=== PATIENT | female | born 1940 | race Caucasian/White ===

== ENCOUNTER 2017-03-11 08:48 | Observation (INO) | payer OTHER, MEDICARE ==
[2017-03-11 08:50] VITALS: BMI 25.6
[2017-03-11] MEDS ORDERED: ASPIRIN 325 MG TABLET PO ONE (09:46)
[2017-03-11] MEDS ORDERED: ASPIRIN 325 MG TABLET ONE (09:49)
--- NOTE | 2017-03-11 09:55 | PDOC ---
History of Present Illness <Nathalia Angulo - Last Filed: 03/11/17 12:39> <Theodore Pemberton - Last Filed: 03/11/17 12:48> - General Chief Complaint: Chest Pain Stated Complaint: CHEST PAIN Time Seen by Provider: 03/11/17 09:33 - History of Present Illness Initial Comments: 03/11/17 10:10 "76 year old female, with significant past medical history of renal cancer (s/p cystectomy with urostomy bag) and HTN, who presents to the emergency room complaining of 4 days of intermittent midsternal chest pain. The patient explains that over the past 4 days, she cannot walk as far and fast as she normally can due to CHAPPELL. She explains that she walks her dogs everyday and had to shorten the walk by half due to weakness and increased shortness of breath. Pt states that the pressure in her chest is also worsened with exertion. Pt also endorses orthopnea but denies any leg swelling. She has chronic RLE swelling that she states is unchanged. Pt denies any recent travel/ immobilization. Has had US in the past that was negative for DVT. Pt states that she feels minimal chest discomfort while at rest. Pt states that she has never had a stress test. Family history notable for grandmother who of heart failure. Denies leg swelling. Denies fever, chills, nausea, vomiting, abdominal pain. Denies heavy lifting. Allergies: NKDA Social Hx: Former tobacco use. No alcohol use. No drug use PCP: Dr. Pearson Urologist: Dr. Diez Manager Advertising: Dr. Samano [located in ] "\\ 03/11/17 11:18 (Theodore Pemberton) Past History <Nathalia Angulo - Last Filed: 03/11/17 12:39> - Past Medical History Anemia: No Asthma: No Cancer: Yes (BLADDER, KIDNEY) Cardiac Disorders: No CVA: No COPD: No CHF: No Dementia: No Diabetes: No GI Disorders: No Disorders: No HTN: No Hypercholesterolemia: No Liver Disease: No Seizures: No Thyroid Disease: No Other medical history: UROSTOMY TUBE - Surgical History Abdominal Surgery: No Cardiac Surgery: No Lung Surgery: No Neurologic Surgery: No - Suicide/Smoking/Psychosocial Hx Smoking History: Never smoked Have you smoked in the past 12 months: No If you are a former smoker, when did you quit?: 40 YRS AGO Hx Alcohol Use: No Drug/Substance Use Hx: No Substance Use Type: None Hx Substance Use Treatment: No <Theodore Pemberton - Last Filed: 03/11/17 12:48> - Past Medical History Allergies/Adverse Reactions: Allergies Allergy/AdvReac Type Severity Reaction Status Date / Time No Known Drug Allergies Allergy Verified 03/11/17 08:50 Home Medications: Ambulatory Orders Atenolol [Tenormin -] 25 mg PO DAILY 03/11/17 Diclofenac Sodium [Diclofenac Sodium ER] 100 mg PO DAILY 03/11/17 Cardiac Specific PMH - Complaint Specific PMHX Pacemaker: No <Theodore Pemberton - Last Filed: 03/11/17 12:48> Review of Systems <Nathalia Angulo - Last Filed: 03/11/17 12:39> <Theodore Pemberton - Last Filed: 03/11/17 12:48> - Review of Systems Comments:: 03/11/17 10:11 "GENERAL/CONSTITUTIONAL: No fever or chills. No weakness. HEAD, EYES, EARS, NOSE AND THROAT: No change in vision. No ear pain or discharge. No sore throat. CARDIOVASCULAR: +chest pain, SOB RESPIRATORY: No cough, wheezing, or hemoptysis. GASTROINTESTINAL: No nausea, vomiting, diarrhea or constipation. GENITOURINARY: No dysuria, frequency, or change in urination. MUSCULOSKELETAL: No joint or muscle swelling or pain. No neck or back pain. SKIN: No rash NEUROLOGIC: No headache, vertigo, loss of consciousness, or change in strength/ sensation. ENDOCRINE: No increased thirst. No abnormal weight change. HEMATOLOGIC/LYMPHATIC: No anemia, easy bleeding, or history of blood clots. ALLERGIC/IMMUNOLOGIC: No hives or skin allergy. " (Theodore Pemberton) *Physical Exam <Nathalia Angulo - Last Filed: 03/11/17 12:39> <Theodore Pemberton - Last Filed: 03/11/17 12:48> - Vital Signs Last Vital Signs Temp Pulse Resp BP Pulse Ox 63 20 152/97 99 03/11/17 08:48 03/11/17 08:48 03/11/17 08:48 03/11/17 08:48 - Physical Exam Comments: 03/11/17 10:12 "GENERAL: Awake, alert, and fully oriented, in no acute distress HEAD: No signs of trauma EYES: PERRLA, EOMI, sclera anicteric, conjunctiva clear ENT: Auricles normal inspection, hearing grossly normal, nares patent, oropharynx clear without exudates. Moist mucosa NECK: Nontender, no stepoffs, Normal ROM, supple, no lymphadenopathy, JVD, or masses LUNGS: Breath sounds equal, clear to auscultation bilaterally. No wheezes, and no crackles HEART: Regular rate and rhythm, normal S1 and S2, no murmurs, rubs or gallops ABDOMEN: Soft, nontender, normoactive bowel sounds. No guarding, no rebound. No masses EXTREMITIES: +1 RLE PE, Normal range of motion, no edema. No clubbing or cyanosis. No cords, erythema, or tenderness NEUROLOGICAL: Cranial nerves II through XII intact. 5/5 strength and sensation in all extremities, Normal speech, normal gait SKIN: Warm, Dry, normal turgor, no rashes or lesions noted. " (Theodore Pemberton) Heart Score/ECG Review <Nathalia Angulo - Last Filed: 03/11/17 12:39> - History History: Moderately suspicious - Electrocardiogram EKG: Normal - Age Age: >/= 65 - Risk Factors Risk Factors Heart Score: Yes Hx Hypertension, Yes Positive family hx of cardiac disease Based on the list above the patient has:: 1-2 risk factors - Troponin Troponin: </= normal limit - Score Heart Score - Total: 4 <Theodore Pemberton - Last Filed: 03/11/17 12:48> - ECG Impressions Comment:: 03/11/17 09:51 NSR, no MARLON/STDs, TWI in III, DE prolonged 244, QTc 420, left axis deviation (Theodore Pemberton) ED Treatment Course - LABORATORY CBC & Chemistry Diagram: 03/11/17 09:30 03/11/17 09:35 <Nathalia Angulo - Last Filed: 03/11/17 12:39> - LABORATORY CBC & Chemistry Diagram: 03/11/17 09:30 03/11/17 09:35 <Theodore Pemberton - Last Filed: 03/11/17 12:48> - ADDITIONAL ORDERS Additional order review: Laboratory Results 03/11/17 03/11/17 09:40 09:35 Sodium 137 Potassium 5.2 H Chloride 106 Carbon Dioxide 22 Anion Gap 9 BUN 47 H D Creatinine 2.7 H D Creat Clearance w eGFR 17.23 Random Glucose 98 Calcium 8.5 Total Bilirubin 0.3 D AST 5 L D ALT 11 L D Alkaline Phosphatase 85 D Troponin I < 0.02 B-Natriuretic Peptide Cancelled 1385.22 H Total Protein 6.7 Albumin 3.1 L Lipase 108 03/11/17 09:30 RBC 4.31 MCV 80.2 MCHC 31.4 L RDW 13.1 MPV 8.9 Neutrophils % 71.9 D Lymphocytes % 16.9 D Monocytes % 9.4 Eosinophils % 1.1 Basophils % 0.7 - RADIOLOGY Radiology Studies Ordered: Category Date Time Status DUPLEX VASCUL US-1 LEG [US] Stat Ultrasound 03/11/17 09:55 Completed Radiograph Interpretation: 03/11/17 10:43 EXAM#: TYPE/EXAM: RESULT: [id number] RAD/CHEST PA LAT Chest pain. 2 views of the chest compared with March 17, 2016. Midline trachea. No evidence of widening of the superior mediastinum. Uncoiled thoracic aorta. No evidence of cardiomegaly. Lungs are well aerated. No evidence of pneumonia, CHF, pleural effusion or pneumothorax. Impression No evidence of active pulmonary disease. Reported By: Ezequiel Nava MD 03/11/17 1030 03/11/17 12:39 EXAM#: TYPE/EXAM: RESULT: [id number] US/DUPLEX VASCUL US-1 LEG Right lower extremity swelling. Rule out DVT Right lower extremity Doppler venous ultrasound. Grayscale, pulsed Doppler and color Doppler interrogation of the right lower extremity deep venous system was performed. The right common femoral vein, superficial femoral vein, popliteal and posterior tibial vein were identified with a normal phasic waveform, adequate compressibility and adequate response to augmentation. Visualized portion of the greater saphenous and deep femoral vein are patent No Fontanez's cyst is identified in the popliteal fossa. Impression: There is no evidence of deep venous thromboses in the right lower extremity. Reported By: Haydee Elliott MD 03/11/17 1130 (Nathalia Angulo) - Medications Given in the ED: ED Medications Discontinued Medications Generic Name Dose Route Start Last Admin Trade Name Jas PRN Reason Stop Dose Admin Aspirin 325 mg 03/11/17 09:46 03/11/17 09:51 Asa - PO 03/11/17 09:47 325 mg ONCE ONE Administration Sodium Chloride 500 mls @ 1,000 mls/hr 03/11/17 11:18 03/11/17 11:55 Normal Saline - IV 03/11/17 11:47 1,000 mls/hr ASDIR STA Administration Medical Decision Making <aNthalia Angulo - Last Filed: 03/11/17 12:39> <Theodore Pemberton - Last Filed: 03/11/17 12:48> - Medical Decision Making 03/11/17 09:52 76 F with exertional chest pressure and CHAPPELL. EKG nonischemic, but presentation concerning for ACS. Pt with no pleuritic chest pain, no hypoxia or tachycardia to suggest PE. Has chronic RLE swelling that is reportedly unchanged but will obtain US to r/o DVT. If positive, will consider CTA to r/o PE. - Labs, trop - CXR - US RLE - Admit tele 03/11/17 12:47 CBC,CMP WBC 14.2 K/mm3 (4.0-10.0) H D 03/11/17 09:30 RBC 4.31 M/mm3 (3.60-5.2) 03/11/17 09:30 Hgb 10.9 GM/dL (10.7-15.3) 03/11/17 09:30 Hct 34.6 % (32.4-45.2) 03/11/17 09:30 MCV 80.2 fl (80-96) 03/11/17 09:30 MCH 25.2 pg (25.7-33.7) L 03/11/17 09:30 MCHC 31.4 g/dl (32.0-36.0) L 03/11/17 09:30 RDW 13.1 % (11.6-15.6) 03/11/17 09:30 Plt Count 346 K/MM3 (134-434) D 03/11/17 09:30 MPV 8.9 fl (7.5-11.1) 03/11/17 09:30 Neutrophils % 71.9 % (42.8-82.8) D 03/11/17 09:30 Lymphocytes % 16.9 % (8-40) D 03/11/17 09:30 Monocytes % 9.4 % (3.8-10.2) 03/11/17 09:30 Eosinophils % 1.1 % (0-4.5) 03/11/17 09:30 Basophils % 0.7 % (0-2.0) 03/11/17 09:30 Sodium 137 mmol/L (136-145) 03/11/17 09:35 Potassium 5.2 mmol/L (3.5-5.1) H 03/11/17 09:35 Chloride 106 mmol/L (98-107) 03/11/17 09:35 Carbon Dioxide 22 mmol/L (21-32) 03/11/17 09:35 Anion Gap 9 (8-16) 03/11/17 09:35 BUN 47 mg/dL (7-18) H D 03/11/17 09:35 Creatinine 2.7 mg/dL (0.55-1.02) H D 03/11/17 09:35 Creat Clearance w eGFR 17.23 (>60) 03/11/17 09:35 Random Glucose 98 mg/dL (74-106) 03/11/17 09:35 Calcium 8.5 mg/dL (8.5-10.1) 03/11/17 09:35 Total Bilirubin 0.3 mg/dL (0.2-1.0) D 03/11/17 09:35 AST 5 U/L (15-37) L D 03/11/17 09:35 ALT 11 U/L (12-78) L D 03/11/17 09:35 Alkaline Phosphatase 85 U/L (45-117) D 03/11/17 09:35 Troponin I < 0.02 ng/ml (0.00-0.05) 03/11/17 09:35 B-Natriuretic Peptide Cancelled 03/11/17 09:40 Total Protein 6.7 g/dl (6.4-8.2) 03/11/17 09:35 Albumin 3.1 g/dl (3.4-5.0) L 03/11/17 09:35 Lipase 108 U/L (73-393) 03/11/17 09:35 Labs notable for MANDY with Cr up to 2.7, previously <2. IVF ordered. Pt with negative troponin. Pt admitted to Dr. Pearson for further evaluation of chest pain and MANDY. Case discussed in detail with admitting physician including history, physical exam and ancillary studies. Admitting physician has assumed care for the patient and will follow all pending diagnostics and complete the evaluation and treatment. (Theodore Pemberton) *DC/Admit/Observation/Transfer <Nathalia Angulo - Last Filed: 03/11/17 12:39> - Discharge Dispostion Admit: Yes <Theodore Pemberton - Last Filed: 03/11/17 12:48> Diagnosis at time of Disposition: Chest pain, MANDY (acute kidney injury) - Attestations Physician Attestion: 03/11/17 12:48 I, Dr. Theodore Pemberton MD, attest that this document has been prepared under my direction and personally reviewed by me in its entirety. I further attest, that it accurately reflects all work, treatment, procedures and medical decision -making performed by me. (Theodore Pemberton)
[2017-03-11 10:29] LABS: BASOPHIL 0.7 % (0-2.0); EOSINOPHIL 1.1 % (0-4.5); MCH 25.2 pg (25.7-33.7); MCHC 31.4 g/dl (32.0-36.0); MEAN CELL VOLUME 80.2 fl (80-96); MEAN PLT VOLUME 8.9 fl (7.5-11.1); NEUTROPHILS 71.9 % (42.8-82.8); PLATELET COUNT 346 K/MM3 (134-434); RDW 13.1 % (11.6-15.6); WHITE BLOOD COUNT 14.2 K/mm3 (4.0-10.0)
[2017-03-11 10:57] LABS: ALBUMIN 3.1 g/dl (3.4-5.0); ANION GAP 9 (8-16); CALCIUM 8.5 mg/dL (8.5-10.1); CO2 22 mmol/L (21-32); GLUCOSE,RANDOM 98 mg/dL (74-106)
[2017-03-11 11:03] LABS: ALK PHOS 85 U/L (45-117); BILIRUBIN,TOTAL 0.3 mg/dL (0.2-1.0); CREATININE 2.7 mg/dL (0.55-1.02); SGOT/AST 5 U/L (15-37); SGPT/ALT 11 U/L (12-78); TOT PROT 6.7 g/dl (6.4-8.2); TROPONIN I < 0.02 ng/ml (0.00-0.05)
[2017-03-11] MEDS ORDERED: SODIUM CHLORIDE 500 ML IV STA (11:18)
--- NOTE | 2017-03-11 12:55 | EKG ---
Test Reason : Blood Pressure : / mmHG Vent. Rate : 057 BPM Atrial Rate : 057 BPM P-R Int : 244 ms QRS Dur : 096 ms QT Int : 432 ms P-R-T Axes : 054 -46 016 degrees QTc Int : 420 ms SINUS BRADYCARDIA WITH 1ST DEGREE A-V BLOCK LEFT ANTERIOR FASCICULAR BLOCK ABNORMAL ECG WHEN COMPARED WITH ECG OF 17-MAR-2016 12:01, PREMATURE SUPRAVENTRICULAR COMPLEXES ARE NO LONGER PRESENT Confirmed by ROBERT WEBBER MD ([id number]) on 03/11/2017 12:54:39 PM Referred By: Confirmed By:ROBERT WEBBER MD
[2017-03-11 16:27] LABS: URINE APPEARANCE TURBID; URINE BILIRUBIN NEGATIVE (NEGATIVE); URINE BLOOD 2+ (NEGATIVE); URINE COLOR YELLOW; URINE GLUCOSE (UA) NEGATIVE (NEGATIVE); URINE KETONE NEGATIVE (NEGATIVE); URINE NITRITE NEGATIVE (NEGATIVE); URINE UROBILINOGEN NEGATIVE mg/dL (0.2-1.0)
[2017-03-11 16:54] LABS: URINE PROTEIN 2+ (NEGATIVE)
[2017-03-11 17:01] LABS: URINE BACTERIA RARE /hpf (NONE SEEN); URINE MUCUS RARE; URINE RBC 52 /hpf (0-3); URINE WBC 1824 /hpf (3-5)
[2017-03-11 19:56] LABS: URINE LEUK ESTERASE 3+ (NEGATIVE)
--- NOTE | 2017-03-11 21:08 | HP ---
Admitting History and Physical - Admission Chief Complaint: chest pain for 4 days History of Present Illness: 76 year old female, with significant past medical history of bladder cancer (s/ p cystectomy with urostomy bag) and HTN, who presents to the emergency room complaining of 4 days of intermittent midsternal chest pain. The patient explains that over the past 4 days, she cannot walk as far and fast as she normally can due to CHAPPELL. She explains that she walks her dogs everyday and had to shorten the walk by half due to weakness and increased shortness of breath. Pt states that the pressure in her chest is also worsened with exertion. Pt also endorses orthopnea but denies any leg swelling. She has chronic RLE swelling that she states is unchanged. Pt denies any recent travel/ immobilization. Has had US in the past that was negative for DVT. Pt states that she feels minimal chest discomfort while at rest. History Source: Patient, Medical Record Limitations to Obtaining History: No Limitations - Past Medical History BOOTH USHER: No: Alzheimer's, CVA, Dementia, Migraine, Multiple Sclerosis, Peripheral Neuropathy, Parkinson's, Seizure, Syncope, TIA, Vertigo, Other Cardiovascular: Yes: HTN Pulmonary: No: Asthma, Bronchitis, Cancer, COPD, O2 Dependent, Pneumonia, Previously Intubated, Pulmonary Embolus, Pulmonary Fibrosis, Sleep Apnea, Other Gastrointestinal: No: Ascites, Cancer, Constipation, Crohn's Disease, Diverticulitis, Diverticulosis, Esophageal Varices, Gastritis, GERD, GI Bleed, Hemorrhoids, Hiatal Hernia, Inflamatory Bowel Disease, Irritable Bowel Disease, Pancreatitis, Peptic Ulcer Disease, Ulcerative Colitis, Other Hepatobiliary: No: Cirrhosis, Cholelithiasis, Cholecystitis, Choledocholithiasis , Hepatitis A, Hepatitis B, Hepatitis C, Other Renal/: Yes: Renal Inusuff, Cancer, Other (bladder ca s/p cystectomy) Heme/Onc: Yes: Anemia Infectious Disease: No: AIDS, C-Diff, Herpes Zoster, HIV, MRSA, STD's, Tuberculosis, VREF, Other Psych: No: Addictions, Anxiety, Bipolar, Depression, Panic, Psychosis, Schizophrenia, Other Musculoskeletal: No: Bursitis, Chronic low back pain, Hemiparesis, Hemiplegia, Osteoarthritis, Paraplegia, Other Rheumatology: No: Fibromyalgia, Gout, Lupus, Rheumatoid Arthritis, Sarcoidosis, Vasculitis, Other ENT: No: Allergic Rhinitis, Sinusitis, Other Endocrine: No: [place]'s Disease, Christine's Disease, Diabetes Insipidus, Diabetes Mellitus, Hyperparathyroidism, Hyperthyroidism, Hypothyroidism, Osteopenia, SIADH, Other - Past Surgical History Past Surgical History: Yes: Cystectomy - Smoking History Smoking history: Never smoked Have you smoked in the past 12 months: No If you are a former smoker, when did you quit?: 40 YRS AGO - Alcohol/Substance Use Hx Alcohol Use: No History of Substance Use: reports: None - Social History Usual Living Arrangement: Yes: Alone ADL: Independent History of Recent Travel: No Home Medications - Allergies Allergies/Adverse Reactions: Allergies Allergy/AdvReac Type Severity Reaction Status Date / Time No Known Drug Allergies Allergy Verified 03/11/17 08:50 - Home Medications Home Medications: Ambulatory Orders Ascorbate Calcium [Vitamin C] 500 mg PO DAILY 03/11/17 Atenolol [Tenormin -] 25 mg PO DAILY 03/11/17 Calcium Carbonate [Calcium] 1,000 mg PO DAILY 03/11/17 Diclofenac Sodium [Diclofenac Sodium ER] 100 mg PO HS 03/11/17 Glucosa López 2Kcl/Chondroitin López [Glucosamine & Chondroitin Cap] 1 each PO DAILY 03/11/17 Family Disease History - Family Disease History Family History: Unremarkable Review of Systems - Review of Systems Cardiovascular: reports: Chest Pain, Shortness of Breath Respiratory: reports: Exercise Intolerance, Orthopnea Gastrointestinal: reports: No Symptoms Genitourinary: reports: No Symptoms Breasts: reports: No Symptoms Reported Musculoskeletal: reports: No Symptoms Integumentary: reports: No Symptoms Neurological: reports: No Symptoms Physical Examination Vital Signs: Vital Signs Temperature 98.9 F 03/11/17 20:33 Pulse Rate 60 03/11/17 20:33 Respiratory Rate 18 03/11/17 20:33 Blood Pressure 133/66 03/11/17 20:33 O2 Sat by Pulse Oximetry (%) 98 03/11/17 14:50 Constitutional: Yes: Calm Eyes: Yes: EOM Intact HENT: Yes: Normocephalic Neck: Yes: Trachea Midline Cardiovascular: Yes: Regular Rate and Rhythm, S1, S2 Respiratory: Yes: Regular Gastrointestinal: Yes: Normal Bowel Sounds ...Rectal Exam: Yes: Deferred Musculoskeletal: Yes: WNL Extremities: Yes: WNL Edema: LLE: Trace, RLE: 1+ Integumentary: Yes: WNL Neurological: Yes: WNL ...Motor Strength: WNL Psychiatric: Yes: WNL Labs: CBC, BMP 03/11/17 09:30 03/11/17 09:35 Imaging - Results Chest X-ray: Report Reviewed, Image Reviewed EKG: Report Reviewed, Image Reviewed Problem List - Problems (1) MANDY (acute kidney injury) Code(s): N17.9 - ACUTE KIDNEY FAILURE, UNSPECIFIED (2) Chest pain Code(s): R07.9 - CHEST PAIN, UNSPECIFIED (3) Chest tightness Code(s): R07.89 - OTHER CHEST PAIN Assessment/Plan Well known by our service :4 days of midsternal chest tightness more with exertion and associated with worsening chappell. pt also states chest pain is worse when lying down and relieved somewhat by sitting upright ( orthopnea?) r/o unstable angina elevated bnp likely due to underlying worsening renal insufficiency h/o carcinoma s/p total cystectomy have ordered echo/ct chest/serial trops/ekg am/cardio eval/have begun toprol xl/ asa/o2/ renal eval/b/l renal ultrasound/IV fluid trial Dacia MEZA MD
[2017-03-11 23:00] LABS: CPK 26 IU/L (26-192); TROPONIN I < 0.02 ng/ml (0.00-0.05)
--- NOTE | 2017-03-12 08:51 | CON.CARD ---
Cardiology Consult (text) - Consultation Consultation Note: Cardiology Consult Dictated IMP: Atypical chest pain Chronic HTN H/o bladder CA s/p cystectomy REC: Her description of the pain is non-cardiac: positional and non-exertional and now completely resolved after a bowel movement yesterday. Doubt cardiac. Low clinical suspicion for PE. Recommend stress MIBI today for further CV risk stratification (HTN, post- menopausal, age >50, former smoker)
[2017-03-12] MEDS ORDERED: ASPIRIN COATED 81 MG TABLET.EC PO SCH (10:00)
--- NOTE | 2017-03-12 10:23 | CONS ---
DATE OF CONSULTATION: 03/12/2017 REQUESTING PHYSICIAN: Luis Antonio Pearson MD REASON FOR CONSULTATION: Chest pain. HISTORY OF PRESENT ILLNESS: This is a 76-year-old female with past medical history of hypertension and bladder cancer status post cystectomy and hysterectomy several years ago, who presented to the hospital with several days of central chest tightness, worse when lying down, alleviated when standing up. She noted several days of constipation prior to that. She denies exertional chest pain, shortness of breath, palpitations, PND, orthopnea. No recent prolongated travel. The discomfort was relieved completely yesterday after a large bowel movement. She walks her dog regularly about 3 times per day and denies cardiac symptoms. She has not had a stress test in the last 3-5 years, although she did see a industrial design intern at [facility] prior to her cystectomy. PAST MEDICAL HISTORY: Is as above. ALLERGIES: She has no known drug allergies. HOME MEDICATIONS: Include vitamin C, atenolol 25 mg daily. FAMILY HISTORY: Noncontributory. SOCIAL HISTORY: She smoked briefly between the ages of 22 and 27, quit at the age of 27. PHYSICAL EXAMINATION: General: She is in no distress. Vital signs: Temperature 98.1, blood pressure 121/64, oxygen saturation 98% on room air. Neck: No bruits. Heart: S1, S2 regular. Chest: Clear. Abdomen: Soft, nontender. Extremities: No edema. LABORATORIES: Were significant for a white count of 14,000, platelets 346, hematocrit was normal. Sodium 137, potassium 5.2, BUN and creatinine showed a prerenal pattern with a BUN of 47, creatinine of 2.7. CK and troponin were negative x2 sets. BNP was mildly elevated 1385. A chest CT without contrast was performed on admission and showed mildly dilated pulmonary artery 3.5 cm. Lower extremity duplex was performed and was negative for DVT. There was no evidence of pneumonia or pulmonary edema. There was a 2-mm non-calcified right upper lung nodule. There was also moderate right hydronephrosis with a distended renal pelvis and a dilated aortic arch of 3.5. Her EKG showed sinus bradycardia, 1st degree AV block with nonspecific ST changes. IMPRESSION: 1. Atypical chest pain. 2. Chronic hypertension. 3. History of bladder cancer status post cystectomy. Her cardiac symptoms appear to be non-cardiac, positional and non-exertional in nature, almost completely resolved after a bowel movement. RECOMMENDATIONS: 1. In light of her several risk factors (postmenopausal status, hypertension, and former smoker), stress test will be obtained today for further risk stratification and further recommendations regarding discharge after the stress test. 2. Further workup of renal insufficiency, which is likely prerenal, as per primary medical doctor. 3. Hydronephrosis noted on CT scan, may be chronic and a result of her previous surgery - That will be deferred to her primary physician. Thank you for the consultation. MIREILLE HANNON M.D. [id number]
--- NOTE | 2017-03-12 11:08 | CON.NEP ---
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 It is associated with SOB and weakness when walking. She states that the pain started 5 days ago, constant, diffuse, radiating to the back. She states that the pain improved with BM last night. The pt followed Dr. Longo-manager film for some time in the past. She denies abdominal pain, dizziness, lightheadedness. She denies change in colon of her urine in urostomy bag, fever, chills. - Past Medical History SOLUTION ANALYST: No: Alzheimer's, CVA, Dementia, Migraine, Multiple Sclerosis, Peripheral Neuropathy, Parkinson's, Seizure, Syncope, TIA, Vertigo, Other Cardio/Vascular: Yes: HTN Pulmonary: No: Asthma, Bronchitis, Cancer, COPD, O2 Dependent, Pneumonia, Previously Intubated, Pulmonary Embolus, Pulmonary Fibrosis, Sleep Apnea, Other Gastrointestinal: No: Ascites, Cancer, Constipation, Crohn's Disease, Diverticulitis, Diverticulosis, Esophageal Varices, Gastritis, GERD, GI Bleed, Hemorrhoids, Hiatal Hernia, Inflamatory Bowel Disease, Irritable Bowel Disease, Pancreatitis, Peptic Ulcer Disease, Ulcerative Colitis, Other Hepatobiliary: No: Cirrhosis, Cholelithiasis, Cholecystitis, Choledocholithiasis , Hepatitis A, Hepatitis B, Hepatitis C, Other Renal/: Yes: Renal Inusuff, Cancer, Other (bladder ca s/p cystectomy) Infectious Disease: No: AIDS, C-Diff, Herpes Zoster, HIV, MRSA, STD's, Tuberculosis, VREF, Other Psych: No: Addictions, Anxiety, Bipolar, Depression, Panic, Psychosis, Schizophrenia, Other Musculoskeletal: No: Bursitis, Chronic low back pain, Hemiparesis, Hemiplegia, Osteoarthritis, Paraplegia, Other Rheumatology: No: Fibromyalgia, Gout, Lupus, Rheumatoid Arthritis, Sarcoidosis, Vasculitis, Other ENT: No: Allergic Rhinitis, Sinusitis, Other Endocrine: No: Cholo's Disease, Linch's Disease, Diabetes Insipidus, Diabetes Mellitus, Hyperparathyroidism, Hyperthyroidism, Hypothyroidism, Osteopenia, SIADH, Other - Past Surgical History Past Surgical History: Yes: Cystectomy, Nephrectomy - Alcohol/Substance Use Hx Alcohol Use: No History of Substance Use: reports: None - Smoking History Smoking history: Never smoked Have you smoked in the past 12 months: No If you are a former smoker, when did you quit?: 40 YRS AGO - Social History ADL: Independent History of Recent Travel: No Home Medications - Allergies Allergies/Adverse Reactions: Allergies Allergy/AdvReac Type Severity Reaction Status Date / Time No Known Drug Allergies Allergy Verified 03/11/17 08:50 - Home Medications Home Medications: Ambulatory Orders Ascorbate Calcium [Vitamin C] 500 mg PO DAILY 03/11/17 Atenolol [Tenormin -] 25 mg PO DAILY 03/11/17 Calcium Carbonate [Calcium] 1,000 mg PO DAILY 03/11/17 Diclofenac Sodium [Diclofenac Sodium ER] 100 mg PO HS 03/11/17 Glucosa López 2Kcl/Chondroitin López [Glucosamine & Chondroitin Cap] 1 each PO DAILY 03/11/17 Family Disease History - Family Disease History Family Disease History: Other: Father (prostate Ca), Mother (CHF) Review of Systems - Review of Systems Constitutional: reports: No Symptoms Eyes: reports: No Symptoms HENT: reports: No Symptoms Neck: reports: No Symptoms Cardiovascular: reports: No Symptoms Respiratory: reports: No Symptoms Gastrointestinal: reports: No Symptoms Genitourinary: reports: No Symptoms Musculoskeletal: reports: No Symptoms Neurological: reports: No Symptoms Endocrine: reports: No Symptoms Psychiatric: reports: No Symptoms Nephrology Consult - Height Height: 5 ft 2 in - Weight Weight: 140 lb - BMI Body Mass Index (BMI): 25.6 - Lab Results CBC,BMP: CBC, BMP 03/11/17 09:30 03/11/17 09:35 Anion Gap: Anion Gap Anion Gap 9 (8-16) 03/11/17 09:35 - Physical Examination Vital Signs: Vital Signs Temperature 98.2 F 03/12/17 09:00 Pulse Rate 72 03/12/17 09:00 Respiratory Rate 14 03/12/17 09:00 Blood Pressure 140/70 03/12/17 09:00 O2 Sat by Pulse Oximetry (%) 98 03/12/17 09:00 Constitutional: Yes: Well Nourished, No Distress, Calm Eyes: Yes: WNL, Conjunctiva Clear, EOM Intact, PERRL HENT: Yes: WNL, Atraumatic, Normocephalic Neck: Yes: WNL, Supple, Trachea Midline Cardiovascular: Yes: WNL, Regular Rate and Rhythm, S1, S2. No: Murmur Respiratory: Yes: WNL, Regular, CTA Bilaterally Gastrointestinal: Yes: WNL, Normal Bowel Sounds, Soft, Other (urostomy in RLQ) Renal/: Yes: Other (urostomy). No: CVA Tenderness - Left, CVA Tenderness - Right Extremities: Yes: WNL Edema: Yes Edema: LLE: 1+, RLE: 1+ Neurological: Yes: WNL, Alert, Oriented Psychiatric: Yes: WNL, Alert, Oriented Problem List - Problems (1) Hypertension Code(s): I10 - ESSENTIAL (PRIMARY) HYPERTENSION (2) Cancer of genitourinary organ Code(s): PKC2436 - (3) MANDY (acute kidney injury) Code(s): N17.9 - ACUTE KIDNEY FAILURE, UNSPECIFIED (4) Chest pain Code(s): R07.9 - CHEST PAIN, UNSPECIFIED (5) Chest tightness Code(s): R07.89 - OTHER CHEST PAIN Assessment/Plan This is a pt with PMH of Ca, s/p resection, HTN who presented to the hospital complaining of chest tightness. She was found to have MANDY. 1AKI 2chest tightness 3HTN -Cr increased to 2.7 from 1.7 about month ago -will monitor Cr later today and f/u renal US -avoid NSAIDS and f/u as outpatient -cardiac stress test was negative, continue Atenolol Thank you for this consultative opportunity.
--- NOTE | 2017-03-12 12:54 | EKG ---
Test Reason : Blood Pressure : / mmHG Vent. Rate : 067 BPM Atrial Rate : 067 BPM P-R Int : 214 ms QRS Dur : 092 ms QT Int : 414 ms P-R-T Axes : 063 -42 -01 degrees QTc Int : 437 ms SINUS RHYTHM WITH 1ST DEGREE A-V BLOCK WITH PREMATURE ATRIAL COMPLEXES LEFT AXIS DEVIATION ABNORMAL ECG WHEN COMPARED WITH ECG OF 11-MAR-2017 08:52, PREMATURE ATRIAL COMPLEXES ARE NOW PRESENT Confirmed by ABEL FAITH, LUCAS ([id number]) on 03/12/2017 12:54:26 PM Referred By: Confirmed By:LUCAS ROMAN MD
[2017-03-12] MEDS: METOPROLOL SUCCINATE 25 MG TAB.SR.24H (FP) PO SCH ×2 (14:11→14:17)
--- NOTE | 2017-03-12 15:06 | DS ---
Physical Examination Vital Signs: Vital Signs Temperature 98.2 F 03/12/17 09:00 Pulse Rate 72 03/12/17 09:00 Respiratory Rate 14 03/12/17 09:00 Blood Pressure 140/70 03/12/17 09:00 O2 Sat by Pulse Oximetry (%) 98 03/12/17 09:00 Constitutional: Yes: Calm Eyes: Yes: Conjunctiva Clear, EOM Intact HENT: Yes: Atraumatic, Normocephalic Neck: Yes: Supple, Trachea Midline Cardiovascular: Yes: Regular Rate and Rhythm Respiratory: Yes: Regular, CTA Bilaterally Gastrointestinal: Yes: Normal Bowel Sounds, Soft. No: Tenderness Edema: No Neurological: Yes: Alert, Oriented Labs: CBC, BMP 03/11/17 09:30 03/11/17 09:35 Discharge Summary Reason For Visit: CHEST TIGHTNESS Current Active Problems MANDY (acute kidney injury) (Acute) Cancer of genitourinary organ (Acute) Chest pain (Acute) Hypertension (Acute) Procedures: Principal: stress test Other Procedures: IVF Hospital Course: 76yo female with h/o HTN, bladder ca s/p cystectomy who was admitted after complaining of chest pain. Found to have acute on chronic renal failure with hyperkalemia. Started on IVF, underwent an exercise stress test which was negative for ischemic finding. CT chest unremarkable aside from a 3.5cm AAA. Renal ultrasound pending. Symptoms have since resolved. Repeat labs pending. Condition: Improved - Instructions Referrals: Luis Antonio Pearson MD [Primary Care Provider] - Miguel Angel Peace MD [Staff Physician] - Disposition: HOME - Home Medications Comprehensive Discharge Medication List: Ambulatory Orders Ascorbate Calcium [Vitamin C] 500 mg PO DAILY 03/11/17 Atenolol [Tenormin -] 25 mg PO DAILY 03/11/17 Calcium Carbonate [Calcium] 1,000 mg PO DAILY 03/11/17 Diclofenac Sodium [Diclofenac Sodium ER] 100 mg PO HS 03/11/17 Glucosa López 2Kcl/Chondroitin López [Glucosamine & Chondroitin Cap] 1 each PO DAILY 03/11/17
[2017-03-12 15:27] VITALS: BP 119/69; PULSE 93; TEMP 98
--- NOTE | 2017-03-12 15:28 | PN ---
Teaching Attending Note Name of Resident: Ania Melgar (Nephrology) ATTENDING PHYSICIAN STATEMENT I saw and evaluated the patient. I reviewed the resident's note and discussed the case with the resident. I agree with the resident's findings and plan as documented. Nephrology Pt is a 76 year old female with pmhx of renal cancer s/p nephrectomy and cystectomy. She presented with chest pain and admitted for workup. She was found to have elevated creatinine and I was called to evaluate her. She takes nsaids daily. She has not followed with a bench lay out technician. She denies shortness of breath. She is requesting to go home. pmhx renal/bladder cancer, htn pshx nephrectomy, cystectomy nkda ros denies family hx non contrib Current Medications Generic Name Dose Route Start Last Admin Trade Name Freq PRN Reason Stop Dose Admin Aspirin 81 mg 03/12/17 10:00 03/12/17 14:12 Ecotrin - PO 81 mg DAILY RON Administration Metoprolol Succinate 12.5 mg 03/12/17 10:00 03/12/17 14:17 Toprol Xl - PO Not Given DAILY RON Laboratory Tests 03/11/17 03/11/17 03/11/17 09:30 09:35 15:59 WBC 14.2 H D Hgb 10.9 Sodium 137 Potassium 5.2 H BUN 47 H D Creatinine 2.7 H D Urine Protein 2+ H Urine Blood 2+ H Last Vital Signs Temp Pulse Resp BP Pulse Ox 98.2 F 72 14 140/70 98 03/12/17 09:00 03/12/17 09:00 03/12/17 09:00 03/12/17 09:00 03/12/17 09:00 cardio s1s2 reg pulm clear GI soft, conduit is clean ext trace edema neuro awake Impression 1. CKD 2. chest pain 3. hyperkalemia 4. htn 5. proteinuria 6. nsaid use Plan - repeat bmp - check renal ultrasound - pt refusing input workup and does not want to see anyone as outpt either - discussed NSAID use at length with pt, she takes them daily for joint pain - discussed with resident - discussed with medical team Dr Peace
[2017-03-12 16:56] LABS: ALBUMIN 3.2 g/dl (3.4-5.0); ALK PHOS 79 U/L (45-117); ANION GAP 9 (8-16); BILIRUBIN,TOTAL 0.2 mg/dL (0.2-1.0); CALCIUM 9.2 mg/dL (8.5-10.1); CO2 24 mmol/L (21-32); CREATININE 2.2 mg/dL (0.55-1.02); GLUCOSE,RANDOM 189 mg/dL (74-106); SGOT/AST 5 U/L (15-37); SGPT/ALT 10 U/L (12-78); TOT PROT 6.4 g/dl (6.4-8.2)
== END 2017-03-12 18:23 | disposition home or self-care (01) ==
LOC: JER 08:48 → JERBED 12:48 → J4W 16:18
PROVIDERS: ADMIT Specialist; ATTEND Specialist
PROC: 3E0337Z Introduction of Electrolytic and Water Balance Substance into Peripheral Vein, Percutaneous Approach (ICD-10-PCS; principal; 2017-03-11)
DX: R07.89 Other chest pain (principal); I12.9 Hypertensive chronic kidney disease with stage 1 through stage 4 chronic kidney disease, or unspecified chronic kidney disease; N18.9 Chronic kidney disease, unspecified; Z85.51 Personal history of malignant neoplasm of bladder; Z85.528 Personal history of other malignant neoplasm of kidney; Z82.49 Family history of ischemic heart disease and other diseases of the circulatory system; Z93.6 Other artificial openings of urinary tract status
CPT/HCPCS: 36415; 71020-TC; 71250-TC; 76775-TC; 78452-TC; 80048; 80053; 81003; 81015; 82550; 83690; 83880; 84484; 85025; 93005; 93010; 93017; 93306-TC; 93971-TC; 99285-25; A9502; G0378

== ENCOUNTER 2017-03-31 08:00 | Inpatient (IN) | payer OTHER, MEDICARE ==
--- NOTE | 2017-03-31 09:07 | PDOC ---
History of Present Illness - General History Source: Patient Exam Limitations: No Limitations - History of Present Illness Initial Comments: 03/31/17 10:00 The patient is a 76 year old female, with a significant past medical history of Bladder CA (s/p Cystectomy in 2016), Kidney CA (s/p L nephrectomy in 2014), HTN who presents to the emergency department with chest tightness and generalized weakness for the past 5 days. Patient was reports chest tightness upon exertion , 3/10 in severity with associated fatigue and generalized weakness. Patient was seen by Dr. Paris however was sent to the ED for further evaluation. Note, patient reports full cardiac workup 2-3 weeks ago including stress test and echocardiogram which was negative. Patient denies chest pain, headache or dizziness. Patient denies fever, chills, abdominal pain, nausea, vomit, diarrhea or constipation. Patient denies dysuria , frequency, urgency or hematuria. Patient denies sick contacts or recent travel. Allergies: NKA Past surgical history: Cystectomy in 2016, L nephrectomy in 2014) Social history: None PCP: Dr. Pearson Cardio: Raina Neph: Kobi <Nilsa Quinones - Last Filed: 03/31/17 10:21> <Clarice Kelley - Last Filed: 03/31/17 12:45> - General Chief Complaint: Chest Pain Stated Complaint: TIGHTNESS IN CHEST Time Seen by Provider: 03/31/17 08:32 Past History <Nilsa Quinones - Last Filed: 03/31/17 10:21> - Past Medical History Anemia: No Asthma: No Cancer: Yes (BLADDER, KIDNEY) Cardiac Disorders: No CVA: No COPD: No CHF: No Dementia: No Diabetes: No GI Disorders: No Disorders: No HTN: Yes Hypercholesterolemia: No Liver Disease: No Seizures: No Thyroid Disease: No - Surgical History Abdominal Surgery: No Cardiac Surgery: No Lung Surgery: No Neurologic Surgery: No - Suicide/Smoking/Psychosocial Hx Smoking History: Former smoker Have you smoked in the past 12 months: No If you are a former smoker, when did you quit?: 40 YRS AGO Information on smoking cessation initiated: No Hx Alcohol Use: No Drug/Substance Use Hx: No Substance Use Type: None Hx Substance Use Treatment: No <Clarice Kelley - Last Filed: 03/31/17 12:45> - Past Medical History Allergies/Adverse Reactions: Allergies Allergy/AdvReac Type Severity Reaction Status Date / Time No Known Drug Allergies Allergy Verified 03/31/17 08:01 Home Medications: Ambulatory Orders Ascorbate Calcium [Vitamin C] 500 mg PO DAILY 03/11/17 Atenolol [Tenormin -] 25 mg PO DAILY 03/11/17 Calcium Carbonate [Calcium] 1,000 mg PO DAILY 03/11/17 Diclofenac Sodium [Diclofenac Sodium ER] 100 mg PO HS 03/11/17 Glucosa López 2Kcl/Chondroitin López [Glucosamine & Chondroitin Cap] 1 each PO DAILY 03/11/17 Review of Systems - Review of Systems Able to Perform ROS?: Yes Comments:: 03/31/17 10:00 GENERAL/CONSTITUTIONAL: No fever or chills. +Generalized weakness. HEAD, EYES, EARS, NOSE AND THROAT: No change in vision. No ear pain or discharge. No sore throat. GASTROINTESTINAL: No nausea, vomiting, diarrhea or constipation. GENITOURINARY: No dysuria, frequency, or change in urination. CARDIOVASCULAR: +chest pain. No shortness of breath. RESPIRATORY: No cough, wheezing, or hemoptysis. MUSCULOSKELETAL: No joint or muscle swelling or pain. No neck or back pain. SKIN: No rash NEUROLOGIC: No headache, vertigo, loss of consciousness, or change in strength/ sensation. ENDOCRINE: No increased thirst. No abnormal weight change. HEMATOLOGIC/LYMPHATIC: No anemia, easy bleeding, or history of blood clots. ALLERGIC/IMMUNOLOGIC: No hives or skin allergy. <Nilsa Quinones - Last Filed: 03/31/17 10:21> *Physical Exam - Vital Signs Last Vital Signs Temp Pulse Resp BP Pulse Ox 98.1 F 69 19 111/62 99 03/31/17 08:02 03/31/17 08:02 03/31/17 08:02 03/31/17 08:02 03/31/17 08:31 - Physical Exam Comments: 03/31/17 10:00 GENERAL: Awake, alert, and fully oriented, in no acute distress HEAD: No signs of trauma EYES: PERRLA, EOMI, sclera anicteric, conjunctiva clear ENT: Auricles normal inspection, hearing grossly normal, nares patent, oropharynx clear without exudates. Moist mucosa NECK: Normal ROM, supple, no lymphadenopathy, JVD, or masses LUNGS: Breath sounds equal, clear to auscultation bilaterally. No wheezes, and no crackles HEART: Regular rate and rhythm, normal S1 and S2, no murmurs, rubs or gallops ABDOMEN: +Urostomy bag with cloudy urine output. Good urine output.Soft, nontender, normoactive bowel sounds. No guarding, no rebound. No masses EXTREMITIES: +Bilateral LE edema R greater than L. Normal range of motion. No clubbing or cyanosis. No cords, erythema, or tenderness NEUROLOGICAL: Cranial nerves II through XII grossly intact. Normal speech, normal gait SKIN: Warm, Dry, normal turgor, no rashes or lesions noted. <Nilsa Quinones - Last Filed: 03/31/17 10:21> - Vital Signs Last Vital Signs Temp Pulse Resp BP Pulse Ox 98.1 F 69 19 111/62 99 03/31/17 08:02 03/31/17 08:02 03/31/17 08:02 03/31/17 08:02 03/31/17 08:31 <Clarice Kelley - Last Filed: 03/31/17 12:45> ED Treatment Course - LABORATORY CBC & Chemistry Diagram: 03/31/17 08:50 03/31/17 09:09 - ADDITIONAL ORDERS Additional order review: Laboratory Results 03/31/17 09:09 Urine Color Doreen Urine Appearance Turbid Urine pH 6.0 Ur Specific [place] 1.012 Urine Protein 2+ H Urine Glucose (UA) Negative Urine Ketones Negative Urine Blood 2+ H Urine Nitrite Negative Urine Bilirubin Negative Urine Urobilinogen Negative Urine WBC (Auto) 2289 Urine RBC (Auto) 169 <Nilsa Quinones - Last Filed: 03/31/17 10:21> - LABORATORY CBC & Chemistry Diagram: 03/31/17 08:50 03/31/17 09:09 <Clarice Kelley - Last Filed: 03/31/17 12:45> Medical Decision Making - Medical Decision Making 03/31/17 10:21 Vandana-- paged via phone answering service. Awaiting call back. <Nilsa Quinones - Last Filed: 03/31/17 10:21> - Medical Decision Making 03/31/17 11:01 a/p: 76yo female sent in by Dr. Parsi for eval of chest pain -PMD is Dr. Pearson -hx of MANDY with worsening ckd as outpt -will repeat labs -hx of nephrectomy -will consult nephrology -will check UA/UCx -pt will need to be admitted 03/31/17 11:02 pt with WBC >2000 in UA hx of pseudomonas in past on cultures - will start abx -cloudy urine elevated WBC 03/31/17 11:02 elevated CR from last admission consults placed to DR. Paris, and Dr. Peace 03/31/17 12:43 case discussed with Shirley - accepts pt to service discussed case with Dr. Oneill who recommends consult to Dr. Pearson and admission to [facility] <Clarice Kelley - Last Filed: 03/31/17 12:45> *DC/Admit/Observation/Transfer - Attestations Scribe Attestion: 03/31/17 10:00 Documentation prepared by Nilsa Quinones, acting as medical equipment repairer for Clarice Kelley DO <Nilsa Quinones - Last Filed: 03/31/17 10:21> - Discharge Dispostion Admit: Yes - Attestations Physician Attestion: 03/31/17 12:44 I, Dr. Clarice Kelley DO, attest that this document has been prepared under my direction and personally reviewed by me in its entirety. I further attest, that it accurately reflects all work, treatment, procedures and medical decision -making performed by me. <Clarice Kelley - Last Filed: 03/31/17 12:45> Diagnosis at time of Disposition: Acute on chronic renal insufficiency, Chest pain - Discharge Dispostion Condition at time of disposition: Fair - Referrals Referrals: Luis Antonio Pearson MD [Primary Care Provider] - - Patient Instructions - Post Discharge Activity
[2017-03-31 09:29] LABS: URINE APPEARANCE TURBID; URINE BILIRUBIN NEGATIVE (NEGATIVE); URINE BLOOD 2+ (NEGATIVE); URINE COLOR AMBER; URINE GLUCOSE (UA) NEGATIVE (NEGATIVE); URINE KETONE NEGATIVE (NEGATIVE); URINE NITRITE NEGATIVE (NEGATIVE); URINE UROBILINOGEN NEGATIVE mg/dL (0.2-1.0)
[2017-03-31 09:34] LABS: URINE LEUK ESTERASE 3+ (NEGATIVE); URINE PROTEIN 2+ (NEGATIVE)
[2017-03-31 09:40] LABS: BASO % 0.7 % (0-2.0); EOS % 1.7 % (0-4.5); MCH 24.7 pg (25.7-33.7); MCHC 31.4 g/dl (32.0-36.0); MEAN CELL VOLUME 78.7 fl (80-96); MEAN PLT VOLUME 9.1 fl (7.5-11.1); NEUT % 74.7 % (42.8-82.8); PLATELET COUNT 356 K/MM3 (134-434); RDW 13.6 % (11.6-15.6); WHITE BLOOD COUNT 13.9 K/mm3 (4.0-10.0)
[2017-03-31 09:48] LABS: INR 1.15 (0.82-1.09)
[2017-03-31 09:51] LABS: ACTIVATED PTT 29.8 SECONDS (26.9-34.4)
[2017-03-31 09:57] LABS: URINE RBC 169 /hpf (0-3); URINE WBC 2289 /hpf (3-5)
[2017-03-31 10:03] LABS: ALBUMIN 3.2 g/dl (3.4-5.0); ANION GAP 9 (8-16); BILIRUBIN,TOTAL 0.4 mg/dL (0.2-1.0); CALCIUM 8.4 mg/dL (8.5-10.1); CO2 24 mmol/L (21-32); CREATININE 3.4 mg/dL (0.55-1.02); GLUCOSE,RANDOM 126 mg/dL (74-106); MAGNESIUM 2.5 mg/dL (1.8-2.4); SGPT/ALT 11 U/L (12-78); TOT PROT 6.6 g/dl (6.4-8.2)
[2017-03-31 10:06] LABS: ALK PHOS 90 U/L (45-117); CPK 31 IU/L (26-192); TROPONIN I < 0.02 ng/ml (0.00-0.05)
[2017-03-31 10:10] LABS: SGOT/AST 4 U/L (15-37)
[2017-03-31] MEDS ORDERED: SODIUM CHLORIDE 0.9% 1000 ML INFUS.BAG IV ONE (10:16)
--- NOTE | 2017-03-31 10:32 | PN ---
Progress Note, Physician Chief Complaint: Sent to ER for worsening exertional fatigue. History of Present Illness: 76 year female with a PMH of nephrostomy on left side due to Ca in 2014, cystectomy in 2015, s/p transurethral resection in November 2016, HTN. She was recently admitted with chest pain; ruled out for MT and underwent echo and nuclear stress test here which were normal except for mild PHTN. Chest CT was done without contrast that revealed a mildly dilated PA. Clinical suspicion for PE was low and thus a CTA was not performed- in addition, she has CKD and this was deemed not clinically necessary. She followed up in office soon after d/c and c/o continue exertional fatigue, CHAPPELL and occasional chest tightness. Due to her CKD, a conservative approach was followed and Ranexa was added to her Atenolol; it provided relief for several days, but she called yesterday stating that her symptoms had recurred with exertion. Seen in office, ECG unchanged. After discussion with PMD, Dr. Pearson, we decided she should be admitted for work of worsening CHAPPELL with a plan toward possible cardiac cath once creatinine could be optimized. However, labs now reveal creatinine has increased to above 3. Of note, she uses Diclofenac daily for arthritic pain. - Current Medication List Current Medications: Atenolol 25mg daily Ranexa 500mg BID Diclofenac - Objective Vital Signs: Vital Signs Temperature 98.1 F 03/31/17 08:02 Pulse Rate 69 03/31/17 08:02 Respiratory Rate 19 03/31/17 08:02 Blood Pressure 111/62 03/31/17 08:02 O2 Sat by Pulse Oximetry (%) 99 03/31/17 08:31 Constitutional: Yes: No Distress, Calm Eyes: Yes: Conjunctiva Clear, EOM Intact Cardiovascular: Yes: Regular Rate and Rhythm Respiratory: Yes: CTA Bilaterally Gastrointestinal: Yes: Soft Edema: No Neurological: Yes: Alert, Oriented Labs: CBC, BMP 03/31/17 08:50 03/31/17 09:09 INR, PTT INR 1.15 (0.82-1.09) H 03/31/17 09:09 - ....Imaging Chest X-ray: Report Reviewed, Image Reviewed EKG: Image Reviewed (NSR, 1st degree AV block, LAHB, Nonspecific T wave changes) Problem List - Problems (1) Dyspnea on exertion Assessment/Plan: - recent stress test WNL, but due to ongoing sx concern for possible 3VD which stress test may have missed. -Ultimately, would like to cath but not in setting of acute on chronic renal failure -Renal consulted. -Will repeat echo to assess PA pressure and c/w last admission -Will consider Imdur if BP allows, would like to avoid hypotensive episodes in setting of ARF Code(s): R06.09 - OTHER FORMS OF DYSPNEA (2) Abnormal ECG Assessment/Plan: -Nonspecific T wave changes -Cycle cardiac enzymes -ASA 81mg daily, stop Diclofenac Code(s): R94.31 - ABNORMAL ELECTROCARDIOGRAM [ECG] [EKG] (3) UTI (urinary tract infection) Assessment/Plan: -Work up as per PMD Code(s): N39.0 - URINARY TRACT INFECTION, SITE NOT SPECIFIED Qualifiers: Urinary tract infection type: acute cystitis (4) MANDY (acute kidney injury) Assessment/Plan: -Acute on chronic; renal consult pending. -Avoid NSAIDS; d/c Diclofenac -ASA 81mg daily for presumed CAD if no renal contraindications Code(s): N17.9 - ACUTE KIDNEY FAILURE, UNSPECIFIED (5) Cancer of genitourinary organ Assessment/Plan: - imaging as per Renal Code(s): QPF4703 - (6) Hypertension Assessment/Plan: -Continue Atenolol Code(s): I10 - ESSENTIAL (PRIMARY) HYPERTENSION
[2017-03-31] MEDS ORDERED: cefTAZidime PENTAHYDRATE 1 GM/50ML PRE-DOCKED (RESTRICTED TO ID) IVPB ONE (11:00)
--- NOTE | 2017-03-31 12:46 | HP ---
CHIEF COMPLAINT: Shortness of breath PCP: Dr. Pearson Door Framer: Dr. Paris Renal: Dr. Peace HISTORY OF PRESENT ILLNESS: 76 year-old female with a PMH significant for HTN, bladder cancer s/p cystectomy , renal cancer s/p left nephrectomy, and chronic kidney disease. Admitted at [facility] from 03/11-03/12/17 for chest pain workup, including echo and stress, stress was negative. Patient reports that her symptoms of shortness of breath, dyspnea on exertion, and decreased exercise tolerance have continued. Referred to ED by Dr. Paris. Patient admits to daily NSAID use. ER course was notable for: (1) BUN/Cr 48/3.4 (Cr 2.2 on 03/12/17) (2) UA 2289 WBCs (3) Troponin neg x 1 (4) Ceftazidime x 1 (5) NS 1L x 1 Recent Travel: No PAST MEDICAL HISTORY: Hypertension Bladder cancer Renal cancer Chronic kidney disease PAST SURGICAL HISTORY: Cystectomy (2015) Left nephrectomy (2014) Social History: Smoking: quit 50 years ago Alcohol: no Drugs: no Family History: Allergies No Known Drug Allergies Allergy (Verified 03/31/17 08:01) HOME MEDICATIONS: Home Medications Medication Instructions Recorded Ascorbate Calcium [Vitamin C] 500 mg PO DAILY 03/11/17 Atenolol [Tenormin -] 25 mg PO DAILY 03/11/17 Calcium Carbonate [Calcium] 1,000 mg PO DAILY 03/11/17 Diclofenac Sodium [Diclofenac 100 mg PO HS 03/11/17 Sodium ER] Glucosa López 2Kcl/Chondroitin López 1 each PO DAILY 03/11/17 [Glucosamine & Chondroitin Cap] REVIEW OF SYSTEMS CONSTITUTIONAL: Absent: fever, chills, diaphoresis, generalized weakness, malaise, loss of appetite, weight change HEENT: Absent: rhinorrhea, nasal congestion, throat pain, throat swelling, difficulty swallowing, mouth swelling, ear pain, eye pain, visual changes CARDIOVASCULAR: Present: SOB, CHAPPELL, decreased exercise tolerance Absent: chest pain, syncope, palpitations, irregular heart rate, lightheadedness , peripheral edema RESPIRATORY: Absent: cough, shortness of breath, dyspnea with exertion, orthopnea, wheezing, stridor, hemoptysis GASTROINTESTINAL: Absent: abdominal pain, abdominal distension, nausea, vomiting, diarrhea, constipation, melena, hematochezia GENITOURINARY: Absent: dysuria, frequency, urgency, hesitancy, hematuria, flank pain, genital pain MUSCULOSKELETAL: Absent: myalgia, arthralgia, joint swelling, back pain, neck pain SKIN: Absent: rash, itching, pallor HEMATOLOGIC/IMMUNOLOGIC: Absent: easy bleeding, easy bruising, lymphadenopathy, frequent infections ENDOCRINE: Absent: unexplained weight gain, unexplained weight loss, heat intolerance, cold intolerance NEUROLOGIC: Absent: headache, focal weakness or paresthesias, dizziness, unsteady gait, seizure, mental status changes, bladder or bowel incontinence PSYCHIATRIC: Absent: anxiety, depression, suicidal or homicidal ideation, hallucinations. PHYSICAL EXAMINATION Vital Signs - 24 hr 03/31/17 03/31/17 03/31/17 08:02 08:31 11:03 Temperature 98.1 F 98.9 F Pulse Rate 69 Pulse Rate [ 62 Apical] Respiratory 19 18 Rate Blood Pressure 111/62 Blood Pressure 129/59 [Right Arm] O2 Sat by Pulse 99 99 98 Oximetry (%) GENERAL: Awake, alert, and fully oriented, in no acute distress. HEAD: Normal with no signs of trauma. EYES: Pupils equal, round and reactive to light, extraocular movements intact, sclera anicteric, conjunctiva clear. No lid lag. EARS, NOSE, THROAT: Ears normal, nares patent, oropharynx clear without exudates. Moist mucous membranes. NECK: Normal range of motion, supple without lymphadenopathy, JVD, or masses. LUNGS: Breath sounds equal, clear to auscultation bilaterally. No wheezes, and no crackles. No accessory muscle use. HEART: Regular rate and rhythm, normal S1 and S2 without murmur, rub or gallop. ABDOMEN: Soft, nontender, not distended, normoactive bowel sounds, no guarding, no rebound; urostomy bag with yellow urine, surrounding skin intact MUSCULOSKELETAL: Normal range of motion at all joints. No bony deformities or tenderness. No CVA tenderness. UPPER EXTREMITIES: 2+ pulses, warm, well-perfused. No cyanosis. No clubbing. No peripheral edema. LOWER EXTREMITIES: 2+ pulses, warm, well-perfused. No calf tenderness. No peripheral edema. NEUROLOGICAL: Cranial nerves II-XII intact. Normal speech. Laboratory Results - last 24 hr 03/31/17 03/31/17 03/31/17 08:50 08:50 09:09 WBC 13.9 H RBC 4.18 Hgb 10.3 L Hct 32.9 MCV 78.7 L MCH 24.7 L MCHC 31.4 L RDW 13.6 Plt Count 356 MPV 9.1 Neutrophils % 74.7 Lymphocytes % 14.5 Monocytes % 8.4 Eosinophils % 1.7 Basophils % 0.7 PT with INR 13.00 H INR 1.15 H PTT (Actin FS) 29.8 Sodium Potassium Chloride Carbon Dioxide Anion Gap BUN Creatinine Creat Clearance w eGFR Random Glucose Calcium Magnesium Total Bilirubin AST ALT Alkaline Phosphatase Creatine Kinase Troponin I B-Natriuretic Peptide 866.61 H Total Protein Albumin Urine Color Urine Appearance Urine pH Ur Specific [place] Urine Protein Urine Glucose (UA) Urine Ketones Urine Blood Urine Nitrite Urine Bilirubin Urine Urobilinogen Urine WBC (Auto) Urine RBC (Auto) Blood Type Antibody Screen 03/31/17 03/31/17 03/31/17 09:09 09:09 09:10 WBC RBC Hgb Hct MCV MCH MCHC RDW Plt Count MPV Neutrophils % Lymphocytes % Monocytes % Eosinophils % Basophils % PT with INR INR PTT (Actin FS) Sodium 133 L Potassium 4.6 Chloride 100 Carbon Dioxide 24 Anion Gap 9 BUN 48 H D Creatinine 3.4 H D Creat Clearance w eGFR 13.20 Random Glucose 126 H D Calcium 8.4 L Magnesium 2.5 H Total Bilirubin 0.4 D AST 4 L ALT 11 L Alkaline Phosphatase 90 Creatine Kinase 31 Troponin I < 0.02 B-Natriuretic Peptide Total Protein 6.6 Albumin 3.2 L Urine Color D[place] Urine Appearance Turbid Urine pH 6.0 Ur Specific [place] 1.012 Urine Protein 2+ H Urine Glucose (UA) Negative Urine Ketones Negative Urine Blood 2+ H Urine Nitrite Negative Urine Bilirubin Negative Urine Urobilinogen Negative Urine WBC (Auto) 2289 Urine RBC (Auto) 169 Blood Type AB NEGATIVE Antibody Screen Negative ASSESSMENT/PLAN: 76 year-old female with a PMH significant for HTN, bladder cancer s/p cystectomy , renal cancer s/p left nephrectomy, and chronic kidney disease. Admitted at [facility] from 03/11-03/12/17 for chest pain workup, including echo and stress, stress was negative. Admitted for persistent symptoms of SOB, CHAPPELL, and decreased exercise tolerance. 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 Diez --UA on this admission shows 2289 WBCs; +leukocytosis --culture pending --start ceftriaxone Acute on chronic kidney injury --Cr 3.4 (was 2.2 on 03/12/17) --daily NSAID use x 15 years prescribed by her rn critical care; patient aware of risks --stop all NSAIDS, ACEI/ARB, nephrotoxic agents --gentle IV fluids Bladder cancer Renal cancer s/p left nephrectomy --no acute issues FEN Fluids: NS @ 83mL/hr Electrolytes: replete as indicated Nutrition: NPO for now DVT prophylaxis: subq heparin Dispo: continues to require inpatient care. Full code. Visit type - Emergency Visit Emergency Visit: Yes ED Registration Date: 03/31/17 Care time: The patient presented to the Emergency Department on the above date and was hospitalized for further evaluation of their emergent condition. - New Patient This patient is new to me today: Yes Date on this admission: 04/01/17 - Critical Care Critical Care patient: No
[2017-03-31 14:30] LABS: URINE LEUK ESTERASE 3+ (NEGATIVE)
--- NOTE | 2017-03-31 15:00 | CONSULT ---
Consult Consult Specialty:: Nephrology - History of Present Illness Chief Complaint: chest tightness and weakness History of Present Illness: Pt is a 76 year old female with pmhx of bladder cancer, renal cell cancer and HTN who presents to the ER with chest pain. She was found to be in acute renal failure and I was called to evaluate her. She last had a creatinine of about 1.8 as outpt. She also says that her urine is very dark and concentrated. She denies shortness of breath. She is being admitted for cardiac workup. She denies fevers or chills. - History Source History Provided By: Patient, Medical Record - Past Medical History Cardio/Vascular: Yes: HTN Renal/: Yes: Renal Inusuff, Cancer, Other (bladder ca s/p cystectomy) - Past Surgical History Past Surgical History: Yes: Cystectomy, Nephrectomy Additional Surgical History: ileal conduit - Alcohol/Substance Use Hx Alcohol Use: No History of Substance Use: reports: None - Smoking History Smoking history: Former smoker Have you smoked in the past 12 months: No If you are a former smoker, when did you quit?: 40 YRS AGO - Social History ADL: Independent History of Recent Travel: No Home Medications - Allergies Allergies/Adverse Reactions: Allergies Allergy/AdvReac Type Severity Reaction Status Date / Time No Known Drug Allergies Allergy Verified 03/31/17 08:01 - Home Medications Home Medications: Ambulatory Orders Ascorbate Calcium [Vitamin C] 500 mg PO DAILY 03/11/17 Atenolol [Tenormin -] 25 mg PO DAILY 03/11/17 Calcium Carbonate [Calcium] 1,000 mg PO DAILY 03/11/17 Diclofenac Sodium [Diclofenac Sodium ER] 100 mg PO HS 03/11/17 Glucosa López 2Kcl/Chondroitin López [Glucosamine & Chondroitin Cap] 1 each PO DAILY 03/11/17 Family Disease History - Family Disease History Family Disease History: Other: Father (prostate Ca), Mother (CHF) Review of Systems - Review of Systems Constitutional: reports: Malaise Eyes: reports: No Symptoms HENT: reports: No Symptoms Neck: reports: No Symptoms Cardiovascular: reports: Chest Pain Respiratory: denies: SOB Musculoskeletal: reports: No Symptoms Integumentary: reports: No Symptoms Neurological: reports: No Symptoms Endocrine: reports: No Symptoms Hematology/Lymphatic: reports: No Symptoms Psychiatric: reports: No Symptoms Physical Exam Vital Signs: Vital Signs Temperature 98.9 F 03/31/17 11:03 Pulse Rate 60 03/31/17 14:47 Respiratory Rate 18 03/31/17 14:47 Blood Pressure 103/63 03/31/17 14:47 O2 Sat by Pulse Oximetry (%) 98 03/31/17 14:47 Constitutional: Yes: Calm Eyes: Yes: Conjunctiva Clear HENT: Yes: Atraumatic Neck: Yes: Supple Cardiovascular: Yes: S1, S2 Respiratory: Yes: CTA Bilaterally Gastrointestinal: Yes: Soft Renal/: Yes: Other (ileal conduit) Musculoskeletal: Yes: WNL Edema: No Neurological: Yes: Oriented Psychiatric: Yes: Oriented Labs: CBC, BMP 03/31/17 08:50 03/31/17 09:09 Laboratory Tests 03/11/17 03/11/17 03/12/17 09:35 15:59 15:30 WBC Hgb Plt Count PT with INR INR Sodium Potassium Chloride Carbon Dioxide Anion Gap BUN Creatinine 2.7 H D 2.2 H B-Natriuretic Peptide Urine Protein Urine Blood Ur Leukocyte Esterase Urine WBC (Auto) 1824 03/31/17 03/31/17 03/31/17 08:50 08:50 09:09 WBC 13.9 H Hgb 10.3 L Plt Count 356 PT with INR 13.00 H INR 1.15 H Sodium Potassium Chloride Carbon Dioxide Anion Gap BUN Creatinine B-Natriuretic Peptide 866.61 H Urine Protein Urine Blood Ur Leukocyte Esterase Urine WBC (Auto) 03/31/17 03/31/17 09:09 09:09 WBC Hgb Plt Count PT with INR INR Sodium 133 L Potassium 4.6 Chloride 100 Carbon Dioxide 24 Anion Gap 9 BUN 48 H D Creatinine 3.4 H D B-Natriuretic Peptide Urine Protein 2+ H Urine Blood 2+ H Ur Leukocyte Esterase 3+ H Urine WBC (Auto) 2289 Imaging - Results Chest X-ray: Report Reviewed Problem List - Problems (1) Abnormal ECG Code(s): R94.31 - ABNORMAL ELECTROCARDIOGRAM [ECG] [EKG] (2) Acute on chronic renal insufficiency Code(s): N28.9 - DISORDER OF KIDNEY AND URETER, UNSPECIFIED; N18.9 - CHRONIC KIDNEY DISEASE, UNSPECIFIED (3) Chest pain Code(s): R07.9 - CHEST PAIN, UNSPECIFIED (4) UTI (urinary tract infection) Code(s): N39.0 - URINARY TRACT INFECTION, SITE NOT SPECIFIED Qualifiers: Urinary tract infection type: acute cystitis (5) MANDY (acute kidney injury) Code(s): N17.9 - ACUTE KIDNEY FAILURE, UNSPECIFIED Assessment/Plan Current Medications Generic Name Dose Route Start Last Admin Trade Name Freq PRN Reason Stop Dose Admin Aspirin 81 mg 04/01/17 10:00 Ecotrin - PO DAILY RON Atenolol 25 mg 04/01/17 10:00 Tenormin - PO DAILY RON Ceftriaxone Sodium 1 gm 04/01/17 10:00 Rocephin 1gm Ivpb (Pre-Docked) IVPB DAILY RON Protocol pmhx renal/bladder cancer, htn pshx nephrectomy, cystectomy nkda ros denies family hx non contrib Current Medications Generic Name Dose Route Start Last Admin Trade Name Freq PRN Reason Stop Dose Admin Aspirin 81 mg 03/12/17 10:00 03/12/17 14:12 Ecotrin - PO 81 mg DAILY RON Administration Metoprolol Succinate 12.5 mg 03/12/17 10:00 03/12/17 14:17 Toprol Xl - PO Not Given DAILY RON Impression 1. CKD 2. chest pain 3. UTI 4. htn 5. proteinuria 6. nsaid use 7. MANDY Plan - will start fluids - agree with abx - follow urine cultures - consider ID eval - discussed with ER team - spoke to urology and reviewed case with him - cardiology input appreciated - pt is at risk for RADHA, I discussed options with her - avoid nsaids - resume home meds - do not restart caro Peace
[2017-03-31] MEDS ORDERED: SODIUM CHLORIDE 1,000 ML IV SCH (15:15)
--- NOTE | 2017-03-31 15:16 | CON.PULM ---
Consult Consult Specialty:: PULMONARY Referred by:: ANAND Hoff Reason for Consultation:: chest pain - History of Present Illness Chief Complaint: chest pain History of Present Illness: 76yo female with h/o HTN, h/o left nephrectomy, cystectomy with ileal conduit, CKD who presents with chest tightness with exertion. Not associated with shortness of breath, nausea or diaphoresis but with lower extremity weakness. No fevers, chills or sweats. States that her urine output has increased in the last day, slightly more turbid but no change in the odor. Last admission, she was discharged with a creatinine of 2.2, down to 1.6 when checked as an outpt. - History Source History Provided By: Patient, Medical Record Limitations to Obtaining History: No Limitations - Past Medical History Cardio/Vascular: Yes: HTN Renal/: Yes: Renal Inusuff, Cancer, Other (bladder ca s/p cystectomy) - Past Surgical History Past Surgical History: Yes: Cystectomy, Nephrectomy Additional Surgical History: ileal conduit - Alcohol/Substance Use Hx Alcohol Use: No History of Substance Use: reports: None - Smoking History Smoking history: Former smoker Have you smoked in the past 12 months: No If you are a former smoker, when did you quit?: 40 YRS AGO - Social History ADL: Independent History of Recent Travel: No Home Medications - Allergies Allergies/Adverse Reactions: Allergies Allergy/AdvReac Type Severity Reaction Status Date / Time No Known Drug Allergies Allergy Verified 03/31/17 08:01 - Home Medications Home Medications: Ambulatory Orders Ascorbate Calcium [Vitamin C] 500 mg PO DAILY 03/11/17 Atenolol [Tenormin -] 25 mg PO DAILY 03/11/17 Calcium Carbonate [Calcium] 1,000 mg PO DAILY 03/11/17 Diclofenac Sodium [Diclofenac Sodium ER] 100 mg PO HS 03/11/17 Glucosa López 2Kcl/Chondroitin López [Glucosamine & Chondroitin Cap] 1 each PO DAILY 03/11/17 Family Disease History - Family Disease History Family Disease History: Other: Father (prostate Ca), Mother (CHF) Review of Systems - Review of Systems Constitutional: reports: Weakness. denies: Chills, Fever Eyes: denies: Recent Change in Vision HENT: denies: Nasal Congestion, Throat Pain Neck: denies: Stiffness, Tenderness Cardiovascular: reports: Chest Pain. denies: Edema, Palpitations, Shortness of Breath Respiratory: denies: Exercise Intolerance, Orthopnea, Wheezing Gastrointestinal: denies: Abdominal Pain, Nausea, Vomiting Genitourinary: denies: Dysuria, Hematuria Musculoskeletal: reports: Muscle Weakness Neurological: denies: Dizziness, Headache Physical Exam Vital Sings: Vital Signs Temperature 98.9 F 03/31/17 11:03 Pulse Rate 60 03/31/17 14:47 Respiratory Rate 18 03/31/17 14:47 Blood Pressure 103/63 03/31/17 14:47 O2 Sat by Pulse Oximetry (%) 98 03/31/17 14:47 Constitutional: Yes: Calm Eyes: Yes: Conjunctiva Clear, EOM Intact HENT: Yes: Atraumatic, Normocephalic Neck: Yes: Supple, Trachea Midline Cardiovascular: Yes: Regular Rate and Rhythm Respiratory: Yes: Regular, Diminished (decreased breath sounds at the bases) ...Clubbing: No Gastrointestinal: Yes: Normal Bowel Sounds, Soft. No: Tenderness Edema: No Neurological: Yes: Alert, Oriented Labs: CBC, BMP 03/31/17 08:50 03/31/17 09:09 Imaging - Results Chest X-ray: Report Reviewed, Image Reviewed (no infiltrates) Problem List - Problems (1) Chest pain Code(s): R07.9 - CHEST PAIN, UNSPECIFIED (2) UTI (urinary tract infection) Code(s): N39.0 - URINARY TRACT INFECTION, SITE NOT SPECIFIED Qualifiers: Urinary tract infection type: acute cystitis (3) MANDY (acute kidney injury) Code(s): N17.9 - ACUTE KIDNEY FAILURE, UNSPECIFIED (4) Hypertension Code(s): I10 - ESSENTIAL (PRIMARY) HYPERTENSION Assessment/Plan Chest Pain UTI Acute on Chronic Renal Failure Left Nephrectomy h/o Cystectomy s/p ileal conduit HTN - IV antibiotics - f/u cultures - IVF - monitor urine output, creatinine - urine lytes, creatinine - cardiology considering cardiac catheterization when renal function stabilizes - DVT prophylaxis Thank you for this consult Naldo Torres MD
[2017-03-31 16:52] LABS: CPK 27 IU/L (26-192); TROPONIN I < 0.02 ng/ml (0.00-0.05)
--- NOTE | 2017-03-31 21:15 | EKG ---
Test Reason : Blood Pressure : / mmHG Vent. Rate : 058 BPM Atrial Rate : 058 BPM P-R Int : 246 ms QRS Dur : 100 ms QT Int : 432 ms P-R-T Axes : 051 -46 005 degrees QTc Int : 424 ms SINUS BRADYCARDIA WITH 1ST DEGREE A-V BLOCK LEFT ANTERIOR FASCICULAR BLOCK ABNORMAL ECG WHEN COMPARED WITH ECG OF 12-MAR-2017 12:23, PREMATURE ATRIAL COMPLEXES ARE NO LONGER PRESENT Confirmed by MD CAMERON, ALISE ([id number]) on 03/31/2017 9:14:47 PM Referred By: Confirmed By:ALISE BARNES MD
[2017-03-31 23:50] LABS: CPK 23 IU/L (26-192); TROPONIN I < 0.02 ng/ml (0.00-0.05)
[2017-04-01 01:47] VITALS: BMI 25.1
[2017-04-01 07:48] LABS: BASO % 0.7 % (0-2.0); EOS % 2.2 % (0-4.5); MCHC 31.9 g/dl (32.0-36.0); MEAN CELL VOLUME 78.4 fl (80-96); MEAN PLT VOLUME 8.8 fl (7.5-11.1); PLATELET COUNT 280 K/MM3 (134-434); RDW 13.3 % (11.6-15.6)
--- NOTE | 2017-04-01 08:42 | PN ---
Physical Exam: SUBJECTIVE: Patient seen and examined OBJECTIVE: Vital Signs Period Temp Pulse Resp BP Sys/Salmon Pulse Ox Last 24 Hr 98.3 F-98.9 F 60-70 18-18 103-143/59-79 96-98 GENERAL: The patient is awake, alert, and fully oriented, in no acute distress. HEAD: Normal with no signs of trauma. EYES: PERRL, extraocular movements intact, sclera anicteric, conjunctiva clear. No ptosis. ENT: Ears normal, nares patent, oropharynx clear without exudates, moist mucous membranes. NECK: Trachea midline, full range of motion, supple. LUNGS: Breath sounds equal, clear to auscultation bilaterally, no wheezes, no crackles, no accessory muscle use. HEART: Regular rate and rhythm, S1, S2 without murmur, rub or gallop. ABDOMEN: Soft, nontender, nondistended, normoactive bowel sounds, no guarding, no rebound, no hepatosplenomegaly, no masses. EXTREMITIES: 2+ pulses, warm, well-perfused, no edema. NEUROLOGICAL: Cranial nerves II through XII grossly intact. Normal speech, gait not observed. PSYCH: Normal mood, normal affect. SKIN: Warm, dry, normal turgor, no rashes or lesions noted Laboratory Results - last 24 hr 03/31/17 03/31/17 03/31/17 08:50 08:50 09:09 WBC 13.9 H RBC 4.18 Hgb 10.3 L Hct 32.9 MCV 78.7 L MCH 24.7 L MCHC 31.4 L RDW 13.6 Plt Count 356 MPV 9.1 Neutrophils % 74.7 Lymphocytes % 14.5 Monocytes % 8.4 Eosinophils % 1.7 Basophils % 0.7 PT with INR 13.00 H INR 1.15 H PTT (Actin FS) 29.8 Sodium Potassium Chloride Carbon Dioxide Anion Gap BUN Creatinine Creat Clearance w eGFR Random Glucose Calcium Magnesium Total Bilirubin AST ALT Alkaline Phosphatase Creatine Kinase Troponin I B-Natriuretic Peptide 866.61 H Total Protein Albumin Urine Color Urine Appearance Urine pH Ur Specific Schlater Urine Protein Urine Glucose (UA) Urine Ketones Urine Blood Urine Nitrite Urine Bilirubin Urine Urobilinogen Ur Leukocyte Esterase Urine WBC (Auto) Urine RBC (Auto) Blood Type Antibody Screen 12/19/17 12/19/17 12/19/17 09:09 09:09 09:10 WBC RBC Hgb Hct MCV MCH MCHC RDW Plt Count MPV Neutrophils % Lymphocytes % Monocytes % Eosinophils % Basophils % PT with INR INR PTT (Actin FS) Sodium 133 L Potassium 4.6 Chloride 100 Carbon Dioxide 24 Anion Gap 9 BUN 48 H D Creatinine 3.4 H D Creat Clearance w eGFR 13.20 Random Glucose 126 H D Calcium 8.4 L Magnesium 2.5 H Total Bilirubin 0.4 D AST 4 L ALT 11 L Alkaline Phosphatase 90 Creatine Kinase 31 Troponin I < 0.02 B-Natriuretic Peptide Total Protein 6.6 Albumin 3.2 L Urine Color Doreen Urine Appearance Turbid Urine pH 6.0 Ur Specific Schlater 1.012 Urine Protein 2+ H Urine Glucose (UA) Negative Urine Ketones Negative Urine Blood 2+ H Urine Nitrite Negative Urine Bilirubin Negative Urine Urobilinogen Negative Ur Leukocyte Esterase 3+ H Urine WBC (Auto) 2289 Urine RBC (Auto) 169 Blood Type AB NEGATIVE Antibody Screen Negative 03/31/17 03/31/17 03/31/17 16:00 22:20 22:22 WBC RBC Hgb Hct MCV MCH MCHC RDW Plt Count MPV Neutrophils % Lymphocytes % Monocytes % Eosinophils % Basophils % PT with INR INR PTT (Actin FS) Sodium Potassium Chloride Carbon Dioxide Anion Gap BUN Creatinine Creat Clearance w eGFR Random Glucose Calcium Magnesium Total Bilirubin AST ALT Alkaline Phosphatase Creatine Kinase 27 23 L Troponin I < 0.02 Cancelled < 0.02 B-Natriuretic Peptide Total Protein Albumin Urine Color Urine Appearance Urine pH Ur Specific Schlater Urine Protein Urine Glucose (UA) Urine Ketones Urine Blood Urine Nitrite Urine Bilirubin Urine Urobilinogen Ur Leukocyte Esterase Urine WBC (Auto) Urine RBC (Auto) Blood Type Antibody Screen 04/01/17 04/01/17 05:25 05:25 WBC 9.0 D RBC 3.65 Hgb 9.1 L D Hct 28.6 L MCV 78.4 L MCH 25.0 L MCHC 31.9 L RDW 13.3 Plt Count 280 D MPV 8.8 Neutrophils % 64.0 Lymphocytes % 22.4 D Monocytes % 10.7 H Eosinophils % 2.2 Basophils % 0.7 PT with INR INR PTT (Actin FS) Sodium 140 Potassium 5.1 Chloride 109 H Carbon Dioxide Anion Gap BUN Creatinine Creat Clearance w eGFR Random Glucose Calcium Magnesium Total Bilirubin AST ALT Alkaline Phosphatase Creatine Kinase Troponin I B-Natriuretic Peptide Total Protein Albumin Urine Color Urine Appearance Urine pH Ur Specific Schlater Urine Protein Urine Glucose (UA) Urine Ketones Urine Blood Urine Nitrite Urine Bilirubin Urine Urobilinogen Ur Leukocyte Esterase Urine WBC (Auto) Urine RBC (Auto) Blood Type Antibody Screen Active Medications Generic Name Dose Route Start Last Admin Trade Name Jas PRN Reason Stop Dose Admin Aspirin 81 mg 04/01/17 10:00 Ecotrin - PO DAILY [facility] Atenolol 25 mg 04/01/17 10:00 Tenormin - PO DAILY [facility] Heparin Sodium (Porcine) 5,000 unit 04/01/17 14:00 Heparin - SQ TID [facility] Sodium Chloride 1,000 mls @ 83 mls/hr 03/31/17 15:15 03/31/17 16:00 Normal Saline - IV 83 mls/hr ASDIR [facility] Administration ASSESSMENT/PLAN: 76 year-old female with a PMH significant for HTN, bladder cancer s/p cystectomy , renal cancer s/p left nephrectomy, and chronic kidney disease. Admitted at [facility] from 03/11-03/12/17 for chest pain workup, including echo and stress, stress was negative. Admitted for persistent symptoms of SOB, CHAPPELL, and decreased exercise tolerance. 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 Full code. Visit type - Emergency Visit Emergency Visit: Yes ED Registration Date: 03/31/17 Care time: The patient presented to the Emergency Department on the above date and was hospitalized for further evaluation of their emergent condition. - New Patient This patient is new to me today: No - Critical Care Critical Care patient: No
[2017-04-01 08:44] LABS: ALBUMIN 2.6 g/dl (3.4-5.0); ALK PHOS 75 U/L (45-117); ANION GAP 9 (8-16); BILIRUBIN,TOTAL 0.3 mg/dL (0.2-1.0); CALCIUM 7.9 mg/dL (8.5-10.1); CO2 22 mmol/L (21-32); CREATININE 2.2 mg/dL (0.55-1.02); GLUCOSE,RANDOM 95 mg/dL (74-106); MAGNESIUM 2.3 mg/dL (1.8-2.4); PHOSPHOROUS 3.2 mg/dL (2.5-4.9); SGOT/AST 5 U/L (15-37); SGPT/ALT 9 U/L (12-78); TOT PROT 5.6 g/dl (6.4-8.2)
--- NOTE | 2017-04-01 08:51 | PN ---
Progress Note, Physician Chief Complaint: Being hydrated Denies dyspnea TELE: NSR - Current Medication List Current Medications: Active Medications Aspirin (Ecotrin -) 81 mg PO DAILY [facility] Atenolol (Tenormin -) 25 mg PO DAILY [facility] Heparin Sodium (Porcine) (Heparin -) 5,000 unit SQ TID [facility] Sodium Chloride (Normal Saline -) 1,000 mls @ 83 mls/hr IV ASDIR [facility] Last Admin: 03/31/17 16:00 Dose: 83 mls/hr - Objective Vital Signs: Vital Signs Temperature 98.6 F 04/01/17 06:00 Pulse Rate 66 04/01/17 06:00 Respiratory Rate 18 04/01/17 06:00 Blood Pressure 129/71 04/01/17 06:00 O2 Sat by Pulse Oximetry (%) 97 03/31/17 22:00 Constitutional: Yes: Calm Eyes: Yes: Conjunctiva Clear Cardiovascular: Yes: Regular Rate and Rhythm Respiratory: Yes: CTA Bilaterally Gastrointestinal: Yes: Soft Edema: No Neurological: Yes: Alert, Oriented Labs: CBC, BMP 04/01/17 05:25 04/01/17 05:25 INR, PTT INR 1.15 (0.82-1.09) H 03/31/17 09:09 Microbiology Laboratory Tests 03/11/17 03/11/17 03/31/17 09:35 21:35 08:50 WBC 13.9 H Hgb 10.3 L Plt Count 356 Sodium Potassium BUN Creatinine Creatine Kinase 26 Troponin I < 0.02 < 0.02 B-Natriuretic Peptide 03/31/17 03/31/17 03/31/17 08:50 09:09 16:00 WBC Hgb Plt Count Sodium 133 L Potassium 4.6 BUN 48 H D Creatinine 3.4 H D Creatine Kinase 31 Troponin I < 0.02 < 0.02 B-Natriuretic Peptide 866.61 H 03/31/17 04/01/17 04/01/17 22:22 05:25 05:25 WBC Hgb 9.1 L D Plt Count 280 D Sodium Potassium 5.1 BUN Creatinine Pending Creatine Kinase Troponin I < 0.02 B-Natriuretic Peptide - ....Imaging EKG: Image Reviewed Problem List - Problems (1) Dyspnea on exertion Code(s): R06.09 - OTHER FORMS OF DYSPNEA (2) Abnormal ECG Code(s): R94.31 - ABNORMAL ELECTROCARDIOGRAM [ECG] [EKG] (3) UTI (urinary tract infection) Code(s): N39.0 - URINARY TRACT INFECTION, SITE NOT SPECIFIED Qualifiers: Urinary tract infection type: acute cystitis (4) MANDY (acute kidney injury) Code(s): N17.9 - ACUTE KIDNEY FAILURE, UNSPECIFIED (5) Cancer of genitourinary organ Code(s): NYH1641 - (6) Hypertension Code(s): I10 - ESSENTIAL (PRIMARY) HYPERTENSION Assessment/Plan Acute on chronic renal failure HTN Exertional dyspnea and chest pain, stable anginal sx REC: Cont. ASA and beta amber Although recent stress test was negative, her exertional sx persist. Ideally would like to perform angiogram, but not in setting of acute renal failure (she also has one kidney). Further decisions re. cath pending on stabilization of renal fxn and discussion with patient about risks of RADHA. Will try to add Imdur if BP allows.
[2017-04-01] MEDS: ASPIRIN COATED 81 MG TABLET.EC PO SCH (10:00)
[2017-04-01] MEDS: ATENOLOL 25 MG TABLET (FP) PO SCH (10:00)
[2017-04-01] MEDS: CEFTRIAXONE 1 GM/50 ML PREMIX IVPB SCH (10:02)
--- NOTE | 2017-04-01 11:18 | EKG ---
Test Reason : Blood Pressure : / mmHG Vent. Rate : 058 BPM Atrial Rate : 058 BPM P-R Int : 244 ms QRS Dur : 096 ms QT Int : 434 ms P-R-T Axes : 040 -42 002 degrees QTc Int : 426 ms SINUS BRADYCARDIA WITH 1ST DEGREE A-V BLOCK LEFT AXIS DEVIATION ABNORMAL ECG WHEN COMPARED WITH ECG OF 31-MAR-2017 08:30, NO SIGNIFICANT CHANGE WAS FOUND Confirmed by AKBAR FAITH, ROBERT ([id number]) on 04/01/2017 11:17:45 AM Referred By: Florence OROZCO Confirmed By:ROBERT WEBBER MD
--- NOTE | 2017-04-01 11:20 | PN ---
Progress Note, Physician History of Present Illness: pulmonary alert,nad,-sob,less chest discomfort - Current Medication List Current Medications: Active Medications Aspirin (Ecotrin -) 81 mg PO DAILY [facility] Last Admin: 04/01/17 10:00 Dose: 81 mg Atenolol (Tenormin -) 25 mg PO DAILY [facility] Last Admin: 04/01/17 10:00 Dose: 25 mg Docusate Sodium (Colace -) 300 mg PO HS [facility] Heparin Sodium (Porcine) (Heparin -) 5,000 unit SQ TID [facility] Sodium Chloride (Normal Saline -) 1,000 mls @ 83 mls/hr IV ASDIR [facility] Last Admin: 03/31/17 16:00 Dose: 83 mls/hr - Objective Vital Signs: Vital Signs Temperature 98.6 F 04/01/17 06:00 Pulse Rate 66 04/01/17 06:00 Respiratory Rate 18 04/01/17 06:00 Blood Pressure 129/71 04/01/17 06:00 O2 Sat by Pulse Oximetry (%) 97 03/31/17 22:00 Constitutional: Yes: Well Nourished, Calm Eyes: Yes: WNL HENT: Yes: WNL Neck: Yes: WNL Cardiovascular: Yes: Regular Rate and Rhythm, S1, S2 Respiratory: Yes: CTA Bilaterally Gastrointestinal: Yes: Normal Bowel Sounds, Soft Extremities: Yes: WNL Edema: No Labs: CBC, BMP 04/01/17 05:25 04/01/17 05:25 INR, PTT INR 1.15 (0.82-1.09) H 03/31/17 09:09 Assessment/Plan Problem List - Problems (1) Chest pain Code(s): R07.9 - CHEST PAIN, UNSPECIFIED (2) UTI (urinary tract infection) Code(s): N39.0 - URINARY TRACT INFECTION, SITE NOT SPECIFIED Qualifiers: Urinary tract infection type: acute cystitis (3) MANDY (acute kidney injury) Code(s): N17.9 - ACUTE KIDNEY FAILURE, UNSPECIFIED (4) Hypertension Code(s): I10 - ESSENTIAL (PRIMARY) HYPERTENSION Assessment/Plan Chest Pain UTI Acute on Chronic Renal Failure Left Nephrectomy h/o Cystectomy s/p ileal conduit HTN - antibiotics - IVF - monitor urine output, creatinine - DVT prophylaxis - ID evaluation DR HOOD
--- NOTE | 2017-04-01 12:48 | PN ---
Progress Note (short form) - Note Progress Note: ID consult dictated imp/reccd 76 year old female admitted with chest tightness and acute renal failure she has a chronic urostomy no fevers or chills UA will always have bacteria- would not treat for UTI unless she is symptomatic renal function improving with hydration thanks Problem List - Problems (1) Chest tightness Code(s): R07.89 - OTHER CHEST PAIN (2) MANDY (acute kidney injury) Code(s): N17.9 - ACUTE KIDNEY FAILURE, UNSPECIFIED
[2017-04-01] MEDS: HEPARIN NA (PORCINE) 5,000 UNITS/ML 1ML VIAL SQ SCH ×2 (14:12→21:36)
--- NOTE | 2017-04-01 17:23 | PN ---
Progress Note, Physician History of Present Illness: Pt seen and examined at bedside. She denies chest pain. She denies shortness of breath. - Current Medication List Current Medications: Active Medications Aspirin (Ecotrin -) 81 mg PO DAILY [facility] Last Admin: 04/01/17 10:00 Dose: 81 mg Atenolol (Tenormin -) 25 mg PO DAILY [facility] Last Admin: 04/01/17 10:00 Dose: 25 mg Docusate Sodium (Colace -) 300 mg PO [facility] Heparin Sodium (Porcine) (Heparin -) 5,000 unit SQ TID [facility] Last Admin: 04/01/17 14:12 Dose: 5,000 unit Sodium Chloride (Normal Saline -) 1,000 mls @ 83 mls/hr IV ASDIR [facility] Last Admin: 03/31/17 16:00 Dose: 83 mls/hr - Objective Vital Signs: Vital Signs Temperature 99.2 F 04/01/17 14:00 Pulse Rate 65 04/01/17 14:00 Respiratory Rate 18 04/01/17 14:00 Blood Pressure 132/72 04/01/17 14:00 O2 Sat by Pulse Oximetry (%) 100 04/01/17 14:00 Constitutional: Yes: Calm Eyes: Yes: Conjunctiva Clear HENT: Yes: Atraumatic Cardiovascular: Yes: S1, S2 Respiratory: Yes: CTA Bilaterally Gastrointestinal: Yes: Soft Genitourinary: Yes: Other (ileal conduit) Musculoskeletal: Yes: WNL Edema: No Neurological: Yes: Oriented Psychiatric: Yes: Oriented Labs: CBC, BMP 04/01/17 05:25 04/01/17 05:25 INR, PTT INR 1.15 (0.82-1.09) H 03/31/17 09:09 Problem List - Problems (1) Abnormal ECG Code(s): R94.31 - ABNORMAL ELECTROCARDIOGRAM [ECG] [EKG] (2) Acute on chronic renal insufficiency Code(s): N28.9 - DISORDER OF KIDNEY AND URETER, UNSPECIFIED; N18.9 - CHRONIC KIDNEY DISEASE, UNSPECIFIED (3) Chest pain Code(s): R07.9 - CHEST PAIN, UNSPECIFIED (4) UTI (urinary tract infection) Code(s): N39.0 - URINARY TRACT INFECTION, SITE NOT SPECIFIED Qualifiers: Urinary tract infection type: acute cystitis (5) MANDY (acute kidney injury) Code(s): N17.9 - ACUTE KIDNEY FAILURE, UNSPECIFIED Assessment/Plan Current Medications Generic Name Dose Route Start Last Admin Trade Name Jas PRN Reason Stop Dose Admin Aspirin 81 mg 04/01/17 10:00 04/01/17 10:00 Ecotrin - PO 81 mg DAILY [facility] Administration Atenolol 25 mg 04/01/17 10:00 04/01/17 10:00 Tenormin - PO 25 mg DAILY [facility] Administration Docusate Sodium 300 mg 04/01/17 22:00 Colace - PO HS [facility] Heparin Sodium (Porcine) 5,000 unit 04/01/17 14:00 04/01/17 14:12 Heparin - SQ 5,000 unit TID [facility] Administration Sodium Chloride 1,000 mls @ 83 mls/hr 03/31/17 15:15 03/31/17 16:00 Normal Saline - IV 83 mls/hr ASDIR [facility] Administration Impression 1. CKD 2. chest pain 3. UTI 4. htn 5. proteinuria 6. nsaid use 7. MANDY Plan - renal function is improving - ID input appreciated - cardio input appreciated - low potassium diet - change fluids to 1/s ns - repeat labs in am - pt is at risk for RADHA, I discussed options with her - avoid nsaids Dr Peace
[2017-04-01] MEDS ORDERED: SODIUM CHLORIDE 0.45% 1,000 ML IV SCH (17:30)
--- NOTE | 2017-04-01 19:38 | CONS ---
DATE OF CONSULTATION: DATE OF DICTATION: 04/01/2017 INFECTIOUS DISEASE CONSULTATION REQUESTING PHYSICIAN: CONSULTING PHYSICIAN: Ibeth Hall M.D. HISTORY OF PRESENT ILLNESS: This is a 76-year-old female admitted with chest tightness and acute renal failure. She admittedly says she does not drink much by mouth, she takes chronic nonsteroidals which she has taken for years. She has a history of bladder cancer and kidney cancer and is status post cystostomy and left nephrectomy. She was admitted on the with these complaints. She has no fevers or chills. She has no nausea, vomiting, diarrhea, dysuria. She has no cough. She otherwise feels well. Her creatinine on admission was 3.4. She has received hydration. Creatinine now is 2.2. She was noted to have a urinalysis with pyuria, but the patient has a urostomy. She was given a dose of Fortaz in the emergency room. She reports feeling better and with the hydration, and has no other complaints. PAST MEDICAL HISTORY: Notable for history of hypertension, bladder cancer, kidney cancer, chronic kidney disease. SURGICAL HISTORY: Notable for cystectomy in 2016, nephrectomy in 2014, as well she has had a hysterectomy. FAMILY HISTORY: Noncontributory. ALLERGIES: No known drug allergies. MEDICATION: At home include diclofenac 100 mg daily, glucosamine, calcium carbonate, Tenormin, and vitamin C. SOCIAL HISTORY: She stopped smoking many, many years ago. There is no history of any alcohol or substance abuse. FAMILY HISTORY: There is no family history of any bladder or kidney cancer. 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 REVIEW OF SYSTEMS: Currently feels well. Denies any chest tightness and is eating well. PHYSICAL EXAMINATION: General: She is awake and alert. Vital signs: Temperature 98.5, pulse 60, blood pressure 126/88, respiratory rate 18. She is saturating 100% on room air. HEENT: Normocephalic. Eyes are anicteric. Neck: Supple. Lungs: Clear to auscultation. Heart: Regular rate and rhythm. Abdomen: Soft, nontender. She has a urostomy with clear urine in it. Extremities: Without edema. LABORATORY: On admission, white count was 13.9, today is 9, hemoglobin is 9.1 was 10.3 on admission. Her INR is 1, BUN and creatinine on admission were 48 and 3.4; this morning are 34 and 2.2. LFTs are normal. Blood cultures are negative. Urine cultures growing gram-negative bacillus. ASSESSMENT: In summary, this is a 76-year-old woman admitted with chest tightness and acute kidney injury. She will always have bacteruria given her urostomy, would not treat her for urinary tract infection unless she is symptomatic, which she does not appear to be at present. Her renal function is improving with hydration. Would hold further antibiotics for now. Please call back if needed. IBETH HALL M.D. [id number]
[2017-04-01] MEDS: DOCUSATE SODIUM 100 MG CAPSULE (FP) PO SCH (21:37)
[2017-04-02] MEDS: HEPARIN NA (PORCINE) 5,000 UNITS/ML 1ML VIAL SQ SCH ×3 (06:01→22:43)
[2017-04-02 07:09] LABS: ANION GAP 10 (8-16); CALCIUM 7.9 mg/dL (8.5-10.1); CO2 23 mmol/L (21-32); CREATININE 1.8 mg/dL (0.55-1.02); GLUCOSE,RANDOM 88 mg/dL (74-106)
--- NOTE | 2017-04-02 08:32 | PN ---
Progress Note, Physician Chief Complaint: creatinine improving with hydration No chest pain or SOB, with routine exertion around the room TELE: NSR - Current Medication List Current Medications: Active Medications Aspirin (Ecotrin -) 81 mg PO DAILY [facility] Last Admin: 04/01/17 10:00 Dose: 81 mg Atenolol (Tenormin -) 25 mg PO DAILY [facility] Last Admin: 04/01/17 10:00 Dose: 25 mg Docusate Sodium (Colace -) 300 mg PO HS [facility] Last Admin: 04/01/17 21:37 Dose: 300 mg Heparin Sodium (Porcine) (Heparin -) 5,000 unit SQ TID [facility] Last Admin: 04/02/17 06:01 Dose: 5,000 unit Sodium Chloride (1/2 Normal Saline) 1,000 mls @ 75 mls/hr IV ASDIR [facility] Last Admin: 04/01/17 17:31 Dose: 75 mls/hr - Objective Vital Signs: Vital Signs Temperature 98.8 F 04/02/17 05:37 Pulse Rate 92 H 04/02/17 05:37 Respiratory Rate 20 04/02/17 05:37 Blood Pressure 128/75 04/02/17 05:37 O2 Sat by Pulse Oximetry (%) 100 04/01/17 14:00 Constitutional: Yes: Calm Cardiovascular: Yes: Regular Rate and Rhythm Respiratory: Yes: CTA Bilaterally Gastrointestinal: Yes: Soft Edema: No Neurological: Yes: Alert, Oriented Labs: CBC, BMP 04/01/17 05:25 04/02/17 05:05 INR, PTT INR 1.15 (0.82-1.09) H 03/31/17 09:09 Laboratory Tests 04/02/17 05:05 Potassium 4.6 BUN 25 H D Creatinine 1.8 H - ....Imaging EKG: Image Reviewed Problem List - Problems (1) Dyspnea on exertion Code(s): R06.09 - OTHER FORMS OF DYSPNEA (2) Abnormal ECG Code(s): R94.31 - ABNORMAL ELECTROCARDIOGRAM [ECG] [EKG] (3) UTI (urinary tract infection) Code(s): N39.0 - URINARY TRACT INFECTION, SITE NOT SPECIFIED Qualifiers: Urinary tract infection type: acute cystitis (4) MANDY (acute kidney injury) Code(s): N17.9 - ACUTE KIDNEY FAILURE, UNSPECIFIED (5) Cancer of genitourinary organ Code(s): [id number] - (6) Hypertension Code(s): I10 - ESSENTIAL (PRIMARY) HYPERTENSION Assessment/Plan Assessment/Plan Acute on chronic renal failure HTN Exertional dyspnea and chest pain, stable anginal sx REC: Cont. ASA and beta amber Although recent stress test was negative, her exertional sx persist. Ideally would like to perform angiogram, but not in setting of acute renal failure (she also has one kidney). Further decisions re. cath pending on stabilization of renal fxn and discussion with patient about risks of RADHA. Will check fasting lipids. Start low dose Imdur, assess response- encouraged ambulation.
[2017-04-02] MEDS: ISOSORBIDE MONONITRATE 30 MG TAB.SR.24H (FP) PO SCH (11:16)
[2017-04-02] MEDS: CEFTRIAXONE 1 GM/50 ML PREMIX IVPB SCH (11:16)
[2017-04-02] MEDS: ATENOLOL 25 MG TABLET (FP) PO SCH (11:16)
[2017-04-02] MEDS: ASPIRIN COATED 81 MG TABLET.EC PO SCH (11:16)
--- NOTE | 2017-04-02 14:03 | PN ---
Progress Note (short form) - Note Progress Note: OOB to chair. Feels much better. No CP or SOB. Intake & Output 03/30/17 03/31/17 04/01/17 04/02/17 23:59 23:59 23:59 23:59 Intake Total 1080 Balance 1080 Weight 137 lb 6.4 oz Last Vital Signs Temp Pulse Resp BP Pulse Ox 98.2 F 68 16 134/72 96 04/02/17 10:00 04/02/17 10:00 04/02/17 10:00 04/02/17 10:00 04/02/17 09:00 Active Medications Aspirin (Ecotrin -) 81 mg PO DAILY [facility] Last Admin: 04/02/17 11:16 Dose: 81 mg Atenolol (Tenormin -) 25 mg PO DAILY [facility] Last Admin: 04/02/17 11:16 Dose: 25 mg Docusate Sodium (Colace -) 300 mg PO HS [facility] Last Admin: 04/01/17 21:37 Dose: 300 mg Heparin Sodium (Porcine) (Heparin -) 5,000 unit SQ TID [facility] Last Admin: 04/02/17 13:34 Dose: 5,000 unit Sodium Chloride (1/2 Normal Saline) 1,000 mls @ 75 mls/hr IV ASDIR [facility] Last Admin: 04/01/17 17:31 Dose: 75 mls/hr Isosorbide Mononitrate (Imdur -) 30 mg PO DAILY [facility] Last Admin: 04/02/17 11:16 Dose: 30 mg Constitutional: Yes: Well Nourished, Calm Eyes: Yes: WNL HENT: Yes: WNL Neck: Yes: WNL Cardiovascular: Yes: Regular Rate and Rhythm, S1, S2 Respiratory: Yes: CTA Bilaterally Gastrointestinal: Yes: Normal Bowel Sounds, Soft Extremities: Yes: WNL Edema: No Labs: Laboratory Results - last 24 hr 04/02/17 05:05 Sodium 141 Potassium 4.6 Chloride 108 H Carbon Dioxide 23 Anion Gap 10 BUN 25 H D Creatinine 1.8 H Random Glucose 88 Calcium 7.9 L Assessment/Plan Problem List - Problems (1) Chest pain Code(s): R07.9 - CHEST PAIN, UNSPECIFIED (2) UTI (urinary tract infection) Code(s): N39.0 - URINARY TRACT INFECTION, SITE NOT SPECIFIED Qualifiers: Urinary tract infection type: acute cystitis (3) MANDY (acute kidney injury) Code(s): N17.9 - ACUTE KIDNEY FAILURE, UNSPECIFIED (4) Hypertension Code(s): I10 - ESSENTIAL (PRIMARY) HYPERTENSION Assessment/Plan Chest Pain UTI Acute on Chronic Renal Failure Left Nephrectomy h/o Cystectomy s/p ileal conduit HTN - IVF - monitor urine output, creatinine - DVT prophylaxis - Currently off ABX Dr Aguilera
[2017-04-02] MEDS ORDERED: SODIUM CHLORIDE 0.45% 1,000 ML IV SCH (14:25)
--- NOTE | 2017-04-02 14:25 | PN ---
Progress Note, Physician History of Present Illness: Pt seen and examined at bedside. She is awake and alert. She denies fevers or chills. - Current Medication List Current Medications: Active Medications Aspirin (Ecotrin -) 81 mg PO DAILY [facility] Last Admin: 04/02/17 11:16 Dose: 81 mg Atenolol (Tenormin -) 25 mg PO DAILY [facility] Last Admin: 04/02/17 11:16 Dose: 25 mg Docusate Sodium (Colace -) 300 mg PO HS [facility] Last Admin: 04/01/17 21:37 Dose: 300 mg Heparin Sodium (Porcine) (Heparin -) 5,000 unit SQ TID [facility] Last Admin: 04/02/17 13:34 Dose: 5,000 unit Sodium Chloride (1/2 Normal Saline) 1,000 mls @ 75 mls/hr IV ASDIR [facility] Last Admin: 04/01/17 17:31 Dose: 75 mls/hr Isosorbide Mononitrate (Imdur -) 30 mg PO DAILY [facility] Last Admin: 04/02/17 11:16 Dose: 30 mg - Objective Vital Signs: Vital Signs Temperature 98.2 F 04/02/17 10:00 Pulse Rate 68 04/02/17 10:00 Respiratory Rate 16 04/02/17 10:00 Blood Pressure 134/72 04/02/17 10:00 O2 Sat by Pulse Oximetry (%) 96 04/02/17 09:00 Constitutional: Yes: Calm Eyes: Yes: Conjunctiva Clear HENT: Yes: Atraumatic Neck: Yes: Supple Cardiovascular: Yes: S1, S2 Respiratory: Yes: CTA Bilaterally Gastrointestinal: Yes: Soft Genitourinary: Yes: Other (ileal conduit) Edema: No Neurological: Yes: Oriented Psychiatric: Yes: Oriented Labs: CBC, BMP 04/01/17 05:25 04/02/17 05:05 INR, PTT INR 1.15 (0.82-1.09) H 03/31/17 09:09 Problem List - Problems (1) Abnormal ECG Code(s): R94.31 - ABNORMAL ELECTROCARDIOGRAM [ECG] [EKG] (2) Acute on chronic renal insufficiency Code(s): N28.9 - DISORDER OF KIDNEY AND URETER, UNSPECIFIED; N18.9 - CHRONIC KIDNEY DISEASE, UNSPECIFIED (3) Chest pain Code(s): R07.9 - CHEST PAIN, UNSPECIFIED (4) UTI (urinary tract infection) Code(s): N39.0 - URINARY TRACT INFECTION, SITE NOT SPECIFIED Qualifiers: Urinary tract infection type: acute cystitis (5) MANDY (acute kidney injury) Code(s): N17.9 - ACUTE KIDNEY FAILURE, UNSPECIFIED Assessment/Plan Current Medications Generic Name Dose Route Start Last Admin Trade Name Freq PRN Reason Stop Dose Admin Aspirin 81 mg 04/01/17 10:00 04/02/17 11:16 Ecotrin - PO 81 mg DAILY RON Administration Atenolol 25 mg 04/01/17 10:00 04/02/17 11:16 Tenormin - PO 25 mg DAILY RON Administration Docusate Sodium 300 mg 04/01/17 22:00 04/01/17 21:37 Colace - PO 300 mg HS RON Administration Heparin Sodium (Porcine) 5,000 unit 04/01/17 14:00 04/02/17 13:34 Heparin - SQ 5,000 unit TID RON Administration Sodium Chloride 1,000 mls @ 75 mls/hr 04/01/17 17:30 04/01/17 17:31 1/2 Normal Saline IV 75 mls/hr ASDIR RON Administration Isosorbide Mononitrate 30 mg 04/02/17 10:00 04/02/17 11:16 Imdur - PO 30 mg DAILY RON Administration Impression 1. CKD 2. chest pain 3. UTI 4. htn 5. proteinuria 6. nsaid use 7. MANDY Plan - renal function is improving - decrease rate of fluid - repeat labs in am - cardio follow up - will follow - renal diet - avoid nsaids Dr Peace
--- NOTE | 2017-04-02 14:26 | PN ---
Physical Exam: SUBJECTIVE: Patient seen and examined. she is ambulating, she has no acute chest pain, she will try to exert herself some more OBJECTIVE: Vital Signs Period Temp Pulse Resp BP Sys/Salmon Pulse Ox Last 24 Hr 98.2 F-99.5 F 62-92 16-20 125-141/64-77 96 PE Neuro: alert, awake, cn 2-12 intact Pulm: CTAB CV: s1 s2 rr r Abd: s nt nd +bs Ext: RLE edema +1, non pitting on right ext warm Laboratory Results - last 24 hr 04/02/17 05:05 Sodium 141 Potassium 4.6 Chloride 108 H Carbon Dioxide 23 Anion Gap 10 BUN 25 H D Creatinine 1.8 H Random Glucose 88 Calcium 7.9 L Active Medications Generic Name Dose Route Start Last Admin Trade Name Jasperq PRN Reason Stop Dose Admin Aspirin 81 mg 04/01/17 10:00 04/02/17 11:16 Ecotrin - PO 81 mg DAILY RON Administration Atenolol 25 mg 04/01/17 10:00 04/02/17 11:16 Tenormin - PO 25 mg DAILY RON Administration Docusate Sodium 300 mg 04/01/17 22:00 04/01/17 21:37 Colace - PO 300 mg HS RON Administration Heparin Sodium (Porcine) 5,000 unit 04/01/17 14:00 04/02/17 13:34 Heparin - SQ 5,000 unit TID RON Administration Sodium Chloride 1,000 mls @ 75 mls/hr 04/01/17 17:30 04/01/17 17:31 1/2 Normal Saline IV 75 mls/hr ASDIR RON Administration Isosorbide Mononitrate 30 mg 04/02/17 10:00 04/02/17 11:16 Imdur - PO 30 mg DAILY RON Administration Imaging: -03/11 myoview stress negative but symptoms of SOB and CHAPPELL persist -03/31 echo: LV systolic function normal, EF 65%, "abnormal relaxation"; RV normal; LAE; mild MR; trace to mild PI Assessment: 76 year old female with a PMHx for HTN, bladder cancer s/p cystectomy, renal cancer s/p left nephrectomy, and chronic kidney disease. Admitted at [facility] from 03/11-03/12/17 for chest pain workup, including echo and stress, stress was negative. Admitted for persistent symptoms of SOB, CHAPPELL, and decreased exercise tolerance. Plan: 1. Exertional Dyspnea on exertion/SOB - Persistent anginal sx, despite negative stress - Start imdur and assess response - Final decision re cardiac cath to be made - Lipid panel - Appreciate cards recs 2. HTN - Continue atenolol - ASA 3. MANDY on CKD - D/t NSAID use - Continue 04/14 ns @ 75cc/hr - RADHA results discussed with pt - Renal following 4. Urostomy infection - Asymptomatic - ESBL, isolate pt - Do not need to treat per ID 5. Bladder cancer - Renal cancer s/p left nephrectomy 6. DVT prophylaxis: subq heparin Visit type - Emergency Visit Emergency Visit: Yes ED Registration Date: 03/31/17 Care time: The patient presented to the Emergency Department on the above date and was hospitalized for further evaluation of their emergent condition. - New Patient This patient is new to me today: Yes Date on this admission: 04/02/17 - Critical Care Critical Care patient: No
[2017-04-02] MEDS: DOCUSATE SODIUM 100 MG CAPSULE (FP) PO SCH (22:43)
[2017-04-03 02:32] VITALS: BP 129/64
[2017-04-03] MEDS: HEPARIN NA (PORCINE) 5,000 UNITS/ML 1ML VIAL SQ SCH (06:04)
[2017-04-03 06:08] VITALS: PULSE 61; TEMP 98.1
[2017-04-03 08:53] LABS: ANION GAP 9 (8-16); CALCIUM 7.9 mg/dL (8.5-10.1); CHOLESTEROL 192 mg/dL (50-200); CO2 25 mmol/L (21-32); CREATININE 1.7 mg/dL (0.55-1.02); GLUCOSE,RANDOM 110 mg/dL (74-106)
--- NOTE | 2017-04-03 09:28 | PN ---
Progress Note, Physician Chief Complaint: creat now approaching baseline - Current Medication List Current Medications: Active Medications Aspirin (Ecotrin -) 81 mg PO DAILY [facility] Last Admin: 04/02/17 11:16 Dose: 81 mg Atenolol (Tenormin -) 25 mg PO DAILY [facility] Last Admin: 04/02/17 11:16 Dose: 25 mg Atorvastatin Calcium (Lipitor -) 20 mg PO [facility] Docusate Sodium (Colace -) 300 mg PO HS [facility] Last Admin: 04/02/17 22:43 Dose: 300 mg Heparin Sodium (Porcine) (Heparin -) 5,000 unit SQ TID [facility] Last Admin: 04/03/17 06:04 Dose: 5,000 unit Sodium Chloride (1/2 Normal Saline) 1,000 mls @ 42 mls/hr IV ASDIR [facility] Last Admin: 04/02/17 14:30 Dose: 42 mls/hr Isosorbide Mononitrate (Imdur -) 30 mg PO DAILY [facility] Last Admin: 04/02/17 11:16 Dose: 30 mg - Objective Vital Signs: Vital Signs Temperature 98.1 F 04/03/17 06:06 Pulse Rate 61 04/03/17 06:06 Respiratory Rate 20 04/03/17 06:06 Blood Pressure 129/64 04/03/17 06:06 O2 Sat by Pulse Oximetry (%) 98 04/02/17 22:00 Constitutional: Yes: No Distress Cardiovascular: Yes: Regular Rate and Rhythm Respiratory: Yes: CTA Bilaterally Gastrointestinal: Yes: Soft Edema: No Neurological: Yes: Alert, Oriented ...Motor Strength: WNL Labs: CBC, BMP 04/01/17 05:25 04/03/17 06:00 INR, PTT INR 1.15 (0.82-1.09) H 03/31/17 09:09 Laboratory Tests 04/03/17 06:00 Sodium 139 Potassium 4.1 BUN 21 H Creatinine 1.7 H Total LDL Cholesterol 129 H - ....Imaging EKG: Image Reviewed (NSR, Wenkebach episode while asleep) Problem List - Problems (1) Dyspnea on exertion Code(s): R06.09 - OTHER FORMS OF DYSPNEA (2) Abnormal ECG Code(s): R94.31 - ABNORMAL ELECTROCARDIOGRAM [ECG] [EKG] (3) UTI (urinary tract infection) Code(s): N39.0 - URINARY TRACT INFECTION, SITE NOT SPECIFIED Qualifiers: Urinary tract infection type: acute cystitis (4) MANDY (acute kidney injury) Code(s): N17.9 - ACUTE KIDNEY FAILURE, UNSPECIFIED (5) Cancer of genitourinary organ Code(s): VEJ5505 - (6) Hypertension Code(s): I10 - ESSENTIAL (PRIMARY) HYPERTENSION Assessment/Plan Assessment/Plan Acute on chronic renal failure HTN Exertional dyspnea and chest pain, stable anginal sx REC: Cont. ASA, beta amber, Imdur Statin added Although recent stress test was negative, her exertional sx persist. I feel the risk of performing an angiogram at this time poses a high risk of kidney injury. Her kidney function should stabilize for a period of time before any non-urgent cath is performed. Can be discharged on Atenolol, ASA, Imdur and statin with close outpatient f/u. Further decisions re. future cath can be made as outpatient, if she does not respond to adjustments in medical therapy.
[2017-04-03] MEDS: ASPIRIN COATED 81 MG TABLET.EC PO SCH (10:21)
[2017-04-03] MEDS: CEFTRIAXONE 1 GM/50 ML PREMIX IVPB SCH (10:21)
[2017-04-03] MEDS: ATENOLOL 25 MG TABLET (FP) PO SCH (10:21)
--- NOTE | 2017-04-03 11:02 | DS ---
Physical Exam: SUBJECTIVE: Patient seen and examined. She is feeling well, no acute complaints ready for dc. OBJECTIVE: Vital Signs Period Temp Pulse Resp BP Sys/Salmon Pulse Ox Last 24 Hr 97.7 F-98.3 F 60-67 18-20 98-129/45-66 98-98 PE Neuro: alert, awake, cn 2-12 intact Pulm: CTAB CV: s1 s2 rrr Abd: s nt nd +bs Ext: RLE edema +1, non pitting on right ext warm Laboratory Results - last 24 hr 04/03/17 06:00 Sodium 139 Potassium 4.1 Chloride 105 Carbon Dioxide 25 Anion Gap 9 BUN 21 H Creatinine 1.7 H Random Glucose 110 H D Calcium 7.9 L Triglycerides 158 D Cholesterol 192 D Total LDL Cholesterol 129 H HDL Cholesterol 36 L D HOSPITAL COURSE: Date of Admission:03/31/17 Date of Discharge: 04/03/17 Minutes to complete discharge: 37 Discharge Summary Reason For Visit: ACUTE ON CHRONIC RENAL INSUFFICIENCY Current Active Problems Abnormal ECG (Acute) Acute on chronic renal insufficiency (Acute) Chest pain (Acute) Dyspnea on exertion (Acute) UTI (urinary tract infection) (Acute) Hospital Course: Initial Hospital Course: Briefly, this 76 year old female with a PMH significant for HTN, bladder cancer s/p cystectomy, renal cancer s/p left nephrectomy, and chronic kidney disease. Admitted at [facility] from 03/11-03/12/17 for chest pain workup, including echo and stress, stress was negative. Patient reported her symptoms of shortness of breath, dyspnea on exertion, and decreased exercise tolerance have continued. Referred to ED by Dr. Paris. Patient admitted to daily NSAID use. Imaging: -03/11 myoview stress negative but symptoms of SOB and CHAPPELL persist -03/31 echo: LV systolic function normal, EF 65%, "abnormal relaxation"; RV normal; LAE; mild MR; trace to mild PI Subsequent Hospital Course/Progress Note/DC summary: Assessment: 76 year old female with a PMHx for HTN, bladder cancer s/p cystectomy, renal cancer s/p left nephrectomy, and chronic kidney disease. Admitted at [facility] from 03/11-03/12/17 for chest pain workup, including echo and stress, stress was negative. Admitted for persistent symptoms of SOB, CHAPPELL, and decreased exercise tolerance. Plan: 1. Exertional Dyspnea on exertion/SOB - Persistent anginal sx, despite negative stress - Started imdur - Lipitor 20mg hs - ASA daily - Out pt follow up for cath decision as RADHA risk still weighing factor 2. HTN - Continue atenolol - ASA 3. MANDY on CKD - D/t NSAID use, d/w pt to discontinue use - RADHA risk d/w pt 4. Urostomy infection - Asymptomatic - ESBL, isolate pt - Do not need to treat per ID 5. Bladder cancer - Renal cancer s/p left nephrectomy Dispo: - Home w/ above meds, plan and otpt follow up - Pt aware and agrees to above plan Condition: Stable - Instructions Diet, Activity, Other Instructions: Please return to the ED for any new, persistent, or worsening symptoms. Follow up with your PCP in 1 week Follow up with Dr. Paris in 1-2 weeks to revisit conversation about cardiac cath Take medications as directed on home medication list, new medication Imdur 30mg daily and Lipitor 20mg HS STOP taking diclofenac moving forward Referrals: Luis Antonio Pearson MD [Primary Care Provider] - Jose Luis Paris MD [Staff Physician] - Disposition: HOME - Home Medications Comprehensive Discharge Medication List: Ambulatory Orders Ascorbate Calcium [Vitamin C] 500 mg PO DAILY 03/11/17 Atenolol [Tenormin -] 25 mg PO DAILY 03/11/17 Calcium Carbonate [Calcium] 1,000 mg PO DAILY 03/11/17 Glucosa López 2Kcl/Chondroitin López [Glucosamine & Chondroitin Cap] 1 each PO DAILY 03/11/17 Atorvastatin Ca [Lipitor] 20 mg PO HS #30 tablet 04/03/17 Isosorbide Mononitrate [Imdur -] 30 mg PO DAILY #30 tab.sr.24h 04/03/17 This patient is new to me today: No Emergency Visit: Yes ED Registration Date: 03/31/17 Care time: The patient presented to the Emergency Department on the above date and was hospitalized for further evaluation of their emergent condition. Critical Care patient: No - Discharge Referral Referred to [facility] Med P.C.: No
[2017-04-03] MEDS: ISOSORBIDE MONONITRATE 30 MG TAB.SR.24H (FP) PO SCH (11:21)
[2017-04-03] MEDS ORDERED: ATORVASTATIN CA 20 MG TABLET (FP) PO SCH (22:00)
== END 2017-04-03 12:31 | disposition home or self-care (01) | DRG 683 ==
LOC: JER 08:00 → JERBED 12:45 → J4W 20:34 → J4S 04-02 14:12
PROVIDERS: ADMIT Hospitalist; ATTEND Nurse Practitioner Acute Care
DX: N17.9 Acute kidney failure, unspecified (principal); N39.0 Urinary tract infection, site not specified; Z85.51 Personal history of malignant neoplasm of bladder; Z85.528 Personal history of other malignant neoplasm of kidney; Z87.891 Personal history of nicotine dependence; R94.31 Abnormal electrocardiogram [ECG] [EKG]; I12.9 Hypertensive chronic kidney disease with stage 1 through stage 4 chronic kidney disease, or unspecified chronic kidney disease; N18.9 Chronic kidney disease, unspecified; I34.0 Nonrheumatic mitral (valve) insufficiency; R07.9 Chest pain, unspecified
CPT/HCPCS: 36415; 71010-TC; 80048; 80053; 80061; 81003; 81015; 82550; 83721; 83735; 83880; 84100; 84484; 85025; 85610; 85730; 86850; 86900; 86901; 87040; 87086; 87186; 93005; 93010; 93306-TC; 99285-25; J1644

== ENCOUNTER 2018-06-21 09:36 | Day surgery (SDC) | payer OTHER, MEDICARE ==
[2018-06-18 12:09] VITALS: BMI 25.6
[2018-06-21 09:52] LABS: BASO % 1.1 % (0-2.0); EOS % 1.8 % (0-4.5); HEMOGLOBIN 13.3 GM/dL (10.7-15.3); LYMPH % 31.7 % (8-40); MCH 27.8 pg (25.7-33.7); MEAN CELL VOLUME 81.9 fl (80-96); MONO % 6.4 % (3.8-10.2); PLATELET COUNT 244 K/MM3 (134-434); RBC 4.77 M/mm3 (3.60-5.2); RDW 13.4 % (11.6-15.6); WHITE BLOOD COUNT 10.2 K/mm3 (4.0-10.0)
[2018-06-21 10:15] LABS: INR 1.03 (0.83-1.09); PROTHROMBIN TIME (PATIENT) 12.2 SEC (9.7-13.0)
[2018-06-21 17:24] VITALS: BP 130/52; PULSE 65; TEMP 98.5
--- NOTE | 2018-06-25 17:57 | PATH ---
Surgical Pathology Report Patient Name: DARIO ZAVALA [facility]. Rec. #: [id number] /Age/Gender: 1940 (Age: 77) / F Account: [id number] Location: RADIOLOGY INTER Taken: 06/21/2018 Received: 06/22/2018 Reported: 06/25/2018 Physicians: Mika Stephenson Specimen(s) Received RETROPERITONEAL BIOPSY Clinical History 77-year-old female with history of TCC. Now with right retroperitoneal mass Final Diagnosis RETROPERITONEAL BIOPSY: CARCINOMA, CONSISTENT WITH UROTHELIAL ORIGIN. Comment: Immunohistochemical stained slides demonstrate tumor cells to be positive for CK7, CK20, CD141, UROPLAKIN, and TERENCE-3, while negative for PAX8. 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 Immunohistochemistry stains PAX8, CD141, UROPLAKIN, and TERENCE-3 performed at [place], [place] (ITCH [id number]) interpreted at [facility]. Immunohistochemistry stains CK7 and CK20 performed and interpreted at [facility]. Positive and negative controls (internal if applicable) show appropriate results. Electronically Signed Lena Millard M.D. Addendum Reported: 06/30/[address] Diez's office confirmed receipt of faxed report, 06/30/18. Lena Millard M.D. Addendum Reported: 08/12/2018 Addendum Diagnosis PD-L1 [facility] and [facility] shows the following: RESULTS: PD-L1 Keytruda Result Description [id number] <10 Not Expressed Reference Ranges: CPS = Combined Positive Score = 100 x PD-L1 staining cells (tumor cells, lymphocytes, macrophages) / total number of viable tumor cells. CPS < 10 = No PD-L1 Expression CPS equal to or greater than 10 = PD-L1 Expression See [facility] report (Ref #: [id number]) for additional details. Lena Millard M.D. Gross Description Received in formalin labeled "retroperitoneal biopsy," is a 0.5 x 0.4 x 0.1 cm aggregate of farha, irregular to cylindrical soft tissue fragments. The formalin is filtered and the specimen is entirely submitted in one cassette. 06/22/201806/22/2018
== END 2018-06-21 17:00 | disposition home or self-care (01) ==
LOC: JRADIR 09:36
PROVIDERS: ATTEND Urology
PROC: 0WBH3ZX Excision of Retroperitoneum, Percutaneous Approach, Diagnostic (ICD-10-PCS; principal; 2018-06-21)
DX: C48.0 Malignant neoplasm of retroperitoneum (principal)
CPT/HCPCS: 36415; 49180; 85025; 85610; 87899; 88305-TC; 88341-TC; 88342-TC

== ENCOUNTER 2018-08-02 13:18 | Day surgery (SDC) | payer OTHER, MEDICARE ==
[2018-08-02 13:36] VITALS: BMI 25.2
[2018-08-02] MEDS ORDERED: PORTA CATH FLUSH 10 ML IVPUSH PRN (13:56)
[2018-08-02 16:52] VITALS: BP 139/52; PULSE 74; TEMP 99.5
== END 2018-08-02 16:55 | disposition home or self-care (01) ==
LOC: JRADIR 13:18
PROVIDERS: ATTEND Internal Medicine Hematology & Oncology
PROC: 05HY33Z Insertion of Infusion Device into Upper Vein, Percutaneous Approach (ICD-10-PCS; principal; 2018-08-02)
DX: C67.9 Malignant neoplasm of bladder, unspecified (principal); C79.02 Secondary malignant neoplasm of left kidney and renal pelvis
CPT/HCPCS: 36561; C1788

== ENCOUNTER 2018-08-03 07:02 | Day surgery (SDC) | payer OTHER, MEDICARE ==
[2018-08-03] MEDS ORDERED: SODIUM CHLORIDE 250 ML IV ONE ×2 (08:00→10:00)
[2018-08-03] MEDS ORDERED: DEXAMETHASONE SODIUM PHOSPHATE 20 MG in SODIUM CHLORIDE 50 ML IVPB ONE (08:30)
[2018-08-03] MEDS ORDERED: PALONOSETRON HCL 0.25 MG/5 ML VIAL IVPUSH ONE (08:30)
[2018-08-03] MEDS ORDERED: SODIUM CHLORIDE IV ONE (09:00)
[2018-08-03] MEDS ORDERED: GEMCITABINE HCL IV ONE (09:00)
[2018-08-03] MEDS ORDERED: SODIUM CHLORIDE IVPB ONE (09:30)
[2018-08-03] MEDS ORDERED: CARBOPLATIN IVPB ONE (09:30)
[2018-08-03 10:53] LABS: BASO % 0.9 % (0-2.0); EOS % 1.2 % (0-4.5); HEMATOCRIT 33.3 % (32.4-45.2); HEMOGLOBIN 11.2 GM/dL (10.7-15.3); LYMPH % 24.8 % (8-40); MCH 27.3 pg (25.7-33.7); MCHC 33.8 g/dl (32.0-36.0); MEAN CELL VOLUME 80.8 fl (80-96); MEAN PLT VOLUME 9.4 fl (7.5-11.1); MONO % 13.9 % (3.8-10.2); NEUT % 59.2 % (42.8-82.8); PLATELET COUNT 174 K/MM3 (134-434); RBC 4.12 M/mm3 (3.60-5.2); RDW 13.3 % (11.6-15.6); WHITE BLOOD COUNT 7.8 K/mm3 (4.0-10.0)
[2018-08-03 11:22] LABS: ALBUMIN 3.2 g/dl (3.4-5.0); ALK PHOS 62 U/L (45-117); ANION GAP 7 MMOL/L (8-16); BILIRUBIN,DIRECT 0.1 mg/dL (0.0-0.2); BILIRUBIN,TOTAL 0.4 mg/dL (0.2-1); BLOOD UREA NITROGEN 19 mg/dL (7-18); CALCIUM 8.6 mg/dL (8.5-10.1); CHLORIDE 102 mmol/L (98-107); CO2 29 mmol/L (21-32); CREATININE 1.2 mg/dL (0.55-1.3); GLUCOSE,RANDOM 89 mg/dL (74-106); POTASSIUM 3.9 mmol/L (3.5-5.1); SGOT/AST 15 U/L (15-37); SGPT/ALT 12 U/L (13-61); SODIUM 137 mmol/L (136-145)
[2018-08-03 16:09] VITALS: BP 150/72; PULSE 63; TEMP 97.5
[2018-08-03] MEDS ORDERED: PORTA CATH FLUSH 10 ML IVPUSH ONE (16:09)
== END 2018-08-03 13:15 | disposition home or self-care (01) ==
LOC: JONCCHEMO 07:02 → J7W 09:51 → JONCCHEMO 13:15
PROVIDERS: ATTEND Internal Medicine Hematology & Oncology
DX: Z51.11 Encounter for antineoplastic chemotherapy (principal); C67.9 Malignant neoplasm of bladder, unspecified; C79.02 Secondary malignant neoplasm of left kidney and renal pelvis
CPT/HCPCS: 36415; 80048; 80076; 83735; 85025; 96375; 96413; 96417; J2469

== ENCOUNTER 2018-08-10 07:04 | Day surgery (SDC) | payer OTHER, MEDICARE ==
[2018-08-10] MEDS ORDERED: PALONOSETRON HCL 0.25 MG/5 ML VIAL IVPUSH ONE (08:00)
[2018-08-10] MEDS ORDERED: DEXAMETHASONE SODIUM PHOSPHATE 20 MG in SODIUM CHLORIDE 50 ML IVPB ONE (08:00)
[2018-08-10] MEDS ORDERED: SODIUM CHLORIDE IV ONE (08:30)
[2018-08-10] MEDS ORDERED: GEMCITABINE HCL IV ONE (08:30)
[2018-08-10] MEDS ORDERED: SODIUM CHLORIDE 250 ML IV ONE (09:00)
[2018-08-10 09:49] LABS: BASO % 0.9 % (0-2.0); EOS % 1.2 % (0-4.5); HEMATOCRIT 35.6 % (32.4-45.2); HEMOGLOBIN 11.7 GM/dL (10.7-15.3); LYMPH % 51.8 % (8-40); MCH 26.6 pg (25.7-33.7); MEAN CELL VOLUME 80.7 fl (80-96); MEAN PLT VOLUME 8.3 fl (7.5-11.1); MONO % 4.9 % (3.8-10.2); NEUT % 41.2 % (42.8-82.8); PLATELET COUNT 187 K/MM3 (134-434); RBC 4.41 M/mm3 (3.60-5.2); RDW 12.8 % (11.6-15.6); WHITE BLOOD COUNT 4.5 K/mm3 (4.0-10.0)
[2018-08-10 10:27] LABS: ALBUMIN 3.5 g/dl (3.4-5.0); ALK PHOS 67 U/L (45-117); ANION GAP 8 MMOL/L (8-16); BILIRUBIN,DIRECT 0.1 mg/dL (0.0-0.2); BILIRUBIN,TOTAL 0.3 mg/dL (0.2-1); BLOOD UREA NITROGEN 21 mg/dL (7-18); CALCIUM 9.2 mg/dL (8.5-10.1); CHLORIDE 96 mmol/L (98-107); CO2 31 mmol/L (21-32); CREATININE 1.2 mg/dL (0.55-1.3); GLUCOSE,RANDOM 122 mg/dL (74-106); LDH 258 U/L (84-246); PREALBUMIN 22.5 mg/dl (20-40); SGOT/AST 33 U/L (15-37); SGPT/ALT 46 U/L (13-61); SODIUM 135 mmol/L (136-145); TOT PROT 6.8 g/dl (6.4-8.2); URIC ACID 5.8 mg/dL (2.6-7.2)
[2018-08-10] MEDS ORDERED: SODIUM CHLORIDE 750 ML IV SCH (16:45)
[2018-08-10 17:59] VITALS: BP 145/59; PULSE 63; TEMP 98.1
[2018-08-10] MEDS ORDERED: PORTA CATH FLUSH 10 ML IVPUSH ONE (17:59)
== END 2018-08-10 13:00 | disposition home or self-care (01) ==
LOC: JONCCHEMO 07:04 → J7W 08:46 → JONCCHEMO 13:00
PROVIDERS: ATTEND Internal Medicine Hematology & Oncology
DX: Z51.11 Encounter for antineoplastic chemotherapy (principal); C67.9 Malignant neoplasm of bladder, unspecified; C79.02 Secondary malignant neoplasm of left kidney and renal pelvis
CPT/HCPCS: 36415; 80048; 80053; 80076; 83615; 83735; 84134; 84550; 85025; 96361; 96367; 96375; 96413; J2469; J7030

== ENCOUNTER 2018-08-11 07:06 | Day surgery (SDC) | payer OTHER, MEDICARE ==
[2018-08-11] MEDS ORDERED: ONDANSETRON IVPB ONE (08:00)
[2018-08-11] MEDS ORDERED: [UNRECOGNIZED DRUG - OTHER] IVPB ONE (08:00)
[2018-08-11] MEDS ORDERED: DEXAMETHASONE SODIUM PHOSPHATE IVPB ONE (08:00)
[2018-08-11] MEDS ORDERED: PEGFILGRASTIM 6 MG/0.6 ML DISP.SYRIN SQ ONE (08:00)
[2018-08-11] MEDS ORDERED: POTASSIUM CHLORIDE 20 MEQ, MAGNESIUM SULFATE 1 GM in DEXTROSE 5%-NORMAL SALINE 500 ML IVPB ONE (08:30)
[2018-08-11 14:00] VITALS: TEMP 97.9
[2018-08-11] MEDS ORDERED: PORTA CATH FLUSH 10 ML IVPUSH ONE (14:00)
[2018-08-11 15:34] VITALS: PULSE 70
[2018-08-11 15:43] VITALS: BP 154/63
== END 2018-08-11 12:40 | disposition home or self-care (01) ==
LOC: JONCCHEMO 07:06 → J7W 09:17 → JONCCHEMO 12:40
PROVIDERS: ATTEND Internal Medicine Hematology & Oncology
PROC: 3E043GC Introduction of Other Therapeutic Substance into Central Vein, Percutaneous Approach (ICD-10-PCS; principal; 2018-08-11)
PROC: 3E043GC Introduction of Other Therapeutic Substance into Central Vein, Percutaneous Approach (ICD-10-PCS; 2018-08-11)
DX: C67.9 Malignant neoplasm of bladder, unspecified (principal); C79.02 Secondary malignant neoplasm of left kidney and renal pelvis
CPT/HCPCS: 96361; 96365; 96372; J2405; J2505

== ENCOUNTER 2018-08-13 17:30 | Emergency (ER) | payer OTHER, MEDICARE ==
[2018-08-13 17:47] VITALS: BP 157/107; PULSE 89; TEMP 98.8; BMI 25.4
--- NOTE | 2018-08-13 18:01 | PDOC ---
Attending Attestation - Resident Resident Name: Matt Yan - ED Attending Attestation I have performed the following: I have examined & evaluated the patient, The case was reviewed & discussed with the resident, I agree w/resident's findings & plan, Exceptions are as noted - HPI HPI: 08/13/18 17:58 78y F hx of htn, Bladder CA (s/p Cystectomy in 2015), Kidney CA (s/p L nephrectomy in 2014), currently on chemo presents with complaint of constipation x 2 weeks. Last BM was approx 2eeks ago. pt on oxycodone for pain control and has never had any problems with constipation in the past, but nots she has not raelly had a good BM for 2 weeks. Pt endorses mild diffuse crampy abd pain. Pt endorses having tried multiple constipation medication swithout significant improvement. N oassociated fever/chills, n/v, bpr, dysuria, cp, sob. Allergies: NKA Past surgical history: Cystectomy in 2015, L nephrectomy in 2014) Social history: None PCP: Dr. Ross Cardio: Gerrione - Physicial Exam PE: 08/13/18 18:57 General: no acute distress, comfortable appearing HEENT: MMM ABD: soft mild LLQ ttp, no rebound/guarding - Medical Decision Making 08/13/18 19:04 suspect opoid induced consipation will give pt relistor no signs of neutropenia, but pt noted to be thrombocytopneic will give enema here - if feeling better, anticipate pt can be d/c with outpatien tmangement
[2018-08-13 18:24] LABS: HEMATOCRIT 32.5 % (32.4-45.2); HEMOGLOBIN 10.7 GM/dl (10.7-15.3); MCH 26.7 pg (25.7-33.7); MCHC 32.9 g/dl (32.0-36.0); MEAN CELL VOLUME 81.2 fl (80-96); MEAN PLT VOLUME 7.9 fl (7.5-11.1); PLATELET COUNT 86 K/MM3 (134-434); WHITE BLOOD COUNT 11.4 K/mm3 (4.0-10.8)
[2018-08-13 18:44] LABS: ALBUMIN 3.5 g/dl (3.4-5.0); ALK PHOS 82 U/L (45-117); ANION GAP 10 MMOL/L (8-16); BILIRUBIN,TOTAL 0.6 mg/dl (0.2-1); BLOOD UREA NITROGEN 25 mg/dl (7-18); CALCIUM 8.5 mg/dl (8.5-10); CHLORIDE 98 mmol/L (98-107); CO2 26 mmol/L (21-32); CREATININE 1.3 mg/dl (0.55-1.3); GLUCOSE,RANDOM 115 mg/dl (74-106); POTASSIUM 3.8 mmol/L (3.5-5.1); SGOT/AST 56 U/L (15-37); SGPT/ALT 81 U/L (13-61); SODIUM 134 mmol/L (136-145); TOT PROT 5.9 g/dl (6.4-8.2)
[2018-08-13] MEDS ORDERED: SODIUM PHOSPHATE/NA BIPHOS 133 ML ENEMA PR ONE (18:52)
[2018-08-13] MEDS ORDERED: Methylnaltrexone Bromide 12 MG/0.6 ML KIT SQ SCH (19:00)
[2018-08-13 19:07] LABS: PLATELET ESTIMATE DECREASED
--- NOTE | 2018-08-13 19:19 | PDOC ---
History of Present Illness - General Chief Complaint: Constipation Stated Complaint: CONSTIPATION X 2 WEEKS Time Seen by Provider: 08/13/18 17:39 History Source: Patient Exam Limitations: No Limitations Past History - Past Medical History Allergies/Adverse Reactions: Allergies Allergy/AdvReac Type Severity Reaction Status Date / Time No Known Drug Allergies Allergy Verified 03/31/17 08:01 Home Medications: Ambulatory Orders Ascorbate Calcium [Vitamin C] 500 mg PO DAILY 03/11/17 Atenolol [Tenormin -] 12.5 mg PO DAILY 03/11/17 Calcium Carbonate [Calcium] 1,000 mg PO DAILY 03/11/17 Glucosa López 2Kcl/Chondroitin López [Glucosamine & Chondroitin Cap] 1 each PO DAILY 03/11/17 Aspirin Coated [Ecotrin -] 81 mg PO DAILY 06/18/18 Docusate Sodium [Colace] 100 mg PO TID 08/13/18 Magnesium Hydrox 2400MG/30Ml [Milk of Magnesia -] 30 ml PO ONCE 08/13/18 Methylnaltrexone [place] [Relistor] 12 mg SQ PRN 14 Days #7 ml 08/13/18 Oxycodone HCl/Acetaminophen [Percocet 5-325 mg Tablet] 1 tab PO BID 08/13/18 Polyethylene Glycol 3350 [Miralax (For Daily Use) -] 17 gm PO DAILY 08/13/18 Sennosides/Docusate Sodium [Senna Laxative Tablet] 2 each PO BID 08/13/18 Anemia: No Asthma: No Cancer: Yes (BLADDER, left KIDNEY) Cardiac Disorders: Yes (irregular heartbeat) CVA: No COPD: No CHF: No Dementia: No Diabetes: No GI Disorders: No Disorders: No (cyctectomy) HTN: Yes Hypercholesterolemia: Yes Liver Disease: No Seizures: No Thyroid Disease: No - Surgical History Abdominal Surgery: No Appendectomy: No Cardiac Surgery: No Cholecystectomy: No Lung Surgery: No Neurologic Surgery: No - Immunization History Immunization Up to Date: Yes - Suicide/Smoking/Psychosocial Hx Smoking History: Former smoker Have you smoked in the past 12 months: No If you are a former smoker, when did you quit?: 1977 Information on smoking cessation initiated: No Hx Alcohol Use: No Drug/Substance Use Hx: No Substance Use Type: None Hx Substance Use Treatment: No *Physical Exam - Vital Signs Last Vital Signs Temp Pulse Resp BP Pulse Ox 98.8 F 89 18 157/107 H 99 08/13/18 17:32 08/13/18 17:32 08/13/18 17:32 08/13/18 17:32 08/13/18 17:32 ED Treatment Course - LABORATORY CBC & Chemistry Diagram: 08/13/18 18:10 08/13/18 18:10 - ADDITIONAL ORDERS Additional order review: Laboratory Results 08/13/18 08/13/18 18:10 18:00 Sodium 134 L Potassium 3.8 Chloride 98 Carbon Dioxide 26 Anion Gap 10 BUN 25 H Creatinine 1.3 Creat Clearance w eGFR 39.82 Random Glucose 115 H Calcium 8.5 Total Bilirubin 0.6 AST 56 H ALT 81 H Alkaline Phosphatase 82 Total Protein 5.9 L Albumin 3.5 Stool Occult Blood Negative 08/13/18 18:10 RBC 4.00 MCV 81.2 MCHC 32.9 RDW 12.0 MPV 7.9 Neutrophils % No Result Required. Lymphocytes % No Result Required. - Medications Given in the ED: ED Medications Discontinued Medications Generic Name Dose Route Start Last Admin Trade Name Freq PRN Reason Stop Dose Admin Sodium Phosphate 133 ml 08/13/18 18:52 08/13/18 18:50 Fleet Adult Rectal Enema - IA 08/13/18 18:53 133 ml ONCE ONE Administration Medical Decision Making - Medical Decision Making 08/13/18 19:11 Fleet enema resolved constipation Pt will receive injection of relistor while in the ED and will DC with Relistor for home use Pt will f/u with PCP for further care and management *DC/Admit/Observation/Transfer Diagnosis at time of Disposition: Therapeutic opioid induced constipation - Discharge Dispostion Disposition: HOME Condition at time of disposition: Good Decision to Admit order: No - Referrals Referrals: Luis Antonio Pearson MD [Primary Care Provider] - - Patient Instructions Printed Discharge Instructions: DI for Constipation Additional Instructions: Please see your primary doctor within the next 48 hours. Take the medication Relistor every other day for your constipation but make sure to discuss this with your primary doctor. Continue taking your home dosed medications including constipation medications as prescribed. Return to the ER for new or concerning symptoms including but not limited to: severe abdominal pain, high fevers, rectal bleeding. Thank you - Post Discharge Activity
== END 2018-08-13 22:43 | disposition home or self-care (01) ==
LOC: FER 17:30
PROC: 3E023GC Introduction of Other Therapeutic Substance into Muscle, Percutaneous Approach (ICD-10-PCS; principal; 2018-08-13)
DX: K59.03 Drug induced constipation (principal); T40.2X5A Adverse effect of other opioids, initial encounter; Y92.9 Unspecified place or not applicable; Z87.891 Personal history of nicotine dependence; E78.5 Hyperlipidemia, unspecified; I10 Essential (primary) hypertension
CPT/HCPCS: 36415; 74019-TC-FY; 80053; 82272; 85025; 96372; 99284-25

== ENCOUNTER 2018-08-24 07:09 | Day surgery (SDC) | payer OTHER, MEDICARE ==
[2018-08-24] MEDS ORDERED: SODIUM CHLORIDE 250 ML IV ONE ×2 (10:00→11:30)
[2018-08-24] MEDS ORDERED: DEXAMETHASONE SODIUM PHOSPHATE 20 MG in SODIUM CHLORIDE 50 ML IVPB ONE (10:00)
[2018-08-24] MEDS ORDERED: PALONOSETRON HCL 0.25 MG/5 ML VIAL IVPUSH ONE (10:00)
[2018-08-24] MEDS ORDERED: GEMCITABINE HCL IV ONE (10:30)
[2018-08-24] MEDS ORDERED: SODIUM CHLORIDE IV ONE (10:30)
[2018-08-24] MEDS ORDERED: CARBOPLATIN IVPB ONE (11:00)
[2018-08-24] MEDS ORDERED: SODIUM CHLORIDE IVPB ONE (11:00)
[2018-08-24 12:43] LABS: BASO % 0.4 % (0-2.0); EOS % 0.1 % (0-4.5); HEMATOCRIT 31.6 % (32.4-45.2); LYMPH % 20.9 % (8-40); MCH 25.5 pg (25.7-33.7); MCHC 31.7 g/dl (32.0-36.0); MEAN CELL VOLUME 80.3 fl (80-96); MEAN PLT VOLUME 8.1 fl (7.5-11.1); MONO % 6.7 % (3.8-10.2); NEUT % 71.9 % (42.8-82.8); PLATELET COUNT 511 K/MM3 (134-434); RBC 3.94 M/mm3 (3.60-5.2); RDW 13.1 % (11.6-15.6); WHITE BLOOD COUNT 22.4 K/mm3 (4.0-10.0)
[2018-08-24 13:07] LABS: ALBUMIN 3.3 g/dl (3.4-5.0); BILIRUBIN,DIRECT 0.1 mg/dL (0.0-0.2); BILIRUBIN,TOTAL 0.2 mg/dL (0.2-1); CALCIUM 8.8 mg/dL (8.5-10.1); CREATININE 1.3 mg/dL (0.55-1.3); MAGNESIUM 2.4 mg/dL (1.8-2.4); TOT PROT 6.4 g/dl (6.4-8.2)
[2018-08-24 14:28] LABS: ANISOCYTOSIS 0; MACROCYTOSIS 0; PLATELET ESTIMATE INCREASED
[2018-08-24 17:25] VITALS: TEMP 97.4
[2018-08-24 17:34] VITALS: BP 128/66; PULSE 68
[2018-08-24] MEDS ORDERED: PORTA CATH FLUSH 10 ML IVPUSH ONE (17:34)
== END 2018-08-24 16:55 | disposition home or self-care (01) ==
LOC: JONCCHEMO 07:09 → J7W 11:25 → JONCCHEMO 16:55
PROVIDERS: ATTEND Internal Medicine Hematology & Oncology
PROC: 3E04305 Introduction of Other Antineoplastic into Central Vein, Percutaneous Approach (ICD-10-PCS; principal; 2018-08-24)
PROC: 3E043GC Introduction of Other Therapeutic Substance into Central Vein, Percutaneous Approach (ICD-10-PCS; 2018-08-24)
DX: Z51.11 Encounter for antineoplastic chemotherapy (principal); C67.4 Malignant neoplasm of posterior wall of bladder; C79.02 Secondary malignant neoplasm of left kidney and renal pelvis; I10 Essential (primary) hypertension; E78.00 Pure hypercholesterolemia, unspecified
CPT/HCPCS: 36415; 80048; 80076; 83735; 85025; 96367; 96375; 96413; 96417; J2469

== ENCOUNTER 2018-08-31 07:14 | Day surgery (SDC) | payer OTHER, MEDICARE ==
[2018-08-31 08:48] LABS: BASO % 0.7 % (0-2.0); EOS % 0.3 % (0-4.5); HEMATOCRIT 31.5 % (32.4-45.2); HEMOGLOBIN 10.4 GM/dL (10.7-15.3); LYMPH % 53.2 % (8-40); MCH 26.4 pg (25.7-33.7); MCHC 32.9 g/dl (32.0-36.0); MEAN CELL VOLUME 80.3 fl (80-96); MEAN PLT VOLUME 7.4 fl (7.5-11.1); MONO % 5.9 % (3.8-10.2); NEUT % 39.9 % (42.8-82.8); PLATELET COUNT 487 K/MM3 (134-434); RBC 3.92 M/mm3 (3.60-5.2); WHITE BLOOD COUNT 5.9 K/mm3 (4.0-10.0)
[2018-08-31 09:18] LABS: ALBUMIN 3.4 g/dl (3.4-5.0); BILIRUBIN,DIRECT 0.1 mg/dL (0.0-0.2); BILIRUBIN,TOTAL 0.3 mg/dL (0.2-1); CALCIUM 8.7 mg/dL (8.5-10.1); CREATININE 1.2 mg/dL (0.55-1.3); MAGNESIUM 1.8 mg/dL (1.8-2.4); POTASSIUM 3.5 mmol/L (3.5-5.1); TOT PROT 6.6 g/dl (6.4-8.2)
[2018-08-31] MEDS ORDERED: DEXAMETHASONE SODIUM PHOSPHATE 20 MG in SODIUM CHLORIDE 50 ML IVPB ONE (10:00)
[2018-08-31] MEDS ORDERED: PALONOSETRON HCL 0.25 MG/5 ML VIAL IVPUSH ONE (10:00)
[2018-08-31] MEDS ORDERED: SODIUM CHLORIDE IV ONE ×2 (10:30)
[2018-08-31] MEDS ORDERED: GEMCITABINE HCL IV ONE ×2 (10:30)
[2018-08-31] MEDS ORDERED: SODIUM CHLORIDE 250 ML IV ONE (11:00)
[2018-08-31 17:07] VITALS: TEMP 98.4
[2018-08-31] MEDS ORDERED: PORTA CATH FLUSH 10 ML IVPUSH ONE (17:07)
[2018-08-31 17:08] VITALS: BP 147/78; PULSE 68
== END 2018-08-31 12:15 | disposition home or self-care (01) ==
LOC: JONCCHEMO 07:14 → J7W 10:03 → JONCCHEMO 12:15
PROVIDERS: ATTEND Internal Medicine Hematology & Oncology
PROC: 3E04305 Introduction of Other Antineoplastic into Central Vein, Percutaneous Approach (ICD-10-PCS; principal; 2018-08-31)
PROC: 3E043GC Introduction of Other Therapeutic Substance into Central Vein, Percutaneous Approach (ICD-10-PCS; 2018-08-31)
PROC: 3E0437Z Introduction of Electrolytic and Water Balance Substance into Central Vein, Percutaneous Approach (ICD-10-PCS; 2018-08-31)
DX: Z51.11 Encounter for antineoplastic chemotherapy (principal); C67.9 Malignant neoplasm of bladder, unspecified; C79.02 Secondary malignant neoplasm of left kidney and renal pelvis; I10 Essential (primary) hypertension; E78.00 Pure hypercholesterolemia, unspecified
CPT/HCPCS: 36415; 80048; 80076; 83735; 85025; 96375; 96413; J2469

== ENCOUNTER 2018-09-01 07:10 | Day surgery (SDC) | payer OTHER, MEDICARE ==
[2018-09-01] MEDS ORDERED: PEGFILGRASTIM 6 MG/0.6 ML DISP.SYRIN SQ ONE (10:00)
[2018-09-01] MEDS ORDERED: POTASSIUM CHLORIDE 20 MEQ, MAGNESIUM SULFATE 1 GM in DEXTROSE 5%-0.45% SALINE - 500 ML IVPB ONE (12:00)
[2018-09-01] MEDS ORDERED: DEXAMETHASONE SODIUM PHOSPHATE 8 MG, ONDANSETRON INJECTION 8 MG in SODIUM CHLORIDE 100 ML IVPB ONE (12:00)
[2018-09-01] MEDS ORDERED: PORTA CATH FLUSH 10 ML IVPUSH ONE (16:10)
[2018-09-01 16:11] VITALS: TEMP 98
[2018-09-01 16:12] VITALS: BP 147/78; PULSE 67
== END 2018-09-01 15:00 | disposition home or self-care (01) ==
LOC: JONCCHEMO 07:10 → J7W 11:25 → JONCCHEMO 15:00
PROVIDERS: ATTEND Internal Medicine Hematology & Oncology
PROC: 3E033GC Introduction of Other Therapeutic Substance into Peripheral Vein, Percutaneous Approach (ICD-10-PCS; principal; 2018-09-01)
PROC: 3E0337Z Introduction of Electrolytic and Water Balance Substance into Peripheral Vein, Percutaneous Approach (ICD-10-PCS; 2018-09-01)
PROC: 3E013GC Introduction of Other Therapeutic Substance into Subcutaneous Tissue, Percutaneous Approach (ICD-10-PCS; 2018-09-01)
DX: C67.9 Malignant neoplasm of bladder, unspecified (principal); C79.02 Secondary malignant neoplasm of left kidney and renal pelvis
CPT/HCPCS: 96361; 96365; 96367; 96372; 96375; J2405; J2505

== ENCOUNTER 2018-09-08 09:50 | Day surgery (SDC) | payer OTHER, MEDICARE ==
[2018-09-08] MEDS ORDERED: D5-1/2NS+20 MEQ KCL - 20 MEQ/1,000 ML INFUS.BAG IV SCH (11:15)
[2018-09-08 13:19] LABS: CALCIUM 8.4 mg/dL (8.5-10.1); CREATININE 1.3 mg/dL (0.55-1.3); MAGNESIUM 1.6 mg/dL (1.8-2.4); POTASSIUM 3.4 mmol/L (3.5-5.1)
[2018-09-08 13:20] LABS: ALBUMIN 3.6 g/dl (3.4-5.0); BILIRUBIN,TOTAL 0.3 mg/dL (0.2-1); TOT PROT 6.4 g/dl (6.4-8.2)
[2018-09-08 14:00] VITALS: TEMP 98.7
[2018-09-08] MEDS ORDERED: PORTA CATH FLUSH 10 ML IVPUSH ONE (14:00)
[2018-09-08 14:03] VITALS: BP 117/60; PULSE 76
[2018-09-09] MEDS ORDERED: D5-1/2NS+20 MEQ KCL - 20 MEQ/1,000 ML INFUS.BAG IV SCH (11:15)
== END 2018-09-08 14:21 | disposition home or self-care (01) ==
LOC: JONCNONCHE 09:50 → J7W 10:55 → JONCNONCHE 14:21
PROVIDERS: ATTEND Internal Medicine Hematology & Oncology
PROC: 3E0337Z Introduction of Electrolytic and Water Balance Substance into Peripheral Vein, Percutaneous Approach (ICD-10-PCS; principal; 2018-09-08)
DX: C67.9 Malignant neoplasm of bladder, unspecified (principal); C79.02 Secondary malignant neoplasm of left kidney and renal pelvis; Z76.89 Persons encountering health services in other specified circumstances
CPT/HCPCS: 36415; 80053; 83735; 96360; 96361

== ENCOUNTER 2018-09-09 06:21 | Day surgery (SDC) | payer OTHER, MEDICARE ==
[2018-09-09] MEDS ORDERED: D5-1/2NS+20 MEQ KCL - 20 MEQ/1,000 ML INFUS.BAG IV SCH (10:15)
[2018-09-09 13:34] VITALS: BP 110/57; PULSE 63
[2018-09-09] MEDS ORDERED: PORTA CATH FLUSH 10 ML IVPUSH ONE (13:34)
[2018-09-09 13:38] VITALS: TEMP 98.8
[2018-09-10] MEDS ORDERED: D5-1/2NS+20 MEQ KCL - 20 MEQ/1,000 ML INFUS.BAG IV SCH (10:15)
== END 2018-09-09 12:35 | disposition home or self-care (01) ==
LOC: JONCNONCHE 06:21 → JONCCHEMO 06:21 → J7W 09:26 → JONCNONCHE 12:35
PROVIDERS: ATTEND Internal Medicine Hematology & Oncology
PROC: 3E0337Z Introduction of Electrolytic and Water Balance Substance into Peripheral Vein, Percutaneous Approach (ICD-10-PCS; principal; 2018-09-09)
DX: C67.9 Malignant neoplasm of bladder, unspecified (principal); C79.02 Secondary malignant neoplasm of left kidney and renal pelvis; Z76.89 Persons encountering health services in other specified circumstances
CPT/HCPCS: 96360; 96361

== ENCOUNTER 2018-09-21 07:02 | Day surgery (SDC) | payer OTHER, MEDICARE | END 2018-09-21 16:20 | disposition home or self-care (01) | LOC: JONCCHEMO 07:02 → J7W 10:11 → JONCCHEMO 16:20 ==

== ENCOUNTER 2018-09-22 05:48 | Day surgery (SDC) | payer OTHER, MEDICARE ==
[2018-09-22] MEDS ORDERED: MAGNESIUM SULFATE IVPB ONE (09:00)
[2018-09-22] MEDS ORDERED: POTASSIUM CHLORIDE IVPB ONE (09:00)
[2018-09-22] MEDS ORDERED: SODIUM CHLORIDE 0.45% IVPB ONE (09:00)
[2018-09-22] MEDS ORDERED: DEXAMETHASONE SODIUM PHOSPHATE 8 MG, ONDANSETRON INJECTION 8 MG in SODIUM CHLORIDE 100 ML IVPB ONE (09:00)
[2018-09-22] MEDS ORDERED: PORTA CATH FLUSH 10 ML IVPUSH ONE (16:16)
[2018-09-22 16:18] VITALS: BP 142/72; PULSE 68; TEMP 97.7
== END 2018-09-22 12:15 | disposition home or self-care (01) ==
LOC: JONCCHEMO 05:48 → J7W 09:44 → JONCCHEMO 12:15
PROVIDERS: ATTEND Internal Medicine Hematology & Oncology
PROC: 3E043GC Introduction of Other Therapeutic Substance into Central Vein, Percutaneous Approach (ICD-10-PCS; principal; 2018-09-22)
PROC: 3E043GC Introduction of Other Therapeutic Substance into Central Vein, Percutaneous Approach (ICD-10-PCS; 2018-09-22)
DX: C67.9 Malignant neoplasm of bladder, unspecified (principal); C79.02 Secondary malignant neoplasm of left kidney and renal pelvis
CPT/HCPCS: 96361; 96365; 96366; 96367; 96375; J2405

== ENCOUNTER 2018-09-28 07:06 | Day surgery (SDC) | payer OTHER, MEDICARE | END 2018-09-28 14:00 | disposition home or self-care (01) | LOC: JONCCHEMO 07:06 → J7W 08:47 → JONCCHEMO 14:00 ==

== ENCOUNTER 2018-09-29 07:08 | Day surgery (SDC) | payer OTHER, MEDICARE ==
[2018-09-28 09:20] VITALS: TEMP 98.8
[2018-09-29] MEDS ORDERED: PEGFILGRASTIM 6 MG/0.6 ML DISP.SYRIN SQ ONE (09:00)
[2018-09-29] MEDS ORDERED: SODIUM CHLORIDE 500 ML IV SCH (10:00)
[2018-09-29 16:58] VITALS: BP 127/56; PULSE 63
[2018-09-29] MEDS ORDERED: PORTA CATH FLUSH 10 ML IVPUSH ONE (16:59)
== END 2018-09-29 12:30 | disposition home or self-care (01) ==
LOC: JONCCHEMO 07:08 → J7W 09:37 → JONCCHEMO 12:30
PROVIDERS: ATTEND Internal Medicine Hematology & Oncology
PROC: 3E013GC Introduction of Other Therapeutic Substance into Subcutaneous Tissue, Percutaneous Approach (ICD-10-PCS; principal; 2018-09-29)
PROC: 3E033GC Introduction of Other Therapeutic Substance into Peripheral Vein, Percutaneous Approach (ICD-10-PCS; 2018-09-29)
DX: C67.9 Malignant neoplasm of bladder, unspecified (principal); C79.02 Secondary malignant neoplasm of left kidney and renal pelvis
CPT/HCPCS: 96360; 96361; 96372; J2505

== ENCOUNTER 2018-10-12 05:45 | Day surgery (SDC) | payer OTHER, MEDICARE ==
[2018-10-12] MEDS ORDERED: SODIUM CHLORIDE 250 ML IV ONE ×2 (09:00→11:00)
[2018-10-12 09:25] LABS: BASO % 0.3 % (0-2.0); EOS % 0.6 % (0-4.5); HEMATOCRIT 27.5 % (32.4-45.2); HEMOGLOBIN 8.7 GM/dL (10.7-15.3); LYMPH % 17.8 % (8-40); MCH 26.9 pg (25.7-33.7); MCHC 31.6 g/dl (32.0-36.0); MEAN CELL VOLUME 85.1 fl (80-96); MEAN PLT VOLUME 7.7 fl (7.5-11.1); MONO % 4.9 % (3.8-10.2); NEUT % 76.4 % (42.8-82.8); PLATELET COUNT 283 K/MM3 (134-434); RBC 3.23 M/mm3 (3.60-5.2); RDW 21.6 % (11.6-15.6); WHITE BLOOD COUNT 19.6 K/mm3 (4.0-10.0)
[2018-10-12] MEDS ORDERED: PALONOSETRON HCL 0.25 MG/5 ML VIAL IVPUSH ONE (09:30)
[2018-10-12] MEDS ORDERED: DEXAMETHASONE SODIUM PHOSPHATE 20 MG in SODIUM CHLORIDE 50 ML IVPB ONE (09:30)
[2018-10-12 10:00] LABS: ALBUMIN 3.3 g/dl (3.4-5.0); BILIRUBIN,DIRECT 0.1 mg/dL (0.0-0.2); BILIRUBIN,TOTAL 0.2 mg/dL (0.2-1); BLOOD UREA NITROGEN 11.2 mg/dL (7-18); CALCIUM 8.6 mg/dL (8.5-10.1); CREATININE 1.2 mg/dL (0.55-1.3); MAGNESIUM 2.1 mg/dL (1.8-2.4); POTASSIUM 4.1 mmol/L (3.5-5.1); TOT PROT 6.1 g/dl (6.4-8.2)
[2018-10-12] MEDS ORDERED: GEMCITABINE HCL 1,197 MG in SODIUM CHLORIDE 250 ML IV ONE (10:00)
[2018-10-12] MEDS ORDERED: SODIUM CHLORIDE IVPB ONE (10:30)
[2018-10-12] MEDS ORDERED: CARBOPLATIN IVPB ONE (10:30)
[2018-10-12 11:17] LABS: ANISOCYTOSIS 1+; MACROCYTOSIS 1+; PLATELET ESTIMATE NORMAL
[2018-10-12 18:31] VITALS: TEMP 98.9
[2018-10-12] MEDS ORDERED: PORTA CATH FLUSH 10 ML IVPUSH ONE (18:38)
[2018-10-12 18:39] VITALS: BP 140/71; PULSE 74
== END 2018-10-12 14:40 | disposition home or self-care (01) ==
LOC: JONCCHEMO 05:45 → J7W 10:59 → JONCCHEMO 14:40
PROVIDERS: ATTEND Internal Medicine Hematology & Oncology
DX: Z51.11 Encounter for antineoplastic chemotherapy (principal); C67.9 Malignant neoplasm of bladder, unspecified; C79.02 Secondary malignant neoplasm of left kidney and renal pelvis
CPT/HCPCS: 36415; 36430; 36511; 80048; 80076; 83735; 85025; 86850; 86900; 86901; 86922; 96375; 96413; 96417; J2469; P9038; P9058

== ENCOUNTER 2018-10-13 07:06 | Day surgery (SDC) | payer OTHER, MEDICARE ==
[2018-10-13] MEDS ORDERED: SODIUM CHLORIDE 250 ML IV SCH (09:45)
[2018-10-13 15:48] VITALS: BP 114/59; PULSE 64; TEMP 98.3
[2018-10-13 15:48] LABS: HEMATOCRIT 25.1 % (32.4-45.2); HEMOGLOBIN 8.2 GM/dL (10.7-15.3); MCH 27.6 pg (25.7-33.7); MCHC 32.7 g/dl (32.0-36.0); MEAN CELL VOLUME 84.3 fl (80-96); MEAN PLT VOLUME 7.8 fl (7.5-11.1); PLATELET COUNT 256 K/MM3 (134-434); RBC 2.98 M/mm3 (3.60-5.2); RDW 20.5 % (11.6-15.6); WHITE BLOOD COUNT 19.5 K/mm3 (4.0-10.0)
== END 2018-10-13 16:11 | disposition home or self-care (01) ==
LOC: JONCCHEMO 07:06 → J7W 08:44 → JONCCHEMO 16:11
PROVIDERS: ATTEND Internal Medicine Hematology & Oncology
PROC: 30243N1 Transfusion of Nonautologous Red Blood Cells into Central Vein, Percutaneous Approach (ICD-10-PCS; principal; 2018-10-13)
DX: D64.81 Anemia due to antineoplastic chemotherapy (principal); C67.9 Malignant neoplasm of bladder, unspecified
CPT/HCPCS: 36415; 85027

== ENCOUNTER 2018-10-19 07:08 | Day surgery (SDC) | payer OTHER, MEDICARE ==
[2018-10-19] MEDS ORDERED: ZOLEDRONIC ACID 3 MG in SODIUM CHLORIDE 100 ML IVPB ONE (09:00)
[2018-10-19 09:45] LABS: BASO % 1.1 % (0-2.0); EOS % 0.6 % (0-4.5); HEMATOCRIT 28.5 % (32.4-45.2); HEMOGLOBIN 9.3 GM/dL (10.7-15.3); LYMPH % 34.4 % (8-40); MCH 27.9 pg (25.7-33.7); MCHC 32.7 g/dl (32.0-36.0); MEAN CELL VOLUME 85.2 fl (80-96); MEAN PLT VOLUME 7.7 fl (7.5-11.1); MONO % 5.2 % (3.8-10.2); NEUT % 58.7 % (42.8-82.8); PLATELET COUNT 228 K/MM3 (134-434); RBC 3.35 M/mm3 (3.60-5.2); RDW 20.2 % (11.6-15.6); WHITE BLOOD COUNT 6.8 K/mm3 (4.0-10.0)
[2018-10-19] MEDS ORDERED: DEXAMETHASONE SODIUM PHOSPHATE 20 MG in SODIUM CHLORIDE 50 ML IVPB ONE (10:00)
[2018-10-19] MEDS ORDERED: PALONOSETRON HCL 0.25 MG/5 ML VIAL IVPUSH ONE (10:00)
[2018-10-19] MEDS ORDERED: GEMCITABINE HCL 1,197 MG in SODIUM CHLORIDE 250 ML IV ONE (10:30)
[2018-10-19 10:48] LABS: ALBUMIN 3.6 g/dl (3.4-5.0); BILIRUBIN,DIRECT 0.1 mg/dL (0.0-0.2); BILIRUBIN,TOTAL 0.4 mg/dL (0.2-1); BLOOD UREA NITROGEN 23.8 mg/dL (7-18); CALCIUM 8.6 mg/dL (8.5-10.1); CREATININE 1.1 mg/dL (0.55-1.3); MAGNESIUM 1.8 mg/dL (1.8-2.4); POTASSIUM 3.9 mmol/L (3.5-5.1); TOT PROT 6.2 g/dl (6.4-8.2)
[2018-10-19] MEDS ORDERED: SODIUM CHLORIDE 250 ML IV ONE (11:00)
[2018-10-19 17:35] VITALS: TEMP 98.1
[2018-10-19 17:47] VITALS: BP 128/74; PULSE 72
[2018-10-19] MEDS ORDERED: PORTA CATH FLUSH 10 ML IVPUSH ONE (17:47)
== END 2018-10-19 13:45 | disposition home or self-care (01) ==
LOC: JONCCHEMO 07:08 → J7W 10:43 → JONCCHEMO 13:45
PROVIDERS: ATTEND Internal Medicine Hematology & Oncology
DX: Z51.11 Encounter for antineoplastic chemotherapy (principal); C67.9 Malignant neoplasm of bladder, unspecified
CPT/HCPCS: 36415; 80048; 80076; 83735; 85025; 96367; 96375; 96413; 96417; J2469; J3489

== ENCOUNTER 2018-10-20 06:46 | Day surgery (SDC) | payer OTHER, MEDICARE ==
[2018-10-20] MEDS ORDERED: PEGFILGRASTIM 6 MG/0.6 ML DISP.SYRIN SQ ONE (10:00)
[2018-10-20] MEDS ORDERED: SODIUM CHLORIDE 500 ML IV ONE (11:45)
[2018-10-20] MEDS ORDERED: SODIUM CHLORIDE 500 ML IV SCH (12:15)
[2018-10-20 16:50] VITALS: BP 140/73; PULSE 66; TEMP 98.3
[2018-10-20] MEDS ORDERED: PORTA CATH FLUSH 10 ML IVPUSH ONE (16:50)
== END 2018-10-20 13:50 | disposition home or self-care (01) ==
LOC: JONCCHEMO 06:46 → J7W 10:46 → JONCCHEMO 13:50
PROVIDERS: ATTEND Internal Medicine Hematology & Oncology
PROC: 3E023GC Introduction of Other Therapeutic Substance into Muscle, Percutaneous Approach (ICD-10-PCS; principal; 2018-10-20)
PROC: 3E0437Z Introduction of Electrolytic and Water Balance Substance into Central Vein, Percutaneous Approach (ICD-10-PCS; 2018-10-20)
DX: C67.9 Malignant neoplasm of bladder, unspecified (principal); Z76.89 Persons encountering health services in other specified circumstances
CPT/HCPCS: 96360; 96361; 96372; J2505

== ENCOUNTER 2018-11-02 06:48 | Day surgery (SDC) | payer OTHER, MEDICARE ==
[2018-11-02 09:40] LABS: BASO % 0.3 % (0-2.0); EOS % 0.4 % (0-4.5); HEMATOCRIT 27.2 % (32.4-45.2); HEMOGLOBIN 8.8 GM/dL (10.7-15.3); LYMPH % 18.1 % (8-40); MCH 28.7 pg (25.7-33.7); MCHC 32.4 g/dl (32.0-36.0); MEAN CELL VOLUME 88.7 fl (80-96); MONO % 5.1 % (3.8-10.2); NEUT % 76.1 % (42.8-82.8); PLATELET COUNT 253 K/MM3 (134-434); RBC 3.06 M/mm3 (3.60-5.2); RDW 22.1 % (11.6-15.6); WHITE BLOOD COUNT 21.3 K/mm3 (4.0-10.0)
[2018-11-02] MEDS ORDERED: DEXAMETHASONE SODIUM PHOSPHATE 10 MG in SODIUM CHLORIDE 50 ML IVPB ONE (10:00)
[2018-11-02 10:25] LABS: ALBUMIN 3.8 g/dl (3.4-5.0); BILIRUBIN,DIRECT 0.1 mg/dL (0.0-0.2); BILIRUBIN,TOTAL 0.2 mg/dL (0.2-1); BLOOD UREA NITROGEN 20.4 mg/dL (7-18); CALCIUM 8.7 mg/dL (8.5-10.1); CREATININE 1.2 mg/dL (0.55-1.3); MAGNESIUM 1.8 mg/dL (1.8-2.4); TOT PROT 6.4 g/dl (6.4-8.2)
[2018-11-02] MEDS ORDERED: ATEZOLIZUMAB 1,200 MG in SODIUM CHLORIDE 250 ML IV ONE (10:30)
[2018-11-02 11:59] LABS: ANISOCYTOSIS 1+; MACROCYTOSIS 1+; OVALOCYTE 1+; PLATELET ESTIMATE NORMAL; TEAR DROP CELLS 1+
[2018-11-02 18:08] VITALS: BP 144/82; PULSE 69
[2018-11-02] MEDS ORDERED: PORTA CATH FLUSH 10 ML IVPUSH ONE (18:08)
[2018-11-02 18:29] VITALS: TEMP 97
== END 2018-11-02 14:45 | disposition home or self-care (01) ==
LOC: JONCCHEMO 06:48 → J7W 11:12 → JONCCHEMO 14:45
PROVIDERS: ATTEND Internal Medicine Hematology & Oncology
DX: Z51.11 Encounter for antineoplastic chemotherapy (principal); C67.9 Malignant neoplasm of bladder, unspecified
CPT/HCPCS: 36415; 80048; 80076; 82150; 83690; 83735; 84443; 85025; 86705; 86803; 87350; 87516; 87517; 96375; 96413; J9022

== ENCOUNTER 2018-11-23 07:11 | Day surgery (SDC) | payer OTHER, MEDICARE | END 2018-11-23 14:45 | disposition home or self-care (01) | LOC: JONCCHEMO 07:11 → J7W 11:20 → JONCCHEMO 14:45 ==

== ENCOUNTER 2018-12-08 17:13 | Inpatient (IN) | payer OTHER, MEDICARE ==
[2018-12-08] MEDS ORDERED: SODIUM CHLORIDE 1,000 ML IV STA (17:29)
--- NOTE | 2018-12-08 18:07 | PDOC ---
Documentation entered by Donal Gonsales SCRIBE, acting as scribe for Kim Palacio MD. Kim Palacio MD: This documentation has been prepared by the Ilda tohrnton Elijah, SCRIBE, under my direction and personally reviewed by me in its entirety. I confirm that the documentation accurately reflects all work, treatment, procedures, and medical decision making performed by me. History of Present Illness - General Chief Complaint: Nausea/Vomiting Stated Complaint: VOMITING 3 TIMES TODAY S/P CHEMO History Source: Patient Exam Limitations: No Limitations - History of Present Illness Initial Comments: 12/08/18 17:32 Patient is a 78 year old female with a significant past medical history of htn, Bladder CA (s/p Cystectomy in 2016), Kidney CA (s/p L nephrectomy in 2014), currently on chemo who presents to the ED with x3 episodes of Nausea and vomiting starting today. Patient reports that she was unable to tolerate PO, has associated abdominal pain rated as a 4/10 in intensity and a slight fever. Patient spoke to her RUG LAYER who said to come into the ED in order to evaluate for pancreatitis secondary to one of her meds. Denies dizziness, chest pain, and diarrhea. Allergies: NKA PCP: Dr. Pearson Past History - Past Medical History Allergies/Adverse Reactions: Allergies Allergy/AdvReac Type Severity Reaction Status Date / Time No Known Drug Allergies Allergy Verified 12/08/18 17:15 Home Medications: Ambulatory Orders Ascorbate Calcium [Vitamin C] 500 mg PO DAILY 03/11/17 Atenolol [Tenormin -] 12.5 mg PO DAILY 03/11/17 Calcium Carbonate [Calcium] 1,000 mg PO DAILY 03/11/17 Glucosa López 2Kcl/Chondroitin López [Glucosamine & Chondroitin Cap] 1 each PO DAILY 03/11/17 Aspirin Coated [Ecotrin -] 81 mg PO DAILY 06/18/18 Atezolizumab [Tecentriq] 1,200 mg IV ASDIR 12/08/18 Anemia: No Asthma: No Cancer: Yes (BLADDER, left KIDNEY) Cardiac Disorders: Yes (irregular heartbeat) CVA: No COPD: No CHF: No Dementia: No Diabetes: No GI Disorders: No Disorders: No (cyctectomy) HTN: Yes Hypercholesterolemia: Yes Liver Disease: No Seizures: No Thyroid Disease: No - Surgical History Abdominal Surgery: No Appendectomy: No Cardiac Surgery: No Cholecystectomy: No Lung Surgery: No Neurologic Surgery: No - Immunization History Immunization Up to Date: Yes - Suicide/Smoking/Psychosocial Hx Smoking History: Former smoker Have you smoked in the past 12 months: No If you are a former smoker, when did you quit?: 1977 Hx Alcohol Use: No Drug/Substance Use Hx: No Substance Use Type: None Hx Substance Use Treatment: No Review of Systems - Review of Systems Comments:: 12/08/18 17:42 GENERAL/CONSTITUTIONAL: +fever No chills. No weakness. HEAD, EYES, EARS, NOSE AND THROAT: No change in vision. No ear pain or discharge. No sore throat. CARDIOVASCULAR: No chest pain or shortness of breath. RESPIRATORY: No cough, wheezing, or hemoptysis. GASTROINTESTINAL: +Nausea +Vomiting. +Abdominal Pain No diarrhea or constipation. GENITOURINARY: No dysuria, frequency, or change in urination. MUSCULOSKELETAL: No joint or muscle swelling or pain. No neck or back pain. SKIN: No rash NEUROLOGIC: No headache, vertigo, loss of consciousness, or change in strength/ sensation. ENDOCRINE: No increased thirst. No abnormal weight change. HEMATOLOGIC/LYMPHATIC: No anemia, easy bleeding, or history of blood clots. ALLERGIC/IMMUNOLOGIC: No hives or skin allergy. *Physical Exam - Vital Signs Last Vital Signs Temp Pulse Resp BP Pulse Ox 98.7 F 114 H 18 141/106 H 99 12/08/18 17:15 12/08/18 17:15 12/08/18 17:15 12/08/18 17:15 12/08/18 17:15 - Physical Exam Comments: 12/08/18 17:43 GENERAL: The patient is in no acute distress. HEAD: Normal EYES: PERRLA, EOMI, sclera anicteric . ENT: Ears normal, nares patent, oropharynx clear without exudates. Dry mucous membranes. NECK: Normal range of motion, supple LUNGS: Breath sounds equal, clear to auscultation bilaterally. No wheezes, and no crackles. HEART:Regular rate and rhythm, normal S1 and S2 without murmur, rub or gallop. ABDOMEN: +Urostomy Right Lower Abdomen draining clear Urine. Urostomy Site pink and patent. Soft, nontender, normoactive bowel sounds. No guarding, no rebound. EXTREMITIES: Normal range of motion NEUROLOGICAL: Cranial nerves II through XII grossly intact. Normal speech. No focal neurological deficits. MUSCULOSKELETAL: Back non-tender to palpation SKIN: No erythema or rash 12/11/18 00:00 ED Treatment Course - LABORATORY CBC & Chemistry Diagram: 12/10/18 06:36 12/10/18 06:36 - RADIOLOGY Radiology Studies Ordered: Category Date Time Status CHEST X-RAY PORTABLE* [RAD] Stat Radiology 12/08/18 17:33 Taken Medical Decision Making - Medical Decision Making 12/08/18 17:[address] Cee, medication patient is on can cause pancreatitis, hepatitis, and Colitis. Looking for rule out. 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 in 2016 Currently pt is on Tecentriq every 3 weeks (most recent treatment 3 weeks ago) She reports nausea and vomiting x 3 today No abdominal pain No distention No fevers (though temp today 99.5) No recent travel No ill contacts Pt called Dr Cee's office and was told to come to the ER for hydration and to assess for possible pancreatitis DD: Effect of medication, pancreatitis, colitis, SBO Will do: Labs EKG IVF Consider CT of the abdomen and pelvis 12/08/18 19:07 EKG - NSR rate of 85 bpm, intervals abn - pr:204ms, QRS: 96ms, QTc:487ms, no st elevation or depression 12/08/18 19:13 Laboratory Tests 11/23/18 12/08/18 09:03 18:00 WBC 6.6 15.3 H Hgb 9.4 L 11.7 Hct 29.0 L 36.5 Plt Count 161 D 229 Laboratory Tests 11/23/18 12/08/18 12/08/18 09:03 18:00 18:00 BUN 28.9 H 23.0 H Creatinine 1.2 1.1 Lipase 67 L 12/08/18 19:[address] scan of the abd and pelvis *DC/Admit/Observation/Transfer Diagnosis at time of Disposition: Partial small bowel obstruction, Cystitis, Dehydration Intractable vomiting with nausea Qualifiers: Vomiting type: unspecified Qualified Code(s): R11.2 - Nausea with vomiting, unspecified - Discharge Dispostion Condition at time of disposition: Stable - Referrals - Patient Instructions - Post Discharge Activity
[2018-12-08 18:24] LABS: BASO % 0.8 % (0-2.0); EOS % 0.2 % (0-4.5); HEMATOCRIT 36.5 % (32.4-45.2); HEMOGLOBIN 11.7 GM/dl (10.7-15.3); MCHC 32.1 g/dl (32.0-36.0); MEAN CELL VOLUME 87.2 fl (80-96); MEAN PLT VOLUME 8.5 fl (7.5-11.1); MONO % 4.5 % (3.8-10.2); NEUT % 85.5 % (42.8-82.8); PLATELET COUNT 229 K/MM3 (134-434); RBC 4.19 M/mm3 (3.60-5.2); RDW 13.1 % (11.6-15.6); WHITE BLOOD COUNT 15.3 K/mm3 (4.0-10.8)
[2018-12-08 18:42] LABS: ALBUMIN 4.1 g/dl (3.4-5.0); CALCIUM 8.8 mg/dl (8.5-10); CREATININE 1.1 mg/dl (0.55-1.3); MAGNESIUM 1.8 mg/dL (1.8-2.4); PHOSPHOROUS 3.2 mg/dl (2.5-4.9); POTASSIUM 3.9 mmol/L (3.5-5.1); TOT PROT 6.6 g/dl (6.4-8.2)
[2018-12-08 19:21] LABS: VENOUS PC02 39.3 mmHg (38-52); VENOUS PH 7.42 (7.31-7.41); VENOUS PO2 < 49 mmHg (28-48)
--- NOTE | 2018-12-08 19:55 | PDOC ---
*Physical Exam - Vital Signs Last Vital Signs Temp Pulse Resp BP Pulse Ox 98.7 F 114 H 18 141/106 H 99 12/08/18 17:15 12/08/18 17:15 12/08/18 17:15 12/08/18 17:15 12/08/18 17:15 ED Treatment Course - LABORATORY CBC & Chemistry Diagram: 12/08/18 18:00 12/08/18 18:00 - ADDITIONAL ORDERS Additional order review: Laboratory Results 12/08/18 12/08/18 12/08/18 19:00 18:00 18:00 VBG pH 7.42 H POC VBG pCO2 39.3 POC VBG pO2 < 49 H VBG HCO3 25.2 VBG O2 Sat (Niru) 82.0 H VBG Base Excess 1.2 Sodium Potassium Chloride Carbon Dioxide Anion Gap BUN Creatinine Est GFR (CKD-EPI)AfAm Est GFR (CKD-EPI)NonAf Random Glucose Lactic Acid 1.1 Calcium Phosphorus Magnesium Total Bilirubin AST ALT Alkaline Phosphatase Total Protein Albumin Lipase Urine Color Yellow Urine Appearance Clear Urine pH 5.5 Urine Protein 1+ H Urine Glucose (UA) Negative Urine Ketones 1+ H Urine Blood Trace-intact Urine Nitrite Positive H Urine Bilirubin Negative Urine Urobilinogen 0.2 Ur Leukocyte Esterase 2+ 12/08/18 12/08/18 18:00 18:00 VBG pH POC VBG pCO2 POC VBG pO2 VBG HCO3 VBG O2 Sat (Niru) VBG Base Excess Sodium 138 Potassium 3.9 Chloride 104 Carbon Dioxide 24 Anion Gap 10 BUN 23.0 H Creatinine 1.1 Est GFR (CKD-EPI)AfAm 56.48 Est GFR (CKD-EPI)NonAf 48.73 Random Glucose 128 H Lactic Acid Calcium 8.8 Phosphorus 3.2 Magnesium 1.8 Total Bilirubin 1.0 AST 18 ALT 10 L Alkaline Phosphatase 71 Total Protein 6.6 Albumin 4.1 Lipase 67 L Urine Color Urine Appearance Urine pH Urine Protein Urine Glucose (UA) Urine Ketones Urine Blood Urine Nitrite Urine Bilirubin Urine Urobilinogen Ur Leukocyte Esterase 12/08/18 18:00 RBC 4.19 MCV 87.2 MCHC 32.1 RDW 13.1 MPV 8.5 Neutrophils % 85.5 H Lymphocytes % 9.0 Monocytes % 4.5 Eosinophils % 0.2 Basophils % 0.8 - Medications Given in the ED: ED Medications Discontinued Medications Generic Name Dose Route Start Last Admin Trade Name Jas PRN Reason Stop Dose Admin Sodium Chloride 1,000 mls @ 1,000 mls/hr 12/08/18 17:29 12/08/18 18:26 Normal Saline - IV 12/08/18 18:28 1,000 mls/hr ASDIR STA Administration Oxycodone/Acetaminophen 1 combo 12/08/18 18:33 12/08/18 18:38 Percocet 5/325 - PO 12/08/18 18:34 1 combo ONCE ONE Administration Progress Note - Progress Note Progress Note: Care of this patient was transferred to ct from Dr. Palacio at 1900 hrs. Patient is a 78-year-old female with history of bladder cancer. Patient comes in with 3 episodes of vomiting earlier today. Patient is undergoing a workup to rule out small bowel obstruction. CAT scan is still pending. 20:00 CAT scan is positive for 3 pelvic lesions that are increasing in size in addition to that there is a partial developing small bowel obstruction. Urine is also positive for urinary tract infection. Patient will be admitted to an inpatient bed for IV fluids bowel rest and treatment of her urinary tract infection *DC/Admit/Observation/Transfer Diagnosis at time of Disposition: Partial small bowel obstruction, Cystitis, Dehydration Intractable vomiting with nausea Qualifiers: Vomiting type: unspecified Qualified Code(s): R11.2 - Nausea with vomiting, unspecified - Discharge Dispostion Condition at time of disposition: Stable Decision to Admit order: Yes - Referrals Referrals: Luis Antonio Pearson MD [Primary Care Provider] - - Patient Instructions - Post Discharge Activity
[2018-12-08] MEDS ORDERED: CEFTRIAXONE 1,000 MG in DEXTROSE 5%-WATER - 50 ML IVPB ONE (20:13)
[2018-12-08] MEDS ORDERED: cefTRIAXone SODIUM 1 GM VIAL ONE (20:16)
--- NOTE | 2018-12-08 21:36 | HP ---
CHIEF COMPLAINT: Nausea, vomiting PCP: Dr. Ross Oncology: Dr. Cee HISTORY OF PRESENT ILLNESS: 78 year-old female with a PMH significant for HTN, HLD, thyroiditis, bladder cancer, left kidney metastatic transitional cell carcinoma, renal pelvis cancer , and metastatic bone cancer, currently on atezolizumbab [id number], last treatment 2 1/2 weeks ago. Patient reported she was awakened from sleep at 2: 00am with sharp abdominal pain that extended from the epigastrum to the suprapubic area. The pain has been intermittent. At 11:00am she had an episode of vomiting. This was followed by two more episodes prior to arrival to ED. Emesis was non-bloody, yellowish/beige liquid. Patent has chronic loose stools. She had several bowel movements today, +flatus. Patient took her temp 99.5. Denies sweats, chills. ER course notable for: (1) WBC 15.3k, afebrile (2) US: distal SBO Recent Travel: No PAST MEDICAL HISTORY: Hypertension Hyperlipidemia Thyroiditis Bladder cancer Metastatic transitional cell carcinoma, left kidney Renal pelvis cancer Metastatic bone cancer PAST SURGICAL HISTORY: Hysterectomy 2016 Left breast surgery (benign cyst) Left nephroureterectomy and cystectomy 03/2016 Right portacath placement Transurethral resection of bladder tumor x several times in past 10 years Social History: Smoking: former; pack years 10.5 Alcohol: no Drugs: no Family History: mother CHF; father prostate cancer Allergies No Known Drug Allergies Allergy (Verified 12/08/18 17:15) HOME MEDICATIONS: Home Medications Medication Instructions Recorded Ascorbate Calcium [Vitamin C] 500 mg PO DAILY 03/11/17 Atenolol [Tenormin -] 12.5 mg PO DAILY 03/11/17 Calcium Carbonate [Calcium] 1,000 mg PO DAILY 03/11/17 Glucosa López 2Kcl/Chondroitin López 1 each PO DAILY 03/11/17 [Glucosamine & Chondroitin Cap] Aspirin Coated [Ecotrin -] 81 mg PO DAILY 06/18/18 Atezolizumab [Tecentriq] 1,200 mg IV ASDIR 12/08/18 REVIEW OF SYSTEMS CONSTITUTIONAL: Absent: fever, chills, diaphoresis, generalized weakness, malaise, loss of appetite, weight change HEENT: Absent: rhinorrhea, nasal congestion, throat pain, throat swelling, difficulty swallowing, mouth swelling, ear pain, eye pain, visual changes CARDIOVASCULAR: Absent: chest pain, syncope, palpitations, irregular heart rate, lightheadedness , peripheral edema RESPIRATORY: Absent: cough, shortness of breath, dyspnea with exertion, orthopnea, wheezing, stridor, hemoptysis GASTROINTESTINAL: +nausea, vomiting Absent: abdominal pain, abdominal distension, diarrhea, constipation, melena, hematochezia GENITOURINARY: Absent: dysuria, frequency, urgency, hesitancy, hematuria, flank pain, genital pain MUSCULOSKELETAL: Absent: myalgia, arthralgia, joint swelling, back pain, neck pain SKIN: Absent: rash, itching, pallor HEMATOLOGIC/IMMUNOLOGIC: Absent: easy bleeding, easy bruising, lymphadenopathy, frequent infections ENDOCRINE: Absent: unexplained weight gain, unexplained weight loss, heat intolerance, cold intolerance NEUROLOGIC: Absent: headache, focal weakness or paresthesias, dizziness, unsteady gait, seizure, mental status changes, bladder or bowel incontinence PSYCHIATRIC: Absent: anxiety, depression, suicidal or homicidal ideation, hallucinations. PHYSICAL EXAMINATION Vital Signs - 24 hr 12/08/18 12/08/18 17:15 20:27 Temperature 98.7 F 99.4 F Pulse Rate 114 H Pulse Rate [ 88 Right Radial] Respiratory 18 16 Rate Blood Pressure 141/106 H Blood Pressure 164/82 [Left Arm] O2 Sat by Pulse 99 98 Oximetry (%) GENERAL: Awake, alert, oriented, in no acute distress. Pale, tired-appearance. HEAD: Normal with no signs of trauma. EYES: Pupils equal, round and reactive to light, extraocular movements intact, sclera anicteric, conjunctiva clear. LUNGS: Breath sounds equal, clear to auscultation bilaterally. No wheezes, and no crackles. No accessory muscle use. HEART: Regular rate and rhythm, S1 and S2 +murmur ABDOMEN: Soft, diffusely tender; ileoconduit with clear yellow urine in bag, stoma is pink, no surrounding erythema or warmth; no guarding, no rebound tenderness MUSCULOSKELETAL: Normal range of motion at all joints. No bony deformities or tenderness. No CVA tenderness. UPPER EXTREMITIES: 2+ pulses, warm, well-perfused. No cyanosis. No clubbing. No peripheral edema. LOWER EXTREMITIES: 2+ pulses, warm, well-perfused. No calf tenderness. No peripheral edema. NEUROLOGICAL: Cranial nerves II-XII intact. Normal speech. Laboratory Results - last 24 hr 12/08/18 12/08/18 12/08/18 18:00 18:00 18:00 WBC 15.3 H RBC 4.19 Hgb 11.7 Hct 36.5 MCV 87.2 MCH 28.0 MCHC 32.1 RDW 13.1 Plt Count 229 MPV 8.5 Absolute Neuts (auto) 13.1 Neutrophils % 85.5 H Lymphocytes % 9.0 Monocytes % 4.5 Eosinophils % 0.2 Basophils % 0.8 VBG pH POC VBG pCO2 POC VBG pO2 VBG HCO3 VBG O2 Sat (Niru) VBG Base Excess Sodium 138 Potassium 3.9 Chloride 104 Carbon Dioxide 24 Anion Gap 10 BUN 23.0 H Creatinine 1.1 Est GFR (CKD-EPI)AfAm 56.48 Est GFR (CKD-EPI)NonAf 48.73 Random Glucose 128 H Lactic Acid Calcium 8.8 Phosphorus 3.2 Magnesium 1.8 Total Bilirubin 1.0 AST 18 ALT 10 L Alkaline Phosphatase 71 Total Protein 6.6 Albumin 4.1 Lipase 67 L Urine Color Urine Appearance Urine pH Urine Protein Urine Glucose (UA) Urine Ketones Urine Blood Urine Nitrite Urine Bilirubin Urine Urobilinogen Ur Leukocyte Esterase Urine RBC Urine WBC Urine Bacteria 12/08/18 12/08/18 12/08/18 18:00 18:00 19:00 WBC RBC Hgb Hct MCV MCH MCHC RDW Plt Count MPV Absolute Neuts (auto) Neutrophils % Lymphocytes % Monocytes % Eosinophils % Basophils % VBG pH 7.42 H POC VBG pCO2 39.3 POC VBG pO2 < 49 H VBG HCO3 25.2 VBG O2 Sat (Niru) 82.0 H VBG Base Excess 1.2 Sodium Potassium Chloride Carbon Dioxide Anion Gap BUN Creatinine Est GFR (CKD-EPI)AfAm Est GFR (CKD-EPI)NonAf Random Glucose Lactic Acid 1.1 Calcium Phosphorus Magnesium Total Bilirubin AST ALT Alkaline Phosphatase Total Protein Albumin Lipase Urine Color Yellow Urine Appearance Clear Urine pH 5.5 Urine Protein 1+ H Urine Glucose (UA) Negative Urine Ketones 1+ H Urine Blood Trace-intact Urine Nitrite Positive H Urine Bilirubin Negative Urine Urobilinogen 0.2 Ur Leukocyte Esterase 2+ Urine RBC 2-5 Urine WBC 10-20 Urine Bacteria Few ASSESSMENT/PLAN 78 year-old female with a PMH significant for HTN, HLD, thyroiditis, bladder cancer, left kidney metastatic transitional cell carcinoma, renal pelvis cancer , and metastatic bone cancer, currently on atezolizumbab. Admitted for a developing SBO. Distal SBO --vomiting yellowish/beige fluid, +BMs, +flatus --IV fluids --NPO --IV Tylenol PRN --Tigan PRN for nausea (prolonged QTc, no Zofran) --GI consult --Dr. Cee consult --defer surgery consult pending Dr. Cee's input Hypertension --on low dose beta amber but holding PO meds; BP stable for now --consider IV if indicated Hyperlipidemia --not on statin therapy Thyroiditis --11/27 US: thyromegaly, thyroiditis --TSH, free T3, free T4 pending Bladder cancer Left kidney metastatic transitional cell carcinoma Renal pelvis cancer Metastatic bone cancer --currently on atezolizumbab --followed by Dr. Cee FEN Fluids: NS@75mL/hr Electrolytes: replete as indicated Nutrition: NPO DVT prophylaxis: SCDs, oob, ambulation Physical therapy Dispo: continues to require inpatient care. May need to transfer to [facility] for GI. Visit type - Emergency Visit Emergency Visit: Yes ED Registration Date: 12/08/18 Care time: The patient presented to the Emergency Department on the above date and was hospitalized for further evaluation of their emergent condition. - New Patient This patient is new to me today: Yes Date on this admission: 12/09/18 - Critical Care Critical Care patient: No
[2018-12-08] MEDS ORDERED: TRIMETHOBENZAMIDE HCL 200MG/2ML INJ IM PRN (23:00)
[2018-12-08] MEDS: SODIUM CHLORIDE 1,000 ML IV SCH (23:54)
[2018-12-08] MEDS: ACETAMINOPHEN 1000 MG/100 ML VIAL (NON FORMULARY) IVPB PRN (23:59)
[2018-12-09 07:55] LABS: BASO % 0.4 % (0-2.0); EOS % 0.6 % (0-4.5); HEMOGLOBIN 10.6 GM/dl (10.7-15.3); LYMPH % 14.5 % (8-40); MCH 28.6 pg (25.7-33.7); MEAN CELL VOLUME 86.4 fl (80-96); MEAN PLT VOLUME 8.9 fl (7.5-11.1); MONO % 6.6 % (3.8-10.2); NEUT % 77.9 % (42.8-82.8); PLATELET COUNT 221 K/MM3 (134-434); RDW 12.9 % (11.6-15.6); WHITE BLOOD COUNT 17.5 K/mm3 (4.0-10.8)
[2018-12-09 07:57] LABS: INR 1.12 (0.82-1.09); PROTHROMBIN TIME (PATIENT) 12.5 SEC (10.2-13.0)
[2018-12-09 08:00] LABS: ALBUMIN 3.4 g/dl (3.4-5.0); BILIRUBIN,TOTAL 1.1 mg/dl (0.2-1); CALCIUM 8.2 mg/dl (8.5-10); CREATININE 1.1 mg/dl (0.55-1.3); MAGNESIUM 1.7 mg/dL (1.8-2.4); POTASSIUM 3.8 mmol/L (3.5-5.1); TOT PROT 5.9 g/dl (6.4-8.2)
[2018-12-09 08:05] LABS: ACTIVATED PTT 27.4 SECONDS (25.2-36.5)
[2018-12-09] MEDS: ACETAMINOPHEN 1000 MG/100 ML VIAL (NON FORMULARY) IVPB PRN ×2 (09:24→16:16)
--- NOTE | 2018-12-09 10:33 | EKG ---
Test Reason : Blood Pressure : / mmHG Vent. Rate : 085 BPM Atrial Rate : 085 BPM P-R Int : 204 ms QRS Dur : 096 ms QT Int : 410 ms P-R-T Axes : 078 -46 001 degrees QTc Int : 487 ms NORMAL SINUS RHYTHM LEFT ANTERIOR FASCICULAR BLOCK POSSIBLE ANTERIOR INFARCT , AGE UNDETERMINED ABNORMAL ECG WHEN COMPARED WITH ECG OF 01-APR-2017 09:24, [place] INTERVAL HAS DECREASED QT HAS LENGTHENED Confirmed by LUCAS ROMAN MD ([id number]) on 12/09/2018 10:33:02 AM Referred By: MD TREVINO Confirmed By:LUCAS ROMAN MD
--- NOTE | 2018-12-09 12:31 | PN ---
Physical Exam: SUBJECTIVE: Patient seen and examined at bedside. Pain mostly relieved after Tylenol. Dull aching sensation. No BM or flatus today so far. OBJECTIVE: Vital Signs Period Temp Pulse Resp BP Sys/Salmon Pulse Ox Last 24 Hr 98.5 F-99.4 F 86-114 16-18 141-164/64-106 96-99 GENERAL: Awake, alert, oriented, in no acute distress. Pale, tired-appearance. LUNGS: Breath sounds equal, clear to auscultation bilaterally. No wheezes, and no crackles. No accessory muscle use. HEART: Regular rate and rhythm, S1 and S2 +murmur ABDOMEN: Soft, diffusely tender; ileoconduit with clear yellow urine in bag, stoma is pink, no surrounding erythema or warmth; no guarding, no rebound tenderness UPPER EXTREMITIES: 2+ pulses, warm, well-perfused. No cyanosis. No clubbing. No peripheral edema. LOWER EXTREMITIES: 2+ pulses, warm, well-perfused. No calf tenderness. No peripheral edema. NEUROLOGICAL: Cranial nerves II-XII intact. Normal speech. Laboratory Results - last 24 hr 12/08/18 12/08/18 12/08/18 18:00 18:00 18:00 WBC 15.3 H RBC 4.19 Hgb 11.7 Hct 36.5 MCV 87.2 MCH 28.0 MCHC 32.1 RDW 13.1 Plt Count 229 MPV 8.5 Absolute Neuts (auto) 13.1 Neutrophils % 85.5 H Lymphocytes % 9.0 Monocytes % 4.5 Eosinophils % 0.2 Basophils % 0.8 PT with INR INR PTT (Actin FS) VBG pH POC VBG pCO2 POC VBG pO2 VBG HCO3 VBG O2 Sat (Niru) VBG Base Excess Sodium 138 Potassium 3.9 Chloride 104 Carbon Dioxide 24 Anion Gap 10 BUN 23.0 H Creatinine 1.1 Est GFR (CKD-EPI)AfAm 56.48 Est GFR (CKD-EPI)NonAf 48.73 Random Glucose 128 H Lactic Acid Calcium 8.8 Phosphorus 3.2 Magnesium 1.8 Total Bilirubin 1.0 AST 18 ALT 10 L Alkaline Phosphatase 71 Total Protein 6.6 Albumin 4.1 Lipase 67 L TSH Free T4 Urine Color Urine Appearance Urine pH Urine Protein Urine Glucose (UA) Urine Ketones Urine Blood Urine Nitrite Urine Bilirubin Urine Urobilinogen Ur Leukocyte Esterase Urine RBC Urine WBC Urine Bacteria 12/08/18 12/08/18 12/08/18 18:00 18:00 19:00 WBC RBC Hgb Hct MCV MCH MCHC RDW Plt Count MPV Absolute Neuts (auto) Neutrophils % Lymphocytes % Monocytes % Eosinophils % Basophils % PT with INR INR PTT (Actin FS) VBG pH 7.42 H POC VBG pCO2 39.3 POC VBG pO2 < 49 H VBG HCO3 25.2 VBG O2 Sat (Niru) 82.0 H VBG Base Excess 1.2 Sodium Potassium Chloride Carbon Dioxide Anion Gap BUN Creatinine Est GFR (CKD-EPI)AfAm Est GFR (CKD-EPI)NonAf Random Glucose Lactic Acid 1.1 Calcium Phosphorus Magnesium Total Bilirubin AST ALT Alkaline Phosphatase Total Protein Albumin Lipase TSH Free T4 Urine Color Yellow Urine Appearance Clear Urine pH 5.5 Urine Protein 1+ H Urine Glucose (UA) Negative Urine Ketones 1+ H Urine Blood Trace-intact Urine Nitrite Positive H Urine Bilirubin Negative Urine Urobilinogen 0.2 Ur Leukocyte Esterase 2+ Urine RBC 2-5 Urine WBC 10-20 Urine Bacteria Few 12/09/18 12/09/18 12/09/18 07:12 07:12 07:12 WBC 17.5 H RBC 3.70 Hgb 10.6 L Hct 32.0 L MCV 86.4 MCH 28.6 MCHC 33.0 RDW 12.9 Plt Count 221 MPV 8.9 Absolute Neuts (auto) 13.6 Neutrophils % 77.9 Lymphocytes % 14.5 Monocytes % 6.6 Eosinophils % 0.6 Basophils % 0.4 PT with INR 12.5 INR 1.12 PTT (Actin FS) 27.4 VBG pH POC VBG pCO2 POC VBG pO2 VBG HCO3 VBG O2 Sat (Niru) VBG Base Excess Sodium 138 Potassium 3.8 Chloride 104 Carbon Dioxide 23 Anion Gap 11 BUN 21.0 H Creatinine 1.1 Est GFR (CKD-EPI)AfAm 56.48 Est GFR (CKD-EPI)NonAf 48.73 Random Glucose 109 H Lactic Acid Calcium 8.2 L Phosphorus Magnesium 1.7 L Total Bilirubin 1.1 H AST 16 ALT 10 L Alkaline Phosphatase 56 D Total Protein 5.9 L Albumin 3.4 Lipase 57 L TSH 0.14 L Free T4 Urine Color Urine Appearance Urine pH Urine Protein Urine Glucose (UA) Urine Ketones Urine Blood Urine Nitrite Urine Bilirubin Urine Urobilinogen Ur Leukocyte Esterase Urine RBC Urine WBC Urine Bacteria 12/09/18 07:12 WBC RBC Hgb Hct MCV MCH MCHC RDW Plt Count MPV Absolute Neuts (auto) Neutrophils % Lymphocytes % Monocytes % Eosinophils % Basophils % PT with INR INR PTT (Actin FS) VBG pH POC VBG pCO2 POC VBG pO2 VBG HCO3 VBG O2 Sat (Niru) VBG Base Excess Sodium Potassium Chloride Carbon Dioxide Anion Gap BUN Creatinine Est GFR (CKD-EPI)AfAm Est GFR (CKD-EPI)NonAf Random Glucose Lactic Acid Calcium Phosphorus Magnesium Total Bilirubin AST ALT Alkaline Phosphatase Total Protein Albumin Lipase TSH Free T4 0.84 Urine Color Urine Appearance Urine pH Urine Protein Urine Glucose (UA) Urine Ketones Urine Blood Urine Nitrite Urine Bilirubin Urine Urobilinogen Ur Leukocyte Esterase Urine RBC Urine WBC Urine Bacteria Active Medications Generic Name Dose Route Start Last Admin Trade Name Freq PRN Reason Stop Dose Admin Acetaminophen 1,000 mg 12/08/18 23:10 12/09/18 09:24 Ofirmev Injection - IVPB 1,000 mg Q6H PRN Administration PAIN LEVEL 1-5 Sodium Chloride 1,000 mls @ 75 mls/hr 12/08/18 23:00 12/08/18 23:54 Normal Saline - IV 75 mls/hr ASDIR RON Administration Trimethobenzamide HCl 200 mg 12/08/18 23:00 12/08/18 23:59 Tigan Injection - IM 200 mg Q8H PRN Administration NAUSEA ASSESSMENT/PLAN 78 year-old female with a PMH significant for HTN, HLD, thyroiditis, bladder cancer, left kidney metastatic transitional cell carcinoma, renal pelvis cancer , and metastatic bone cancer, currently on atezolizumbab. Admitted for a developing SBO. Distal SBO --no vomiting overnight or today; no BM or flatus today --continue IV fluids --NPO --IV Tylenol PRN --Tigan PRN for nausea (prolonged QTc, no Zofran) --GI consult --Dr. Cee consult --defer surgery consult pending Dr. Cee's input Hypertension --on low dose beta amber but holding PO meds; BP stable for now --consider IV if indicated Hyperlipidemia --not on statin therapy Thyroiditis --11/27 US: thyromegaly, thyroiditis --TSH, free T3, free T4 pending Bladder cancer Left kidney metastatic transitional cell carcinoma Renal pelvis cancer Metastatic bone cancer --currently on atezolizumbab --followed by Dr. Coleman FUCHS Fluids: NS@75mL/hr Electrolytes: replete as indicated Nutrition: NPO DVT prophylaxis: SCDs, oob, ambulation Physical therapy Dispo: continues to require inpatient care. Pending transfer to [facility] for GI. Visit type - Emergency Visit Emergency Visit: Yes ED Registration Date: 12/08/18 Care time: The patient presented to the Emergency Department on the above date and was hospitalized for further evaluation of their emergent condition. - New Patient This patient is new to me today: No - Critical Care Critical Care patient: No
[2018-12-09] MEDS: SODIUM CHLORIDE 1,000 ML IV SCH (17:41)
[2018-12-09] MEDS ORDERED: ACETAMINOPHEN 1000 MG/100 ML VIAL (NON FORMULARY) IVPB PRN (17:46)
[2018-12-09] MEDS ORDERED: SODIUM CHLORIDE 1,000 ML IV SCH (17:46)
--- NOTE | 2018-12-09 18:03 | HOSP ---
Subjective - Review of Symptoms Subjective: Pt without complaints. Transfered from [place] for further medical managment for SBO HEENT: Yes: Head Aches (responded to tylenol given at [facility]) Gastrointestinal: Yes: Nausea (r/t ambulance ride) Physical Examination Vital Signs: Vital Signs Temperature 98.7 F 12/09/18 16:31 Pulse Rate 95 H 12/09/18 16:31 Respiratory Rate 19 12/09/18 16:31 Blood Pressure 161/74 12/09/18 16:31 O2 Sat by Pulse Oximetry (%) 96 12/09/18 16:31 Constitutional: Yes: No Distress, Calm, Thin Eyes: Yes: WNL, Conjunctiva Clear, EOM Intact HENT: Yes: WNL, Atraumatic, Normocephalic Neck: Yes: WNL, Supple, Trachea Midline Cardiovascular: Yes: WNL, Regular Rate and Rhythm Respiratory: Yes: WNL, Regular, CTA Bilaterally Gastrointestinal: Yes: Soft, Tenderness (mild tenderness to epigastric region), Other (Ileoconduit with clear yellow urine in bag, stoma is pink/moist) ...Rectal Exam: Yes: Deferred Renal/: Yes: Other (Ileoconduit) Extremities: Yes: WNL Edema: No Peripheral Pulses WNL: Yes Peripheral Pulses: Left Radial: 2+, Right Radial: 2+, Left Doralis Pedis: 2+, Right Dorsalis Pedis: 2+, Left Femoral: 2+, Right Femoral: 2+ Integumentary: Yes: WNL Neurological: Yes: WNL, Alert, Oriented ...Motor Strength: WNL Psychiatric: Yes: WNL, Alert, Oriented Labs: CBC, BMP 12/09/18 07:12 12/09/18 07:12 Hospitalist Encounter Assessment: Pt transfered from [place] for further managment of SBO. Maintain NPO until seen by Dr Cee/GI. IVR infusing. No complaints offered except mild nausea resultant from the ambulance ride.
[2018-12-09 18:08] VITALS: BMI 22.8
--- NOTE | 2018-12-09 21:51 | CON.GI ---
Consult Consult Specialty:: GI Referred by:: Hospitalist Service Reason for Consultation:: N/V abdominal pain and question of SBO on CT scan - History of Present Illness Chief Complaint: N/V, abdominal pain History of Present Illness: 78F transferred from [facility] for evaluation of N/V abdominal pain (upper abdominal pain radiating to the lower abdomen). She had CT scan raising the question of a distal partial or developing SBO. She has a history of metastatic transitional cell Ca for which she has undergone chemotherapy as well as RT and more recently immunotherapy with Tecentriq (last received 2 weeks ago). She denies further episodes of vomiting today, abdominal pain has improved and she had a bowel movement prior to her transfer to [facility]. She had a colonoscopy performed by Dr. Solis in 2016 that revealed diverticulosis. - History Source History Provided By: Patient, Medical Record - Past Medical History Cardio/Vascular: Yes: HTN, Hyperlipdemia Renal/: Yes: Renal Inusuff, Cancer (bladder cancer, left transitional cell ca) , Other (bladder ca s/p cystectomy) ...: No - Past Surgical History Past Surgical History: Yes: Cystectomy, Hysterectomy, Nephrectomy (left) Additional Surgical History: radical cystectomy with ileal conduit. - Alcohol/Substance Use Hx Alcohol Use: No History of Substance Use: reports: None - Smoking History Smoking history: Former smoker Have you smoked in the past 12 months: No If you are a former smoker, when did you quit?: 1977 - Social History ADL: Independent Place of : [facility] History of Recent Travel: No Home Medications - Allergies Allergies/Adverse Reactions: Allergies Allergy/AdvReac Type Severity Reaction Status Date / Time No Known Drug Allergies Allergy Verified 12/08/18 17:15 - Home Medications Home Medications: Ambulatory Orders Ascorbate Calcium [Vitamin C] 500 mg PO DAILY 03/11/17 Atenolol [Tenormin -] 12.5 mg PO DAILY 03/11/17 Calcium Carbonate [Calcium] 1,000 mg PO DAILY 03/11/17 Glucosa López 2Kcl/Chondroitin López [Glucosamine & Chondroitin Cap] 1 each PO DAILY 03/11/17 Aspirin Coated [Ecotrin -] 81 mg PO DAILY 06/18/18 Atezolizumab [Tecentriq] 1,200 mg IV ASDIR 12/08/18 Family Disease History - Family Disease History Family Disease History: Other: Father (prostate Ca), Mother (CHF) Review of Systems - Review of Systems Constitutional: reports: Fever Cardiovascular: denies: Chest Pain Respiratory: denies: Cough Gastrointestinal: reports: Abdominal Pain, Nausea, Vomiting. denies: Melena, Rectal Bleeding Physical Exam-GI Vital Signs: Vital Signs Temperature 99.1 F 12/09/18 17:53 Pulse Rate 82 12/09/18 17:53 Respiratory Rate 18 12/09/18 17:53 Blood Pressure 155/78 12/09/18 17:53 O2 Sat by Pulse Oximetry (%) 96 12/09/18 16:31 Constitutional: Yes: Calm Eyes: No: Sclera Icterus Cardiovascular: Yes: Regular Rate and Rhythm. No: Murmur Respiratory: Yes: CTA Bilaterally Gastrointestinal Inspection: Yes: Other (ileal conduit in lower abdomen). No: Distention ...Auscultate: Yes: Normoactive Bowel Sounds ...Palpate: Yes: Soft, Other (nodules palpated in the left lower abdomen and pelvis). No: Tenderness ...Percussion: No: Tympanitic Neurological: Yes: Alert Labs: CBC, BMP 12/09/18 07:12 12/09/18 07:12 INR, PTT INR 1.12 (0.82-1.09) 12/09/18 07:12 Imaging - Results Cat Scan: Report Reviewed, Image Reviewed Problem List - Problems (1) Partial small bowel obstruction Assessment/Plan: vs. ileus. No further vomiting episodes throughout today and she had a bowel movement prior to her transfer. Benign abdominal exam currently Advise: NPO for now IV hydration per PMD FUA in AM Surgical consult placed If recurrent vomiting / abdominal pain, place NGT AM Labs Monitor [facility] Code(s): K56.600 - PARTIAL INTESTINAL OBSTRUCTION, UNSPECIFIED TO CAUSE
--- NOTE | 2018-12-09 23:45 | PN ---
Progress Note (short form) - Note Progress Note: 78F transferred from [facility] for evaluation of N/V abdominal pain (upper abdominal pain radiating to the lower abdomen). She had CT scan raising the question of a distal partial or developing SBO. She has a history of metastatic transitional cell Ca for which she has undergone chemotherapy as well as RT and more recently immunotherapy with atezolizumab (last received 2 weeks ago). She denies further episodes of vomiting today, abdominal pain has improved and she had a bowel movement prior to her transfer to [facility]. She had a colonoscopy performed by Dr. Solis in 2016 that revealed diverticulosis. - History Source History Provided By: Patient, Medical Record - Past Medical History Cardio/Vascular: Yes: HTN, Hyperlipdemia Renal/: Yes: Renal Inusuff, Cancer (bladder cancer, left transitional cell ca) , Other (bladder ca s/p cystectomy) - Past Surgical History Past Surgical History: Yes: Cystectomy, Hysterectomy, Nephrectomy (left) Additional Surgical History: radical cystectomy with ileal conduit. - Smoking History Smoking history: Former smoker - Allergies Allergies/Adverse Reactions: Allergies Allergy/AdvReac Type Severity Reaction Status Date / Time No Known Drug Allergies Allergy Verified 12/08/18 17:15 - Home Medications Home Medications: Ambulatory Orders Ascorbate Calcium [Vitamin C] 500 mg PO DAILY 03/11/17 Atenolol [Tenormin -] 12.5 mg PO DAILY 03/11/17 Calcium Carbonate [Calcium] 1,000 mg PO DAILY 03/11/17 Glucosa López 2Kcl/Chondroitin López [Glucosamine & Chondroitin Cap] 1 each PO DAILY 03/11/17 Aspirin Coated [Ecotrin -] 81 mg PO DAILY 06/18/18 Atezolizumab [Tecentriq] 1,200 mg IV ASDIR 12/08/18 Family Disease History - Family Disease History Family Disease History: Other: Father (prostate Ca), Mother (CHF) Vital Signs: Vital Signs Temperature 99.1 F 12/09/18 17:53 Pulse Rate 82 12/09/18 17:53 Respiratory Rate 18 12/09/18 17:53 Blood Pressure 155/78 12/09/18 17:53 O2 Sat by Pulse Oximetry (%) 96 12/09/18 16:31 Constitutional: Yes: Calm Eyes: No: Sclera Icterus Cardiovascular: Yes: Regular Rate and Rhythm. No: Murmur Respiratory: Yes: CTA Bilaterally Gastrointestinal Inspection: Yes: Other (ileal conduit in lower abdomen). No: Distention ...Auscultate: Yes: Normoactive Bowel Sounds ...Palpate: Yes: Soft, Other (nodules palpated in the left lower abdomen and pelvis). No: Tenderness Neurological: Yes: Alert Labs: CBC, BMP 12/09/18 07:12 12/09/18 07:12 Imaging - Results Cat Scan: Report Reviewed, Image Reviewed Problem List 78F transferred from [facility] for evaluation of N/V abdominal pain (upper abdominal pain radiating to the lower abdomen),. She had CT scan raising the question of a distal partial or developing SBO. She has a history of metastatic transitional cell Ca for which she has undergone chemotherapy as well as RT and more recently immunotherapy with atezolizumab (last received 2 weeks ago). Based on clincal scenario seems like SBO rather than colitis from immunotherapy GI/Surgical teams following Will follow
[2018-12-10 08:22] LABS: BASO % 0.7 % (0-2.0); EOS % 1.1 % (0-4.5); HEMATOCRIT 26.9 % (32.4-45.2); HEMOGLOBIN 8.9 GM/dL (10.7-15.3); MCH 28.2 pg (25.7-33.7); MCHC 32.9 g/dl (32.0-36.0); MEAN CELL VOLUME 85.6 fl (80-96); MEAN PLT VOLUME 8.8 fl (7.5-11.1); MONO % 7.5 % (3.8-10.2); NEUT % 68.7 % (42.8-82.8); PLATELET COUNT 168 K/MM3 (134-434); RBC 3.14 M/mm3 (3.60-5.2); RDW 13.4 % (11.6-15.6); WHITE BLOOD COUNT 7.7 K/mm3 (4.0-10.0)
[2018-12-10 08:59] LABS: BILIRUBIN,TOTAL 0.4 mg/dL (0.2-1); BLOOD UREA NITROGEN 19.4 mg/dL (7-18); CALCIUM 7.5 mg/dL (8.5-10.1); CREATININE 0.9 mg/dL (0.55-1.3); POTASSIUM 3.7 mmol/L (3.5-5.1); TOT PROT 5.1 g/dl (6.4-8.2)
[2018-12-10 09:11] LABS: INR 1.12 (0.83-1.09); PROTHROMBIN TIME (PATIENT) 13.2 SEC (9.7-13.0)
--- NOTE | 2018-12-10 10:53 | CONSULT ---
Consultation: HEMATOLOGY/ONCOLOGY CONSULTATION CONSULT REQUEST: We have been asked to medically evaluate this patient for Small Bowel Obstruction HISTORY OF PRESENT ILLNESS: 78 year old female with a history of bladder cancer s/p urostomy, renal pelvis cancer, hypertension, hyperlipidemia presented to the hospital for 1 day of severe abdominal pain that awoke her from sleep associated with nausea and 1 episode of vomiting. Patient was brought to [place], where a CT was done and found a distal small bowel obstruction. She was transferred to [facility] for further management. Currently, patient reports that her abdominal pain improved, however she is not passing any gas. Denies abdominal pain, chest pain , shortness of breath, nausea, vomiting, diarrhea, fevers or chills. She is currently on Tecentriq (atezolizumab). Smoking History: Former smoker, 1.5 packs per day for 7 years Alcohol: none Drug Use: none Family History: father with prostate cancer, mother with CHF Surgical History: Colonoscopy 2 years ago, radical hysterectomy (2015), Nephrectomy (left 03/2016), radical cystectomy (2015), TURBT (many times over 10 years) Oncologic History -metastatic transitional cell cancer of bladder many years ago s/p multiple TURBTs and L nephroureterectomy + cystectomy in March 2016 -pelvic pain/pressure with defecation in 07/2018; PET showed retroperitoneal lymph nodes, omental nodule, abdominal wall nodule, R superior pubic ramus lytic lesion -CT 07/31/18: bony destruction involving R superior pubic ramus, soft tissue component extending to anterior pelvis, R retroperitoneal, L pelvic and b/l inguinal lymphadenopathy -08/03/18: started carboplatinum and gemzar -11/02/18: tecentriq started cycle 1 day 1 REVIEW OF SYSTEMS: CONSTITUTIONAL: Absent: fever, chills, diaphoresis, generalized weakness, malaise, loss of appetite, weight change HEENT: Absent: rhinorrhea, nasal congestion, throat pain, throat swelling, difficulty swallowing, mouth swelling, ear pain, eye pain, visual changes CARDIOVASCULAR: Absent: chest pain, syncope, palpitations, irregular heart rate, lightheadedness , peripheral edema RESPIRATORY: Absent: cough, shortness of breath, dyspnea with exertion, orthopnea, wheezing, stridor, hemoptysis GASTROINTESTINAL: Absent: abdominal pain, abdominal distension, nausea, vomiting, diarrhea, constipation, melena, hematochezia GENITOURINARY: Absent: dysuria, frequency, urgency, hesitancy, hematuria, flank pain, genital pain MUSCULOSKELETAL: Absent: myalgia, arthralgia, joint swelling, back pain, neck pain SKIN: Absent: rash, itching, pallor HEMATOLOGIC/IMMUNOLOGIC: Absent: easy bleeding, easy bruising, lymphadenopathy, frequent infections ENDOCRINE: Absent: unexplained weight gain, unexplained weight loss, heat intolerance, cold intolerance NEUROLOGIC: Absent: headache, focal weakness or paresthesias, dizziness, unsteady gait, seizure, mental status changes, bladder or bowel incontinence PSYCHIATRIC: Absent: anxiety, depression, suicidal or homicidal ideation, hallucinations. PHYSICAL EXAMINATION Vital Signs - 24 hr 12/09/18 12/09/18 12/09/18 14:00 16:31 17:53 Temperature 98.4 F 98.7 F 99.1 F Pulse Rate 74 95 H 82 Respiratory 20 19 18 Rate Blood Pressure 142/79 161/74 155/78 O2 Sat by Pulse 96 Oximetry (%) 12/09/18 12/10/18 12/10/18 20:00 06:00 09:41 Temperature 98.0 F 99 F 99.2 F Pulse Rate 90 84 84 Respiratory 20 20 16 Rate Blood Pressure 163/82 139/75 145/70 O2 Sat by Pulse Oximetry (%) GENERAL: A&Ox3, no acute distress EYES: PERRLA, EOMI ENT: Moist mucus membranes NECK: No JVD, no lymphadenopathy BREAST: No masses or nodules palpated LUNGS: CTA, no wheezes HEART: RRR, no murmurs ABDOMEN: Soft, nontender, BS present, urostomy bag in place MUSCULOSKELETAL: No CVA Tenderness EXTREMITIES: 2+ pulses, 1+ edema NEUROLOGICAL: Cranial nerves II-XII intact. Laboratory Results - last 24 hr 12/09/18 12/09/18 12/10/18 07:12 07:12 06:36 WBC 7.7 RBC 3.14 L Hgb 8.9 L Hct 26.9 L MCV 85.6 MCH 28.2 MCHC 32.9 RDW 13.4 D Plt Count 168 MPV 8.8 Absolute Neuts (auto) 5.3 Neutrophils % 68.7 Lymphocytes % 22.0 Monocytes % 7.5 Eosinophils % 1.1 Basophils % 0.7 Nucleated RBC % 0 PT with INR INR Sodium Potassium Chloride Carbon Dioxide Anion Gap BUN Creatinine Est GFR (CKD-EPI)AfAm Est GFR (CKD-EPI)NonAf Random Glucose Calcium Magnesium Total Bilirubin AST ALT Alkaline Phosphatase Total Protein Albumin Lipase 57 L TSH 0.14 L Free T4 0.84 12/10/18 12/10/18 06:36 06:36 WBC RBC Hgb Hct MCV MCH MCHC RDW Plt Count MPV Absolute Neuts (auto) Neutrophils % Lymphocytes % Monocytes % Eosinophils % Basophils % Nucleated RBC % PT with INR 13.20 H INR 1.12 H Sodium 140 Potassium 3.7 Chloride 109 H Carbon Dioxide 20 L Anion Gap 12 BUN 19.4 H Creatinine 0.9 Est GFR (CKD-EPI)AfAm 71.98 Est GFR (CKD-EPI)NonAf 62.11 Random Glucose 57 L Calcium 7.5 L Magnesium 2.0 Total Bilirubin 0.4 AST 14 L ALT 11 L Alkaline Phosphatase 57 Total Protein 5.1 L Albumin 3.0 L Lipase TSH Free T4 Active Medications Generic Name Dose Route Start Last Admin Trade Name Freq PRN Reason Stop Dose Admin Sodium Chloride 1,000 mls @ 75 mls/hr 12/09/18 17:46 12/09/18 21:58 Normal Saline - IV 75 mls/hr ASDIR [facility] Administration Home Medications Medication Instructions Recorded Ascorbate Calcium [Vitamin C] 500 mg PO DAILY 03/11/17 Atenolol [Tenormin -] 12.5 mg PO DAILY 03/11/17 Calcium Carbonate [Calcium] 1,000 mg PO DAILY 03/11/17 Glucosa López 2Kcl/Chondroitin López 1 each PO DAILY 03/11/17 [Glucosamine & Chondroitin Cap] Aspirin Coated [Ecotrin -] 81 mg PO DAILY 06/18/18 Atezolizumab [Tecentriq] 1,200 mg IV ASDIR 12/08/18 ASSESSMENT/PLAN: 78 year old female with a history of bladder cancer s/p urostomy, renal pelvis cancer, hypertension, hyperlipidemia presented to the hospital for 1 day of severe abdominal pain that awoke her from sleep associated with nausea and 1 episode of vomiting and admitted for evaluation and treatment of small bowel obstruction #Small Bowel Obstruction #Metastatic Transitional Cell Carcinoma #Normochromic Anemia #Small Bowel Obstruction: distal SBO, improving, likely 2/2 adhesions from multiple operations in the past, less likely from malignancy, however will later need colonoscopy to assess after resolution -has not yet passed gas this morning -monitor electrolytes -keep NPO -fluids changed to D5-LR due to hypoglycemia this AM -abdominal XR in AM #Metastatic Transitional Cell Carcinoma: gets treatment as an outpatient with Tecentriq -would f/u in the office and resume #Normochromic Anemia: 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 Kumar ATTENDING PHYSICIAN STATEMENT I saw and evaluated the patient. I reviewed the resident's note and discussed the case with the resident. I agree with the resident's findings and plan as documented. SUBJECTIVE: OBJECTIVE: ASSESSMENT AND PLAN:
[2018-12-10] MEDS ORDERED: DEXTROSE 5%-LACTATED RINGERS 1,000 ML IV SCH (11:30)
[2018-12-10] MEDS ORDERED: ACETAMINOPHEN 1000 MG/100 ML VIAL (NON FORMULARY) IVPB PRN (11:53)
--- NOTE | 2018-12-10 13:37 | CON.PULM ---
Consult Consult Specialty:: PULMONARY Referred by:: EDOUARD Reason for Consultation:: SOB - History of Present Illness Chief Complaint: ABD PAIN W VOMITTING History of Present Illness: 78 year-old female with a PMH significant for HTN, HLD, thyroiditis, bladder cancer, left kidney metastatic transitional cell carcinoma, renal pelvis cancer , and metastatic bone cancer, currently on atezolizumbab [id number], last treatment 2 1/2 weeks ago. Patient reported she was awakened from sleep at 2: 00am with sharp abdominal pain that extended from the epigastrum to the suprapubic area. The pain has been intermittent. At 11:00am she had an episode of vomiting. This was followed by two more episodes prior to arrival to ED. Emesis was non-bloody, yellowish/beige liquid. Patent has chronic loose stools. She had several bowel movements today, +flatus. Patient took her temp 99.5. Denies sweats, chills. - History Source History Provided By: Patient, Family Member, Medical Record Limitations to Obtaining History: No Limitations - Past Medical History CELL COVERER: No: Alzheimer's Cardio/Vascular: Yes: HTN, Hyperlipdemia Pulmonary: No: COPD Gastrointestinal: No: Diverticulitis, GI Bleed, Peptic Ulcer Disease Renal/: Yes: Renal Inusuff, Cancer (bladder cancer, left transitional cell ca) , Other (bladder ca s/p cystectomy) ...: No Heme/Onc: Yes: Anemia, Current Chemotherapy Infectious Disease: No: AIDS Psych: No: Addictions - Past Surgical History Past Surgical History: Yes: Cystectomy, Hysterectomy, Nephrectomy (left) Additional Surgical History: radical cystectomy with ileal conduit. - Alcohol/Substance Use Hx Alcohol Use: No History of Substance Use: reports: None - Smoking History Smoking history: Former smoker Have you smoked in the past 12 months: No If you are a former smoker, when did you quit?: 1977 - Social History ADL: Independent Place of : [facility] History of Recent Travel: No Home Medications - Allergies Allergies/Adverse Reactions: Allergies Allergy/AdvReac Type Severity Reaction Status Date / Time No Known Drug Allergies Allergy Verified 12/08/18 17:15 - Home Medications Home Medications: Ambulatory Orders Ascorbate Calcium [Vitamin C] 500 mg PO DAILY 03/11/17 Atenolol [Tenormin -] 12.5 mg PO DAILY 03/11/17 Calcium Carbonate [Calcium] 1,000 mg PO DAILY 03/11/17 Glucosa López 2Kcl/Chondroitin López [Glucosamine & Chondroitin Cap] 1 each PO DAILY 03/11/17 Aspirin Coated [Ecotrin -] 81 mg PO DAILY 06/18/18 Atezolizumab [Tecentriq] 1,200 mg IV ASDIR 12/08/18 Family Disease History - Family Disease History Family Disease History: Other: Father (prostate Ca), Mother (CHF) Review of Systems - Review of Systems Constitutional: reports: Fever, Lethargy, Loss of Appetite Eyes: denies: Blurred Vision HENT: denies: Difficult Swallowing Neck: denies: Decreased ROM Cardiovascular: denies: Chest Pain Respiratory: denies: Cough Gastrointestinal: reports: Abdominal Pain, Diarrhea. denies: Vomiting Blood Genitourinary: denies: No Symptoms Breasts: denies: No Symptoms Reported Physical Exam Vital Sings: Vital Signs Temperature 99.2 F 12/10/18 09:41 Pulse Rate 84 12/10/18 09:41 Respiratory Rate 16 12/10/18 09:41 Blood Pressure 145/70 12/10/18 09:41 O2 Sat by Pulse Oximetry (%) 96 12/09/18 16:31 Constitutional: Yes: Calm Eyes: Yes: EOM Intact HENT: Yes: Normocephalic Neck: Yes: Trachea Midline Cardiovascular: Yes: Regular Rate and Rhythm Respiratory: Yes: CTA Bilaterally Gastrointestinal: Yes: Soft, Hyperactive Bowel Sounds. No: Splenomegaly, Tenderness, Tenderness, Epigastrium, Tenderness, Rebound, Vomiting Renal/: Yes: WNL Breast(s): Yes: WNL Musculoskeletal: Yes: WNL Extremities: Yes: WNL Labs: CBC, BMP 12/10/18 06:36 12/10/18 06:36 Imaging - Results Chest X-ray: Report Reviewed, Image Reviewed Problem List - Problems (1) Partial small bowel obstruction Code(s): K56.600 - PARTIAL INTESTINAL OBSTRUCTION, UNSPECIFIED TO CAUSE (2) Cancer of genitourinary organ Code(s): CAK3432 - (3) Hypertension Code(s): I10 - ESSENTIAL (PRIMARY) HYPERTENSION Assessment/Plan SBO WITH NO CHANGE IN FUA THIS AM NO FURTHER VOMITING/NGT NOT IN PLACE STABLE RESPIRATORY STATUS AWAIT SURGICAL OPINION KEEP NPO/IV HYDRATION Dacia MEZA MD
--- NOTE | 2018-12-10 14:09 | PN.GI ---
GI Progress Note Subjective: No acute events No BM since prior to admission No vomiting - Objective Vital Signs: Vital Signs Temperature 99.2 F 12/10/18 09:41 Pulse Rate 84 12/10/18 09:41 Respiratory Rate 16 12/10/18 09:41 Blood Pressure 145/70 12/10/18 09:41 O2 Sat by Pulse Oximetry (%) 96 12/09/18 16:31 Constitutional: Calm Eyes: No: Sclera Icterus Cardiovascular: Yes: Regular Rate and Rhythm. No: Murmur Respiratory: Yes: CTA Bilaterally Gastrointestinal Inspection: Yes: Other (Ileal conduit right lower abdomen with clear yellow urine). No: Distention ...Auscultate: Yes: Normoactive Bowel Sounds ...Palpate: Yes: Soft, Tenderness (TTP mid abdomen) ...Percussion: No: Tympanitic Edema: No (No LE edema) Neurological: Yes: Alert Labs: CBC, BMP 12/10/18 06:36 12/10/18 06:36 INR, PTT INR 1.12 (0.83-1.09) H 12/10/18 06:36 Hepatic Panel Total Bilirubin 0.4 mg/dL (0.2-1) 12/10/18 06:36 AST 14 U/L (15-37) L 12/10/18 06:36 ALT 11 U/L (13-61) L 12/10/18 06:36 Alkaline Phosphatase 57 U/L (45-117) 12/10/18 06:36 Albumin 3.0 g/dl (3.4-5.0) L 12/10/18 06:36 Problem List - Problems (1) Partial small bowel obstruction Assessment/Plan: No vomiting noted Reviewed films with Dr. Sullivan, surgery. Requesting PO contrast study to further assess small bowel. CT scan A/P with PO contrast has been ordered. NPO IV hydration. I increased the rate to 125/hr Code(s): K56.600 - PARTIAL INTESTINAL OBSTRUCTION, UNSPECIFIED TO CAUSE
--- NOTE | 2018-12-10 14:18 | PN ---
Progress Note, Physician Chief Complaint: abdominal pain with nausea and vomiting History of Present Illness: 78 year-old female with a PMH significant for HTN, HLD, thyroiditis, bladder cancer, left kidney metastatic transitional cell carcinoma, renal pelvis cancer , and metastatic bone cancer, currently on atezolizumbab [id number], last treatment 2 1/2 weeks ago. Patient reported she was awakened from sleep at 2: 00am with sharp abdominal pain that extended from the epigastrum to the suprapubic area. The pain has been intermittent. At 11:00am she had an episode of vomiting. This was followed by two more episodes prior to arrival to ED. Emesis was non-bloody, yellowish/beige liquid. Patent has chronic loose stools. She had several bowel movements today, +flatus. Patient took her temp 99.5. Denies sweats, chills. - Current Medication List Current Medications: Active Medications Acetaminophen (Ofirmev Injection -) 1,000 mg IVPB Q6H PRN PRN Reason: PAIN OR FEVER Last Admin: 12/10/18 12:52 Dose: 1,000 mg Dextrose/Lactated Ringer's (D5-Lr -) 1,000 mls @ 125 mls/hr IV ASDIR RON - Objective Vital Signs: Vital Signs Temperature 99.2 F 12/10/18 09:41 Pulse Rate 84 12/10/18 09:41 Respiratory Rate 16 12/10/18 09:41 Blood Pressure 145/70 12/10/18 09:41 O2 Sat by Pulse Oximetry (%) 96 12/09/18 16:31 Constitutional: Yes: No Distress, Calm, Thin Eyes: Yes: WNL, Conjunctiva Clear, EOM Intact HENT: Yes: WNL, Atraumatic, Normocephalic Neck: Yes: WNL, Trachea Midline Cardiovascular: Yes: WNL, Regular Rate and Rhythm Respiratory: Yes: WNL, Regular, CTA Bilaterally Gastrointestinal: Yes: Soft, Hypoactive Bowel Sounds, Tenderness (to lower abdomen) Genitourinary: Yes: Other (ileal conduit with clear yellow urine) Breast(s): Yes: WNL Musculoskeletal: Yes: WNL Extremities: Yes: WNL Edema: No Peripheral Pulses WNL: Yes Peripheral Pulses: Left Radial: 2+, Right Radial: 2+, Left Doralis Pedis: 2+, Right Dorsalis Pedis: 2+, Left Femoral: 2+, Right Femoral: 2+ Integumentary: Yes: WNL Neurological: Yes: WNL, Alert, Oriented ...Motor Strength: WNL Psychiatric: Yes: WNL, Alert, Oriented Labs: CBC, BMP 12/10/18 06:36 12/10/18 06:36 INR, PTT INR 1.12 (0.83-1.09) H 12/10/18 06:36 Problem List - Problems (1) SBO (small bowel obstruction) Assessment/Plan: no vomiting additional GI studies PO contrast study to further assess small bowel. CT scan A/P with PO contrast has been ordered. c/w NPO IV hydratio @ 125/hr Code(s): K56.609 - UNSP INTESTNL OBST, UNSP TO PARTIAL VERSUS COMPLETE OBST (2) HLD (hyperlipidemia) Assessment/Plan: hold statin Code(s): E78.5 - HYPERLIPIDEMIA, UNSPECIFIED (3) Thyroiditis Assessment/Plan: c/w synthroid IV Code(s): E06.9 - THYROIDITIS, UNSPECIFIED (4) Transitional cell bladder cancer Assessment/Plan: Ileoconduit followed by Dr Cee Code(s): C67.9 - MALIGNANT NEOPLASM OF BLADDER, UNSPECIFIED (5) Metastatic bone cancer Code(s): C41.9 - MALIGNANT NEOPLASM OF BONE AND ARTICULAR CARTILAGE, UNSP (6) Cancer of renal pelvis Qualifiers: Laterality: left Qualified Code(s): C65.2 - Malignant neoplasm of left renal pelvis (8) Prophylactic measure Assessment/Plan: FEN NPO IVF monitor electrolytes DVT ambulatory Dispo maintain an inpatient full code discharge planning Code(s): Z29.9 - ENCOUNTER FOR PROPHYLACTIC MEASURES, UNSPECIFIED Visit type - Emergency Visit Emergency Visit: Yes ED Registration Date: 12/08/18 Care time: The patient presented to the Emergency Department on the above date and was hospitalized for further evaluation of their emergent condition. - New Patient This patient is new to me today: No - Critical Care Critical Care patient: No - Discharge Referral Referred to [facility] No
[2018-12-10] MEDS: DEXTROSE 5%-LACTATED RINGERS 1,000 ML IV SCH ×2 (17:36→21:30)
--- NOTE | 2018-12-10 21:06 | CONSULT ---
Consult Consult Specialty:: General Surgery Referred by:: Madison Hodgson Reason for Consultation:: partial/early SBO? - History of Present Illness Chief Complaint: midline abdominal pain, n/v History of Present Illness: 78yo F with urologic metastatic cancer and multiple surgical history, with h/o chemo and radiation, now on immunotherapy, admitted with significant midline abdominal pain from epigastric area radiating down to lower abdomen - initially persistent, then colicky. This was associated with N/V multiple episodes, but she continued to have BMs. Flatus decreased to absent for a time. Vomiting resolved after antiemetic at [facility]. She was transferred to [facility] yesterday and seen by GI, oncology. Labs significant for leukocytosis which normalized today, anemia, bacteria in urine (ileal conduit), mildly elevated BUN/Cr now decreased. CT showed fluid-filled SB loops mildly dilated, suggestive of possible early or developing obstruction vs ileus. Surgery was asked to assess. She is seen and examined in bed, comfortable and conversant. She reports the pain has decreased significantly, though is still there mildly at times. She has been passing loose/liquid stool since drinking contrast for CT earlier today. Had small flatus only. No further N/V. Has been NPO on fluids. No fevers. No urinary problems with stoma. - History Source History Provided By: Patient, Medical Record Limitations to Obtaining History: No Limitations - Past Medical History Cardio/Vascular: Yes: HTN, Hyperlipdemia Renal/: Yes: Renal Inusuff, Cancer (bladder cancer, left transitional cell ca) , Other (bladder ca s/p cystectomy) Reproductive: Yes: Postmenopausal Endocrine: Yes: Hyperthyroidism - Past Surgical History Past Surgical History: Yes: Cystectomy, Hysterectomy, Ileal Conduit, Nephrectomy (left) Additional Surgical History: radical cystectomy with ileal conduit; port; multiple TURBT - Alcohol/Substance Use Hx Alcohol Use: No History of Substance Use: reports: None - Smoking History Smoking history: Former smoker Have you smoked in the past 12 months: No If you are a former smoker, when did you quit?: 1977 - Social History ADL: Independent History of Recent Travel: No Home Medications - Allergies Allergies/Adverse Reactions: Allergies Allergy/AdvReac Type Severity Reaction Status Date / Time No Known Drug Allergies Allergy Verified 12/08/18 17:15 - Home Medications Home Medications: Ambulatory Orders Ascorbate Calcium [Vitamin C] 500 mg PO DAILY 03/11/17 Atenolol [Tenormin -] 12.5 mg PO DAILY 03/11/17 Calcium Carbonate [Calcium] 1,000 mg PO DAILY 03/11/17 Glucosa López 2Kcl/Chondroitin López [Glucosamine & Chondroitin Cap] 1 each PO DAILY 03/11/17 Aspirin Coated [Ecotrin -] 81 mg PO DAILY 06/18/18 Atezolizumab [Tecentriq] 1,200 mg IV ASDIR 12/08/18 Family Disease History - Family Disease History Family Disease History: Other: Father (prostate Ca), Mother (CHF) Review of Systems - Review of Systems Constitutional: denies: Chills, Fever Eyes: denies: Blurred Vision, Recent Change in Vision HENT: denies: Difficult Swallowing, Throat Pain Neck: denies: Swollen Glands, Tenderness Cardiovascular: denies: Chest Pain, Palpitations Respiratory: denies: Cough, SOB Gastrointestinal: reports: Abdominal Pain (with hpi), Diarrhea (tendency to), Nausea (with hpi), Vomiting (with hpi). denies: Constipation Genitourinary: reports: Other (ileal conduit - no problems) Musculoskeletal: reports: Back Pain (for several months). denies: Muscle Pain Integumentary: denies: Change in Color, Rash Neurological: denies: Dizziness, Headache Physical Exam Vital Signs: Vital Signs Temperature 98.5 F 12/10/18 16:15 Pulse Rate 80 12/10/18 16:15 Respiratory Rate 20 12/10/18 16:15 Blood Pressure 155/85 12/10/18 16:15 O2 Sat by Pulse Oximetry (%) 96 12/09/18 16:31 Constitutional: Yes: Well Nourished, No Distress, Calm Eyes: Yes: Conjunctiva Clear, EOM Intact HENT: Yes: Atraumatic, Normocephalic Neck: Yes: Supple, Trachea Midline Cardiovascular: Yes: Regular Rate and Rhythm, Murmur Respiratory: Yes: Regular, CTA Bilaterally Gastrointestinal: Yes: Normal Bowel Sounds, Soft, Palpable Mass (just left of pelvic midline in abdominal wall, firm mobile mass, ~4-5cm), Other (ileal conduit present RLQ, stoma pink/patent/productive of light yellow urine; healed scars). No: Distention, Tenderness, Tenderness, Epigastrium ...Rectal Exam: Yes: Deferred Renal/: Yes: Other (see above). No: CVA Tenderness - Left, CVA Tenderness - Right, Hematuria Musculoskeletal: No: Back Pain (no direct tenderness), Joint Swelling Extremities: Yes: Erythema (mild at right forearm IV site). No: Cool, Cyanosis Edema: Yes Edema: LLE: Trace, RLE: Trace Peripheral Pulses WNL: Yes Integumentary: No: Jaundice, Rash Neurological: Yes: Alert, Oriented Psychiatric: Yes: Alert, Oriented Labs: CBC, BMP 12/10/18 06:36 12/10/18 06:36 CMP Sodium 140 mmol/L (136-145) 12/10/18 06:36 Potassium 3.7 mmol/L (3.5-5.1) 12/10/18 06:36 Chloride 109 mmol/L (98-107) H 12/10/18 06:36 Carbon Dioxide 20 mmol/L (21-32) L 12/10/18 06:36 Anion Gap 12 MMOL/L (8-16) 12/10/18 06:36 BUN 19.4 mg/dL (7-18) H 12/10/18 06:36 Creatinine 0.9 mg/dL (0.55-1.3) 12/10/18 06:36 Est GFR (CKD-EPI)AfAm 71.98 12/10/18 06:36 Est GFR (CKD-EPI)NonAf 62.11 12/10/18 06:36 POC Glucometer 57 UNITS (80-120) 12/10/18 11:16 Random Glucose 57 mg/dL (74-106) L 12/10/18 06:36 Lactic Acid 1.1 mmol/L (0.4-2.0) 12/08/18 18:00 Calcium 7.5 mg/dL (8.5-10.1) L 12/10/18 06:36 Phosphorus 3.2 mg/dl (2.5-4.9) 12/08/18 18:00 Magnesium 2.0 mg/dL (1.8-2.4) 12/10/18 06:36 Total Bilirubin 0.4 mg/dL (0.2-1) 12/10/18 06:36 AST 14 U/L (15-37) L 12/10/18 06:36 ALT 11 U/L (13-61) L 12/10/18 06:36 Alkaline Phosphatase 57 U/L (45-117) 12/10/18 06:36 Total Protein 5.1 g/dl (6.4-8.2) L 12/10/18 06:36 Albumin 3.0 g/dl (3.4-5.0) L 12/10/18 06:36 Lipase 57 U/L (73-393) L 12/09/18 07:12 TSH 0.14 uIU/ml (0.358-3.74) L 12/09/18 07:12 Free T4 0.84 ng/dl (0.76-1.46) 12/09/18 07:12 INR, PTT INR 1.12 (0.83-1.09) H 12/10/18 06:36 Urine Test Results Urine Color Yellow 12/08/18 19:00 Urine Appearance Clear 12/08/18 19:00 Urine pH 5.5 (4.5-8) 12/08/18 19:00 Urine Protein 1+ (NEGATIVE) H 12/08/18 19:00 Urine Glucose (UA) Negative (NEGATIVE) 12/08/18 19:00 Urine Ketones 1+ (NEGATIVE) H 12/08/18 19:00 Urine Blood Trace-intact (NEGATIVE) 12/08/18 19:00 Urine Nitrite Positive (NEGATIVE) H 12/08/18 19:00 Urine Bilirubin Negative (NEGATIVE) 12/08/18 19:00 Ur Leukocyte Esterase 2+ (NEGATIVE) 12/08/18 19:00 Urine RBC 2-5 /hpf (0-4) 12/08/18 19:00 Urine WBC 10-20 (NEGATIVE) 12/08/18 19:00 Urine Bacteria Few /hpf (NEGATIVE) 12/08/18 19:00 Microbiology 12/08/18 18:20 Blood Culture - Preliminary Blood - Peripheral Venous NO GROWTH OBTAINED AFTER 48 HOURS, INCUBATION TO CONTINUE FOR 3 DAYS. 12/08/18 18:00 Blood Culture - Preliminary Blood - Peripheral Venous NO GROWTH OBTAINED AFTER 48 HOURS, INCUBATION TO CONTINUE FOR 3 DAYS. 12/08/18 19:00 Urine Culture - Preliminary Urine - Urine Nephrostomy Tube Right Non Lactose Fermenting Gnb Lactose Fermenting Neg Bacilli Group D Strep Or Entero Coccus Group D Strep Or Entero Coccus#2 Staphylococcus Species Imaging - Results Cat Scan: Report Reviewed, Image Reviewed (images reviewed from both CTs - today 's shows oral contrast in stomach, SB, LB through to sigmoid, ileal conduit noted, pelvic masses/neoplastic changes) Problem List - Problems (1) Partial small bowel obstruction Assessment/Plan: earlier imaging suggested partial or early SBO today's scan confirms that contrast traverses from stomach to distal colon pain improved to mild/minimal only nontender not currently obstructed no acute surgical issues; no intervention indicated would defer management of neoplastic issues to oncology medical management as per primary team anticipate diarrhea over next couple days as contrast evacuates will sign off - please call with questions Thank you for the opportunity to participate in the care of this patient. Code(s): K56.600 - PARTIAL INTESTINAL OBSTRUCTION, UNSPECIFIED TO CAUSE (2) Bladder cancer Code(s): C67.9 - MALIGNANT NEOPLASM OF BLADDER, UNSPECIFIED Qualifiers: Bladder location: unspecified site Qualified Code(s): C67.9 - Malignant neoplasm of bladder, unspecified (3) Cancer of renal pelvis Qualifiers: Laterality: left Qualified Code(s): C65.2 - Malignant neoplasm of left renal pelvis (5) Transitional cell bladder cancer Code(s): C67.9 - MALIGNANT NEOPLASM OF BLADDER, UNSPECIFIED (6) Acute on chronic renal insufficiency Code(s): N28.9 - DISORDER OF KIDNEY AND URETER, UNSPECIFIED; N18.9 - CHRONIC KIDNEY DISEASE, UNSPECIFIED (7) Hypertension Code(s): I10 - ESSENTIAL (PRIMARY) HYPERTENSION Qualifiers: Hypertension type: essential hypertension Qualified Code(s): I10 - Essential (primary) hypertension
[2018-12-11] MEDS: DEXTROSE 5%-LACTATED RINGERS 1,000 ML IV SCH (05:35)
[2018-12-11 07:56] LABS: ALBUMIN 2.8 g/dl (3.4-5.0); BILIRUBIN,TOTAL 0.3 mg/dL (0.2-1); CALCIUM 7.7 mg/dL (8.5-10.1); CREATININE 0.9 mg/dL (0.55-1.3); MAGNESIUM 1.8 mg/dL (1.8-2.4); TOT PROT 5.1 g/dl (6.4-8.2)
[2018-12-11 08:05] LABS: BASO % 0.7 % (0-2.0); EOS % 4.1 % (0-4.5); HEMATOCRIT 26.6 % (32.4-45.2); HEMOGLOBIN 8.8 GM/dL (10.7-15.3); LYMPH % 34.4 % (8-40); MCH 28.1 pg (25.7-33.7); MCHC 33.1 g/dl (32.0-36.0); MEAN CELL VOLUME 84.8 fl (80-96); MEAN PLT VOLUME 8.4 fl (7.5-11.1); NEUT % 51.8 % (42.8-82.8); PLATELET COUNT 153 K/MM3 (134-434); RBC 3.14 M/mm3 (3.60-5.2); RDW 13.5 % (11.6-15.6); WHITE BLOOD COUNT 5.8 K/mm3 (4.0-10.0)
--- NOTE | 2018-12-11 09:04 | PN ---
Progress Note, Physician Chief Complaint: No complaints offered, abd pain resolved History of Present Illness: 78 year-old female with a PMH significant for HTN, HLD, thyroiditis, bladder cancer, left kidney metastatic transitional cell carcinoma, renal pelvis cancer , and metastatic bone cancer, currently on atezolizumbab [id number], last treatment 2 1/2 weeks ago. Patient reported she was awakened from sleep at 2: 00am with sharp abdominal pain that extended from the epigastrum to the suprapubic area. The pain has been intermittent. At 11:00am she had an episode of vomiting. This was followed by two more episodes prior to arrival to ED. Emesis was non-bloody, yellowish/beige liquid. Patent has chronic loose stools. She had several bowel movements today, +flatus. Patient took her temp 99.5. Denies sweats, chills. - Current Medication List Current Medications: Active Medications Acetaminophen (Ofirmev Injection -) 1,000 mg IVPB Q6H PRN PRN Reason: PAIN OR FEVER Last Admin: 12/10/18 12:52 Dose: 1,000 mg Dextrose/Lactated Ringer's (D5-Lr -) 1,000 mls @ 125 mls/hr IV ASDIR RON Last Admin: 12/11/18 05:35 Dose: 125 mls/hr - Objective Vital Signs: Vital Signs Temperature 98.4 F 12/11/18 07:00 Pulse Rate 74 12/11/18 07:00 Respiratory Rate 18 12/11/18 07:00 Blood Pressure 148/69 12/11/18 07:00 O2 Sat by Pulse Oximetry (%) 96 12/09/18 16:31 Additional Findings/Remarks: Constitutional: Yes: No Distress, Calm, Thin Eyes: Yes: WNL, Conjunctiva Clear, EOM Intact HENT: Yes: WNL, Atraumatic, Normocephalic Neck: Yes: WNL, Trachea Midline Cardiovascular: Yes: WNL, Regular Rate and Rhythm Respiratory: Yes: WNL, Regular, CTA Bilaterally Gastrointestinal: Yes: Soft, Hypoactive Bowel Sounds Genitourinary: Yes: Other (ileal conduit with clear yellow urine) Breast(s): Yes: WNL Musculoskeletal: Yes: WNL Extremities: Yes: WNL Edema: No Peripheral Pulses WNL: Yes Peripheral Pulses: Left Radial: 2+, Right Radial: 2+, Left Doralis Pedis: 2+, Right Dorsalis Pedis: 2+, Left Femoral: 2+, Right Femoral: 2+ Integumentary: Yes: WNL Neurological: Yes: WNL, Alert, Oriented ...Motor Strength: WNL Psychiatric: Yes: WNL, Alert, Oriented Labs: CBC, BMP 12/11/18 06:30 INR, PTT INR 1.12 (0.83-1.09) H 12/10/18 06:36 - ....Imaging Cat Scan: Report Reviewed (CT showed fluid-filled SB loops mildly dilated, suggestive of possible early or developing obstruction vs ileus. Surgery was asked to assess.) Problem List - Problems (1) SBO (small bowel obstruction) Assessment/Plan: Appreciate consultation with GI & Gen surg earlier imaging suggested partial or early SBO, repeat CT confirms that contrast traverses from stomach to distal colon, pain improved anticipate diarrhea over next couple days as contrast evacuates advance diet cautiously Code(s): K56.609 - UNSP INTESTNL OBST, UNSP TO PARTIAL VERSUS COMPLETE OBST (2) HLD (hyperlipidemia) Assessment/Plan: hold statin Code(s): E78.5 - HYPERLIPIDEMIA, UNSPECIFIED (3) Thyroiditis Assessment/Plan: c/w synthroid IV Code(s): E06.9 - THYROIDITIS, UNSPECIFIED (4) Bladder cancer Code(s): C67.9 - MALIGNANT NEOPLASM OF BLADDER, UNSPECIFIED Qualifiers: Bladder location: unspecified site Qualified Code(s): C67.9 - Malignant neoplasm of bladder, unspecified (5) Transitional cell bladder cancer Assessment/Plan: Ileoconduit followed by Dr Cee Code(s): C67.9 - MALIGNANT NEOPLASM OF BLADDER, UNSPECIFIED (6) Metastatic bone cancer Code(s): C41.9 - MALIGNANT NEOPLASM OF BONE AND ARTICULAR CARTILAGE, UNSP (7) Cancer of renal pelvis Qualifiers: Laterality: left Qualified Code(s): C65.2 - Malignant neoplasm of left renal pelvis (9) Prophylactic measure Assessment/Plan: FEN clear liquids advancing as tolerate IVF monitor electrolytes DVT ambulatory Dispo maintain an inpatient full code discharge planning Code(s): Z29.9 - ENCOUNTER FOR PROPHYLACTIC MEASURES, UNSPECIFIED Visit type - Emergency Visit Emergency Visit: Yes ED Registration Date: 12/08/18 Care time: The patient presented to the Emergency Department on the above date and was hospitalized for further evaluation of their emergent condition. - New Patient This patient is new to me today: No - Critical Care Critical Care patient: No - Discharge Referral Referred to [facility] Med P.C.: No
[2018-12-11] MEDS ORDERED: POTASSIUM CHLORIDE ORAL LIQUID 20 MEQ/15 ML PO ONE (11:30)
[2018-12-11] MEDS: ATENOLOL 25 MG TABLET (FP) PO SCH (13:14)
--- NOTE | 2018-12-11 13:38 | PN ---
Progress Note (short form) - Note Progress Note: Pt has no pain. Moving her bowels. Tolerated full liquid diet. Abdomen: active bowel sounds, nontender. To advance to regular diet. D/C IV fluids.
--- NOTE | 2018-12-11 19:57 | PN ---
Progress Note (short form) - Note Progress Note: Progress Note: 78F transferred from [facility] for evaluation of N/V abdominal pain (upper abdominal pain radiating to the lower abdomen). She had CT scan raising the question of a distal partial or developing SBO. She has a history of metastatic transitional cell Ca for which she has undergone chemotherapy as well as RT and more recently immunotherapy with atezolizumab (last received 2 weeks ago). She denies further episodes of vomiting today, abdominal pain has improved and she had a bowel movement prior to her transfer to [facility]. She had a colonoscopy performed by Dr. Solis in 2016 that revealed diverticulosis. 12/11: No complaints. Greatly improved - History Source History Provided By: Patient, Medical Record - Past Medical History Cardio/Vascular: Yes: HTN, Hyperlipdemia Renal/: Yes: Renal Inusuff, Cancer (bladder cancer, left transitional cell ca) , Other (bladder ca s/p cystectomy) - Past Surgical History Past Surgical History: Yes: Cystectomy, Hysterectomy, Nephrectomy (left) Additional Surgical History: radical cystectomy with ileal conduit. - Smoking History Smoking history: Former smoker - Allergies Allergies/Adverse Reactions: Allergies Allergy/AdvReac Type Severity Reaction Status Date / Time No Known Drug Allergies Allergy Verified 12/08/18 17:15 Current Medications Generic Name Dose Route Start Last Admin Trade Name Freq PRN Reason Stop Dose Admin Atenolol 12.5 mg 12/11/18 13:00 12/11/18 13:14 Tenormin - PO 12.5 mg DAILY RON Administration Calcium Carbonate 1,000 mg 12/12/18 10:00 Os-Yobani 500mg - PO DAILY RON Polyethylene Glycol 17 gm 12/12/18 10:00 Miralax (For Daily Use) - PO DAILY RON Family Disease History - Family Disease History Family Disease History: Other: Father (prostate Ca), Mother (CHF) Last Vital Signs Temp Pulse Resp BP Pulse Ox 98.4 F 69 20 157/81 96 12/11/18 16:56 12/11/18 16:56 12/11/18 16:56 12/11/18 16:56 12/11/18 09:00 Constitutional: Yes: Calm Eyes: No: Sclera Icterus Cardiovascular: Yes: Regular Rate and Rhythm. No: Murmur Respiratory: Yes: CTA Bilaterally Gastrointestinal Inspection: Yes: Other (ileal conduit in lower abdomen). No: Distention ...Auscultate: Yes: Normoactive Bowel Sounds ...Palpate: Yes: Soft, Other (nodules palpated in the left lower abdomen and pelvis). No: Tenderness Neurological: Yes: Alert Labs: 12/11/18 06:30 12/11/18 06:30 Imaging - Results Cat Scan: Report Reviewed, Image Reviewed Problem List 78F transferred from [facility] for evaluation of N/V abdominal pain (upper abdominal pain radiating to the lower abdomen),. She had CT scan raising the question of a distal partial or developing SBO. She has a history of metastatic transitional cell Ca for which she has undergone chemotherapy as well as RT and more recently immunotherapy with atezolizumab (last received 2 weeks ago). [facility] input Possible earlier SBO has now resolved. Will continue to monitor
--- NOTE | 2018-12-11 23:31 | PN ---
Progress Note (short form) - Note Progress Note: Patient seen and examined Feels well Denies any complaints Vital Signs: Vital Signs Temperature 99.2 F 12/10/18 09:41 Pulse Rate 84 12/10/18 09:41 Respiratory Rate 16 12/10/18 09:41 Blood Pressure 145/70 12/10/18 09:41 O2 Sat by Pulse Oximetry (%) 96 12/09/18 16:31 Constitutional: Yes: Calm Eyes: No: Sclera Icterus Cardiovascular: Yes: Regular Rate and Rhythm. No: Murmur Respiratory: Yes: CTA Bilaterally Gastrointestinal Inspection: Yes: Other (ileal conduit in lower abdomen). No: Distention ...Auscultate: Yes: Normoactive Bowel Sounds ...Palpate: Yes: Soft, Other (nodules palpated in the left lower abdomen and pelvis). No: Tenderness Neurological: Yes: Alert Labs: CBC, BMP 12/09/18 07:12 12/09/18 07:12 Imaging - Results Cat Scan: Report Reviewed, Image Reviewed Problem List 78F transferred from [facility] for evaluation of N/V abdominal pain (upper abdominal pain radiating to the lower abdomen),. She had CT scan raising the question of a distal partial or developing SBO. She has a history of metastatic transitional cell Ca for which she has undergone chemotherapy as well as RT and more recently immunotherapy with atezolizumab (last received 2 weeks ago). Based on clincal scenario seems like SBO rather than colitis from immunotherapy GI/Surgical teams following Will follow
--- NOTE | 2018-12-11 23:33 | PN ---
Progress Note (short form) - Note Progress Note: Patient seen and examined Feels well Denies any complaints Vital Signs: Vital Signs Temperature 99.2 F 12/10/18 09:41 Pulse Rate 84 12/10/18 09:41 Respiratory Rate 16 12/10/18 09:41 Blood Pressure 145/70 12/10/18 09:41 O2 Sat by Pulse Oximetry (%) 96 12/09/18 16:31 Constitutional: Yes: Calm Eyes: No: Sclera Icterus Cardiovascular: Yes: Regular Rate and Rhythm. No: Murmur Respiratory: Yes: CTA Bilaterally Gastrointestinal Inspection: Yes: Other (ileal conduit in lower abdomen). No: Distention ...Auscultate: Yes: Normoactive Bowel Sounds ...Palpate: Yes: Soft, Other (nodules palpated in the left lower abdomen and pelvis). No: Tenderness Neurological: Yes: Alert Labs: CBC, BMP 12/09/18 07:12 12/09/18 07:12 Imaging - Results Cat Scan: Report Reviewed, Image Reviewed Problem List 78F transferred from [facility] for evaluation of N/V abdominal pain (upper abdominal pain radiating to the lower abdomen),. She had CT scan raising the question of a distal partial or developing SBO. She has a history of metastatic transitional cell Ca for which she has undergone chemotherapy as well as RT and more recently immunotherapy with atezolizumab (last received 2 weeks ago). Based on clincal scenario seems like SBO rather than colitis from immunotherapy GI/Surgical teams following Will follow
--- NOTE | 2018-12-12 08:05 | PN ---
Progress Note, Physician - Current Medication List Current Medications: Active Medications Atenolol (Tenormin -) 12.5 mg PO DAILY [facility] Last Admin: 12/11/18 13:14 Dose: 12.5 mg Calcium Carbonate (Os-Yobani 500mg -) 1,000 mg PO DAILY [facility] Polyethylene Glycol (Miralax (For Daily Use) -) 17 gm PO DAILY [facility] - Objective Vital Signs: Vital Signs Temperature 98.0 F 12/12/18 06:21 Pulse Rate 63 12/12/18 06:21 Respiratory Rate 18 12/12/18 06:21 Blood Pressure 151/81 12/12/18 06:21 O2 Sat by Pulse Oximetry (%) 98 12/11/18 21:00 Additional Findings/Remarks: Constitutional: Yes: No Distress, Calm, Thin Eyes: Yes: WNL, Conjunctiva Clear, EOM Intact HENT: Yes: WNL, Atraumatic, Normocephalic Neck: Yes: WNL, Trachea Midline Cardiovascular: Yes: WNL, Regular Rate and Rhythm Respiratory: Yes: WNL, Regular, CTA Bilaterally Gastrointestinal: Yes: Soft, Hypoactive Bowel Sounds Genitourinary: Yes: Other (ileal conduit with clear yellow urine) Breast(s): Yes: WNL Musculoskeletal: Yes: WNL Extremities: Yes: WNL Edema: No Peripheral Pulses WNL: Yes Peripheral Pulses: Left Radial: 2+, Right Radial: 2+, Left Doralis Pedis: 2+, Right Dorsalis Pedis: 2+, Left Femoral: 2+, Right Femoral: 2+ Integumentary: Yes: WNL Neurological: Yes: WNL, Alert, Oriented ...Motor Strength: WNL Psychiatric: Yes: WNL, Alert, Oriented Labs: Labs: CBC, BMP 12/11/18 06:30 12/11/18 06:30 INR, PTT INR 1.12 (0.83-1.09) H 12/10/18 06:36 Problem List - Problems (1) SBO (small bowel obstruction) Code(s): K56.609 - UNSP INTESTNL OBST, UNSP TO PARTIAL VERSUS COMPLETE OBST (2) HLD (hyperlipidemia) Code(s): E78.5 - HYPERLIPIDEMIA, UNSPECIFIED (3) Thyroiditis Code(s): E06.9 - THYROIDITIS, UNSPECIFIED (4) Bladder cancer Code(s): C67.9 - MALIGNANT NEOPLASM OF BLADDER, UNSPECIFIED Qualifiers: Bladder location: unspecified site Qualified Code(s): C67.9 - Malignant neoplasm of bladder, unspecified (5) Transitional cell bladder cancer Code(s): C67.9 - MALIGNANT NEOPLASM OF BLADDER, UNSPECIFIED (6) Metastatic bone cancer Code(s): C41.9 - MALIGNANT NEOPLASM OF BONE AND ARTICULAR CARTILAGE, UNSP (7) Cancer of renal pelvis Qualifiers: Laterality: left Qualified Code(s): C65.2 - Malignant neoplasm of left renal pelvis (9) Prophylactic measure Code(s): Z29.9 - ENCOUNTER FOR PROPHYLACTIC MEASURES, UNSPECIFIED
--- NOTE | 2018-12-12 09:33 | PN ---
Progress Note (short form) - Note Progress Note: Tolerating regular diet, moving bowels, no pain. Cleared for discharge from GI point of view.
[2018-12-12] MEDS ORDERED: CALCIUM (OYSTER SHELL) 500 MG TABLET (FP) PO SCH (10:00)
[2018-12-12] MEDS ORDERED: POLYETHYLENE GLYCOL 3350 119 GM BTL PO SCH ×2 (10:00)
[2018-12-12 10:07] LABS: BASO % 0.7 % (0-2.0); EOS % 4.3 % (0-4.5); HEMATOCRIT 32.5 % (32.4-45.2); HEMOGLOBIN 10.7 GM/dL (10.7-15.3); LYMPH % 35.1 % (8-40); MCH 27.8 pg (25.7-33.7); MCHC 32.8 g/dl (32.0-36.0); MEAN CELL VOLUME 84.7 fl (80-96); MEAN PLT VOLUME 8.3 fl (7.5-11.1); MONO % 9.5 % (3.8-10.2); NEUT % 50.4 % (42.8-82.8); PLATELET COUNT 198 K/MM3 (134-434); RBC 3.84 M/mm3 (3.60-5.2); RDW 13.4 % (11.6-15.6); WHITE BLOOD COUNT 6.7 K/mm3 (4.0-10.0)
[2018-12-12 10:32] LABS: ALBUMIN 3.4 g/dl (3.4-5.0); BILIRUBIN,TOTAL 0.3 mg/dL (0.2-1); BLOOD UREA NITROGEN 5.9 mg/dL (7-18); CALCIUM 8.9 mg/dL (8.5-10.1); CREATININE 1.1 mg/dL (0.55-1.3); MAGNESIUM 1.9 mg/dL (1.8-2.4); POTASSIUM 3.7 mmol/L (3.5-5.1); TOT PROT 5.9 g/dl (6.4-8.2)
[2018-12-12] MEDS: ATENOLOL 25 MG TABLET (FP) PO SCH (10:40)
--- NOTE | 2018-12-12 10:41 | DS ---
Physical Exam: SUBJECTIVE: Patient seen and examined OBJECTIVE: Vital Signs Period Temp Pulse Resp BP Sys/Salmon Pulse Ox Last 24 Hr 98.0 F-98.7 F 63-74 18-20 150-157/79-87 98 PHYSICAL EXAM Constitutional: Yes: No Distress, Calm, Thin Eyes: Yes: WNL, Conjunctiva Clear, EOM Intact HENT: Yes: WNL, Atraumatic, Normocephalic Neck: Yes: WNL, Trachea Midline Cardiovascular: Yes: WNL, Regular Rate and Rhythm Respiratory: Yes: WNL, Regular, CTA Bilaterally Gastrointestinal: Yes: Soft, Hypoactive Bowel Sounds Genitourinary: Yes: Other (ileal conduit with clear yellow urine) Breast(s): Yes: WNL Musculoskeletal: Yes: WNL Extremities: Yes: WNL Edema: No Peripheral Pulses WNL: Yes Peripheral Pulses: Left Radial: 2+, Right Radial: 2+, Left Doralis Pedis: 2+, Right Dorsalis Pedis: 2+, Left Femoral: 2+, Right Femoral: 2+ Integumentary: Yes: WNL Neurological: Yes: WNL, Alert, Oriented ...Motor Strength: WNL Psychiatric: Yes: WNL, Alert, Oriented LABS Laboratory Results - last 24 hr 12/12/18 12/12/18 09:40 09:40 WBC 6.7 RBC 3.84 Hgb 10.7 Hct 32.5 D MCV 84.7 MCH 27.8 MCHC 32.8 RDW 13.4 Plt Count 198 D MPV 8.3 Absolute Neuts (auto) 3.4 Neutrophils % 50.4 Lymphocytes % 35.1 Monocytes % 9.5 Eosinophils % 4.3 Basophils % 0.7 Nucleated RBC % 0 Sodium 140 Potassium 3.7 Chloride 105 Carbon Dioxide 30 Anion Gap 5 L BUN 5.9 L Creatinine 1.1 Est GFR (CKD-EPI)AfAm 56.48 Est GFR (CKD-EPI)NonAf 48.73 Random Glucose 127 H Calcium 8.9 Magnesium 1.9 Total Bilirubin 0.3 AST 20 ALT 17 Alkaline Phosphatase 61 Total Protein 5.9 L Albumin 3.4 HOSPITAL COURSE: Date of Admission:12/08/18 Date of Discharge: 12/12/18 78 year-old female with a PMH significant for HTN, HLD, thyroiditis, bladder cancer, left kidney metastatic transitional cell carcinoma, renal pelvis cancer , and metastatic bone cancer, currently on atezolizumbab [id number], last treatment 2 1/2 weeks ago. Patient reported she was awakened from sleep at 2: 00am with sharp abdominal pain that extended from the epigastrum to the suprapubic area. The pain has been intermittent. At 11:00am she had an episode of vomiting. This was followed by two more episodes prior to arrival to ED. Emesis was non-bloody, yellowish/beige liquid. Patent has chronic loose stools. She had several bowel movements today, +flatus. Patient took her temp 99.5. Denies sweats, chills. Cat Scan: Report Reviewed (CT showed fluid-filled SB loops mildly dilated, suggestive of possible early or developing obstruction vs ileus. Surgery was asked to assess.) Problem List - Problems (1) SBO (small bowel obstruction) Assessment/Plan: Seen by GI & Gen surg earlier imaging suggested partial or early SBO, repeat CT confirms that contrast traverses from stomach to distal colon, pain improved during course of stay. Diet advanced and tolerated Anticipate diarrhea over next couple days as contrast evacuates (2) HLD (hyperlipidemia) Assessment/Plan: c/w statin on discharge (3) Thyroiditis Assessment/Plan: c/w synthroid discharge (4) Bladder cancer Follow with Dr Cee (5) Transitional cell bladder cancer Assessment/Plan: Ileoconduit follow by Dr Cee (7) Cancer of renal pelvis (8) Prophylactic measure Assessment/Plan: FEN Tolerating diet DVT ambulatory Dispo Medically stable for discharge to home with follow up with Dr Cee Minutes to complete discharge: 35 Discharge Summary Reason For Visit: Intractable vomiting with nausea,cystistis,deydrat Current Active Problems Bladder cancer (Acute) Cancer of renal pelvis (Acute) Cystitis (Acute) Dehydration (Acute) HLD (hyperlipidemia) (Acute) Intractable vomiting with nausea (Acute) Metastatic bone cancer (Acute) Partial small bowel obstruction (Acute) Prophylactic measure (Acute) S/P ileal conduit (Acute) SBO (small bowel obstruction) (Acute) Thyroiditis (Acute) Transitional cell bladder cancer (Acute) Hospital Course: 78 year-old female with a PMH significant for HTN, HLD, thyroiditis, bladder cancer, left kidney metastatic transitional cell carcinoma, renal pelvis cancer , and metastatic bone cancer, currently on atezolizumbab [id number], last treatment 2 1/2 weeks ago. Patient reported she was awakened from sleep at 2: 00am with sharp abdominal pain that extended from the epigastrum to the suprapubic area. The pain has been intermittent. At 11:00am she had an episode of vomiting. This was followed by two more episodes prior to arrival to ED. Emesis was non-bloody, yellowish/beige liquid. Patent has chronic loose stools. She had several bowel movements today, +flatus. Patient took her temp 99.5. Denies sweats, chills. Cat Scan: Report Reviewed (CT showed fluid-filled SB loops mildly dilated, suggestive of possible early or developing obstruction vs ileus. Surgery was asked to assess.) Problem List - Problems (1) SBO (small bowel obstruction) Assessment/Plan: Seen by GI & Gen surg earlier imaging suggested partial or early SBO, repeat CT confirms that contrast traverses from stomach to distal colon, pain improved during course of stay. Diet advanced and tolerated Anticipate diarrhea over next couple days as contrast evacuates (2) HLD (hyperlipidemia) Assessment/Plan: c/w statin on discharge (3) Thyroiditis Assessment/Plan: c/w synthroid discharge (4) Bladder cancer Follow with Dr Cee (5) Transitional cell bladder cancer Assessment/Plan: Ileoconduit follow by Dr Cee (7) Cancer of renal pelvis (8) Prophylactic measure Assessment/Plan: FEN Tolerating diet DVT ambulatory Dispo Medically stable for discharge to home with follow up with Dr Cee Condition: Improved - Instructions Diet, Activity, Other Instructions: May resume home diet. Increase your fluid intake and stay hydrated. It is recommended that you take a daily dose of miralax. If you develop and abdominal pain or are not passing gas or start vomiting return back to the ED. Maybe an appointment with Dr Cee for follow up. Referrals: De Cee MD [Staff Physician] - - Home Medications Comprehensive Discharge Medication List: Ambulatory Orders Ascorbate Calcium [Vitamin C] 500 mg PO DAILY 03/11/17 Atenolol [Tenormin -] 12.5 mg PO DAILY 03/11/17 Calcium Carbonate [Calcium] 1,000 mg PO DAILY 03/11/17 Glucosa López 2Kcl/Chondroitin López [Glucosamine & Chondroitin Cap] 1 each PO DAILY 03/11/17 Aspirin Coated [Ecotrin -] 81 mg PO DAILY 06/18/18 Atezolizumab [Tecentriq] 1,200 mg IV ASDIR 12/08/18 Problem List - Problems (1) SBO (small bowel obstruction) Code(s): K56.609 - UNSP INTESTNL OBST, UNSP TO PARTIAL VERSUS COMPLETE OBST (2) HLD (hyperlipidemia) Code(s): E78.5 - HYPERLIPIDEMIA, UNSPECIFIED (3) Thyroiditis Code(s): E06.9 - THYROIDITIS, UNSPECIFIED (4) Bladder cancer Code(s): C67.9 - MALIGNANT NEOPLASM OF BLADDER, UNSPECIFIED Qualifiers: Bladder location: unspecified site Qualified Code(s): C67.9 - Malignant neoplasm of bladder, unspecified (5) Transitional cell bladder cancer Code(s): C67.9 - MALIGNANT NEOPLASM OF BLADDER, UNSPECIFIED (6) Metastatic bone cancer Code(s): C41.9 - MALIGNANT NEOPLASM OF BONE AND ARTICULAR CARTILAGE, UNSP (7) Cancer of renal pelvis Qualifiers: Laterality: left Qualified Code(s): C65.2 - Malignant neoplasm of left renal pelvis (9) Prophylactic measure Code(s): Z29.9 - ENCOUNTER FOR PROPHYLACTIC MEASURES, UNSPECIFIED This patient is new to me today: No Emergency Visit: Yes ED Registration Date: 12/08/18 Care time: The patient presented to the Emergency Department on the above date and was hospitalized for further evaluation of their emergent condition. Critical Care patient: No - Discharge Referral Referred to [facility] No
[2018-12-12 11:46] VITALS: BP 145/89; PULSE 73; TEMP 98.2
== END 2018-12-12 14:37 | disposition home or self-care (01) | DRG 389 ==
LOC: FER 17:13 → FM/S 20:34 → J8W 12-09 17:05
PROVIDERS: ADMIT Internal Medicine; ATTEND Nurse Practitioner Acute Care
DX: K56.609 Unspecified intestinal obstruction, unspecified as to partial versus complete obstruction (principal); C79.02 Secondary malignant neoplasm of left kidney and renal pelvis; C79.51 Secondary malignant neoplasm of bone; N30.90 Cystitis, unspecified without hematuria; E86.0 Dehydration; R11.2 Nausea with vomiting, unspecified; I10 Essential (primary) hypertension; E78.5 Hyperlipidemia, unspecified; E06.9 Thyroiditis, unspecified; D64.9 Anemia, unspecified
CPT/HCPCS: 36415; 71045-TC-FY; 74019-TC-FY; 74176-TC; 80053; 81003; 81015; 82803; 82962; 83605; 83690; 83735; 84100; 84439; 84443; 84481; 85025; 85610; 85730; 87040; 87086; 87186; 93005; 97116-GP; 97161-GP; 99283-25; J0131; J7030

== ENCOUNTER 2018-12-14 07:11 | Day surgery (SDC) | payer OTHER, MEDICARE | END 2018-12-14 14:45 | disposition home or self-care (01) | LOC: JONCCHEMO 07:11 → J7W 09:53 → JONCCHEMO 14:45 ==

== ENCOUNTER 2018-12-17 02:26 | Inpatient (IN) | payer OTHER, MEDICARE | END 2018-12-21 11:52 | disposition home or self-care (01) | LOC: JER 02:26 → JERBED 06:41 → J8W 09:03 ==

== ENCOUNTER 2019-01-04 05:32 | Day surgery (SDC) | payer OTHER, MEDICARE ==
[2019-01-04 08:59] LABS: BASO % 0.9 % (0-2.0); EOS % 1.9 % (0-4.5); HEMATOCRIT 33.2 % (32.4-45.2); HEMOGLOBIN 10.5 GM/dL (10.7-15.3); LYMPH % 33.1 % (8-40); MCH 26.9 pg (25.7-33.7); MCHC 31.5 g/dl (32.0-36.0); MEAN CELL VOLUME 85.3 fl (80-96); MONO % 8.6 % (3.8-10.2); NEUT % 55.5 % (42.8-82.8); PLATELET COUNT 187 K/MM3 (134-434); RBC 3.89 M/mm3 (3.60-5.2); RDW 14.5 % (11.6-15.6); WHITE BLOOD COUNT 4.8 K/mm3 (4.0-10.0)
[2019-01-04 09:24] LABS: ALBUMIN 3.4 g/dl (3.4-5.0); BILIRUBIN,DIRECT 0.1 mg/dL (0.0-0.2); BILIRUBIN,TOTAL 0.3 mg/dL (0.2-1); TOT PROT 5.9 g/dl (6.4-8.2)
[2019-01-04 09:32] LABS: BLOOD UREA NITROGEN 26.9 mg/dL (7-18); CALCIUM 8.9 mg/dL (8.5-10.1); CREATININE 1.2 mg/dL (0.55-1.3); MAGNESIUM 1.8 mg/dL (1.8-2.4); POTASSIUM 3.4 mmol/L (3.5-5.1)
[2019-01-04] MEDS ORDERED: DEXAMETHASONE SODIUM PHOSPHATE 10 MG in SODIUM CHLORIDE 50 ML IVPB ONE (10:00)
[2019-01-04] MEDS ORDERED: ATEZOLIZUMAB 1,200 MG in SODIUM CHLORIDE 250 ML IV ONE (10:30)
[2019-01-04] MEDS ORDERED: POTASSIUM CHLORIDE TABS 20 MEQ TABLET.ER (FP) PO ONE (10:30)
[2019-01-04 11:24] VITALS: TEMP 98.5
[2019-01-04] MEDS ORDERED: ZOLEDRONIC ACID 3 MG in SODIUM CHLORIDE 100 ML IVPB ONE (11:30)
[2019-01-04 16:31] VITALS: BP 154/75; PULSE 63
[2019-01-04] MEDS ORDERED: PORTA CATH FLUSH 10 ML IVPUSH ONE (16:31)
== END 2019-01-04 13:30 | disposition home or self-care (01) ==
LOC: JONCCHEMO 05:32 → J7W 10:13 → JONCCHEMO 13:30
PROVIDERS: ATTEND Internal Medicine Hematology & Oncology
DX: Z51.11 Encounter for antineoplastic chemotherapy (principal); C67.9 Malignant neoplasm of bladder, unspecified; C65.2 Malignant neoplasm of left renal pelvis; C79.51 Secondary malignant neoplasm of bone; C79.02 Secondary malignant neoplasm of left kidney and renal pelvis
CPT/HCPCS: 36415; 80048; 80076; 82150; 83690; 83735; 84443; 85025; 96366; 96367; 96375; 96413; 96417; J3489; J9022

== ENCOUNTER 2019-01-25 07:10 | Day surgery (SDC) | payer OTHER, MEDICARE ==
[2019-01-25] MEDS ORDERED: DEXAMETHASONE SODIUM PHOSPHATE 10 MG in SODIUM CHLORIDE 50 ML IVPB ONE (09:30)
[2019-01-25 09:42] LABS: BASO % 0.8 % (0-2.0); EOS % 1.2 % (0-4.5); HEMATOCRIT 33.7 % (32.4-45.2); HEMOGLOBIN 10.9 GM/dL (10.7-15.3); LYMPH % 28.7 % (8-40); MCH 27.5 pg (25.7-33.7); MCHC 32.5 g/dl (32.0-36.0); MEAN CELL VOLUME 84.4 fl (80-96); MEAN PLT VOLUME 8.8 fl (7.5-11.1); MONO % 8.3 % (3.8-10.2); PLATELET COUNT 217 K/MM3 (134-434); RBC 3.99 M/mm3 (3.60-5.2); RDW 14.5 % (11.6-15.6); WHITE BLOOD COUNT 6.9 K/mm3 (4.0-10.0)
[2019-01-25] MEDS ORDERED: ATEZOLIZUMAB 1,200 MG in SODIUM CHLORIDE 250 ML IV ONE (10:00)
[2019-01-25 10:10] LABS: ALBUMIN 3.7 g/dl (3.4-5.0); BILIRUBIN,TOTAL 0.3 mg/dL (0.2-1); BLOOD UREA NITROGEN 21.3 mg/dL (7-18); CALCIUM 8.9 mg/dL (8.5-10.1); CREATININE 1.2 mg/dL (0.55-1.3); MAGNESIUM 1.9 mg/dL (1.8-2.4); POTASSIUM 3.5 mmol/L (3.5-5.1); TOT PROT 6.6 g/dl (6.4-8.2)
[2019-01-25] MEDS ORDERED: ACETAMINOPHEN 325 MG TABLET (FP) PO ONE (11:30)
[2019-01-25 13:17] VITALS: TEMP 97.6
[2019-01-25 13:20] VITALS: BP 158/77; PULSE 66
[2019-01-25 14:08] LABS: URINE APPEARANCE CLOUDY; URINE COLOR YELLOW; URINE GLUCOSE (UA) NEGATIVE (NEGATIVE)
[2019-01-25 14:09] LABS: URINE BILIRUBIN NEGATIVE (NEGATIVE); URINE KETONE NEGATIVE (NEGATIVE); URINE NITRITE POSITIVE (NEGATIVE); URINE PROTEIN 1+ (NEGATIVE); URINE UROBILINOGEN 0.2 mg/dL (0.2-1.0)
[2019-01-25 14:10] LABS: URINE LEUK ESTERASE 4+ (NEGATIVE); URINE RBC 3 /hpf (0-4); URINE WBC 109 /hpf (0-5)
[2019-01-25 14:27] LABS: EPI CELLS 6 /HPF (0-5/HPF); HYALINE CASTS 0 /lpf (0-8)
[2019-01-25 14:28] LABS: URINE BACTERIA 1769.8 /hpf (NEGATIVE)
== END 2019-01-25 13:00 | disposition home or self-care (01) ==
LOC: JONCCHEMO 07:10 → J7W 11:19 → JONCCHEMO 13:00
PROVIDERS: ATTEND Internal Medicine Hematology & Oncology
DX: Z51.11 Encounter for antineoplastic chemotherapy (principal); C67.9 Malignant neoplasm of bladder, unspecified; C65.2 Malignant neoplasm of left renal pelvis; C79.02 Secondary malignant neoplasm of left kidney and renal pelvis
CPT/HCPCS: 36415; 80053; 81003; 83735; 84439; 84443; 85025; 86376; 86800; 96375; 96413; J9022

== ENCOUNTER 2019-02-01 06:35 | Day surgery (SDC) | payer OTHER, MEDICARE ==
[2019-02-01 09:14] LABS: BASO % 0.9 % (0-2.0); EOS % 2.4 % (0-4.5); HEMATOCRIT 32.8 % (32.4-45.2); HEMOGLOBIN 10.6 GM/dL (10.7-15.3); LYMPH % 30.6 % (8-40); MCHC 32.4 g/dl (32.0-36.0); MEAN CELL VOLUME 83.3 fl (80-96); MEAN PLT VOLUME 8.4 fl (7.5-11.1); MONO % 9.5 % (3.8-10.2); NEUT % 56.6 % (42.8-82.8); PLATELET COUNT 226 K/MM3 (134-434); RBC 3.94 M/mm3 (3.60-5.2); RDW 14.6 % (11.6-15.6); WHITE BLOOD COUNT 6.3 K/mm3 (4.0-10.0)
[2019-02-01 09:45] LABS: ALBUMIN 3.5 g/dl (3.4-5.0); BILIRUBIN,TOTAL 0.3 mg/dL (0.2-1); BLOOD UREA NITROGEN 18.1 mg/dL (7-18); CALCIUM 8.6 mg/dL (8.5-10.1); CREATININE 1.2 mg/dL (0.55-1.3); MAGNESIUM 1.9 mg/dL (1.8-2.4); POTASSIUM 3.5 mmol/L (3.5-5.1); TOT PROT 6.3 g/dl (6.4-8.2)
[2019-02-01] MEDS ORDERED: ZOLEDRONIC ACID 4 MG in SODIUM CHLORIDE 100 ML IVPB ONE (10:00)
[2019-02-01] MEDS ORDERED: ZOLEDRONIC ACID 3 MG in SODIUM CHLORIDE 100 ML IVPB ONE (10:00)
[2019-02-01 13:44] VITALS: BP 138/72; PULSE 71; TEMP 98.5
== END 2019-02-01 11:45 | disposition home or self-care (01) ==
LOC: JONCCHEMO 06:35 → J7W 10:28 → JONCCHEMO 11:45
PROVIDERS: ATTEND Internal Medicine Hematology & Oncology
PROC: 3E043GC Introduction of Other Therapeutic Substance into Central Vein, Percutaneous Approach (ICD-10-PCS; principal; 2019-02-01)
DX: C22.1 Intrahepatic bile duct carcinoma (principal); C23 Malignant neoplasm of gallbladder; Z76.89 Persons encountering health services in other specified circumstances
CPT/HCPCS: 36415; 80053; 83735; 85025; 96365; J3489

== ENCOUNTER 2019-02-15 07:23 | Day surgery (SDC) | payer OTHER, MEDICARE ==
[2019-02-15 08:34] LABS: EOS % 1.6 % (0-4.5); HEMATOCRIT 33.2 % (32.4-45.2); HEMOGLOBIN 10.6 GM/dL (10.7-15.3); LYMPH % 28.3 % (8-40); MCH 26.4 pg (25.7-33.7); MEAN CELL VOLUME 82.2 fl (80-96); MEAN PLT VOLUME 7.8 fl (7.5-11.1); MONO % 10.3 % (3.8-10.2); NEUT % 58.8 % (42.8-82.8); PLATELET COUNT 258 K/MM3 (134-434); RBC 4.03 M/mm3 (3.60-5.2); RDW 14.5 % (11.6-15.6); WHITE BLOOD COUNT 7.4 K/mm3 (4.0-10.0)
[2019-02-15 09:17] LABS: ALBUMIN 3.6 g/dl (3.4-5.0); BILIRUBIN,TOTAL 0.5 mg/dL (0.2-1); BLOOD UREA NITROGEN 20.8 mg/dL (7-18); CALCIUM 8.7 mg/dL (8.5-10.1); CREATININE 1.4 mg/dL (0.55-1.3); MAGNESIUM 1.8 mg/dL (1.8-2.4); POTASSIUM 3.9 mmol/L (3.5-5.1); TOT PROT 6.6 g/dl (6.4-8.2)
[2019-02-15] MEDS ORDERED: DEXAMETHASONE SODIUM PHOSPHATE 10 MG in SODIUM CHLORIDE 50 ML IVPB ONE (10:00)
[2019-02-15] MEDS ORDERED: SODIUM CHLORIDE 0.45% 500 ML IV SCH (10:00)
[2019-02-15] MEDS ORDERED: ATEZOLIZUMAB 1,200 MG in SODIUM CHLORIDE 250 ML IV ONE (10:30)
[2019-02-15] MEDS ORDERED: PORTA CATH FLUSH 10 ML IVPUSH ONE (16:19)
[2019-02-15 16:22] VITALS: BP 112/64; PULSE 64; TEMP 97.8
== END 2019-02-15 12:30 | disposition home or self-care (01) ==
LOC: JONCCHEMO 07:23 → J7W 10:16 → JONCCHEMO 12:30
PROVIDERS: ATTEND Internal Medicine Hematology & Oncology
DX: Z51.11 Encounter for antineoplastic chemotherapy (principal); C67.9 Malignant neoplasm of bladder, unspecified; C65.9 Malignant neoplasm of unspecified renal pelvis; C79.00 Secondary malignant neoplasm of unspecified kidney and renal pelvis; C79.51 Secondary malignant neoplasm of bone
CPT/HCPCS: 36415; 80053; 83735; 84443; 85025; 96361; 96367; 96413; J9022

== ENCOUNTER 2019-02-22 10:53 | Day surgery (SDC) | payer OTHER, MEDICARE ==
[2019-02-22] MEDS ORDERED: SODIUM CHLORIDE IVPB ONE (11:15)
[2019-02-22] MEDS ORDERED: ONDANSETRON IVPB ONE (11:15)
[2019-02-22] MEDS ORDERED: DEXAMETHASONE IVPB ONE (11:15)
[2019-02-22] MEDS ORDERED: D5-NS + 20 MEQ KCL - 20 MEQ/1,000 ML INFUS.BAG IV ONE (11:30)
[2019-02-22] MEDS ORDERED: MAGNESIUM SULF 50% (8.12 MEQ/2 ML-1 GM VIAL) IVPB ONE (11:30)
[2019-02-22 17:09] VITALS: TEMP 97.5
[2019-02-22] MEDS ORDERED: PORTA CATH FLUSH 10 ML IVPUSH ONE (17:09)
[2019-02-23 17:36] VITALS: BP 126/74; PULSE 81
== END 2019-02-22 15:15 | disposition home or self-care (01) ==
LOC: JONCNONCHE 10:53 → J7W 10:54 → JONCNONCHE 15:15
PROVIDERS: ATTEND Internal Medicine Hematology & Oncology
PROC: 3E043GC Introduction of Other Therapeutic Substance into Central Vein, Percutaneous Approach (ICD-10-PCS; principal; 2019-02-22)
DX: C67.9 Malignant neoplasm of bladder, unspecified (principal); C65.9 Malignant neoplasm of unspecified renal pelvis; C79.00 Secondary malignant neoplasm of unspecified kidney and renal pelvis; C79.51 Secondary malignant neoplasm of bone
CPT/HCPCS: 96360; 96361; 96365; 96366; J1100

== ENCOUNTER 2019-03-03 15:00 | Emergency (ER) | payer OTHER, MEDICARE ==
--- NOTE | 2019-03-03 15:03 | PDOC ---
Rapid Medical Evaluation Time Seen by Provider: 03/03/19 15:03 Medical Evaluation: Allergies Allergy/AdvReac Type Severity Reaction Status Date / Time No Known Drug Allergies Allergy Verified 12/17/18 02:30 03/03/19 15:03 I have performed a brief in-person evaluation of this patient. The patient presents with a chief complaint of: diarrhea Pertinent physical exam findings:stable and in NAD, non-focal I have ordered the following:labs The patient will proceed to the ED for further evaluation.
[2019-03-03 15:04] VITALS: BMI 22.6
--- NOTE | 2019-03-03 15:38 | PDOC ---
History of Present Illness - General Chief Complaint: Diarrhea Stated Complaint: NONSTOP BOWEL MOVEMENT Time Seen by Provider: 03/03/19 15:03 History Source: Patient Exam Limitations: No Limitations - History of Present Illness Initial Comments: 03/03/19 15:33 78 yo F w/ a h/o bladder CA currently getting immunotherapy, Kidney CA s/p L nephectomy w/ urostomy bag, HTN, hypothyroidism, SBO comes in c/o 2-3 weeks of NB diarrhea. Today she was going every 10 minutes. She took 1 oxycontin 2 hours ago which calmed down symptoms a little. (+)crampy abdominal pain, no fever/ chills, no NV today but has been having vomiting over the past week if she eats anything solid, no chest pain. No other complaints today. PMD: Dr. Nuno Oncologist: Dr. Cee 03/03/19 15:53 Past History - Past Medical History Allergies/Adverse Reactions: Allergies Allergy/AdvReac Type Severity Reaction Status Date / Time No Known Drug Allergies Allergy Verified 03/03/19 15:04 Home Medications: Ambulatory Orders Ascorbate Calcium [Vitamin C] 500 mg PO DAILY 03/11/17 Atenolol [Tenormin -] 12.5 mg PO DAILY 03/11/17 Calcium Carbonate [Calcium] 1,000 mg PO DAILY 03/11/17 Glucosa López 2Kcl/Chondroitin López [Glucosamine & Chondroitin Cap] 1 each PO DAILY 03/11/17 Aspirin Coated [Ecotrin -] 81 mg PO DAILY 06/18/18 Atezolizumab [Tecentriq] 1,200 mg IV ASDIR 12/08/18 Acetaminophen [Tylenol .Regular Strength -] 650 mg PO Q6H PRN tablet 12/21/18 Adam-Cath Flush [Adam-Cath Flush -] 10 ml IVPUSH PRN PRN ml 12/21/18 Levothyroxine [Synthroid -] 50 mcg PO DAILY@0700 01/25/19 Anemia: No Asthma: No Cancer: Yes (COLON, BLADDER) Cardiac Disorders: Yes (irregular heartbeat) CVA: No COPD: No CHF: No Dementia: No Diabetes: No GI Disorders: No Disorders: (cyctectomy) HTN: Yes Hypercholesterolemia: Yes Liver Disease: No Seizures: No Thyroid Disease: No - Surgical History Abdominal Surgery: No Appendectomy: No Cardiac Surgery: No Cholecystectomy: No GI Surgery: Yes Lung Surgery: No Neurologic Surgery: No - Immunization History Immunization Up to Date: Yes - Psycho Social/Smoking Cessation Hx Smoking History: Never smoked Have you smoked in the past 12 months: No If you are a former smoker, when did you quit?: 1977 Hx Alcohol Use: No Drug/Substance Use Hx: No Substance Use Type: None Hx Substance Use Treatment: No Review of Systems - Review of Systems Able to Perform ROS?: Yes Constitutional: Yes: Malaise. No: Chills, Fever, Night Sweats HEENTM: No: Eye Pain, Recent change in vision, Throat Pain Respiratory: No: Cough, Shortness of Breath Cardiac (ROS): No: Chest Pain, Palpitations, Chest Tightness ABD/GI: Yes: Diarrhea, Abdominal cramping. No: Nausea, Vomiting : No: Dysuria, Hematuria Musculoskeletal: No: Back Pain Integumentary: No: Rash Neurological: No: Headache, Numbness, Dizziness Psychiatric: Yes: Change in Appetite Endocrine: No: Unexplained Weight Loss *Physical Exam - Vital Signs Last Vital Signs Temp Pulse Resp BP Pulse Ox 97.6 F 100 H 18 115/63 99 03/03/19 15:02 03/03/19 15:02 03/03/19 15:02 03/03/19 15:02 03/03/19 15:02 - Physical Exam General Appearance: Yes: Nourished. No: Apparent Distress HEENT: positive: KATHIE, Normal ENT Inspection, Normal Voice. negative: Pale Conjunctivae, Scleral Icterus (R), Scleral Icterus (L) Neck: positive: Supple. negative: Decreased range of motion, Tender midline Respiratory/Chest: positive: Lungs Clear, Normal Breath Sounds. negative: Respiratory Distress, Accessory Muscle Use Cardiovascular: positive: Regular Rhythm, Regular Rate Gastrointestinal/Abdominal: positive: Normal Bowel Sounds, Soft, Other ( Multiple nasses felt in lower abdominal region. Urostomy bag in place, no signs of infection). negative: Tender Musculoskeletal: positive: Normal Inspection. negative: CVA Tenderness, Decreased Range of Motion Extremity: positive: Normal Capillary Refill, Normal Inspection, Normal Range of Motion. negative: Tender, Pedal Edema Integumentary: positive: Normal Color, Dry. negative: Jaundice, Rash Neurologic: positive: Fully Oriented, Alert, Normal Mood/Affect Medical Decision Making - Medical Decision Making 03/03/19 15:47 78 yo F w/ bladder/kidney CA currently on immunotherapy, h/o SBO (last session was 2 weeks ago), p/w diarrhea, abdominal discomfort, Inability to tolerate solids, vomiting upon solids ingestion. Will line and lab, give IV fluids, tylenol and will scan R/O SBO. Pt says that she had diarrhea also with her last SBO. Stool culture sent. Change of shift, care of patient signed over to B[facility] PILER Phuc who will reassess patient, decide on dispo plan 03/03/19 15:49 Discharge - Discharge Information Problems reviewed: Yes Clinical Impression/Diagnosis: Diarrhea Qualifiers: Diarrhea type: unspecified type Qualified Code(s): R19.7 - Diarrhea, unspecified - Follow up/Referral - Patient Discharge Instructions - Post Discharge Activity
[2019-03-03] MEDS ORDERED: SODIUM CHLORIDE 1,000 ML IV STA (15:40)
[2019-03-03] MEDS ORDERED: ACETAMINOPHEN 1000 MG/100 ML VIAL (NON FORMULARY) IVPB ONE (15:40)
[2019-03-03] MEDS ORDERED: ACETAMINOPHEN INJECTION 100 ML IVPB ONE (15:57)
[2019-03-03 17:00] LABS: BASO % 0.5 % (0-2.0); EOS % 1.8 % (0-4.5); HEMATOCRIT 30.6 % (32.4-45.2); HEMOGLOBIN 9.8 GM/dL (10.7-15.3); LYMPH % 10.6 % (8-40); MCH 26.3 pg (25.7-33.7); MCHC 32.1 g/dl (32.0-36.0); MEAN PLT VOLUME 8.5 fl (7.5-11.1); MONO % 13.5 % (3.8-10.2); NEUT % 73.6 % (42.8-82.8); PLATELET COUNT 235 K/MM3 (134-434); RBC 3.73 M/mm3 (3.60-5.2); WHITE BLOOD COUNT 6.2 K/mm3 (4.0-10.0)
[2019-03-03 17:27] LABS: ALBUMIN 3.2 g/dl (3.4-5.0); BILIRUBIN,TOTAL 0.5 mg/dL (0.2-1); BLOOD UREA NITROGEN 18.5 mg/dL (7-18); CALCIUM 8.6 mg/dL (8.5-10.1); POTASSIUM 3.6 mmol/L (3.5-5.1)
[2019-03-03 17:37] LABS: MAGNESIUM 1.9 mg/dL (1.8-2.4); PHOSPHOROUS 3.2 mg/dL (2.5-4.9)
[2019-03-03 18:11] VITALS: TEMP 98.9
--- NOTE | 2019-03-03 21:48 | PDOC ---
*Physical Exam - Vital Signs Last Vital Signs Temp Pulse Resp BP Pulse Ox 98.9 F 88 20 127/70 98 03/03/19 18:11 03/03/19 18:11 03/03/19 18:11 03/03/19 18:11 03/03/19 18:11 - Physical Exam General Appearance: Yes: Appropriately Dressed. No: Apparent Distress Neck: positive: Trachea midline, Supple Respiratory/Chest: positive: Lungs Clear, Normal Breath Sounds. negative: Respiratory Distress, Accessory Muscle Use Cardiovascular: positive: Regular Rhythm, Regular Rate Gastrointestinal/Abdominal: positive: Normal Bowel Sounds, Soft, Other ( Ileostomy present. Stoma red, moist and appears healthy.). negative: Tender Extremity: positive: Normal Capillary Refill Integumentary: positive: Normal Color, Dry, Warm Neurologic: positive: Alert ED Treatment Course - LABORATORY CBC & Chemistry Diagram: 03/03/19 16:10 03/03/19 16:10 - ADDITIONAL ORDERS Additional order review: Laboratory Results 03/03/19 03/03/19 16:10 16:10 Sodium 137 Potassium 3.6 Chloride 102 Carbon Dioxide 25 Anion Gap 10 BUN 18.5 H Creatinine 1.0 Est GFR (CKD-EPI)AfAm 63.38 Est GFR (CKD-EPI)NonAf 54.68 Random Glucose 94 Calcium 8.6 Phosphorus 3.2 Magnesium 1.9 Total Bilirubin 0.5 AST 17 ALT 10 L Alkaline Phosphatase 74 Total Protein 6.0 L Albumin 3.2 L Lipase 27 L 03/03/19 16:10 RBC 3.73 MCV 82.0 MCHC 32.1 RDW 14.0 MPV 8.5 Neutrophils % 73.6 D Lymphocytes % 10.6 D Monocytes % 13.5 H Eosinophils % 1.8 Basophils % 0.5 - Medications Given in the ED: ED Medications Discontinued Medications Generic Name Dose Route Start Last Admin Trade Name Freq PRN Reason Stop Dose Admin Acetaminophen 1,000 mg 03/03/19 15:40 03/03/19 16:17 Ofirmev Injection - IVPB 03/03/19 15:41 1,000 mg ONCE ONE Administration Sodium Chloride 1,000 mls @ 1,000 mls/hr 03/03/19 15:40 03/03/19 16:15 Normal Saline - IV 03/03/19 16:39 1,000 mls/hr ASDIR STA Administration ED Progress Note - Progress Note Progress Note: 03/03/19 21:50 Received center from KYRA Melendez. Briefly this is a 78-year-old woman with history of bladder CA currently on immunotherapy, renal cell carcinoma status post left nephrectomy with urostomy bag in place, hypertension, hypothyroidism multiple SBO's with 2 to 3 weeks of nonbloody diarrhea. Patient reports frequency of bowel movements have been every 10 minutes or so throughout the day today. Patient reports taking narcotic pain relievers which helps slow her bowel movements. CBC is unremarkable Chemistries notable for are unremarkable. Patient is pending CT of abdomen and pelvis to rule out bowel obstruction and/ or diverticulitis. Medical Decision Making - Medical Decision Making 03/03/19 22:29 CT of the abdomen and pelvis as read by Dr. Epstein: In comparison to a CT exam of 12/17/2018 interval development of hepatic prostatic disease is noted. There is an increased bilateral inguinal lymphadenopathy increased size of a pelvic mass lesion. Increased size of the pelvic wall mass lesion is also noted. There appears to be interval development of mild concentric wall thickening of the rectum and lower third of the sigmoid colon suggestive of acute colitis less likely artifactual due to under distention. Correlate clinically. Interval resolution of the small bowel dilatation is seen which is suggestive of obstruction at that time. The remainder of the exam appears unchanged. Given normal laboratory testing I feel it is safe to discharge the patient home to follow-up with her primary doctor for continued treatment and evaluation. I will defer antibiotic treatment as patient recently had radiation therapy and this is likely due to recent radiation patient treatment. I will place a call back in the patient's chart for stool cultures and would defer treatment with antibiotics until cultures are received. I discussed the physical exam findings, ancillary test results and final diagnoses with the patient. I answered all of the patient's questions. The patient was satisfied with the care received and felt comfortable with the discharge plan and treatment plan. The patient will call their primary care physician within 24 hours to arrange follow-up and will return to the Emergency Department with any new, persistent or worsening symptoms. 03/03/19 22:29 Discharge - Discharge Information Problems reviewed: Yes Clinical Impression/Diagnosis: Colitis Condition: Fair Disposition: HOME - Admission No - Follow up/Referral Referrals: Luis Antonio Pearson MD [Primary Care Provider] - CallBack Reminder: stool culture - Patient Discharge Instructions Additional Instructions: Rest, drink lots of fluids: Teas, water, soups Carrie brock, carbonated beverages for the bubbles May try peppermint teas Avoid heavy , spicy or fatty foods until symptoms have resolved Avoid contact with others until fevers and symptoms resolved Lots of handwashing and good hygiene Continue [id number] medications for symptomatic relief Tylenol or Motrin for fever and pain You will receive a call from a member of the emergency department physician staff if your stool culture comes back positive and needs to be treated. Followup with private physician in one to 2 days as needed Return to emergency department for worsened symptoms, fevers, dehydration - Post Discharge Activity
[2019-03-03 22:47] VITALS: BP 128/76; PULSE 84
== END 2019-03-03 23:10 | disposition home or self-care (01) ==
LOC: JER 15:00
PROC: 3E033NZ Introduction of Analgesics, Hypnotics, Sedatives into Peripheral Vein, Percutaneous Approach (ICD-10-PCS; principal; 2019-03-03)
DX: K52.9 Noninfective gastroenteritis and colitis, unspecified (principal); Z85.51 Personal history of malignant neoplasm of bladder; Z90.5 Acquired absence of kidney; Z85.528 Personal history of other malignant neoplasm of kidney; E03.9 Hypothyroidism, unspecified; Z87.19 Personal history of other diseases of the digestive system; Z79.899 Other long term (current) drug therapy; Z93.6 Other artificial openings of urinary tract status
CPT/HCPCS: 36415; 74176-TC; 80053; 83690; 83735; 84100; 85025; 87045; 87046; 99283-25; J0131; J7030

== ENCOUNTER 2019-03-08 07:05 | Day surgery (SDC) | payer OTHER, MEDICARE ==
[2019-03-08 09:23] LABS: BASO % 0.7 % (0-2.0); EOS % 3.5 % (0-4.5); HEMATOCRIT 30.4 % (32.4-45.2); HEMOGLOBIN 10.1 GM/dL (10.7-15.3); LYMPH % 15.4 % (8-40); MCH 26.8 pg (25.7-33.7); MCHC 33.2 g/dl (32.0-36.0); MEAN CELL VOLUME 80.8 fl (80-96); MEAN PLT VOLUME 7.9 fl (7.5-11.1); MONO % 12.7 % (3.8-10.2); NEUT % 67.7 % (42.8-82.8); PLATELET COUNT 274 K/MM3 (134-434); RBC 3.77 M/mm3 (3.60-5.2); RDW 14.1 % (11.6-15.6)
[2019-03-08] MEDS ORDERED: DEXAMETHASONE SODIUM PHOSPHATE 10 MG in SODIUM CHLORIDE 50 ML IVPB ONE (09:30)
[2019-03-08] MEDS ORDERED: ZOLEDRONIC ACID 3 MG in SODIUM CHLORIDE 100 ML IVPB ONE (10:00)
[2019-03-08] MEDS ORDERED: D5-1/2NS+20 MEQ KCL - 20 MEQ/1,000 ML INFUS.BAG IV SCH (10:00)
[2019-03-08] MEDS ORDERED: ATEZOLIZUMAB 1,200 MG in SODIUM CHLORIDE 250 ML IV ONE (10:00)
[2019-03-08] MEDS ORDERED: MAGNESIUM SULF 50% (8.12 MEQ/2 ML-1 GM VIAL) IVPB ONE (10:00)
[2019-03-08 10:09] LABS: ALBUMIN 3.2 g/dl (3.4-5.0); BILIRUBIN,TOTAL 0.6 mg/dL (0.2-1); BLOOD UREA NITROGEN 17.1 mg/dL (7-18); CALCIUM 8.8 mg/dL (8.5-10.1); CREATININE 1.3 mg/dL (0.55-1.3); MAGNESIUM 1.9 mg/dL (1.8-2.4); POTASSIUM 3.6 mmol/L (3.5-5.1); TOT PROT 6.3 g/dl (6.4-8.2)
[2019-03-08 11:03] VITALS: TEMP 98.4
[2019-03-08] MEDS ORDERED: PORTA CATH FLUSH 10 ML IVPUSH ONE (11:04)
[2019-03-08 15:37] VITALS: BP 132/68; PULSE 72
== END 2019-03-08 15:30 | disposition home or self-care (01) ==
LOC: JONCCHEMO 07:05 → J7W 10:10 → JONCCHEMO 15:30
PROVIDERS: ATTEND Internal Medicine Hematology & Oncology
PROC: 3E043GC Introduction of Other Therapeutic Substance into Central Vein, Percutaneous Approach (ICD-10-PCS; principal; 2019-03-08)
PROC: 3E043GC Introduction of Other Therapeutic Substance into Central Vein, Percutaneous Approach (ICD-10-PCS; 2019-03-08)
DX: C67.9 Malignant neoplasm of bladder, unspecified (principal); C65.9 Malignant neoplasm of unspecified renal pelvis; C79.00 Secondary malignant neoplasm of unspecified kidney and renal pelvis; C79.51 Secondary malignant neoplasm of bone
CPT/HCPCS: 36415; 80053; 83036; 83735; 84443; 85025; 86376; 86800; 96365; 96366; 96367; J3489

== ENCOUNTER 2019-03-11 06:15 | Emergency (ER) | payer OTHER, MEDICARE ==
[2019-03-11 06:59] VITALS: BMI 21.5
[2019-03-11] MEDS ORDERED: SODIUM CHLORIDE 1,000 ML IV STA (07:20)
--- NOTE | 2019-03-11 07:20 | PDOC ---
History of Present Illness - General Chief Complaint: Coffee Ground Emesis Stated Complaint: VOMITING BLOOD Time Seen by Provider: 03/11/19 07:14 History Source: Patient Exam Limitations: No Limitations - History of Present Illness Initial Comments: Dara Lamar is a 78 yo F w a pmh of HTN, HLD, thyroiditis, stage 4 TCC Bladder CA (s/p Cystectomy in 2016), Kidney CA (s/p L nephrectomy in 2014), currently on immunotherapy presents to the ER with a what she is concerned is dark vomit that she thinks might be blood. She states she has been very good about usually eating pureed smooth food however yesterday for thanksgiving she had some solid foods which did not sit well with her. At 1 am last night she started vomiting dark material which she thinks is blood and states this doesn' t happen to her. She also reports she has a new bulge in her abdomen which she is worried might be a new onset metastasis. She denies having any pain, new weight loss, fevers, chills, diarrhea, constipation, rectal bleed, chest pain, SOB, difficulty breathing, decreased PO intake PCP: Dr. Pearson PSH: Cystectomy, Nephrectomy Onc: Dr. Kumar Allergies: NKA, NKDA Social hx: Former smoker, independent in her ADL. Denies substance abuse at the present time. Past History - Past Medical History Allergies/Adverse Reactions: Allergies Allergy/AdvReac Type Severity Reaction Status Date / Time No Known Drug Allergies Allergy Verified 03/03/19 15:04 Home Medications: Ambulatory Orders Ascorbate Calcium [Vitamin C] 500 mg PO DAILY 03/11/17 Atenolol [Tenormin -] 12.5 mg PO DAILY 03/11/17 Calcium Carbonate [Calcium] 1,000 mg PO DAILY 03/11/17 Glucosa López 2Kcl/Chondroitin López [Glucosamine & Chondroitin Cap] 1 each PO DAILY 03/11/17 Aspirin Coated [Ecotrin -] 81 mg PO DAILY 06/18/18 Atezolizumab [Tecentriq] 1,200 mg IV ASDIR 12/08/18 Acetaminophen [Tylenol .Regular Strength -] 650 mg PO Q6H PRN tablet 12/21/18 Adam-Cath Flush [Adam-Cath Flush -] 10 ml IVPUSH PRN PRN ml 12/21/18 Levothyroxine [Synthroid -] 50 mcg PO DAILY@0700 01/25/19 Anemia: No Asthma: No Cancer: Yes (COLON, BLADDER) Cardiac Disorders: Yes (irregular heartbeat) CVA: No COPD: No CHF: No Dementia: No Diabetes: No GI Disorders: No Disorders: (cyctectomy) HTN: Yes Hypercholesterolemia: Yes Liver Disease: No Seizures: No Thyroid Disease: No - Surgical History Abdominal Surgery: No Appendectomy: No Cardiac Surgery: No Cholecystectomy: No GI Surgery: Yes Lung Surgery: No Neurologic Surgery: No - Immunization History Immunization Up to Date: Yes - Psycho Social/Smoking Cessation Hx Smoking History: Never smoked Have you smoked in the past 12 months: No If you are a former smoker, when did you quit?: 1977 Hx Alcohol Use: No Drug/Substance Use Hx: No Substance Use Type: None Hx Substance Use Treatment: No Review of Systems - Review of Systems Able to Perform ROS?: Yes Comments:: CONSTITUTIONAL: Present: Fatigue Absent: fever, no chills EYES: Absent: visual changes ENT: Absent: ear pain, no sore throat CARDIOVASCULAR: Absent: chest pain, no palpitations RESPIRATORY: Absent: cough, no SOB GI: Present: Abdominal distension, nausea, vomiting Absent: no constipation, no diarrhea GENITOURINARY: Absent: dysuria, no frequency, no hematuria MUSKULOSKELETAL: Absent: back pain, no arthralgia, no myalgia SKIN: Absent: rash NEURO: Absent: headache *Physical Exam - Vital Signs Last Vital Signs Temp Pulse Resp BP Pulse Ox 98.0 F 86 20 130/78 100 03/11/19 06:35 03/11/19 06:35 03/11/19 06:35 03/11/19 06:35 03/11/19 06:35 - Physical Exam Comments: GENERAL: Pale appearing, fatigues, depressed affect. No apparent distress. HEENT: Normocephalic, atraumatic. PERRL, EOM intact. CARDIOVASCULAR: Normal S1, S2. Regular rate and rhythm. PULMONARY: No evidence of respiratory distress. Lungs clear to auscultation bilaterally. No wheezing, rales or rhonchi. ABDOMEN: There is a 3x4 cm bulge in her epigastric region which is mildly TTP. There is generalized abdominal discomfort upon palpation.Normal bowel sounds. EXTREMITIES: Normal ROM in all four extremities. No gross deformities. SKIN: Warm, dry. No rash NEUROLOGICAL: No focal neurological deficits. ED Treatment Course - LABORATORY CBC & Chemistry Diagram: 03/11/19 08:10 03/11/19 08:10 Medical Decision Making - Medical Decision Making Dara Lamar is a 78 yo F w a pmh of HTN, HLD, thyroiditis, stage 4 TCC Bladder CA (s/p Cystectomy in 2016), Kidney CA (s/p L nephrectomy in 2014), currently on immunotherapy presents to the ER with a what she is concerned is dark vomit that she thinks might be blood. She states she has been very good about usually eating pureed smooth food however yesterday for thanksgiving she had some solid foods which did not sit well with her. At 1 am last night she started vomiting dark material which she thinks is blood and states this doesn' t happen to her. She also reports she has a new bulge in her abdomen which she is worried might be a new onset metastasis. She denies having any pain, new weight loss, fevers, chills, diarrhea, constipation, rectal bleed, chest pain, SOB, difficulty breathing, decreased PO intake Vital Signs Temp Pulse Resp BP Pulse Ox 98.0 F 86 20 130/78 100 03/11/19 06:35 03/11/19 06:35 03/11/19 06:35 03/11/19 06:35 03/11/19 06:35 DDx IBNLT: New metastasis, Hernia, mick heard, boerhave, anemia, thrombocytopenia, SBO, electrolyte/metabolic disturbance Plan: Labs, analgesia, IV hydration, EKG, CXR, CTAP, re-assess Labs: Appears to be at patient's baseline. EKG: NS rate of 79 w 1st degree AV block, LAFB, LAD, no hypertrophy, no ST elevations or depressions, anterior infarct age undetermined CXR: No acute widened mediastinum process CTAP: Patient refuses to have a CT scan bc she states that she believes her gastric mass is likely a metastatic mass and she is not going to want treatment for it regardless of what the CT shows. She states she wants to transition over to palliative care. She expresses strong insight, awareness, and understanding of her condition. Re-assessment: Patient states she is feeling better after IV tylenol and hydration. Disposition: Home with onc and PCP fu Discharge - Discharge Information Problems reviewed: Yes Clinical Impression/Diagnosis: Abdominal pain Qualifiers: Abdominal location: epigastric Qualified Code(s): R10.13 - Epigastric pain Vomiting Qualifiers: Vomiting type: unspecified Vomiting Intractability: unspecified Nausea presence : without nausea Qualified Code(s): R11.11 - Vomiting without nausea Condition: Improved Disposition: HOME - Admission No - Follow up/Referral Referrals: Luis Antonio Pearson MD [Primary Care Provider] - De Cee MD [Staff Physician] - - Patient Discharge Instructions Patient Printed Discharge Instructions: DI for Vomiting -- Adult, Palliative Care for Cancer Additional Instructions: You came into the ER with abdominal pain and vomiting. We wanted to do a cat scan of your abdomen but you stated you didn't want this done because you don't plan to pursue any treatments if we find anything. Please come back to the ER if your pain worsens and you decide you would like us to do a cat scan and further work you up. Please schedule a follow up appointment with both your primary care doctor and your oncologist in the next 3 to 5 days to make sure you are feeling well and getting better. Thank you for coming to the [facility] ER. We hope you feel better soon! Print Language: ICELANDIC - Post Discharge Activity
--- NOTE | 2019-03-11 07:20 | PDOC ---
Attending Attestation - Resident Resident Name: Natanael Castro - HPI HPI: 03/11/19 10:01 Pt presents to the ED complaining of nausea and an episode of dark vomiting. Patient has extensive past medical history as described in resident note, and states that she usually eats a liquid diet, but indulged in "things I shouldn't have eaten" over . Reports epigastric and back pain that she states is chronic. Denies fever or urinary complaints. - Physicial Exam PE: 03/11/19 10:13 Agree with resident exam. Patient is well appearing and in no acute distress. abdomen is soft, non distended, with colostomy producing brown liquid stool. + tenderness in the epigastrium without guarding or rebound. - Medical Decision Making 03/11/19 10:27 PT presents to the ED complaining of nausea and vomiting. Guiac negative stool. Abdomen has tenderness in the epigastrium. Patient is aware that this may be indicative of mets or other indications for surgery, but patient wants paliative care only at this time. Will treat with IVF, check labs to evaluate for dehydration and likely discharge if labs are normal.
[2019-03-11] MEDS ORDERED: ACETAMINOPHEN 1000 MG/100 ML VIAL (NON FORMULARY) IVPB ONE (07:24)
[2019-03-11] MEDS ORDERED: ACETAMINOPHEN INJECTION 100 ML IVPB ONE (07:27)
[2019-03-11 08:29] LABS: BASO % 0.5 % (0-2.0); EOS % 0.8 % (0-4.5); HEMATOCRIT 28.8 % (32.4-45.2); HEMOGLOBIN 9.6 GM/dL (10.7-15.3); LYMPH % 9.1 % (8-40); MCH 26.8 pg (25.7-33.7); MCHC 33.1 g/dl (32.0-36.0); MEAN CELL VOLUME 80.9 fl (80-96); MEAN PLT VOLUME 7.6 fl (7.5-11.1); MONO % 7.9 % (3.8-10.2); NEUT % 81.7 % (42.8-82.8); PLATELET COUNT 280 K/MM3 (134-434); RBC 3.57 M/mm3 (3.60-5.2); RDW 14.4 % (11.6-15.6); WHITE BLOOD COUNT 7.6 K/mm3 (4.0-10.0)
[2019-03-11 08:39] LABS: INR 1.11 (0.83-1.09); PROTHROMBIN TIME (PATIENT) 13.1 SEC (9.7-13.0)
[2019-03-11 08:42] LABS: ACTIVATED PTT 32.5 SECONDS (25.2-36.5)
[2019-03-11 08:58] LABS: BILIRUBIN,TOTAL 0.4 mg/dL (0.2-1); BLOOD UREA NITROGEN 17.9 mg/dL (7-18); CALCIUM 8.1 mg/dL (8.5-10.1); POTASSIUM 3.9 mmol/L (3.5-5.1); TOT PROT 5.6 g/dl (6.4-8.2)
[2019-03-11 09:20] LABS: RETICULOCYTES 0.63 % (0.5-1.5)
[2019-03-11 12:00] VITALS: BP 122/72; PULSE 82; TEMP 97.4
--- NOTE | 2019-03-11 14:11 | EKG ---
Test Reason : Blood Pressure : / mmHG Vent. Rate : 079 BPM Atrial Rate : 079 BPM P-R Int : 234 ms QRS Dur : 094 ms QT Int : 408 ms P-R-T Axes : 081 -50 011 degrees QTc Int : 467 ms SINUS RHYTHM WITH 1ST DEGREE A-V BLOCK LEFT ANTERIOR FASCICULAR BLOCK POOR R WAVE PROGRESSION ABNORMAL ECG WHEN COMPARED WITH ECG OF 17-DEC-2018 04:58, NO SIGNIFICANT CHANGE WAS FOUND Confirmed by MIREILLE HANNON MD ([id number]) on 03/11/2019 2:10:55 PM Referred By: Confirmed By:MIREILLE HANNON MD
== END 2019-03-11 11:50 | disposition home or self-care (01) ==
LOC: JER 06:15
PROC: 3E0337Z Introduction of Electrolytic and Water Balance Substance into Peripheral Vein, Percutaneous Approach (ICD-10-PCS; principal; 2019-03-11)
PROC: 3E033NZ Introduction of Analgesics, Hypnotics, Sedatives into Peripheral Vein, Percutaneous Approach (ICD-10-PCS; 2019-03-11)
DX: R10.13 Epigastric pain (principal); R11.2 Nausea with vomiting, unspecified; C67.9 Malignant neoplasm of bladder, unspecified; I10 Essential (primary) hypertension; E78.5 Hyperlipidemia, unspecified; E06.9 Thyroiditis, unspecified; Z90.5 Acquired absence of kidney; Z90.6 Acquired absence of other parts of urinary tract
CPT/HCPCS: 36415; 71045-TC-FY; 74176-TC; 80053; 82272; 82728; 85025; 85044; 85610; 85730; 86850; 86900; 86901; 93005; 93010; 99283-25; J0131; J7030

== ENCOUNTER 2019-03-14 05:35 | Day surgery (SDC) | payer OTHER, MEDICARE ==
[2019-03-14 09:19] LABS: EOS % 2.7 % (0-4.5); HEMATOCRIT 30.5 % (32.4-45.2); HEMOGLOBIN 9.9 GM/dL (10.7-15.3); LYMPH % 11.4 % (8-40); MCH 26.4 pg (25.7-33.7); MCHC 32.4 g/dl (32.0-36.0); MEAN CELL VOLUME 81.5 fl (80-96); MEAN PLT VOLUME 7.4 fl (7.5-11.1); MONO % 12.1 % (3.8-10.2); NEUT % 72.8 % (42.8-82.8); PLATELET COUNT 314 K/MM3 (134-434); RBC 3.74 M/mm3 (3.60-5.2); WHITE BLOOD COUNT 6.3 K/mm3 (4.0-10.0)
[2019-03-14] MEDS ORDERED: [UNRECOGNIZED DRUG - OTHER] IVPB ONE (09:30)
[2019-03-14] MEDS ORDERED: DEXAMETHASONE SODIUM PHOSPHATE IVPB ONE (09:30)
[2019-03-14] MEDS ORDERED: FAMOTIDINE 20 MG/50 ML IVPB 20 MG/50 ML MG IVPB SCH ×2 (09:30)
[2019-03-14] MEDS ORDERED: ONDANSETRON IVPB ONE (09:30)
[2019-03-14 09:46] LABS: ALBUMIN 3.1 g/dl (3.4-5.0); BILIRUBIN,TOTAL 0.5 mg/dL (0.2-1); BLOOD UREA NITROGEN 12.3 mg/dL (7-18); CALCIUM 8.3 mg/dL (8.5-10.1); POTASSIUM 3.7 mmol/L (3.5-5.1); TOT PROT 6.1 g/dl (6.4-8.2)
[2019-03-14] MEDS ORDERED: PACLITAXEL 90 MG in SODIUM CHLORIDE 250 ML IVPB ONE (10:00)
[2019-03-14] MEDS ORDERED: D5-1/2NS+20 MEQ KCL - 20 MEQ/1,000 ML INFUS.BAG IV ONE (11:00)
[2019-03-14] MEDS ORDERED: SODIUM CHLORIDE 250 ML IV ONE (11:00)
[2019-03-14] MEDS ORDERED: MAGNESIUM SULF 50% (8.12 MEQ/2 ML-1 GM VIAL) IVPB ONE (11:00)
[2019-03-14 18:30] VITALS: BP 120/59; PULSE 66; TEMP 97.8
== END 2019-03-14 14:30 | disposition home or self-care (01) ==
LOC: JONCCHEMO 05:35 → J7W 10:50 → JONCCHEMO 14:30
PROVIDERS: ATTEND Internal Medicine Hematology & Oncology
PROC: 3E043GC Introduction of Other Therapeutic Substance into Central Vein, Percutaneous Approach (ICD-10-PCS; principal; 2019-03-14)
PROC: 3E043GC Introduction of Other Therapeutic Substance into Central Vein, Percutaneous Approach (ICD-10-PCS; 2019-03-14)
DX: C65.9 Malignant neoplasm of unspecified renal pelvis (principal); C67.9 Malignant neoplasm of bladder, unspecified; C79.51 Secondary malignant neoplasm of bone; C79.00 Secondary malignant neoplasm of unspecified kidney and renal pelvis; R10.13 Epigastric pain; R68.81 Early satiety; Z76.89 Persons encountering health services in other specified circumstances
CPT/HCPCS: 36415; 80053; 83735; 85025; 96365; 96366; 96368

== ENCOUNTER 2019-03-28 07:14 | Day surgery (SDC) | payer OTHER, MEDICARE ==
[2019-03-28] MEDS ORDERED: DEXAMETHASONE SODIUM PHOSPHATE IVPB ONE (09:30)
[2019-03-28] MEDS ORDERED: ONDANSETRON IVPB ONE (09:30)
[2019-03-28] MEDS ORDERED: [UNRECOGNIZED DRUG - OTHER] IVPB ONE (09:30)
[2019-03-28 09:39] LABS: BASO % 0.6 % (0-2.0); EOS % 0.1 % (0-4.5); HEMATOCRIT 29.3 % (32.4-45.2); HEMOGLOBIN 9.6 GM/dL (10.7-15.3); LYMPH % 16.2 % (8-40); MCH 27.1 pg (25.7-33.7); MCHC 32.8 g/dl (32.0-36.0); MEAN CELL VOLUME 82.9 fl (80-96); MEAN PLT VOLUME 8.7 fl (7.5-11.1); MONO % 1.7 % (3.8-10.2); NEUT % 81.4 % (42.8-82.8); PLATELET COUNT 267 K/MM3 (134-434); RBC 3.53 M/mm3 (3.60-5.2); WHITE BLOOD COUNT 4.1 K/mm3 (4.0-10.0)
[2019-03-28] MEDS ORDERED: PACLITAXEL 90 MG in SODIUM CHLORIDE 250 ML IVPB ONE (10:00)
[2019-03-28 10:19] LABS: ALBUMIN 3.1 g/dl (3.4-5.0); BILIRUBIN,TOTAL 0.4 mg/dL (0.2-1); BLOOD UREA NITROGEN 23.9 mg/dL (7-18); CALCIUM 8.8 mg/dL (8.5-10.1); CREATININE 1.5 mg/dL (0.55-1.3); MAGNESIUM 1.7 mg/dL (1.8-2.4); TOT PROT 6.5 g/dl (6.4-8.2)
[2019-03-28] MEDS ORDERED: MAGNESIUM OXIDE 400 MG TABLET (FP) PO ONE (10:23)
[2019-03-28] MEDS ORDERED: INSULIN (NOVOLOG) ASPART 100 UNITS/ML 10ML VIAL SQ ONE (10:33)
[2019-03-28] MEDS ORDERED: SODIUM CHLORIDE 1,000 ML IV ONE (11:00)
[2019-03-28] MEDS ORDERED: SODIUM CHLORIDE 250 ML IV ONE (11:00)
[2019-03-28] MEDS: FAMOTIDINE 20 MG/50 ML IVPB 20 MG/50 ML MG IVPB SCH ×2 (11:09→11:25)
[2019-03-28 16:23] VITALS: BP 134/64; PULSE 74; TEMP 97.4
[2019-03-28] MEDS ORDERED: PORTA CATH FLUSH 10 ML IVPUSH ONE (16:23)
== END 2019-03-28 16:20 | disposition home or self-care (01) ==
LOC: JONCCHEMO 07:14 → J7W 09:56 → JONCCHEMO 16:20
PROVIDERS: ATTEND Internal Medicine Hematology & Oncology
PROC: 3E04305 Introduction of Other Antineoplastic into Central Vein, Percutaneous Approach (ICD-10-PCS; principal; 2019-03-28)
PROC: 3E043GC Introduction of Other Therapeutic Substance into Central Vein, Percutaneous Approach (ICD-10-PCS; 2019-03-28)
PROC: 3E0437Z Introduction of Electrolytic and Water Balance Substance into Central Vein, Percutaneous Approach (ICD-10-PCS; 2019-03-28)
DX: Z51.11 Encounter for antineoplastic chemotherapy (principal); C67.9 Malignant neoplasm of bladder, unspecified; C65.2 Malignant neoplasm of left renal pelvis; C79.51 Secondary malignant neoplasm of bone; C79.02 Secondary malignant neoplasm of left kidney and renal pelvis; I10 Essential (primary) hypertension; E78.00 Pure hypercholesterolemia, unspecified
CPT/HCPCS: 36415; 80053; 83735; 84439; 84443; 85025; 96361; 96367; 96375; 96413; J2405; J7030

== ENCOUNTER 2019-04-04 07:08 | Day surgery (SDC) | payer OTHER, MEDICARE ==
[2019-04-04 09:09] LABS: BASO % 0.5 % (0-2.0); EOS % 0.1 % (0-4.5); HEMATOCRIT 28.1 % (32.4-45.2); HEMOGLOBIN 8.9 GM/dL (10.7-15.3); LYMPH % 22.6 % (8-40); MCH 26.6 pg (25.7-33.7); MCHC 31.8 g/dl (32.0-36.0); MEAN CELL VOLUME 83.6 fl (80-96); MONO % 0.9 % (3.8-10.2); NEUT % 75.9 % (42.8-82.8); PLATELET COUNT 441 K/MM3 (134-434); RBC 3.36 M/mm3 (3.60-5.2); RDW 15.4 % (11.6-15.6); WHITE BLOOD COUNT 5.6 K/mm3 (4.0-10.0)
[2019-04-04 09:39] LABS: BILIRUBIN,TOTAL 0.4 mg/dL (0.2-1); CALCIUM 8.8 mg/dL (8.5-10.1); CREATININE 1.3 mg/dL (0.55-1.3); POTASSIUM 3.8 mmol/L (3.5-5.1); TOT PROT 6.1 g/dl (6.4-8.2)
[2019-04-04] MEDS ORDERED: FAMOTIDINE 20 MG/50 ML IVPB 20 MG/50 ML MG IVPB ONE (10:00)
[2019-04-04] MEDS ORDERED: DEXAMETHASONE SODIUM PHOSPHATE IVPB ONE (10:00)
[2019-04-04] MEDS ORDERED: [UNRECOGNIZED DRUG - OTHER] IVPB ONE (10:00)
[2019-04-04] MEDS ORDERED: ONDANSETRON IVPB ONE (10:00)
[2019-04-04] MEDS ORDERED: PACLITAXEL 120 MG in SODIUM CHLORIDE 250 ML IVPB ONE (10:30)
[2019-04-04] MEDS ORDERED: INSULIN (NOVOLOG) ASPART 100 UNITS/ML 10ML VIAL ONE (10:42)
[2019-04-04] MEDS ORDERED: MAGNESIUM SULF 50% (8.12 MEQ/2 ML-1 GM VIAL) ONE (10:46)
[2019-04-04] MEDS ORDERED: INSULIN (NOVOLOG) ASPART 100 UNITS/ML 10ML VIAL SQ ONE (11:00)
[2019-04-04] MEDS ORDERED: SODIUM CHLORIDE 0.45% IVPB ONE (11:30)
[2019-04-04] MEDS ORDERED: ZOLEDRONIC ACID 3 MG in SODIUM CHLORIDE 100 ML IVPB ONE (11:30)
[2019-04-04] MEDS ORDERED: MAGNESIUM SULFATE IVPB ONE (11:30)
[2019-04-04] MEDS ORDERED: POTASSIUM CHLORIDE IVPB ONE (11:30)
[2019-04-04] MEDS ORDERED: SODIUM CHLORIDE 250 ML IV ONE (11:30)
[2019-04-04 16:02] VITALS: TEMP 97.8
[2019-04-04 18:08] VITALS: BP 147/82; PULSE 84
[2019-04-04] MEDS ORDERED: PORTA CATH FLUSH 10 ML IVPUSH ONE (18:08)
== END 2019-04-04 17:45 | disposition home or self-care (01) ==
LOC: JONCCHEMO 07:08 → J7W 10:28 → JONCCHEMO 17:45
PROVIDERS: ATTEND Internal Medicine Hematology & Oncology
DX: Z51.11 Encounter for antineoplastic chemotherapy (principal); C64.2 Malignant neoplasm of left kidney, except renal pelvis; C79.51 Secondary malignant neoplasm of bone; C79.11 Secondary malignant neoplasm of bladder
CPT/HCPCS: 36415; 80053; 82962; 85025; 96361; 96367; 96413; J3489

== ENCOUNTER 2019-04-11 07:02 | Day surgery (SDC) | payer OTHER, MEDICARE ==
[2019-04-11 09:16] LABS: BASO % 1.5 % (0-2.0); EOS % 1.5 % (0-4.5); HEMATOCRIT 26.5 % (32.4-45.2); HEMOGLOBIN 8.5 GM/dL (10.7-15.3); LYMPH % 18.7 % (8-40); MCHC 32.2 g/dl (32.0-36.0); MEAN CELL VOLUME 83.9 fl (80-96); MEAN PLT VOLUME 8.1 fl (7.5-11.1); MONO % 5.9 % (3.8-10.2); NEUT % 72.4 % (42.8-82.8); PLATELET COUNT 351 K/MM3 (134-434); RBC 3.16 M/mm3 (3.60-5.2); RDW 16.7 % (11.6-15.6)
[2019-04-11] MEDS ORDERED: FAMOTIDINE 20 MG/50 ML IVPB 20 MG/50 ML MG IVPB ONE ×2 (09:38→10:00)
[2019-04-11 09:47] LABS: BILIRUBIN,TOTAL 0.6 mg/dL (0.2-1); BLOOD UREA NITROGEN 17.8 mg/dL (7-18); CALCIUM 7.9 mg/dL (8.5-10.1); CREATININE 1.1 mg/dL (0.55-1.3); MAGNESIUM 1.9 mg/dL (1.8-2.4); POTASSIUM 3.5 mmol/L (3.5-5.1); TOT PROT 5.8 g/dl (6.4-8.2)
[2019-04-11] MEDS ORDERED: [UNRECOGNIZED DRUG - OTHER] IVPB ONE (10:00)
[2019-04-11] MEDS ORDERED: DEXAMETHASONE SODIUM PHOSPHATE IVPB ONE (10:00)
[2019-04-11] MEDS ORDERED: ONDANSETRON IVPB ONE (10:00)
[2019-04-11] MEDS ORDERED: PACLITAXEL 120 MG in SODIUM CHLORIDE 250 ML IVPB ONE (10:30)
[2019-04-11] MEDS ORDERED: SODIUM CHLORIDE 250 ML IV ONE (11:30)
[2019-04-11 15:43] VITALS: BP 152/92; PULSE 81; TEMP 97.8
[2019-04-11] MEDS ORDERED: PORTA CATH FLUSH 10 ML IVPUSH ONE (15:43)
== END 2019-04-11 15:50 | disposition home or self-care (01) ==
LOC: JONCCHEMO 07:02 → J7W 09:55 → JONCCHEMO 15:50
PROVIDERS: ATTEND Internal Medicine Hematology & Oncology
PROC: 3E04305 Introduction of Other Antineoplastic into Central Vein, Percutaneous Approach (ICD-10-PCS; principal; 2019-04-11)
PROC: 3E043GC Introduction of Other Therapeutic Substance into Central Vein, Percutaneous Approach (ICD-10-PCS; 2019-04-11)
PROC: 3E0437Z Introduction of Electrolytic and Water Balance Substance into Central Vein, Percutaneous Approach (ICD-10-PCS; 2019-04-11)
DX: Z51.11 Encounter for antineoplastic chemotherapy (principal); C65.2 Malignant neoplasm of left renal pelvis; C79.51 Secondary malignant neoplasm of bone; C79.11 Secondary malignant neoplasm of bladder; C79.02 Secondary malignant neoplasm of left kidney and renal pelvis; I10 Essential (primary) hypertension; E78.00 Pure hypercholesterolemia, unspecified
CPT/HCPCS: 36415; 80053; 83735; 85025; 96361; 96367; 96413

== ENCOUNTER 2019-04-18 06:19 | Day surgery (SDC) | payer OTHER, MEDICARE ==
[2019-04-18 09:07] LABS: BASO % 0.5 % (0-2.0); HEMATOCRIT 26.7 % (32.4-45.2); HEMOGLOBIN 8.6 GM/dL (10.7-15.3); LYMPH % 28.7 % (8-40); MCH 27.3 pg (25.7-33.7); MCHC 32.4 g/dl (32.0-36.0); MEAN CELL VOLUME 84.4 fl (80-96); MEAN PLT VOLUME 8.3 fl (7.5-11.1); MONO % 10.8 % (3.8-10.2); PLATELET COUNT 323 K/MM3 (134-434); RBC 3.16 M/mm3 (3.60-5.2); WHITE BLOOD COUNT 4.4 K/mm3 (4.0-10.0)
[2019-04-18 09:35] LABS: ALBUMIN 3.1 g/dl (3.4-5.0); BILIRUBIN,TOTAL 0.3 mg/dL (0.2-1); BLOOD UREA NITROGEN 16.1 mg/dL (7-18); CALCIUM 7.8 mg/dL (8.5-10.1); CREATININE 1.2 mg/dL (0.55-1.3); MAGNESIUM 1.7 mg/dL (1.8-2.4); POTASSIUM 3.7 mmol/L (3.5-5.1); TOT PROT 5.8 g/dl (6.4-8.2)
[2019-04-18] MEDS ORDERED: ONDANSETRON IVPB ONE (10:00)
[2019-04-18] MEDS ORDERED: [UNRECOGNIZED DRUG - OTHER] IVPB ONE (10:00)
[2019-04-18] MEDS ORDERED: FAMOTIDINE 20 MG/50 ML IVPB 20 MG/50 ML MG IVPB ONE (10:00)
[2019-04-18] MEDS ORDERED: DEXAMETHASONE SODIUM PHOSPHATE IVPB ONE (10:00)
[2019-04-18] MEDS ORDERED: PACLITAXEL 90 MG in SODIUM CHLORIDE 250 ML IVPB ONE (10:30)
[2019-04-18] MEDS ORDERED: MAGNESIUM SULF 50% (8.12 MEQ/2 ML-1 GM VIAL) IVPB ONE (10:45)
[2019-04-18] MEDS ORDERED: D5-1/2NS+20 MEQ KCL - 20 MEQ/1,000 ML INFUS.BAG IV ONE (10:45)
[2019-04-18] MEDS ORDERED: SODIUM CHLORIDE 250 ML IV ONE (11:30)
[2019-04-18 14:55] VITALS: BP 120/79; PULSE 87; TEMP 97.9
[2019-04-18] MEDS ORDERED: PORTA CATH FLUSH 10 ML IVPUSH ONE (14:55)
== END 2019-04-18 13:55 | disposition home or self-care (01) ==
LOC: JONCCHEMO 06:19 → J7W 10:09 → JONCCHEMO 13:55
PROVIDERS: ATTEND Internal Medicine Hematology & Oncology
PROC: 3E043GC Introduction of Other Therapeutic Substance into Central Vein, Percutaneous Approach (ICD-10-PCS; principal; 2019-04-18)
PROC: 3E043GC Introduction of Other Therapeutic Substance into Central Vein, Percutaneous Approach (ICD-10-PCS; 2019-04-18)
DX: C67.9 Malignant neoplasm of bladder, unspecified (principal); C79.02 Secondary malignant neoplasm of left kidney and renal pelvis; Z76.89 Persons encountering health services in other specified circumstances
CPT/HCPCS: 36415; 80053; 83735; 84443; 85025; 96365; 96366; 96368

== ENCOUNTER 2019-04-24 21:28 | Inpatient (IN) | payer OTHER, MEDICARE ==
--- NOTE | 2019-04-24 22:08 | PDOC ---
History of Present Illness - General Chief Complaint: Nausea/Vomiting Stated Complaint: ABDOMINAL PAIN Time Seen by Provider: 04/24/19 22:08 - History of Present Illness Initial Comments: HPI: 78yo F with a PMH of HTN, HLD, thyroiditis, stage 4 TCC Bladder CA (s/p Cystectomy in 2016), Kidney CA (s/p L nephrectomy in 2014), currently on chemotherapy (last session 04/18/2019 and next session scheduled for tomorrow) presenting with intermittent nausea and vomiting x 2 days. Patient reports that she has been unable to tolerate po intake: "it just comes back up." Because of this, she has been unable to take her po pain medications (tylenol, oxycodone) so is experiencing 6-7/10 pain in her lower abdomen and back which she will have when her pain is not controlled. Patient last had a small bowel movement this morning that was soft, nonbloody, and brown. Has not had flatulence today. Last had an SBO in December 2018. The first SBO episode she ever had was in summer 2018. Both episodes were medically managed with decompression. Patient is concerned about dehydration as she only has one kidney. No fevers, chills, chest pain, or shortness of breath. PCP: Dr. Pearson Onc: Dr. Cee ROS: Constitutional: no fever, no chills HEENT: no throat pain, no dysphagia Cardiovascular: no chest pain, no palpitations Respiratory: no cough, no shortness of breath Gastrointestinal: +abdominal pain, +nausea Genitourinary: no dysuria, no hematuria Musculoskeletal: no myalgia, +back pain Skin: no rash, no itching Neurologic: no headache, no weakness PE: General: Awake, alert, and fully oriented, in no acute distress Head: No signs of trauma Eyes: EOMI, sclera anicteric ENT: Dry mucus membranes Neck: Normal ROM, supple Lungs: Lungs clear, Normal breath sounds Cardio: Regular rhythm, S1 and S2 present Abdomen: Soft, distended. Mildly tender to palpation in lower abdomen. Infrequent bowel sounds present. Urostomy in place with urine present in bag Extremities: Normal range of motion, Distal pulses present SKIN: Warm, Dry, normal turgor Neurologic: Cranial nerves II through XII grossly intact. Normal speech ED Course/MDM: DDX including but not limited to SBO, metastasis, chemotherapy adverse reaction , anemia, metabolic derangement Labs, EKG, CXR CT AP: Patient states she will decline contrast due to only having one kidney as she was instructed by her [employer] Karie Esquivel Ofirmev 04/24/19 22:08 CBC WBC 8.1 K/mm3 (4.0-10.0) 04/24/19 23:58 RBC 3.22 M/mm3 (3.60-5.2) L 04/24/19 23:58 Hgb 8.8 GM/dL (10.7-15.3) L 04/24/19 23:58 Hct 26.9 % (32.4-45.2) L 04/24/19 23:58 MCV 83.6 fl (80-96) 04/24/19 23:58 MCH 27.5 pg (25.7-33.7) 04/24/19 23:58 MCHC 32.8 g/dl (32.0-36.0) 04/24/19 23:58 RDW 18.4 % (11.6-15.6) H 04/24/19 23:58 Plt Count 342 K/MM3 (134-434) 04/24/19 23:58 MPV 8.0 fl (7.5-11.1) 04/24/19 23:58 Absolute Neuts (auto) 5.9 K/mm3 (1.5-8.0) 04/24/19 23:58 Neutrophils % 73.2 % (42.8-82.8) D 04/24/19 23:58 Lymphocytes % 13.7 % (8-40) D 04/24/19 23:58 Monocytes % 11.6 % (3.8-10.2) H 04/24/19 23:58 Eosinophils % 0.5 % (0-4.5) D 04/24/19 23:58 Basophils % 1.0 % (0-2.0) 04/24/19 23:58 Nucleated RBC % 0 % (0-0) 04/24/19 23:58 No leukocytosis CMP Sodium 137 mmol/L (136-145) 04/24/19 23:58 Potassium 3.9 mmol/L (3.5-5.1) 04/24/19 23:58 Chloride 100 mmol/L (98-107) 04/24/19 23:58 Carbon Dioxide 26 mmol/L (21-32) 04/24/19 23:58 Anion Gap 11 MMOL/L (8-16) 04/24/19 23:58 BUN 25.0 mg/dL (7-18) H 04/24/19 23:58 Creatinine 1.1 mg/dL (0.55-1.3) 04/24/19 23:58 Est GFR (CKD-EPI)AfAm 56.48 04/24/19 23:58 Est GFR (CKD-EPI)NonAf 48.73 04/24/19 23:58 Random Glucose 95 mg/dL (74-106) 04/24/19 23:58 Calcium 8.3 mg/dL (8.5-10.1) L 04/24/19 23:58 Total Bilirubin 0.7 mg/dL (0.2-1) 04/24/19 23:58 AST 14 U/L (15-37) L 04/24/19 23:58 ALT 13 U/L (13-61) 04/24/19 23:58 Alkaline Phosphatase 111 U/L (45-117) 04/24/19 23:58 Troponin I < 0.02 ng/ml (0.00-0.05) 04/24/19 23:58 Total Protein 5.7 g/dl (6.4-8.2) L 04/24/19 23:58 Albumin 3.0 g/dl (3.4-5.0) L 04/24/19 23:58 Electrolytes unremarkable Cr normal BUN elevated Tpn undetectable No transaminitis UA with infection Given prior cultures, will treat with rocephin EKG, rate 86, QTc 469, sinus, left anterior fascicular block also present on previous EKG 03/11/[address] report Patient signed out to Dr. Pandya and night team 04/25/19 02:03 Past History - Past Medical History Allergies/Adverse Reactions: Allergies Allergy/AdvReac Type Severity Reaction Status Date / Time No Known Drug Allergies Allergy Verified 03/03/19 15:04 Home Medications: Ambulatory Orders Ascorbate Calcium [Vitamin C] 500 mg PO DAILY 03/11/17 Atenolol [Tenormin -] 12.5 mg PO DAILY 03/11/17 Calcium Carbonate [Calcium] 1,000 mg PO DAILY 03/11/17 Glucosa López 2Kcl/Chondroitin López [Glucosamine & Chondroitin Cap] 1 each PO DAILY 03/11/17 Aspirin Coated [Ecotrin -] 81 mg PO DAILY 06/18/18 Atezolizumab [Tecentriq] 1,200 mg IV ASDIR 12/08/18 Acetaminophen [Tylenol .Regular Strength -] 650 mg PO Q6H PRN tablet 12/21/18 Adam-Cath Flush [Adam-Cath Flush -] 10 ml IVPUSH PRN PRN ml 12/21/18 Levothyroxine [Synthroid -] 50 mcg PO DAILY@0700 01/25/19 Anemia: No Asthma: No Cancer: Yes (COLON, BLADDER) Cardiac Disorders: Yes (irregular heartbeat) CVA: No COPD: No CHF: No Dementia: No Diabetes: No GI Disorders: No Disorders: (cyctectomy) HTN: Yes Hypercholesterolemia: Yes Liver Disease: No Seizures: No Thyroid Disease: No - Surgical History Abdominal Surgery: No Appendectomy: No Cardiac Surgery: No Cholecystectomy: No GI Surgery: Yes Lung Surgery: No Neurologic Surgery: No - Immunization History Immunization Up to Date: Yes - Psycho Social/Smoking Cessation Hx Smoking History: Never smoked Have you smoked in the past 12 months: No If you are a former smoker, when did you quit?: 1977 Hx Alcohol Use: No Drug/Substance Use Hx: No Substance Use Type: None Hx Substance Use Treatment: No *Physical Exam - Vital Signs Last Vital Signs Temp Pulse Resp BP Pulse Ox 98.7 F 105 H 18 117/73 95 04/24/19 21:38 04/24/19 21:38 04/24/19 21:38 04/24/19 21:38 04/24/19 21:38 ED Treatment Course - LABORATORY CBC & Chemistry Diagram: 04/24/19 23:58 04/24/19 23:58 Discharge - Discharge Information Problems reviewed: Yes Clinical Impression/Diagnosis: SBO (small bowel obstruction), Complicated UTI (urinary tract infection) Condition: Guarded - Follow up/Referral - Patient Discharge Instructions - Post Discharge Activity
[2019-04-24] MEDS ORDERED: ONDANSETRON 4 MG/2 ML VIAL IVPUSH ONE (22:30)
[2019-04-24] MEDS ORDERED: SODIUM CHLORIDE 1,000 ML IV STA (22:30)
[2019-04-24] MEDS ORDERED: ACETAMINOPHEN 1000 MG/100 ML VIAL (NON FORMULARY) IVPB ONE (22:30)
--- NOTE | 2019-04-24 22:32 | PDOC ---
Documentation entered by Latia Mcallister SCRIBE, acting as scribe for Kim King MD. Kim King MD: This documentation has been prepared by the Esvin thornton Sammi, SCRIBE, under my direction and personally reviewed by me in its entirety. I confirm that the documentation accurately reflects all work, treatment, procedures, and medical decision making performed by me. Attending Attestation - Resident Resident Name: KhloeFrancie - ED Attending Attestation I have performed the following: I have examined & evaluated the patient, The case was reviewed & discussed with the resident, I agree w/resident's findings & plan, Exceptions are as noted - HPI HPI: 04/24/19 22:26 78-year-old female presents with abdominal pain And states she has had 2 episodes of vomiting 04/24/19 23:52 Pale 78-year-old female with complaint abdominal pain Head normocephalic atraumatic Neck is supple Lungs no wheezing, no crackles clear to auscultation bilaterally CVS regular rate and rhythm S1-S2 Abdomen no rebound or guarding Skin warm and dry neuro L facial droop ,slurred speech,no drift - Physicial Exam PE: 04/24/19 23:57 Full physical exam is above there is a rt anterior chest rudy cath pale sclera - Medical Decision Making 04/24/19 22:30 CAT scan from March 03, 2019 showed development of hepatic metastatic disease There is increased bilateral inguinal lymphadenopathy and increased size of a pelvic mass lesion there was also increased size of a pelvic wall mass lesion There is also development of a mild concentric wall thickening of the rectum and lower third of the sigmoid colon suggestive of acute Celsa colitis less likely artifactual due to underdistention Interval resolution of small bowel dilatation which was suggestive of obstruction at the time There was comminuted fracture of the right pelvic tubercle noted Status post nephrectomy Status post cystectomy, right lower quadrant ileal conduit 04/24/19 23:58 78-year-old female with stage IV bladder cancer presents with nausea and vomiting Past surgical history hysterectomy, nephrectomy, post cystectomy Patient does have a history of small bowel obstruction in the past ROS is negative for fever ,chills ,chest pain or shortness of breath IV fluids, Zofran, affirmative, CBC comp, CAT scan of the abdomen and pelvis
[2019-04-24 23:33] LABS: EPI CELLS 1.2 /HPF (0-5/HPF); HYALINE CASTS 117 /lpf (0-8); PH,URINE 5.5 (5.0-8.0); URINE APPEARANCE CLOUDY; URINE BACTERIA 4509.3 /hpf (NEGATIVE); URINE BILIRUBIN NEGATIVE (NEGATIVE); URINE COLOR YELLOW; URINE GLUCOSE (UA) NEGATIVE (NEGATIVE); URINE KETONE 2+ (NEGATIVE); URINE LEUK ESTERASE 2+ (NEGATIVE); URINE NITRITE POSITIVE (NEGATIVE); URINE PROTEIN 2+ (NEGATIVE); URINE RBC 7 /hpf (0-4); URINE WBC 136 /hpf (0-5)
[2019-04-24] MEDS ORDERED: ACETAMINOPHEN INJECTION 100 ML IVPB ONE (23:57)
[2019-04-24] MEDS ORDERED: ONDANSETRON 4 MG/2 ML VIAL ONE (23:57)
[2019-04-25 00:07] LABS: HEMATOCRIT 26.9 % (32.4-45.2); HEMOGLOBIN 8.8 GM/dL (10.7-15.3); LYMPH % 13.7 % (8-40); MCH 27.5 pg (25.7-33.7); MCHC 32.8 g/dl (32.0-36.0); MEAN CELL VOLUME 83.6 fl (80-96); MONO % 11.6 % (3.8-10.2); NEUT % 73.2 % (42.8-82.8); PLATELET COUNT 342 K/MM3 (134-434); RBC 3.22 M/mm3 (3.60-5.2); RDW 18.4 % (11.6-15.6); WHITE BLOOD COUNT 8.1 K/mm3 (4.0-10.0)
[2019-04-25 00:08] LABS: EOS % 0.5 % (0-4.5)
[2019-04-25 00:19] LABS: INR 1.1 (0.83-1.09)
[2019-04-25 00:29] LABS: BILIRUBIN,TOTAL 0.7 mg/dL (0.2-1); CALCIUM 8.3 mg/dL (8.5-10.1); CREATININE 1.1 mg/dL (0.55-1.3); POTASSIUM 3.9 mmol/L (3.5-5.1); TOT PROT 5.7 g/dl (6.4-8.2)
--- NOTE | 2019-04-25 01:58 | PDOC ---
*Physical Exam - Vital Signs Last Vital Signs Temp Pulse Resp BP Pulse Ox 98.7 F 105 H 18 117/73 95 04/24/19 21:38 04/24/19 21:38 04/24/19 21:38 04/24/19 21:38 04/24/19 21:38 ED Treatment Course - LABORATORY CBC & Chemistry Diagram: 04/24/19 23:58 04/24/19 23:58 - ADDITIONAL ORDERS Additional order review: Laboratory Results 04/24/19 04/24/19 04/24/19 23:58 23:58 23:58 PT with INR 13.00 INR 1.10 H Sodium 137 Potassium 3.9 Chloride 100 Carbon Dioxide 26 Anion Gap 11 BUN 25.0 H Creatinine 1.1 Est GFR (CKD-EPI)AfAm 56.48 Est GFR (CKD-EPI)NonAf 48.73 Random Glucose 95 Calcium 8.3 L Total Bilirubin 0.7 AST 14 L ALT 13 Alkaline Phosphatase 111 Troponin I < 0.02 Total Protein 5.7 L Albumin 3.0 L Urine Color Urine Appearance Urine pH Ur Specific Jamison Urine Protein Urine Glucose (UA) Urine Ketones Urine Blood Urine Nitrite Urine Bilirubin Urine Urobilinogen Ur Leukocyte Esterase Urine WBC (Auto) Urine RBC (Auto) Urine Casts (Auto) U Epithel Cells (Auto) Urine Bacteria (Auto) 04/24/19 23:20 PT with INR INR Sodium Potassium Chloride Carbon Dioxide Anion Gap BUN Creatinine Est GFR (CKD-EPI)AfAm Est GFR (CKD-EPI)NonAf Random Glucose Calcium Total Bilirubin AST ALT Alkaline Phosphatase Troponin I Total Protein Albumin Urine Color Yellow Urine Appearance Cloudy Urine pH 5.5 Ur Specific Jamison 1.018 Urine Protein 2+ H Urine Glucose (UA) Negative Urine Ketones 2+ H Urine Blood Trace Urine Nitrite Positive H Urine Bilirubin Negative Urine Urobilinogen 1.0 Ur Leukocyte Esterase 2+ H Urine WBC (Auto) 136 Urine RBC (Auto) 7 Urine Casts (Auto) 117 U Epithel Cells (Auto) 1.2 Urine Bacteria (Auto) 4509.3 04/24/19 23:58 RBC 3.22 L MCV 83.6 MCHC 32.8 RDW 18.4 H MPV 8.0 Neutrophils % 73.2 D Lymphocytes % 13.7 D Monocytes % 11.6 H Eosinophils % 0.5 D Basophils % 1.0 - Medications Given in the ED: ED Medications Discontinued Medications Generic Name Dose Route Start Last Admin Trade Name Jas PRN Reason Stop Dose Admin Acetaminophen 1,000 mg 04/24/19 22:30 04/25/19 00:04 Ofirmev Injection - IVPB 04/24/19 22:31 1,000 mg ONCE ONE Administration Sodium Chloride 1,000 mls @ 1,000 mls/hr 04/24/19 22:30 04/25/19 00:04 Normal Saline - IV 04/24/19 23:29 1,000 mls/hr ASDIR STA Administration Ondansetron HCl 4 mg 04/24/19 22:30 04/25/19 00:04 Zofran Injection IVPUSH 04/24/19 22:31 4 mg ONCE ONE Administration Medical Decision Making - Medical Decision Making 04/25/19 01:57 Signed out from day team CT A/P - SBO w transition point in pelvis, free fluid in R renal pelvis suggesting pyonephrosis, RLQ urostomy that is decompressed but appears infiltrates, ABD metastasis, chronic fracture of R superior and inferior pubic ramus Has SBO, pyonephrosis, multiple abdominal mets on CT A/P Given 1L NS, tylenol, zofran, rocephin. Ordered NG tube placement Admitted m/s Dr Quintero for SBO, complicated UTI PCP - Dr Pearson --- 78yo F with a PMH of HTN, HLD, thyroiditis, stage 4 TCC Bladder CA (s/p Cystectomy in 2015), Kidney CA (s/p L nephrectomy in 2014), currently on chemotherapy (last session 04/18/2019 and next session scheduled for tomorrow) presenting with intermittent nausea and vomiting x 2 days. Patient reports that she has been unable to tolerate po intake: "it just comes back up." Because of this, she has been unable to take her po pain medications (tylenol, oxycodone) so is experiencing 6-7/10 pain in her lower abdomen and back which she will have when her pain is not controlled. Patient last had a small bowel movement this morning that was soft, nonbloody, and brown. Has not had flatulence today. Last had an SBO in December 2018. The first SBO episode she ever had was in summer 2018. Both episodes were medically managed with decompression. Patient is concerned about dehydration as she only has one kidney. No fevers, chills, chest pain, or shortness of breath. PE: General: Awake, alert, and fully oriented, in no acute distress Head: No signs of trauma Eyes: EOMI, sclera anicteric ENT: Dry mucus membranes Neck: Normal ROM, supple Lungs: Lungs clear, Normal breath sounds Cardio: Regular rhythm, S1 and S2 present Abdomen: Soft, distended. Mildly tender to palpation in lower abdomen. Infrequent bowel sounds present. Urostomy in place with urine present in bag Extremities: Normal range of motion, Distal pulses present SKIN: Warm, Dry, normal turgor Neurologic: Cranial nerves II through XII grossly intact. Normal speech ED Course/MDM: DDX including but not limited to SBO, metastasis, chemotherapy adverse reaction , anemia, metabolic derangement Labs, EKG, CXR CT AP: Patient states she will decline contrast due to only having one kidney as she was instructed by her mass spec 04/25/19 03:11 04/25/19 03:44 04/25/19 03:45 Discharge - Discharge Information Problems reviewed: Yes Clinical Impression/Diagnosis: SBO (small bowel obstruction), Complicated UTI (urinary tract infection) Condition: Stable - Follow up/Referral Referrals: Luis Antonio Pearson MD [Primary Care Provider] - - Patient Discharge Instructions - Post Discharge Activity
[2019-04-25] MEDS ORDERED: CEFTRIAXONE 1,000 MG in DEXTROSE 5%-WATER - 50 ML IVPB ONE (02:01)
[2019-04-25] MEDS ORDERED: CEFTRIAXONE 1 GM/50 ML BAG ONE (02:50)
--- NOTE | 2019-04-25 02:52 | PDOC ---
*Physical Exam - Vital Signs Last Vital Signs Temp Pulse Resp BP Pulse Ox 98.7 F 105 H 18 117/73 95 04/24/19 21:38 04/24/19 21:38 04/24/19 21:38 04/24/19 21:38 04/24/19 21:38 ED Treatment Course - LABORATORY CBC & Chemistry Diagram: 04/24/19 23:58 04/24/19 23:58 - ADDITIONAL ORDERS Additional order review: Laboratory Results 04/24/19 04/24/19 04/24/19 23:58 23:58 23:58 PT with INR 13.00 INR 1.10 H Sodium 137 Potassium 3.9 Chloride 100 Carbon Dioxide 26 Anion Gap 11 BUN 25.0 H Creatinine 1.1 Est GFR (CKD-EPI)AfAm 56.48 Est GFR (CKD-EPI)NonAf 48.73 Random Glucose 95 Calcium 8.3 L Total Bilirubin 0.7 AST 14 L ALT 13 Alkaline Phosphatase 111 Troponin I < 0.02 Total Protein 5.7 L Albumin 3.0 L Urine Color Urine Appearance Urine pH Ur Specific [place] Urine Protein Urine Glucose (UA) Urine Ketones Urine Blood Urine Nitrite Urine Bilirubin Urine Urobilinogen Ur Leukocyte Esterase Urine WBC (Auto) Urine RBC (Auto) Urine Casts (Auto) U Epithel Cells (Auto) Urine Bacteria (Auto) 04/24/19 23:20 PT with INR INR Sodium Potassium Chloride Carbon Dioxide Anion Gap BUN Creatinine Est GFR (CKD-EPI)AfAm Est GFR (CKD-EPI)NonAf Random Glucose Calcium Total Bilirubin AST ALT Alkaline Phosphatase Troponin I Total Protein Albumin Urine Color Yellow Urine Appearance Cloudy Urine pH 5.5 Ur Specific [place] 1.018 Urine Protein 2+ H Urine Glucose (UA) Negative Urine Ketones 2+ H Urine Blood Trace Urine Nitrite Positive H Urine Bilirubin Negative Urine Urobilinogen 1.0 Ur Leukocyte Esterase 2+ H Urine WBC (Auto) 136 Urine RBC (Auto) 7 Urine Casts (Auto) 117 U Epithel Cells (Auto) 1.2 Urine Bacteria (Auto) 4509.3 04/24/19 23:58 RBC 3.22 L MCV 83.6 MCHC 32.8 RDW 18.4 H MPV 8.0 Neutrophils % 73.2 D Lymphocytes % 13.7 D Monocytes % 11.6 H Eosinophils % 0.5 D Basophils % 1.0 - Medications Given in the ED: ED Medications Discontinued Medications Generic Name Dose Route Start Last Admin Trade Name Jas PRN Reason Stop Dose Admin Acetaminophen 1,000 mg 04/24/19 22:30 04/25/19 00:04 Ofirmev Injection - IVPB 04/24/19 22:31 1,000 mg ONCE ONE Administration Sodium Chloride 1,000 mls @ 1,000 mls/hr 04/24/19 22:30 04/25/19 00:04 Normal Saline - IV 04/24/19 23:29 1,000 mls/hr ASDIR STA Administration Ondansetron HCl 4 mg 04/24/19 22:30 04/25/19 00:04 Zofran Injection IVPUSH 04/24/19 22:31 4 mg ONCE ONE Administration Medical Decision Making - Medical Decision Making 04/25/19 02:51 Patient Name: DARIO ZAVALA THIS IS A PRELIMINARY REPORT FROM [employer] DATE OF SERVICE: 2019-04-25 01:04:42 IMAGES: [id number] EXAM: CT ABDOMEN AND PELVIS WITHOUT CONTRAST CLINICAL HISTORY: 78-year-old female, nausea, vomiting, evaluate for obstruction , history of bladder cancer status post cystectomy COMPARISON: No available comparison. PROCEDURE COMMENTS: CT of the abdomen and pelvis was performed without the administration of IV contrast. Enteric contrast was not administered prior to the examination. FINDINGS: Limited evaluation of solid organs and vasculature without IV contrast. New extensive hepatic metastasis. Dilation of the small bowel with nondilated segments of small bowel noted within the right lower quadrant. Findings are most compatible with small bowel obstruction with transition point likely within the pelvis. Interval increased size of cystic/necrotic mass within the pelvis as well as masses within the left superficial inguinal region and anterior abdominal wall. There is a right lower quadrant urostomy which is decompressed but appears infiltrated, likely bite metastasis. There is a right hydro-ureteronephrosis to the level of the urostomy. No nephrolithiasis is identified. Slight hyperdensity of the fluid within the right renal pelvis could suggest pyonephrosis. The left kidney is surgically absent. There is a chronic fracture of the right superior and inferior pubic ramus in a parasymphyseal location with neoplastic infiltration. Pt signed out to me; she has SBO and she will be admitted. Discharge - Discharge Information Problems reviewed: Yes Clinical Impression/Diagnosis: SBO (small bowel obstruction), Complicated UTI (urinary tract infection) Condition: Guarded - Admission Yes - Follow up/Referral Referrals: Luis Antonio Pearson MD [Primary Care Provider] - - Patient Discharge Instructions - Post Discharge Activity
--- NOTE | 2019-04-25 04:01 | HP ---
Admitting History and Physical - Primary Care Physician PCP: - Admission Chief Complaint: nausea, voimting History of Present Illness: 78 year old female with a PMH of HTN, HLD, thyroiditis, stage 4 TCC Bladder CA (s/p Cystectomy in 2015), Kidney CA (s/p L nephrectomy in 2014), currently on chemotherapy (last session 04/18/2019) arrived to ED for intermittent nausea and vomiting x 2 days. Patient reports unable to tolerate po intake, unable to take her po pain medications (tylenol, oxycodone) so is experiencing 6-7/10 pain in her lower abdomen and back. Patient last had a small bowel movement this morning that was soft, nonbloody, and brown. Has not had flatulence today. Last had an SBO in December 2018. The first SBO episode she ever had was in summer 2018. Both episodes were medically managed with decompression. Patient denies fevers, chills, chest pain, or shortness of breath. 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), Other (bladder ca s/p initial partial and later radical cystectomy, left nephrectomy and TAHBSO at [facility]) Heme/Onc: Yes: Anemia Endocrine: Yes: Hyperthyroidism Dermatology: Yes: Basal Cell (left facial excised) - Past Surgical History Past Surgical History: Yes: Breast Biopsy (benign), Colonoscopy, Cystectomy ( partial 15 years ago and later radical with TAHBSO and left nephrectomy for metastatic transitional cell carcinoma), Hysterectomy (TAHBSO), Ileal Conduit, Nephrectomy - Smoking History Smoking history: Never smoked Have you smoked in the past 12 months: No If you are a former smoker, when did you quit?: 1977 - Alcohol/Substance Use Hx Alcohol Use: No History of Substance Use: reports: None - Social History ADL: Independent Occupation: auto part sales History of Recent Travel: No Home Medications - Allergies Allergies/Adverse Reactions: Allergies Allergy/AdvReac Type Severity Reaction Status Date / Time No Known Drug Allergies Allergy Verified 03/03/19 15:04 - Home Medications Home Medications: Ambulatory Orders Ascorbate Calcium [Vitamin C] 500 mg PO DAILY 03/11/17 Atenolol [Tenormin -] 12.5 mg PO DAILY 03/11/17 Calcium Carbonate [Calcium] 1,000 mg PO DAILY 03/11/17 Glucosa López 2Kcl/Chondroitin López [Glucosamine & Chondroitin Cap] 1 each PO DAILY 03/11/17 Aspirin Coated [Ecotrin -] 81 mg PO DAILY 06/18/18 Atezolizumab [Tecentriq] 1,200 mg IV ASDIR 12/08/18 Acetaminophen [Tylenol .Regular Strength -] 650 mg PO Q6H PRN tablet 12/21/18 Adam-Cath Flush [Adam-Cath Flush -] 10 ml IVPUSH PRN PRN ml 12/21/18 Levothyroxine [Synthroid -] 50 mcg PO DAILY@0700 01/25/19 Family Medical History Family Hx Cancer: Father (prostate ca) Family Hx Congestive Heart Failure: Mother Review of Systems - Review of Systems Constitutional: reports: No Symptoms Eyes: reports: No Symptoms HENT: reports: No Symptoms Neck: reports: No Symptoms Cardiovascular: reports: No Symptoms Respiratory: reports: No Symptoms Gastrointestinal: reports: Abdominal Pain, Nausea, Vomiting Genitourinary: reports: No Symptoms Musculoskeletal: reports: No Symptoms Integumentary: reports: No Symptoms Neurological: reports: No Symptoms Endocrine: reports: No Symptoms Hematology/Lymphatic: reports: No Symptoms Psychiatric: reports: No Symptoms Physical Examination Vital Signs: Vital Signs Temperature 98.7 F 04/24/19 21:38 Pulse Rate 92 H 04/25/19 03:40 Respiratory Rate 18 04/25/19 03:40 Blood Pressure 110/70 04/25/19 03:40 O2 Sat by Pulse Oximetry (%) 97 04/25/19 03:40 Constitutional: Yes: No Distress, Calm Eyes: Yes: Conjunctiva Clear, EOM Intact HENT: Yes: Atraumatic, Normocephalic Neck: Yes: Supple, Trachea Midline Cardiovascular: Yes: Regular Rate and Rhythm Respiratory: Yes: Regular, CTA Bilaterally Gastrointestinal: Yes: Soft, Hypoactive Bowel Sounds, Tenderness (lower abdomen) , Other (+ Urostomy) Musculoskeletal: Yes: WNL Edema: No Peripheral Pulses WNL: Yes Integumentary: Yes: WNL Neurological: Yes: Alert, Oriented Labs: CBC, BMP 04/24/19 23:58 04/24/19 23:58 Imaging - Results Chest X-ray: Report Reviewed (no acute infiltrate) Cat Scan: Report Reviewed (CT A/P - SBO w transition point in pelvis, free fluid in R renal pelvis suggesting pyonephrosis, RLQ urostomy that is decompressed but appears infiltrates, ABD metastasis, chronic fracture of R superior and inferior pubic ramus) EKG: Report Reviewed (NSR, vent rate 86) Problem List - Problems (1) SBO (small bowel obstruction) Code(s): K56.609 - UNSP INTESTNL OBST, UNSP TO PARTIAL VERSUS COMPLETE OBST (2) Complicated UTI (urinary tract infection) Code(s): N39.0 - URINARY TRACT INFECTION, SITE NOT SPECIFIED (3) Bladder cancer Code(s): C67.9 - MALIGNANT NEOPLASM OF BLADDER, UNSPECIFIED Qualifiers: Bladder location: unspecified site Qualified Code(s): C67.9 - Malignant neoplasm of bladder, unspecified (5) Cancer of genitourinary organ Code(s): PTY0517 - (6) HLD (hyperlipidemia) Code(s): E78.5 - HYPERLIPIDEMIA, UNSPECIFIED (7) Hypertension Code(s): I10 - ESSENTIAL (PRIMARY) HYPERTENSION Qualifiers: Hypertension type: essential hypertension Qualified Code(s): I10 - Essential (primary) hypertension (8) Hypothyroid Code(s): E03.9 - HYPOTHYROIDISM, UNSPECIFIED Qualifiers: Hypothyroidism type: due to Declan's thyroiditis Qualified Code(s): E03.8 - Other specified hypothyroidism; E06.3 - Autoimmune thyroiditis (9) Metastatic bone cancer Code(s): C41.9 - MALIGNANT NEOPLASM OF BONE AND ARTICULAR CARTILAGE, UNSP (10) Dehydration Code(s): E86.0 - DEHYDRATION Assessment/Plan 78 year old female with a PMH of HTN, HLD, thyroiditis, stage 4 TCC Bladder CA (s/p Cystectomy in 2016), Kidney CA (s/p L nephrectomy in 2014), currently on chemotherapy (last session 04/18/2019 and next session scheduled for tomorrow) presenting with intermittent nausea and vomiting x 2 days. Admitted for a developing SBO. # SBO -vomitingx2/ nausea CT A/P - SBO w transition point in pelvis, free fluid in R renal pelvis suggesting pyonephrosis, RLQ urostomy that is decompressed but appears infiltrates, ABD metastasis, chronic fracture of R superior and inferior pubic ramus IV fluids NPO IV Tylenol PRN NGT placed Zofran PRN for nausea, if noted with ECG changes consider tigan GI consult # UTI - continue with Rocephin daily - follow up ucx and adjust meds based on sensitivity - follow up cbc in AM #Pre-renal azotemia - continue with IVF - monitor bmp #Hypertension - BP stable for now, hold po medication - consider IV if indicated #Hyperlipidemia - Diet controlled # Hypothyroidism -Levothyroxine 50 mcg PO QD (hold po meds) -follow up TSH #Bladder cancer #Left kidney metastatic transitional cell carcinoma #Renal pelvis cancer #Metastatic bone cancer -currently on atezolizumbab - follow up oncology as needed FEN Fluids: NS@75mL/hr Electrolytes: replete as indicated Diet: NPO DVT prophylaxis: heparin sq, SCDs Visit type - Emergency Visit Emergency Visit: Yes Care time: The patient presented to the Emergency Department on the above date and was hospitalized for further evaluation of their emergent condition. - New Patient This patient is new to me today: Yes Date on this admission: 04/25/19 - Critical Care Critical Care patient: No
[2019-04-25] MEDS ORDERED: ONDANSETRON 4 MG/2 ML VIAL IM PRN (04:25)
[2019-04-25] MEDS: SODIUM CHLORIDE 1,000 ML IV SCH (04:53)
[2019-04-25] MEDS ORDERED: ACETAMINOPHEN INJECTION 100 ML IVPB ONE (08:23)
[2019-04-25] MEDS: ACETAMINOPHEN 1000 MG/100 ML VIAL (NON FORMULARY) IVPB PRN ×2 (08:40→16:09)
--- NOTE | 2019-04-25 09:42 | EKG ---
Test Reason : Blood Pressure : / mmHG Vent. Rate : 086 BPM Atrial Rate : 086 BPM P-R Int : 206 ms QRS Dur : 094 ms QT Int : 392 ms P-R-T Axes : 031 -50 018 degrees QTc Int : 469 ms NORMAL SINUS RHYTHM LEFT ANTERIOR FASCICULAR BLOCK CANNOT RULE OUT ANTERIOR INFARCT (CITED ON OR BEFORE 25-APR-2019) ABNORMAL ECG WHEN COMPARED WITH ECG OF 11-MAR-2019 08:36, T WAVE VARIATION Confirmed by CURT HERNANDEZ MD ([id number]) on 04/25/2019 9:41:56 AM Referred By: Confirmed By:CURT HERNANDEZ MD
[2019-04-25] MEDS ORDERED: PT OWN MED DRAWER 7, Y5N ONE (10:36)
--- NOTE | 2019-04-25 11:24 | PN ---
Progress Note, Physician Chief Complaint: SBO UTI History of Present Illness: NAD denies any abd pain at the moment or N/V, given zofran earlier which helped - Current Medication List Current Medications: Active Medications Acetaminophen (Ofirmev Injection -) 1,000 mg IVPB Q6H PRN PRN Reason: PAIN LEVEL 1-5 Heparin Sodium (Porcine) (Heparin -) 5,000 unit SQ BID RON Sodium Chloride (Normal Saline -) 1,000 mls @ 42 mls/hr IV ASDIR RON Last Admin: 04/25/19 04:53 Dose: 42 mls/hr Ceftriaxone Sodium 1 gm/ (Dextrose) 50 mls @ 100 mls/hr IVPB DAILY REPLACED BY [facility]; Protocol Stop: 05/01/19 09:59 Ondansetron HCl (Zofran Injection) 4 mg IM Q6H PRN PRN Reason: NAUSEA AND/OR VOMITING - Objective Vital Signs: Vital Signs Temperature 98.4 F 04/25/19 06:50 Pulse Rate 92 H 04/25/19 06:50 Respiratory Rate 17 04/25/19 06:50 Blood Pressure 119/75 04/25/19 06:50 O2 Sat by Pulse Oximetry (%) 98 04/25/19 06:50 Constitutional: Yes: No Distress, Calm, Thin Cardiovascular: Yes: Regular Rate and Rhythm Respiratory: Yes: Regular, CTA Bilaterally Gastrointestinal: Yes: Normal Bowel Sounds, Soft, Distention (mild), Tenderness (diffuse on palpation), Other (RLQ Ileostomy) Genitourinary: Yes: Other (ileostomy) Musculoskeletal: Yes: WNL Extremities: Yes: WNL Edema: No Peripheral Pulses WNL: Yes Neurological: Yes: Alert, Oriented Psychiatric: Yes: Alert, Oriented Labs: CBC, BMP 04/24/19 23:58 04/24/19 23:58 INR, PTT INR 1.10 (0.83-1.09) H 04/24/19 23:58 Problem List - Problems (1) SBO (small bowel obstruction) Assessment/Plan: -NGT tried in ER with inability to obtain access, can hold off inserting NGT for now given pt doesn't have N/V -Insert NGT if pt develops N/V -Surgical consult -Serial AXR Problems reviewed: Yes Code(s): K56.609 - UNSP INTESTNL OBST, UNSP TO PARTIAL VERSUS COMPLETE OBST (2) Cancer of genitourinary organ Assessment/Plan: -Ileostomy Problems reviewed: Yes Code(s): UPH8423 - (3) UTI (urinary tract infection) Assessment/Plan: -might be colonized -ID consult -await cultures -afebrile Problems reviewed: Yes Code(s): N39.0 - URINARY TRACT INFECTION, SITE NOT SPECIFIED Qualifiers: Urinary tract infection type: acute cystitis Hematuria presence: without hematuria Qualified Code(s): N30.00 - Acute cystitis without hematuria (4) Anemia Assessment/Plan: -chronic -Check [employer] -monitor trend Problems reviewed: Yes Code(s): D64.9 - ANEMIA, UNSPECIFIED Assessment/Plan see problem list
[2019-04-25] MEDS: HEPARIN NA (PORCINE) 5,000 UNITS/ML 1ML VIAL SQ SCH ×2 (12:31→21:47)
[2019-04-25] MEDS ORDERED: PORTA CATH FLUSH 10 ML IVPUSH PRN (12:51)
[2019-04-25 12:58] LABS: HEMATOCRIT 25.2 % (32.4-45.2); HEMOGLOBIN 8.2 GM/dL (10.7-15.3); MCH 27.4 pg (25.7-33.7); MCHC 32.6 g/dl (32.0-36.0); MEAN CELL VOLUME 84.2 fl (80-96); MEAN PLT VOLUME 7.5 fl (7.5-11.1); PLATELET COUNT 310 K/MM3 (134-434); RDW 18.6 % (11.6-15.6); WHITE BLOOD COUNT 6.4 K/mm3 (4.0-10.0)
[2019-04-25 13:22] LABS: BLOOD UREA NITROGEN 22.6 mg/dL (7-18); CALCIUM 7.6 mg/dL (8.5-10.1); CREATININE 0.9 mg/dL (0.55-1.3); POTASSIUM 3.9 mmol/L (3.5-5.1)
[2019-04-25 15:55] VITALS: BMI 20.3
--- NOTE | 2019-04-25 16:17 | CONSULT ---
- Consultation REQUESTING PROVIDER: Linnette MICHEL CONSULT REQUEST: We have been asked to surgically evaluate this patient for n/v/ abdominal pain. PCP:Lise Quintero HISTORY OF PRESENT ILLNESS: CTSP for n/v/abdominal pain for # days w/ a h/o # past abdominal surgery and known metastatic disease to the lier and a pelvic mass; patient has a h/o bladder carcinoma and renal carcinoma. She has not passed flatus and/or had a BM in # days. he is receiving chemo and has received ? RT ?. PMHx: carcinoma of the bladder and kidney/HTN/thyroid disease PSHx: cystectomy and ileal conduit; right nephrectomy. Home Medications Medication Instructions Recorded Ascorbate Calcium [Vitamin C] 500 mg PO DAILY 03/11/17 Atenolol [Tenormin -] 12.5 mg PO DAILY 03/11/17 Calcium Carbonate [Calcium] 1,000 mg PO DAILY 03/11/17 Glucosa López 2Kcl/Chondroitin López 1 each PO DAILY 03/11/17 [Glucosamine & Chondroitin Cap] Aspirin Coated [Ecotrin -] 81 mg PO DAILY 06/18/18 Atezolizumab [Tecentriq] 1,200 mg IV ASDIR 12/08/18 Acetaminophen [Tylenol .Regular 650 mg PO Q6H PRN tablet 12/21/18 Strength -] Adam-Cath Flush [Adam-Cath Flush 10 ml IVPUSH PRN PRN ml 12/21/18 -] Levothyroxine [Synthroid -] 50 mcg PO DAILY@0700 01/25/19 Allergies Allergy/AdvReac Type Severity Reaction Status Date / Time No Known Drug Allergies Allergy Verified 03/03/19 15:04 REVIEW OF SYSTEMS: CONSTITUTIONAL: Absent: fever, chills, diaphoresis, generalized weakness, malaise, loss of appetite, weight change CARDIOVASCULAR: Absent: chest pain, syncope, palpitations, irregular heart rate, lightheadedness , peripheral edema RESPIRATORY: Absent: cough, shortness of breath, dyspnea with exertion, wheezing, stridor, hemoptysis GASTROINTESTINAL: Present: abdominal pain, abdominal distension, nausea, vomiting, Absent: diarrhea, constipation, melena, hematochezia GENITOURINARY: Absent: dysuria, frequency, urgency, hesitancy, hematuria, flank pain, genital pain MUSCULOSKELETAL: Absent: myalgia, arthralgia, joint swelling, back pain, neck pain SKIN: Absent: rash, itching, pallor HEMATOLOGIC/IMMUNOLOGIC: Absent: easy bleeding, easy bruising, lymphadenopathy NEUROLOGIC: Absent: headache, focal weakness, paresthesias, dizziness, unsteady gait, seizure, mental status changes, bladder or bowel incontinence PSYCHIATRIC: Absent: anxiety, depression, suicidal or homicidal ideation, hallucinations. PHYSICAL EXAM: GENERAL: Awake, alert, and fully oriented, in no acute distress. HEAD: Normal with no signs of trauma. EYES: PERRL, sclera anicteric, conjunctiva clear. NECK: Normal ROM, supple without lymphadenopathy, JVD, or masses. ABDOMEN: Soft, nontender, distended and tympanitic, absent bowel sounds, no guarding, no rebound, pelvic mass is present. No organomegaly. Functioning ileal conduit. MUSCULOSKELETAL: Normal ROM at all joints. No bony deformities or tenderness. No CVA tenderness. UPPER EXTREMITIES: 2+ pulses, warm, well-perfused. No cyanosis. Cap refill <2 seconds. No peripheral edema. LOWER EXTREMITIES: 2+ pulses, warm, well-perfused. No calf tenderness. No peripheral edema. NEUROLOGICAL: Normal speech, gait not observed. PSYCH: Cooperative. Good eye contact. Appropriate mood and affect. SKIN: Warm, dry, normal turgor, no rashes or lesions noted. Vital Signs Temperature 98.4 F 04/25/19 15:41 Pulse Rate 93 H 04/25/19 15:41 Respiratory Rate 20 04/25/19 15:41 Blood Pressure 137/76 04/25/19 15:41 O2 Sat by Pulse Oximetry (%) 99 04/25/19 09:00 Lab Results WBC 6.4 K/mm3 (4.0-10.0) 04/25/19 12:00 RBC 3.00 M/mm3 (3.60-5.2) L 04/25/19 12:00 Hgb 8.2 GM/dL (10.7-15.3) L 04/25/19 12:00 Hct 25.2 % (32.4-45.2) L 04/25/19 12:00 MCV 84.2 fl (80-96) 04/25/19 12:00 MCHC 32.6 g/dl (32.0-36.0) 04/25/19 12:00 RDW 18.6 % (11.6-15.6) H 04/25/19 12:00 Plt Count 310 K/MM3 (134-434) 04/25/19 12:00 Sodium 140 mmol/L (136-145) 04/25/19 12:00 Potassium 3.9 mmol/L (3.5-5.1) 04/25/19 12:00 Chloride 105 mmol/L (98-107) 04/25/19 12:00 Carbon Dioxide 23 mmol/L (21-32) 04/25/19 12:00 Anion Gap 11 MMOL/L (8-16) 04/25/19 12:00 BUN 22.6 mg/dL (7-18) H 04/25/19 12:00 Creatinine 0.9 mg/dL (0.55-1.3) 04/25/19 12:00 Random Glucose 81 mg/dL (74-106) 04/25/19 12:00 Calcium 7.6 mg/dL (8.5-10.1) L 04/25/19 12:00 INR 1.10 (0.83-1.09) H 04/24/19 23:58 Imaging w/u reviewed. IMP: recurrent SBO; metastatic carcinoma of the bladder to the liver and local recurrence.. PLAN: NPO/IVF/NGT/serial exams and x rays; will f/u; prognosis seems poor and obstrucion may be on the basis of recurrent tumor/carcinomatosis. Theodore Tamez MD FACS
--- NOTE | 2019-04-25 16:42 | CON.GI ---
Consult Consult Specialty:: GI Referred by:: ED Reason for Consultation:: SBO - History of Present Illness Chief Complaint: N/V History of Present Illness: 78F with h/o metastatic bladder cancer presenting for NB NB N/V x2 days. Has an ileostomy. Similar presentations last year x2 for SBOs that resolved non- operatively. Pt reports she feels gas moving but not passing, last bm 2d ago. Denies much abdominal pain. - History Source History Provided By: Patient Limitations to Obtaining History: No Limitations - Past Medical History Cardio/Vascular: Yes: HTN, Hyperlipdemia Gastrointestinal: Yes: Diverticulosis Renal/: Yes: Renal Inusuff, Cancer (bladder cancer with metastatic left transitional cell ca), Other (bladder ca s/p initial partial and later radical cystectomy, left nephrectomy and TAHBSO at [facility]) ...: No Endocrine: Yes: Hyperthyroidism Dermatology: Yes: Basal Cell (left facial excised) - Past Surgical History Past Surgical History: Yes: Breast Biopsy (benign), Colonoscopy, Cystectomy ( partial 15 years ago and later radical with TAHBSO and left nephrectomy for metastatic transitional cell carcinoma), Hysterectomy (TAHBSO), Ileal Conduit, Nephrectomy - Alcohol/Substance Use Hx Alcohol Use: No History of Substance Use: reports: None - Smoking History Smoking history: Never smoked Have you smoked in the past 12 months: No If you are a former smoker, when did you quit?: 1977 - Social History Usual Living Arrangement: Alone () ADL: Independent Occupation: auto part sales History of Recent Travel: No Home Medications - Allergies Allergies/Adverse Reactions: Allergies Allergy/AdvReac Type Severity Reaction Status Date / Time No Known Drug Allergies Allergy Verified 03/03/19 15:04 - Home Medications Home Medications: Ambulatory Orders Ascorbate Calcium [Vitamin C] 500 mg PO DAILY 03/11/17 Atenolol [Tenormin -] 12.5 mg PO DAILY 03/11/17 Calcium Carbonate [Calcium] 1,000 mg PO DAILY 03/11/17 Glucosa López 2Kcl/Chondroitin López [Glucosamine & Chondroitin Cap] 1 each PO DAILY 03/11/17 Aspirin Coated [Ecotrin -] 81 mg PO DAILY 06/18/18 Atezolizumab [Tecentriq] 1,200 mg IV ASDIR 12/08/18 Acetaminophen [Tylenol .Regular Strength -] 650 mg PO Q6H PRN tablet 12/21/18 Adam-Cath Flush [Adam-Cath Flush -] 10 ml IVPUSH PRN PRN ml 12/21/18 Levothyroxine [Synthroid -] 50 mcg PO DAILY@0700 01/25/19 Family Medical History Family History: Unremarkable Review of Systems - Review of Systems Constitutional: reports: No Symptoms Eyes: reports: No Symptoms HENT: reports: No Symptoms Neck: reports: No Symptoms Cardiovascular: reports: No Symptoms, Other Respiratory: reports: No Symptoms Gastrointestinal: reports: Nausea, Vomiting Musculoskeletal: reports: No Symptoms Integumentary: reports: No Symptoms Neurological: reports: No Symptoms Endocrine: reports: No Symptoms Hematology/Lymphatic: reports: No Symptoms Psychiatric: reports: No Symptoms Physical Exam-GI Vital Signs: Vital Signs Temperature 98.4 F 04/25/19 15:41 Pulse Rate 93 H 04/25/19 15:41 Respiratory Rate 04/25/19 15:41 Blood Pressure 137/76 04/25/19 15:41 O2 Sat by Pulse Oximetry (%) 99 04/25/19 09:00 Constitutional: Yes: Well Nourished, No Distress HENT: Yes: Atraumatic, Normocephalic Cardiovascular: Yes: Regular Rate and Rhythm Respiratory: Yes: CTA Bilaterally Gastrointestinal Inspection: Yes: Other (ileostomy pink and moist) ...Palpate: No: Soft, Tenderness ...Percussion: Yes: Tympanitic ...Rectal Exam: Yes: Deferred Edema: No Neurological: Yes: Alert, Oriented Psychiatric: Yes: Alert, Oriented Labs: CBC, BMP 04/25/19 12:00 04/25/19 12:00 INR, PTT INR 1.10 (0.83-1.09) H 04/24/19 23:58 Imaging - Results Cat Scan: Report Reviewed Assessment/Plan SBO secondary to adhesions and/or metastatic disease NPO NGT if symptomatic Correction of electrolytes Hopefully, will improve with conservative measures. IF not, may need to consider venting PEG for palliation
--- NOTE | 2019-04-25 16:58 | PN ---
Progress Note (short form) - Note Progress Note: ID consult dictated imp/reccd 78 yo female with metastatic bladder cancer s/p ileostomy and left nephrectomy 2016 recurrent SBO-2 prior episodes 2 days of vomiting and nausea unable to take po meds unable to keep fluids down no fevers or chills on chemo via port no leukocytosis ct scan with SBO, necrotic pelvic mass and liver metastases no signs UTI will d/c ceftriaxone she will always have bactriuria as she has an ileostomy she is asymptomatic for UTI treatment SBO per surgery/gi please call back if needed Problem List - Problems (1) SBO (small bowel obstruction) Code(s): K56.609 - UNSP INTESTNL OBST, UNSP TO PARTIAL VERSUS COMPLETE OBST (2) Asymptomatic bacteriuria Code(s): R82.71 - BACTERIURIA (4) Bladder cancer Code(s): C67.9 - MALIGNANT NEOPLASM OF BLADDER, UNSPECIFIED Qualifiers: Bladder location: unspecified site Qualified Code(s): C67.9 - Malignant neoplasm of bladder, unspecified
[2019-04-25] MEDS ORDERED: IRON SUCROSE INJECTION 300 MG in SODIUM CHLORIDE 235 ML IVPB ONE (18:03)
--- NOTE | 2019-04-25 20:47 | CONS ---
INFECTIOUS DISEASE CONSULTATION DATE OF CONSULTATION: 04/25/2019 This is a 78-year-old woman with a history of bladder carcinoma that is metastatic. She is status post ileostomy and left nephrectomy in 2015. She is on chemotherapy since June 2018, which she says has not been working well, who is now admitted with recurrent small-bowel obstruction. She thinks the last time she had bowel obstruction was in December. She gives a history of 2 days of being unable to take in oral intake. She has had intermittent nausea and vomiting. She has not had any flatulence on the day of admission which was early this morning, and her last bowel movement was on the twelfth. She denies any fevers, chills, chest pain, or shortness of breath. PAST MEDICAL HISTORY: Notable for hypertension, hyperlipidemia, diverticulosis. She has a history of bladder cancer. She has a history of anemia, hyperthyroidism, basal cell cancer. She has a history of left kidney cancer and hypercholesterolemia. SURGICAL HISTORY: She is status post breast biopsy, colonoscopy, cystectomy with an ileostomy creation in 2015. She has had a left nephrectomy. She is status post ANDRY/BSO as well. SOCIAL HISTORY: Her granddaughter and family are living with her. She is . She smoked very briefly in her 20s. She used to work in an auto warehouse. There is no history of any recent travel. ALLERGIES: She has no known drug allergies. MEDICATIONS: Include vitamin C, atenolol, calcium, aspirin, and Synthroid. FAMILY HISTORY: Notable for prostate cancer in her father. REVIEW OF SYSTEMS: As per HPI for the GI symptoms. PHYSICAL EXAMINATION: General: She is awake and alert. She is a pleasant woman in no acute distress. Vital Signs: She has had no fever since admission. Temperature is 98.9. Pulse of 92. Blood pressure is 120/63. Respiratory rate is 15. HEENT: She is normocephalic. Her eyes are anicteric. Neck: Supple. Lungs: Clear to auscultation. Heart: Regular rate and rhythm. Abdomen: Slightly distended. She has an ileostomy with clear urine. Extremities: Trace edema, which she says is chronic. LABORATORY DATA: Notable for a normal white count. Her urinalysis has some pyuria. CAT scan of the abdomen and pelvis is notable for distal small-bowel obstruction. In summary, this is an elderly woman with metastatic bladder cancer on chemotherapy via port. Port site is clean. No fevers or chills. Nothing to suggest infection. She presents again with a distal small-bowel obstruction. I would not treat her at this time for a UTI, which I have been called to evaluate. 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 She is not symptomatic in any way; so, hence, would not treat her. This was discussed with the patient who is in agreement. Please call back if needed. IBETH HALL M.D. [id number]
[2019-04-26] MEDS: SODIUM CHLORIDE 1,000 ML IV SCH ×3 (04:15→05:43)
[2019-04-26] MEDS: ACETAMINOPHEN 1000 MG/100 ML VIAL (NON FORMULARY) IVPB PRN ×2 (07:00→17:24)
[2019-04-26] MEDS ORDERED: CEFTRIAXONE 1 GM in DEXTROSE 5%-WATER - 50 ML IVPB SCH (10:00)
[2019-04-26] MEDS: HEPARIN NA (PORCINE) 5,000 UNITS/ML 1ML VIAL SQ SCH ×2 (10:49→22:01)
[2019-04-26] MEDS: LEVOTHYROXINE SODIUM 100 MCG VIAL IVPUSH SCH (10:51)
--- NOTE | 2019-04-26 12:51 | PN ---
Progress Note, Physician Chief Complaint: SBO UTI History of Present Illness: NAD denies any abd pain at the moment or N/V, given zofran earlier which helped - Current Medication List Current Medications: Active Medications Acetaminophen (Ofirmev Injection -) 1,000 mg IVPB Q6H PRN PRN Reason: PAIN LEVEL 1-5 Last Admin: 04/26/19 07:00 Dose: 1,000 mg Heparin Sodium (Porcine) (Heparin -) 5,000 unit SQ BID [facility] Last Admin: 04/26/19 10:49 Dose: 5,000 unit IV Flush (Adam-Cath Flush) 10 ml IVPUSH PRN PRN PRN Reason: HOSPITAL PROTOCOL Sodium Chloride (Normal Saline -) 1,000 mls @ 42 mls/hr IV ASDIR [facility] Last Admin: 04/26/19 05:43 Dose: 42 mls/hr Levothyroxine Sodium (Synthroid Injection -) 25 mcg IVPUSH DAILY [facility] Last Admin: 04/26/19 10:51 Dose: 25 mcg Ondansetron HCl (Zofran Injection) 4 mg IM Q6H PRN PRN Reason: NAUSEA AND/OR VOMITING - Objective Vital Signs: Vital Signs Temperature 98.3 F 04/26/19 06:00 Pulse Rate 88 04/26/19 10:00 Respiratory Rate 04/26/19 10:00 Blood Pressure 121/67 04/26/19 10:00 O2 Sat by Pulse Oximetry (%) 99 04/26/19 09:00 Constitutional: Yes: No Distress, Calm, Thin Cardiovascular: Yes: Regular Rate and Rhythm Respiratory: Yes: Regular Gastrointestinal: Yes: Normal Bowel Sounds, Soft Genitourinary: Yes: Other (ileostomy) Musculoskeletal: Yes: WNL Extremities: Yes: WNL Edema: No Peripheral Pulses WNL: Yes Neurological: Yes: Alert, Oriented Psychiatric: Yes: Alert, Oriented Labs: CBC, BMP 04/25/19 12:00 04/25/19 12:00 INR, PTT INR 1.10 (0.83-1.09) H 04/24/19 23:58 Problem List - Problems (1) SBO (small bowel obstruction) Assessment/Plan: -NGT tried in ER with inability to obtain access, can hold off inserting NGT for now given pt doesn't have N/V -Insert NGT if pt develops N/V -Surgical consult -AXR this AM shows SBO still present Problems reviewed: Yes Code(s): K56.609 - UNSP INTESTNL OBST, UNSP TO PARTIAL VERSUS COMPLETE OBST (2) Cancer of genitourinary organ Assessment/Plan: -Ileostomy -Increase in hepatic metastasis -Oncology consult Problems reviewed: Yes Code(s): VDS5807 - (3) UTI (urinary tract infection) Assessment/Plan: -Colonized -ID consult -No abs recommended at this time -afebrile Problems reviewed: Yes Code(s): N39.0 - URINARY TRACT INFECTION, SITE NOT SPECIFIED Qualifiers: Urinary tract infection type: acute cystitis Hematuria presence: without hematuria Qualified Code(s): N30.00 - Acute cystitis without hematuria (4) Anemia Assessment/Plan: -chronic -Received Venofer yesterday -Hemotology+ Oncology -monitor trend Problems reviewed: Yes Code(s): D64.9 - ANEMIA, UNSPECIFIED Assessment/Plan see problem list
--- NOTE | 2019-04-26 14:35 | CONSULT ---
Consultation: REQUESTING PROVIDER: Primary team CONSULT REQUEST: We have been asked to medically evaluate this patient for ( bladder cancer with mets , renal cancer ). HISTORY OF PRESENT ILLNESS: 78 year old female with a PMH of HTN, HLD, thyroiditis, stage 4 TCC Bladder CA (s/p Cystectomy in 2016), Kidney CA (s/p L nephrectomy in 2014), currently on chemotherapy (last session 04/18/2019) arrived to ED for intermittent nausea and vomiting x 2 days. Patient reports unable to tolerate po intake, unable to take her po pain medications (tylenol, oxycodone) so is experiencing 6-7/10 pain in her lower abdomen and back. Patient last had a small bowel movement this morning that was soft, nonbloody, and brown. Has not had flatulence today. Last had an SBO in December 2018. The first SBO episode she ever had was in summer 2018. Both episodes were medically managed with decompression. Patient denies fevers, chills, chest pain, or shortness of breath. pt reports 30 pound weight loss in last 6 months today deneis any fever, chills, N/V/D , had small BM last night very hard stool , still NPO on IV fluids she was supposed to see Dr Bowling yesterday FX mother of chf around 60 , father of prostate cancer in his 90 NKDA surical history , bladder resection , hysterectomy , left nephrectomy , pmhx: bladder cancer with mets s.p chemo and radiation , renal cancer , sbo, denies alcohol drugs or cigaret use REVIEW OF SYSTEMS: CONSTITUTIONAL: Absent: fever, chills, diaphoresis, generalized weakness, malaise, loss of appetite, weight change lost 30 pound in 6 months HEENT: Absent: rhinorrhea, nasal congestion, throat pain, throat swelling, difficulty swallowing, mouth swelling, ear pain, eye pain, visual changes CARDIOVASCULAR: Absent: chest pain, syncope, palpitations, irregular heart rate, lightheadedness , peripheral edema RESPIRATORY: Absent: cough, shortness of breath, dyspnea with exertion, orthopnea, wheezing, stridor, hemoptysis GASTROINTESTINAL: Absent: abdominal pain, abdominal distension, nausea, vomiting, diarrhea, constipation, melena, hematochezia GENITOURINARY: Absent: dysuria, frequency, urgency, hesitancy, hematuria, flank pain, genital pain MUSCULOSKELETAL: Absent: myalgia, arthralgia, joint swelling, back pain, neck pain SKIN: Absent: rash, itching, pallor HEMATOLOGIC/IMMUNOLOGIC: Absent: easy bleeding, easy bruising, lymphadenopathy, frequent infections ENDOCRINE: Absent: unexplained weight gain, unexplained weight loss, heat intolerance, cold intolerance NEUROLOGIC: Absent: headache, focal weakness or paresthesias, dizziness, unsteady gait, seizure, mental status changes, bladder or bowel incontinence PSYCHIATRIC: Absent: anxiety, depression, suicidal or homicidal ideation, hallucinations. PHYSICAL EXAMINATION Vital Signs - 24 hr 04/25/19 04/25/19 04/25/19 15:41 21:00 22:00 Temperature 98.4 F 98.6 F Pulse Rate 93 H 91 H Respiratory 20 20 20 Rate Blood Pressure 137/76 132/79 O2 Sat by Pulse 99 Oximetry (%) 04/26/19 04/26/19 04/26/19 06:00 09:00 10:00 Temperature 98.3 F Pulse Rate 94 H 88 Respiratory 20 20 Rate Blood Pressure 122/74 121/67 O2 Sat by Pulse 99 Oximetry (%) 04/26/19 13:46 Temperature 97.8 F Pulse Rate 82 Respiratory 20 Rate Blood Pressure 125/71 O2 Sat by Pulse Oximetry (%) GENERAL: Awake, alert, and fully oriented, in no acute distress. HEAD: Normal with no signs of trauma. EYES: Pupils equal, round and reactive to light, extraocular movements intact, EARS, NOSE, THROAT: Moist mucous membranes. NECK: supple without lymphadenopathy, LUNGS: Breath sounds equal, clear to auscultation bilaterally. HEART: Regular rate and rhythm, normal S1 and S2, LLSB murmur,no rub or gallop. ABDOMEN: Soft, nontender, not distended, hypoactive bowel sounds, no guarding, RLQ ileostomy bag left inguinal and suprapubilc lymphadenopathy , med epigastric lympadenopathy no axilary or submandibular, or lyph nodes palpated no breast mass palpated LOWER EXTREMITIES: 2+ pulses, warm, well-perfused. No calf tenderness. No peripheral edema. NEUROLOGICAL: no focal deficit . Normal speech. PSYCHIATRIC: Cooperative. Good eye contact. SKIN: Warm, dry, normal turgor, Laboratory Results - last 24 hr 04/25/19 12:00 Iron 19 L TIBC 189 L Iron Saturation 10 L Unsaturated IBC 170 L Ferritin 242.4 Active Medications Generic Name Dose Route Start Last Admin Trade Name Freq PRN Reason Stop Dose Admin Acetaminophen 1,000 mg 04/25/19 04:27 04/26/19 07:00 Ofirmev Injection - IVPB 1,000 mg Q6H PRN Administration PAIN LEVEL 1-5 Heparin Sodium (Porcine) 5,000 unit 04/25/19 10:00 04/26/19 10:49 Heparin - SQ 5,000 unit BID RON Administration IV Flush 10 ml 04/25/19 12:51 Adam-Cath Flush IVPUSH PRN PRN HOSPITAL PROTOCOL Sodium Chloride 1,000 mls @ 42 mls/hr 04/25/19 04:30 04/26/19 05:43 Normal Saline - IV 42 mls/hr ASDIR RON Administration Levothyroxine Sodium 25 mcg 04/26/19 10:00 04/26/19 10:51 Synthroid Injection - IVPUSH 25 mcg DAILY RON Administration Ondansetron HCl 4 mg 04/25/19 04:25 Zofran Injection IM Q6H PRN NAUSEA AND/OR VOMITING CBC, BMP 04/25/19 12:00 04/25/19 12:00 IMPRESSION: Interval development of a distal small bowel obstruction is noted in comparison to a CT exam of . Increased hepatic metastatic neoplastic disease is noted. There is also increased bilateral inguinal lymphadenopathy as well as increased size of a partially cystic/necrotic pelvic mass lesion. Status post cystectomy with right lower quadrant ileostomy as in the prior exam. Status post left nephrectomy. 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 ASSESSMENT/PLAN: 78 year old female with a PMH of HTN, HLD, thyroiditis, stage 4 TCC Bladder CA (s/p Cystectomy in 2015), Kidney CA (s/p L nephrectomy in 2014), currently on chemotherapy (last session 04/18/2019 and next session scheduled for tomorrow) presenting with intermittent nausea and vomiting x 2 days. Admitted for a developing SBO. # Anemai normochromic normocytic anemia likely mixed picture iron defficiency and anemia of chronic disease * maintain Hgb > 8 * monitor cbc * iron studies with ferritin 200 and low iron * B12 , FA , TSH * NPO * currently on atezolizumbab * venofer every other day for total 3 doses # SBO # Bladder cancer s.p resection with ileostomy with mets to bone # pelvic lymph adenopathy #pelvic mass necrotic lesion #Left nephectomy, tcc # complicated UTI, dc abx follow cx per ID # HTN # HLD # Hypothyroidism Dispo: We will continue to follow the patient. Thank you for this consultative opportunity. Visit type - Emergency Visit Emergency Visit: Yes ED Registration Date: 04/25/19 Care time: The patient presented to the Emergency Department on the above date and was hospitalized for further evaluation of their emergent condition. - New Patient This patient is new to me today: Yes Date on this admission: 04/25/19 - Critical Care Critical Care patient: No ATTENDING PHYSICIAN STATEMENT I saw and evaluated the patient. I reviewed the resident's note and discussed the case with the resident. I agree with the resident's findings and plan as documented. SUBJECTIVE: OBJECTIVE: ASSESSMENT AND PLAN:
[2019-04-26 15:41] LABS: BASO % 1.2 % (0-2.0); HEMATOCRIT 24.7 % (32.4-45.2); HEMOGLOBIN 7.8 GM/dL (10.7-15.3); MCH 27.1 pg (25.7-33.7); MCHC 31.8 g/dl (32.0-36.0); MEAN CELL VOLUME 85.2 fl (80-96); MEAN PLT VOLUME 8.1 fl (7.5-11.1); MONO % 16.9 % (3.8-10.2); NEUT % 61.9 % (42.8-82.8); PLATELET COUNT 273 K/MM3 (134-434); RBC 2.89 M/mm3 (3.60-5.2); RDW 18.6 % (11.6-15.6); WHITE BLOOD COUNT 5.7 K/mm3 (4.0-10.0)
[2019-04-26] MEDS ORDERED: FERRIC CARBOXYMALTOSE 750 MG in SODIUM CHLORIDE 250 ML IVPB ONE (19:00)
--- NOTE | 2019-04-26 19:27 | PN ---
Teaching Attending Note Name of Resident: Steven Bishop ATTENDING PHYSICIAN STATEMENT I saw and evaluated the patient. I reviewed the resident's note and discussed the case with the resident. I agree with the resident's findings and plan as documented. SUBJECTIVE: Metastatic bladder ca s/p left ileal conduit , s/p cystectomy with ileal conduit Presents with SBO S/P multiple treatments of carboplatinum, gemcitibine, pembrolizumab, aqnd most recently taxol. Previous SBO x [address] with pathologic pelvic fx - s/p RT, necrotic pelvic masses and SBO . Last Vital Signs Temp Pulse Resp BP Pulse Ox 98.0 F 80 20 120/69 99 04/26/19 19:10 04/26/19 19:10 04/26/19 19:10 04/26/19 19:10 04/26/19 09:00 HEENT: ARIANE, EOM Intact Oropharynx: No thrush, No mucositis Neck: Supple Nodes: Without adenopathy Breasts: Without masses Cor: RSR, No murmurs, No gallops Lungs: Clear to P&A Abd: ileal conduit , multiple inguinal -- left and right masses, midline abdominal and suprapubic masses . Bowel sounds present. Ext:No significant edema Skin: No rashes, Integument intact CBC, BMP 04/26/19 14:45 04/25/19 12:00 Current Medications Generic Name Dose Route Start Last Admin Trade Name Freq PRN Reason Stop Dose Admin Acetaminophen 1,000 mg 04/25/19 04:27 04/26/19 17:24 Ofirmev Injection - IVPB 1,000 mg Q6H PRN Administration PAIN LEVEL 1-5 Heparin Sodium (Porcine) 5,000 unit 04/25/19 10:00 04/26/19 10:49 Heparin - SQ 5,000 unit BID RON Administration IV Flush 10 ml 04/25/19 12:51 Adam-Cath Flush IVPUSH PRN PRN HOSPITAL PROTOCOL Sodium Chloride 1,000 mls @ 42 mls/hr 04/25/19 04:30 04/26/19 05:43 Normal Saline - IV 42 mls/hr ASDIR RON Administration Ferric Carboxymaltose 750 mg/ 265 mls @ 530 mls/hr 04/26/19 19:00 Sodium Chloride IVPB 01/14/20 19:29 ONCE ONE Levothyroxine Sodium 25 mcg 04/26/19 10:00 04/26/19 10:51 Synthroid Injection - IVPUSH 25 mcg DAILY RON Administration Ondansetron HCl 4 mg 04/25/19 04:25 Zofran Injection IM Q6H PRN NAUSEA AND/OR VOMITING Impression: Metastatic bladder ca SBO Anemia S/p left nephrectomy S/P cystectomy with ileal conduit Plan: Being treated conservatively for SBO. OBJECTIVE: ASSESSMENT AND PLAN:
[2019-04-27] MEDS: SODIUM CHLORIDE 1,000 ML IV SCH (08:00)
[2019-04-27] MEDS: ACETAMINOPHEN 1000 MG/100 ML VIAL (NON FORMULARY) IVPB PRN ×2 (08:57→18:08)
[2019-04-27 09:34] LABS: BASO % 1.3 % (0-2.0); EOS % 1.2 % (0-4.5); HEMATOCRIT 27.1 % (32.4-45.2); HEMOGLOBIN 8.6 GM/dL (10.7-15.3); LYMPH % 17.7 % (8-40); MCH 27.4 pg (25.7-33.7); MCHC 31.9 g/dl (32.0-36.0); MEAN CELL VOLUME 85.7 fl (80-96); MEAN PLT VOLUME 8.5 fl (7.5-11.1); MONO % 13.8 % (3.8-10.2); PLATELET COUNT 336 K/MM3 (134-434); RBC 3.16 M/mm3 (3.60-5.2); RDW 18.8 % (11.6-15.6); WHITE BLOOD COUNT 8.1 K/mm3 (4.0-10.0)
[2019-04-27] MEDS: LEVOTHYROXINE SODIUM 100 MCG VIAL IVPUSH SCH (10:25)
[2019-04-27] MEDS: HEPARIN NA (PORCINE) 5,000 UNITS/ML 1ML VIAL SQ SCH ×2 (10:25→21:06)
--- NOTE | 2019-04-27 10:33 | PN ---
Progress Note, Physician Chief Complaint: SBO UTI History of Present Illness: NAD denies any abd pain at the moment or N/V Seen by Surgery, awaiting recommendation AXR this shows persistent SBO Seen by Oncology - Current Medication List Current Medications: Active Medications Acetaminophen (Ofirmev Injection -) 1,000 mg IVPB Q6H PRN PRN Reason: PAIN LEVEL 1-5 Last Admin: 04/27/19 08:57 Dose: 1,000 mg Heparin Sodium (Porcine) (Heparin -) 5,000 unit SQ BID [facility] Last Admin: 04/26/19 22:01 Dose: 5,000 unit IV Flush (Adam-Cath Flush) 10 ml IVPUSH PRN PRN PRN Reason: HOSPITAL PROTOCOL Sodium Chloride (Normal Saline -) 1,000 mls @ 42 mls/hr IV ASDIR [facility] Last Admin: 04/27/19 08:00 Dose: 42 mls/hr Levothyroxine Sodium (Synthroid Injection -) 25 mcg IVPUSH DAILY [facility] Last Admin: 04/26/19 10:51 Dose: 25 mcg Ondansetron HCl (Zofran Injection) 4 mg IM Q6H PRN PRN Reason: NAUSEA AND/OR VOMITING - Objective Vital Signs: Vital Signs Temperature 97 F L 04/27/19 06:00 Pulse Rate 87 04/27/19 06:00 Respiratory Rate 04/27/19 06:00 Blood Pressure 123/67 04/27/19 06:00 O2 Sat by Pulse Oximetry (%) 99 04/26/19 21:00 Constitutional: Yes: No Distress, Calm, Thin Cardiovascular: Yes: Regular Rate and Rhythm Respiratory: Yes: Regular Gastrointestinal: Yes: Normal Bowel Sounds, Soft Genitourinary: Yes: Other (ileostomy) Musculoskeletal: Yes: WNL Extremities: Yes: WNL Edema: No Peripheral Pulses WNL: Yes Neurological: Yes: Alert, Oriented Psychiatric: Yes: Alert, Oriented Labs: CBC, BMP 04/27/19 08:00 INR, PTT INR 1.10 (0.83-1.09) H 04/24/19 23:58 Problem List - Problems (1) SBO (small bowel obstruction) Assessment/Plan: -NGT tried in ER with inability to obtain access, can hold off inserting NGT for now given pt doesn't have N/V -Insert NGT if pt develops N/V -Surgical consult -AXR this AM shows SBO still present -Will obtain AXR flat and upright Problems reviewed: Yes Code(s): K56.609 - UNSP INTESTNL OBST, UNSP TO PARTIAL VERSUS COMPLETE OBST (2) Cancer of genitourinary organ Assessment/Plan: -Ileostomy -Increase in hepatic metastasis -Oncology consult Problems reviewed: Yes Code(s): PXF4712 - (3) UTI (urinary tract infection) Assessment/Plan: -Colonized -ID consult -No abs recommended at this time -afebrile Problems reviewed: Yes Code(s): N39.0 - URINARY TRACT INFECTION, SITE NOT SPECIFIED Qualifiers: Urinary tract infection type: acute cystitis Hematuria presence: without hematuria Qualified Code(s): N30.00 - Acute cystitis without hematuria (4) Anemia Assessment/Plan: -chronic -Received Venofer yesterday -Hemotology+ Oncology -monitor trend Problems reviewed: Yes Code(s): D64.9 - ANEMIA, UNSPECIFIED Assessment/Plan see problem list
[2019-04-27 10:41] LABS: ALBUMIN 2.8 g/dl (3.4-5.0); BILIRUBIN,TOTAL 0.4 mg/dL (0.2-1); CALCIUM 7.5 mg/dL (8.5-10.1); CREATININE 0.9 mg/dL (0.55-1.3); POTASSIUM 3.6 mmol/L (3.5-5.1); TOT PROT 5.2 g/dl (6.4-8.2)
[2019-04-27 11:04] LABS: ANISOCYTOSIS 0; MACROCYTOSIS 0; PLATELET ESTIMATE NORMAL
[2019-04-27] MEDS ORDERED: PORTA CATH FLUSH 10 ML IVPUSH ONE (12:39)
--- NOTE | 2019-04-27 15:04 | PN.GI ---
GI Progress Note Subjective: No vomiting Some abdominal discomfort No flatus Has not had NGT due to difficulty placing in ER per patient - Objective Vital Signs: Vital Signs Temperature 98.0 F 04/27/19 14:41 Pulse Rate 80 04/27/19 14:41 Respiratory Rate 04/27/19 14:41 Blood Pressure 128/71 04/27/19 14:41 O2 Sat by Pulse Oximetry (%) 99 04/27/19 09:00 Constitutional: Calm Eyes: No: Sclera Icterus Cardiovascular: Yes: Regular Rate and Rhythm Gastrointestinal Inspection: Yes: Other (mildly protuberant) ...Auscultate: Yes: Normoactive Bowel Sounds ...Palpate: Yes: Soft, Tenderness (Mild TTP mid abdomen) ...Percussion: Yes: Tympanitic Edema: Yes Labs: CBC, BMP 04/27/19 08:00 04/27/19 06:00 INR, PTT INR 1.10 (0.83-1.09) H 04/24/19 23:58 Problem List - Problems (1) SBO (small bowel obstruction) Assessment/Plan: Recurrent: ? related to malignancy / adhesions Advise: Surgical follow-up NG Tube if attempting to treat conservatively F/U AXR results Code(s): K56.609 - UNSP INTESTNL OBST, UNSP TO PARTIAL VERSUS COMPLETE OBST
--- NOTE | 2019-04-27 16:50 | PN ---
Physical Exam: SUBJECTIVE: Patient seen and examined no new [place] , did not pass flatus or stool denies any fever or chills, OBJECTIVE: Vital Signs Period Temp Pulse Resp BP Sys/Salmon Pulse Ox Last 24 Hr 97 F-98.0 F 78-87 18-20 120-138/58-71 99-99 GENERAL: Awake, alert, and fully oriented, in no acute distress. HEAD: Normal with no signs of trauma. EYES: Pupils equal, round and reactive to light, extraocular movements intact, EARS, NOSE, THROAT: Moist mucous membranes. NECK: supple without lymphadenopathy, LUNGS: Breath sounds equal, clear to auscultation bilaterally. HEART: Regular rate and rhythm, normal S1 and S2, LLSB murmur,no rub or gallop. ABDOMEN: Soft, nontender, not distended, hypoactive bowel sounds, no guarding, RLQ ileostomy bag left inguinal and suprapubilc lymphadenopathy , med epigastric lympadenopathy no axilary or submandibular, or lyph nodes palpated no breast mass palpated LOWER EXTREMITIES: 2+ pulses, warm, well-perfused. No calf tenderness. No peripheral edema. NEUROLOGICAL: no focal deficit . Normal speech. PSYCHIATRIC: Cooperative. Good eye contact. SKIN: Warm, dry, normal turgor, Laboratory Results - last 24 hr 04/27/19 04/27/19 06:00 08:00 WBC 8.1 RBC 3.16 L Hgb 8.6 L Hct 27.1 L MCV 85.7 MCH 27.4 MCHC 31.9 L RDW 18.8 H Plt Count 336 D MPV 8.5 Absolute Neuts (auto) 5.3 Neutrophils % 66.0 Neutrophils % (Manual) 78.2 Band Neutrophils % 3.0 Lymphocytes % 17.7 Lymphocytes % (Manual) 5.9 L D Monocytes % 13.8 H Monocytes % (Manual) 11 H D Eosinophils % 1.2 Eosinophils % (Manual) 0.0 Basophils % 1.3 Basophils % (Manual) 0.0 Myelocytes % (Man) 0 D Promyelocytes % (Man) 1 D Blast Cells % (Manual) 0 Nucleated RBC % 0 Metamyelocytes 1 D Hypochromia 0 Platelet Estimate Normal Polychromasia 0 Poikilocytosis 0 Anisocytosis 0 Microcytosis 0 Macrocytosis 0 Sodium 143 Potassium 3.6 Chloride 110 H Carbon Dioxide 15 L Anion Gap 17 H BUN 14.0 Creatinine 0.9 Est GFR (CKD-EPI)AfAm 71.98 Est GFR (CKD-EPI)NonAf 62.11 Random Glucose 59 L Calcium 7.5 L Total Bilirubin 0.4 AST 27 ALT 11 L Alkaline Phosphatase 106 Total Protein 5.2 L Albumin 2.8 L Vitamin B12 1911 H Serum Folate 8 TSH 0.34 L Active Medications Generic Name Dose Route Start Last Admin Trade Name Freq PRN Reason Stop Dose Admin Acetaminophen 1,000 mg 04/25/19 04:27 04/27/19 08:57 Ofirmev Injection - IVPB 1,000 mg Q6H PRN Administration PAIN LEVEL 1-5 Heparin Sodium (Porcine) 5,000 unit 04/25/19 10:00 04/27/19 10:25 Heparin - SQ 5,000 unit BID RON Administration IV Flush 10 ml 04/25/19 12:51 Adam-Cath Flush IVPUSH PRN PRN HOSPITAL PROTOCOL Sodium Chloride 1,000 mls @ 42 mls/hr 04/25/19 04:30 04/27/19 08:00 Normal Saline - IV 42 mls/hr ASDIR RON Administration Levothyroxine Sodium 25 mcg 04/26/19 10:00 04/27/19 10:25 Synthroid Injection - IVPUSH 25 mcg DAILY RON Administration Ondansetron HCl 4 mg 04/25/19 04:25 Zofran Injection IM Q6H PRN NAUSEA AND/OR VOMITING CBC, BMP 04/27/19 08:00 04/27/19 06:00 IMPRESSION: Interval development of a distal small bowel obstruction is noted in comparison to a CT exam of . Increased hepatic metastatic neoplastic disease is noted. There is also increased bilateral inguinal lymphadenopathy as well as increased size of a partially cystic/necrotic pelvic mass lesion. Status post cystectomy with right lower quadrant ileostomy as in the prior exam. Status post left nephrectomy. 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 ASSESSMENT/PLAN: 78 year old female with a PMH of HTN, HLD, thyroiditis, stage 4 TCC Bladder CA (s/p Cystectomy in 2015), Kidney CA (s/p L nephrectomy in 2014), currently on chemotherapy (last session 04/18/2019 and next session scheduled for tomorrow) presenting with intermittent nausea and vomiting x 2 days. Admitted for a developing SBO. # Anemai normochromic normocytic anemia likely mixed picture iron defficiency and anemia of chronic disease * maintain Hgb > 8 * monitor cbc * iron studies with ferritin 200 and low iron * B12 , FA , TSH * NPO * currently on atezolizumbab * venofer every other day for total 3 doses # SBO # Bladder cancer s.p resection with ileostomy with mets to bone # pelvic lymph adenopathy #pelvic mass necrotic lesion #Left nephectomy, tcc # complicated UTI, dc abx follow cx per ID # HTN # HLD # Hypothyroidism Dispo: We will continue to follow the patient. Thank you for this consultative opportunity. Visit type - Emergency Visit Emergency Visit: Yes ED Registration Date: 04/25/19 Care time: The patient presented to the Emergency Department on the above date and was hospitalized for further evaluation of their emergent condition. - New Patient This patient is new to me today: No - Critical Care Critical Care patient: No ATTENDING PHYSICIAN STATEMENT I saw and evaluated the patient. I reviewed the resident's note and discussed the case with the resident. I agree with the resident's findings and plan as documented. SUBJECTIVE: OBJECTIVE: ASSESSMENT AND PLAN:
[2019-04-28] MEDS: ACETAMINOPHEN 1000 MG/100 ML VIAL (NON FORMULARY) IVPB PRN ×2 (05:45→16:38)
--- NOTE | 2019-04-28 08:31 | CONSULT ---
Consult - text type - Consultation Consultation Note: CC: metastatic transitional cell carcinoma with small bowel obstruction HPI: Patient with history of metastatic TCC s/p radical cystectomy and left nephrectomy who failed chemotherapy and has bulky pelvic disease. Patient is currently improved in terms of nausea and vomiting. Patient may require surgical intervention. VSS; afeb abd- mild distention with palpable pelvic mass; ileal conduit is patent and clear urine is noted labs and CT scan reviewed imp small bowel obstruction metastatic TCC with bulky pelvic disease plan renal funtion is stable SBO management as per Dr. Tamez discussed with patient x15 minutes
[2019-04-28] MEDS: HEPARIN NA (PORCINE) 5,000 UNITS/ML 1ML VIAL SQ SCH ×2 (10:19→22:11)
[2019-04-28] MEDS: LEVOTHYROXINE SODIUM 100 MCG VIAL IVPUSH SCH (10:19)
[2019-04-28] MEDS: SODIUM CHLORIDE 1,000 ML IV SCH (10:20)
--- NOTE | 2019-04-28 14:34 | PN ---
Physical Exam: SUBJECTIVE: Patient seen and examined no new [place] , did not pass flatus or stool denies any fever or chills, OBJECTIVE: Vital Signs Period Temp Pulse Resp BP Sys/Salmon Pulse Ox Last 24 Hr 97.8 F-98.3 F 80-94 18-20 116-130/68-83 98 GENERAL: Awake, alert, and fully oriented, in no acute distress. HEAD: Normal with no signs of trauma. EYES: Pupils equal, round and reactive to light, extraocular movements intact, EARS, NOSE, THROAT: Moist mucous membranes. NECK: supple without lymphadenopathy, LUNGS: Breath sounds equal, clear to auscultation bilaterally. HEART: Regular rate and rhythm, normal S1 and S2, LLSB murmur,no rub or gallop. ABDOMEN: Soft, nontender, not distended, hypoactive bowel sounds, no guarding, RLQ ileostomy bag left inguinal and suprapubilc lymphadenopathy , med epigastric lympadenopathy no axilary or submandibular, or lyph nodes palpated no breast mass palpated LOWER EXTREMITIES: 2+ pulses, warm, well-perfused. No calf tenderness. No peripheral edema. NEUROLOGICAL: no focal deficit . Normal speech. PSYCHIATRIC: Cooperative. Good eye contact. SKIN: Warm, dry, normal turgor, Laboratory Results - last 24 hr 04/27/19 08:00 Erythropoietin 28.1 H Active Medications Generic Name Dose Route Start Last Admin Trade Name Freq PRN Reason Stop Dose Admin Heparin Sodium (Porcine) 5,000 unit 04/25/19 10:00 04/28/19 10:19 Heparin - SQ 5,000 unit BID RON Administration IV Flush 10 ml 04/25/19 12:51 Adam-Cath Flush IVPUSH PRN PRN HOSPITAL PROTOCOL Sodium Chloride 1,000 mls @ 42 mls/hr 04/25/19 04:30 04/28/19 10:20 Normal Saline - IV 42 mls/hr ASDIR RON Administration Amino Acids 1,000 mls @ 84 mls/hr 04/28/19 12:45 Clinimix - IV Q12H RON Levothyroxine Sodium 25 mcg 04/26/19 10:00 04/28/19 10:19 Synthroid Injection - IVPUSH 25 mcg DAILY RON Administration Ondansetron HCl 4 mg 01/13/20 04:25 Zofran Injection IM Q6H PRN NAUSEA AND/OR VOMITING CBC, BMP 04/27/19 08:00 04/27/19 06:00 IMPRESSION: Interval development of a distal small bowel obstruction is noted in comparison to a CT exam of . Increased hepatic metastatic neoplastic disease is noted. There is also increased bilateral inguinal lymphadenopathy as well as increased size of a partially cystic/necrotic pelvic mass lesion. Status post cystectomy with right lower quadrant ileostomy as in the prior exam. Status post left nephrectomy. 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 ASSESSMENT/PLAN: 78 year old female with a PMH of HTN, HLD, thyroiditis, stage 4 TCC Bladder CA (s/p Cystectomy in 2015), Kidney CA (s/p L nephrectomy in 2014), currently on chemotherapy (last session 04/18/2019 and next session scheduled for tomorrow) presenting with intermittent nausea and vomiting x 2 days. Admitted for a developing SBO. # Anemai normochromic normocytic anemia likely mixed picture iron defficiency and anemia of chronic disease * maintain Hgb > 8 * monitor cbc * iron studies with ferritin 200 and low iron * B12 , FA , TSH * NPO * currently on atezolizumbab * venofer every other day for total 3 doses # SBO # Bladder cancer s.p resection with ileostomy with mets to bone # pelvic lymph adenopathy #pelvic mass necrotic lesion #Left nephectomy, tcc # complicated UTI, dc abx follow cx per ID # HTN # HLD # Hypothyroidism Dispo: We will continue to follow the patient. Thank you for this consultative opportunity. Visit type - Emergency Visit Emergency Visit: Yes ED Registration Date: 04/25/19 Care time: The patient presented to the Emergency Department on the above date and was hospitalized for further evaluation of their emergent condition. - New Patient This patient is new to me today: No - Critical Care Critical Care patient: No ATTENDING PHYSICIAN STATEMENT I saw and evaluated the patient. I reviewed the resident's note and discussed the case with the resident. I agree with the resident's findings and plan as documented. SUBJECTIVE: OBJECTIVE: ASSESSMENT AND PLAN:
--- NOTE | 2019-04-28 15:12 | PN ---
Progress Note (short form) - Note Progress Note: Attending Surgeon No flatus/no BM VSS AF abdo-soft; nontender; urostomy functions well; slight tympany; o/w negative; suprapubic mass present. AXR's reviewed and c/w SBO IMP: sbo PLAN: Continue NPO/IVF/serial exams and xrays; start Clinimix. Theodore Tamez MD FACS
[2019-04-28] MEDS: AMINO ACIDS 4.25%/D5W 1,000 ML IV SCH (15:56)
[2019-04-28 17:13] LABS: BLOOD UREA NITROGEN 12.1 mg/dL (7-18); CALCIUM 7.4 mg/dL (8.5-10.1); CREATININE 0.9 mg/dL (0.55-1.3); POTASSIUM 3.5 mmol/L (3.5-5.1)
[2019-04-28] MEDS ORDERED: DEXTROSE 50%-WATER - 25 GM/50 ML VIAL IVPUSH ONE (18:35)
[2019-04-28] MEDS ORDERED: DEXTROSE 50%-WATER 25 GM/50 ML DISP.SYRIN ONE (18:36)
--- NOTE | 2019-04-28 18:41 | PN ---
Progress Note, Physician Chief Complaint: SBO UTI History of Present Illness: NAD denies any abd pain at the moment or N/V Seen by Surgery, awaiting recommendation AXR this shows persistent SBO Seen by Oncology - Current Medication List Current Medications: Active Medications Acetaminophen (Ofirmev Injection -) 1,000 mg IVPB Q6H PRN PRN Reason: PAIN 1-3 Last Admin: 04/28/19 16:38 Dose: 1,000 mg Dextrose (D50w (Vial) -) 25 gm IVPUSH NOW ONE Stop: 04/28/19 18:36 Heparin Sodium (Porcine) (Heparin -) 5,000 unit SQ BID [facility] Last Admin: 04/28/19 10:19 Dose: 5,000 unit IV Flush (Adam-Cath Flush) 10 ml IVPUSH PRN PRN PRN Reason: HOSPITAL PROTOCOL Sodium Chloride (Normal Saline -) 1,000 mls @ 42 mls/hr IV ASDIR [facility] Last Admin: 04/28/19 10:20 Dose: 42 mls/hr Amino Acids (Clinimix -) 1,000 mls @ 84 mls/hr IV Q12H [facility] Last Admin: 04/28/19 15:56 Dose: 84 mls/hr Levothyroxine Sodium (Synthroid Injection -) 25 mcg IVPUSH DAILY [facility] Last Admin: 04/28/19 10:19 Dose: 25 mcg Ondansetron HCl (Zofran Injection) 4 mg IM Q6H PRN PRN Reason: NAUSEA AND/OR VOMITING - Objective Vital Signs: Vital Signs Temperature 98.8 F 04/28/19 15:13 Pulse Rate 87 04/28/19 15:13 Respiratory Rate 20 04/28/19 15:13 Blood Pressure 138/83 04/28/19 15:13 O2 Sat by Pulse Oximetry (%) 98 04/27/19 21:00 Constitutional: Yes: No Distress, Calm, Thin Cardiovascular: Yes: Regular Rate and Rhythm Respiratory: Yes: Regular Gastrointestinal: Yes: Soft, Hypoactive Bowel Sounds Genitourinary: Yes: Other (ileostomy) Musculoskeletal: Yes: Muscle Weakness Extremities: Yes: WNL Edema: No Peripheral Pulses WNL: Yes Neurological: Yes: Alert, Oriented Psychiatric: Yes: Alert, Oriented Labs: CBC, BMP 04/27/19 08:00 04/28/19 13:00 INR, PTT INR 1.10 (0.83-1.09) H 04/24/19 23:58 Problem List - Problems (1) SBO (small bowel obstruction) Assessment/Plan: -NGT tried in ER with inability to obtain access, can hold off inserting NGT for now given pt doesn't have N/V -Insert NGT if pt develops N/V -Surgical consult -AXR this AM shows SBO still present -Start Clinimix Problems reviewed: Yes Code(s): K56.609 - UNSP INTESTNL OBST, UNSP TO PARTIAL VERSUS COMPLETE OBST (2) Cancer of genitourinary organ Assessment/Plan: -Ileostomy -Increase in hepatic metastasis -Oncology consult Problems reviewed: Yes Code(s): YLP7841 - (3) UTI (urinary tract infection) Assessment/Plan: -Colonized -ID consult -No abs recommended at this time -afebrile Problems reviewed: Yes Code(s): N39.0 - URINARY TRACT INFECTION, SITE NOT SPECIFIED Qualifiers: Urinary tract infection type: acute cystitis Hematuria presence: without hematuria Qualified Code(s): N30.00 - Acute cystitis without hematuria (4) Anemia Assessment/Plan: -chronic -Received Venofer yesterday -Hemotology+ Oncology -monitor trend Problems reviewed: Yes Code(s): D64.9 - ANEMIA, UNSPECIFIED Assessment/Plan see problem list
--- NOTE | 2019-04-28 19:57 | CON.PSL ---
Psychology Consult Consult Specialty:: Clinical Psychology Reason for Consultation:: Depression Current Medications: Active Medications Acetaminophen (Ofirmev Injection -) 1,000 mg IVPB Q6H PRN PRN Reason: PAIN 1-3 Last Admin: 04/28/19 16:38 Dose: 1,000 mg Heparin Sodium (Porcine) (Heparin -) 5,000 unit SQ BID [facility] Last Admin: 04/28/19 10:19 Dose: 5,000 unit IV Flush (Adam-Cath Flush) 10 ml IVPUSH PRN PRN PRN Reason: HOSPITAL PROTOCOL Sodium Chloride (Normal Saline -) 1,000 mls @ 42 mls/hr IV ASDIR [facility] Last Admin: 04/28/19 10:20 Dose: 42 mls/hr Amino Acids (Clinimix -) 1,000 mls @ 84 mls/hr IV Q12H [facility] Last Admin: 04/28/19 15:56 Dose: 84 mls/hr Levothyroxine Sodium (Synthroid Injection -) 25 mcg IVPUSH DAILY [facility] Last Admin: 04/28/19 10:19 Dose: 25 mcg Ondansetron HCl (Zofran Injection) 4 mg IM Q6H PRN PRN Reason: NAUSEA AND/OR VOMITING Allergies: Allergies Allergy/AdvReac Type Severity Reaction Status Date / Time No Known Drug Allergies Allergy Verified 03/03/19 15:04 Hx Alcohol Use: No Hx Substance Use: No Substance Use Type: None Hx Substance Use Treatment: No Current Medical Exam-Psy Attention: Alert Orientation: Time, Person, Place Immediate Term Memory: 06/13 Expressive: Coherent Receptive: Age Appropriate Comprehension of Spoken Words Hallucinations: Absent Thought Process: Intact Depression: Moderate Hopelessness: No Loss of Interest: No Danger to Self and Others: No Sleep: Poorly Support System: Family, Friend, Jada/God Leisure activities: With friends, With Family Problem List - Problem (1) Major depression, recurrent Code(s): F33.9 - MAJOR DEPRESSIVE DISORDER, RECURRENT, UNSPECIFIED Qualifiers: Major depression episode severity: moderate (2) Somatic dysfunction Code(s): M99.09 - SEGMENTAL AND SOMATIC DYSFUNCTION OF ABDOMEN AND OTH REGIONS (3) Somatic symptom disorder, persistent, moderate, with predominant pain Code(s): F45.1 - UNDIFFERENTIATED SOMATOFORM DISORDER Assessment/Plan The patient is a peter 78 y/o lady suffering from cancer which has left her with one kidney, excision of her bladder and unable to eat via po She was quite engaged. She suffers from depression related mostly to her limited functioning and dependency on others due to her cancer. Treatment will consist of psychotherapy to provide mood enhancement as well as coping skills for her disease and pain. Hypnosis will be employed to help alleviate pain which is reported to average about a 7. It is recommended that Shannan Haro-Palliative Care Nurse and Rev. Amado Durand also be consulted as they can help with her coping needs and providing comfort care interventions. The patient will be seen next week for treatment. Thank you for your kind referral.
--- NOTE | 2019-04-28 20:14 | PN ---
Teaching Attending Note Name of Resident: Steven Bishop ATTENDING PHYSICIAN STATEMENT I saw and evaluated the patient. I reviewed the resident's note and discussed the case with the resident. I agree with the resident's findings and plan as documented. SUBJECTIVE: Feels better, had a small bowel movement and passed gas. No nausea or vomiting OBJECTIVE: Last Vital Signs Temp Pulse Resp BP Pulse Ox 98.8 F 87 20 138/83 98 04/28/19 15:13 04/28/19 15:13 04/28/19 15:13 04/28/19 15:13 04/27/19 21:00 General: NAD HEENT: MMM CVS:S1, S2 Lungs: CTAB Abdomen: + Bowel sounds. Ileal conduit. + Inguinal masses (bilat) + Abd and Suprapubic masses Ext: No edema Neuro: Moves all extremities Psych: Alert oriented conversant 04/27/19 08:00 04/28/19 13:00 Current Medications Acetaminophen (Ofirmev Injection -) 1,000 mg IVPB Q6H PRN PRN Reason: PAIN 1-3 Last Admin: 04/28/19 16:38 Dose: 1,000 mg Heparin Sodium (Porcine) (Heparin -) 5,000 unit SQ BID [facility] Last Admin: 04/28/19 10:19 Dose: 5,000 unit IV Flush (Adam-Cath Flush) 10 ml IVPUSH PRN PRN PRN Reason: HOSPITAL PROTOCOL Sodium Chloride (Normal Saline -) 1,000 mls @ 42 mls/hr IV ASDIR [facility] Last Admin: 04/28/19 10:20 Dose: 42 mls/hr Amino Acids (Clinimix -) 1,000 mls @ 84 mls/hr IV Q12H [facility] Last Admin: 04/28/19 15:56 Dose: 84 mls/hr Levothyroxine Sodium (Synthroid Injection -) 25 mcg IVPUSH DAILY [facility] Last Admin: 04/28/19 10:19 Dose: 25 mcg Ondansetron HCl (Zofran Injection) 4 mg IM Q6H PRN PRN Reason: NAUSEA AND/OR VOMITING ASSESSMENT AND PLAN: 78 y/o lady with a PMH of HTN, HLD, thyroiditis, stage 4 TCC Bladder CA (s/p Cystectomy in 2015), Kidney CA (s/p L nephrectomy in 2014), currently on chemotherapy (taxol) (last session 04/18/2019) presenting with intermittent nausea and vomiting x 2 days. Admitted for a developing SBO. Recommend: 1) SBO appears to be improving with some bowel activity. 2) Mtt Bladder CA. Received RT. Taxol per Dr. Cee 3) Anemia. Received Venofer. 4) Rest per Dr. Bishop's note 5) Thank you for this consultation
[2019-04-29] MEDS: AMINO ACIDS 4.25%/D5W 1,000 ML IV SCH ×2 (02:09→20:03)
[2019-04-29] MEDS: SODIUM CHLORIDE 1,000 ML IV SCH (07:22)
[2019-04-29] MEDS: ACETAMINOPHEN 1000 MG/100 ML VIAL (NON FORMULARY) IVPB PRN (07:51)
--- NOTE | 2019-04-29 10:01 | PN ---
Progress Note, Physician - Current Medication List Current Medications: Active Medications Acetaminophen (Ofirmev Injection -) 1,000 mg IVPB Q6H PRN PRN Reason: PAIN 1-3 Last Admin: 04/29/19 07:51 Dose: 1,000 mg Heparin Sodium (Porcine) (Heparin -) 5,000 unit SQ BID [facility] Last Admin: 04/28/19 22:11 Dose: 5,000 unit IV Flush (Adam-Cath Flush) 10 ml IVPUSH PRN PRN PRN Reason: HOSPITAL PROTOCOL Sodium Chloride (Normal Saline -) 1,000 mls @ 42 mls/hr IV ASDIR [facility] Last Admin: 04/29/19 07:22 Dose: Not Given Amino Acids (Clinimix -) 1,000 mls @ 84 mls/hr IV Q12H [facility] Last Admin: 04/29/19 02:09 Dose: 84 mls/hr Levothyroxine Sodium (Synthroid Injection -) 25 mcg IVPUSH DAILY [facility] Last Admin: 04/28/19 10:19 Dose: 25 mcg Ondansetron HCl (Zofran Injection) 4 mg IM Q6H PRN PRN Reason: NAUSEA AND/OR VOMITING - Objective Vital Signs: Vital Signs Temperature 97.8 F 04/29/19 05:30 Pulse Rate 80 04/29/19 05:30 Respiratory Rate 20 04/29/19 05:30 Blood Pressure 110/66 04/29/19 05:30 O2 Sat by Pulse Oximetry (%) 98 04/28/19 21:00 Cardiovascular: Yes: S1, S2 Respiratory: Yes: Regular, CTA Bilaterally Gastrointestinal: Yes: Soft, Hypoactive Bowel Sounds, Other (ileostomy abd masses) Labs: CBC, BMP 04/27/19 08:00 04/28/19 13:00 INR, PTT INR 1.10 (0.83-1.09) H 04/24/19 23:58 Assessment/Plan Problems (1) SBO (small bowel obstruction) Assessment/Plan: -NGT tried in ER with inability to obtain access, NGT out--xray -Insert NGT if pt develops N/V -Surgical consult -AXR this AM -Start Clinimix Problems reviewed: Yes Code(s): K56.609 - UNSP INTESTNL OBST, UNSP TO PARTIAL VERSUS COMPLETE OBST (2) Cancer of genitourinary organ Assessment/Plan: -Ileostomy -Increase in hepatic metastasis -Oncology consult Problems reviewed: Yes Code(s): [id number] - (3) UTI (urinary tract infection) Assessment/Plan: -Colonized -ID consult -No abs recommended at this time -afebrile Problems reviewed: Yes Code(s): N39.0 - URINARY TRACT INFECTION, SITE NOT SPECIFIED Qualifiers: Urinary tract infection type: acute cystitis Hematuria presence: without hematuria Qualified Code(s): N30.00 - Acute cystitis without hematuria (4) Anemia Assessment/Plan: -chronic -Received Venofer yesterday -Hemotology+ Oncology -monitor trend Problems reviewed: Yes Code(s): D64.9 - ANEMIA, UNSPECIFIED
[2019-04-29] MEDS: HEPARIN NA (PORCINE) 5,000 UNITS/ML 1ML VIAL SQ SCH ×2 (10:48→21:23)
[2019-04-29] MEDS: LEVOTHYROXINE SODIUM 100 MCG VIAL IVPUSH SCH (10:55)
[2019-04-29 12:05] LABS: BLOOD UREA NITROGEN 24.8 mg/dL (7-18); CALCIUM 8.1 mg/dL (8.5-10.1); CREATININE 0.9 mg/dL (0.55-1.3)
[2019-04-29 12:19] LABS: POTASSIUM 2.8 mmol/L (3.5-5.1)
[2019-04-29] MEDS: KCL 10 MEQ IVPB 10 MEQ/100 ML INFUS.BAG IVPB SCH ×3 (12:58→16:49)
--- NOTE | 2019-04-29 21:36 | PN ---
Progress Note (short form) - Note Progress Note: PAtient seen and examined Feels nauseous Had enema AFVSS Cor: RSR, No murmurs, No gallops Lungs: Clear to P&A Abd: Soft, suprapubic mass, urostomy Ext:No significant edema Labs/MEds reviewed A/P 78 y/o lady with a PMH of HTN, HLD, thyroiditis, stage 4 TCC Bladder CA (s/p Cystectomy in 2015), Kidney CA (s/p L nephrectomy in 2014), currently on chemotherapy (taxol) (last session 04/18/2019) presenting with intermittent nausea and vomiting x 2 days. Admitted for a developing SBO. Metastatic bladder ca s/p left ileal conduit , s/p cystectomy with ileal conduit Presents with SBO S/P multiple treatments of carboplatinum, gemcitibine, pembrolizumab, aqnd most recently taxol. Previous SBO x [address] with pathologic pelvic fx - s/p RT, necrotic pelvic masses and SBO . AXR --partil SBO HAd enema and bowel movement today on clears monitor gi/surgery f/u
[2019-04-30] MEDS: AMINO ACIDS 4.25%/D5W 1,000 ML IV SCH ×2 (01:49→08:48)
[2019-04-30] MEDS: ACETAMINOPHEN 1000 MG/100 ML VIAL (NON FORMULARY) IVPB PRN ×2 (01:51→08:28)
--- NOTE | 2019-04-30 08:48 | PN ---
Progress Note, Physician Chief Complaint: SBO UTI History of Present Illness: NAD denies any abd pain at the moment or N/V Seen by Surgery AXR this am shows persistent SBO Had BM x 2 overnight, Had vomiting x 1 overnight Had BM x 1 this AM Currently NPO K+ at 2.8, despite replacement with KCl 10 meq x 3 yesterday Seen by Oncology Wants to be transferred to [facility] under Dr Javier Haynes (Dr Andrés Steward-manager of corporate communications) - Current Medication List Current Medications: Active Medications Heparin Sodium (Porcine) (Heparin -) 5,000 unit SQ BID [facility] Last Admin: 04/29/19 21:23 Dose: 5,000 unit IV Flush (Adam-Cath Flush) 10 ml IVPUSH PRN PRN PRN Reason: HOSPITAL PROTOCOL Amino Acids (Clinimix -) 1,000 mls @ 84 mls/hr IV Q12H [facility] Last Admin: 04/30/19 01:49 Dose: Not Given Levothyroxine Sodium (Synthroid Injection -) 25 mcg IVPUSH DAILY [facility] Last Admin: 04/29/19 10:55 Dose: 25 mcg Ondansetron HCl (Zofran Injection) 4 mg IM Q6H PRN PRN Reason: NAUSEA AND/OR VOMITING Last Admin: 04/29/19 10:52 Dose: 4 mg - Objective Vital Signs: Vital Signs Temperature 97.9 F 04/30/19 05:33 Pulse Rate 94 H 04/30/19 05:33 Respiratory Rate 20 04/30/19 05:33 Blood Pressure 131/64 04/30/19 05:33 O2 Sat by Pulse Oximetry (%) 98 04/29/19 21:00 Constitutional: Yes: No Distress, Calm, Thin Cardiovascular: Yes: Regular Rate and Rhythm Respiratory: Yes: Regular Gastrointestinal: Yes: Normal Bowel Sounds, Soft Genitourinary: Yes: Other (ileostomy) Musculoskeletal: Yes: Muscle Weakness Extremities: Yes: WNL Edema: No Peripheral Pulses WNL: Yes Neurological: Yes: Alert, Oriented Psychiatric: Yes: Alert, Oriented Labs: CBC, BMP 04/27/19 08:00 04/29/19 10:48 INR, PTT INR 1.10 (0.83-1.09) H 04/24/19 23:58 Problem List - Problems (1) SBO (small bowel obstruction) Assessment/Plan: -NGT tried in ER with inability to obtain access, can hold off inserting NGT for now given pt doesn't have N/V -Insert NGT if pt develops N/V -Surgical consult -AXR this AM shows SBO still present -Start Clinimix Problems reviewed: Yes Code(s): K56.609 - UNSP INTESTNL OBST, UNSP TO PARTIAL VERSUS COMPLETE OBST (2) Cancer of genitourinary organ Assessment/Plan: -Ileostomy -CT abd-Increase in hepatic metastatic lesions+ SBO -Oncology consult Problems reviewed: Yes Code(s): XQY5308 - (3) UTI (urinary tract infection) Assessment/Plan: -Colonized -ID consult -No abs recommended at this time -afebrile Problems reviewed: Yes Code(s): N39.0 - URINARY TRACT INFECTION, SITE NOT SPECIFIED Qualifiers: Urinary tract infection type: acute cystitis Hematuria presence: without hematuria Qualified Code(s): N30.00 - Acute cystitis without hematuria (4) Anemia Assessment/Plan: -chronic, H/H stable at this time -Received Venofer x 1 -Hemotology+ Oncology -monitor trend Problems reviewed: Yes Code(s): D64.9 - ANEMIA, UNSPECIFIED (5) Hypokalemia Assessment/Plan: -2/2 to NPO status -Replace with KCl 10 meq x 3 -Decrease Clinimix to 42 cc/hr -Start D5+NS+ KCl 40 meq @ 50 cc/hr Problems reviewed: Yes Code(s): E87.6 - HYPOKALEMIA Assessment/Plan see problem list Initiated transfer to [facility] Spoke to Transfer Center, Dr Andrés Steward will be accepting the patient. Case under review for case management. Transfer Center to call me back to confirm transfer. Pt will need S transportation to be arranged by [facility].
[2019-04-30] MEDS: LEVOTHYROXINE SODIUM 100 MCG VIAL IVPUSH SCH (09:43)
[2019-04-30] MEDS: HEPARIN NA (PORCINE) 5,000 UNITS/ML 1ML VIAL SQ SCH (09:48)
[2019-04-30 10:08] LABS: BASO % 0.5 % (0-2.0); EOS % 0.1 % (0-4.5); HEMATOCRIT 26.5 % (32.4-45.2); HEMOGLOBIN 8.9 GM/dL (10.7-15.3); MCH 27.4 pg (25.7-33.7); MCHC 33.5 g/dl (32.0-36.0); MEAN CELL VOLUME 81.9 fl (80-96); MEAN PLT VOLUME 8.7 fl (7.5-11.1); MONO % 9.8 % (3.8-10.2); NEUT % 80.6 % (42.8-82.8); PLATELET COUNT 289 K/MM3 (134-434); RBC 3.23 M/mm3 (3.60-5.2); WHITE BLOOD COUNT 10.7 K/mm3 (4.0-10.0)
[2019-04-30 10:22] LABS: ALBUMIN 2.8 g/dl (3.4-5.0); BILIRUBIN,TOTAL 0.7 mg/dL (0.2-1); BLOOD UREA NITROGEN 24.9 mg/dL (7-18); CALCIUM 7.8 mg/dL (8.5-10.1); CREATININE 0.8 mg/dL (0.55-1.3); MAGNESIUM 1.5 mg/dL (1.8-2.4); TOT PROT 5.1 g/dl (6.4-8.2)
[2019-04-30 10:46] LABS: POTASSIUM 2.8 mmol/L (3.5-5.1)
[2019-04-30] MEDS ORDERED: D5-NS + 40 MEQ KCL - 40 MEQ/1,000 ML INFUS.BAG IV SCH (11:30)
[2019-04-30] MEDS ORDERED: AMINO ACIDS 4.25%/D5W 1,000 ML IV SCH (11:45)
[2019-04-30] MEDS: KCL 10 MEQ IVPB 10 MEQ/100 ML INFUS.BAG IVPB SCH ×3 (11:47→14:20)
[2019-04-30] MEDS ORDERED: ACETAMINOPHEN 1000 MG/100 ML VIAL (NON FORMULARY) IVPB PRN (11:47)
--- NOTE | 2019-04-30 13:06 | PN ---
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 Admitted for a developing SBO. Patient had BM yesterday and today, no nausea and vomiting. Unable to insert NGT Pt being transferred to [facility] - Objective Vital Signs: Vital Signs Temperature 98.1 F 04/30/19 10:00 Pulse Rate 100 H 04/30/19 10:00 Respiratory Rate 04/30/19 10:00 Blood Pressure 145/92 04/30/19 10:00 O2 Sat by Pulse Oximetry (%) 98 04/29/19 21:00 Constitutional: Well Nourished Eyes: Yes: Conjunctiva Clear HENT: Yes: Atraumatic Neck: Yes: Supple Cardiovascular: Yes: Regular Rate and Rhythm Respiratory: Yes: CTA Bilaterally ...Palpate: Yes: Mass (suprapubic mass), Soft, Tenderness. No: Firm/Rigid, Guarding, Hepatomegaly, Pulsatile Mass, Splenomegaly Labs: CBC, BMP 04/30/19 08:30 04/30/19 06:00 INR, PTT INR 1.10 (0.83-1.09) H 04/24/19 23:58 Problem List - Problems (1) SBO (small bowel obstruction) Assessment/Plan: patient refused let me try to insert NGT, prefer to have it done at [facility] suprapubic mass Code(s): K56.609 - UNSP INTESTNL OBST, UNSP TO PARTIAL VERSUS COMPLETE OBST
[2019-04-30 15:18] VITALS: BP 149/91; PULSE 96; TEMP 98
--- NOTE | 2019-05-10 08:59 | PN ---
Progress Note (short form) - Note Progress Note: ADDENDUM DIAGNOSIS: SEVERE MALNUTRITION WITH SEVERE MUSCLE LASS AND SC FAT LOSS, 30LB WEIGHT LOSS IN LAST 6 MONTHS
== END 2019-04-30 15:52 | disposition hospice, inpatient (51) | DRG 686 ==
LOC: JER 21:28 → JERBED 04-25 05:13 → J6S 04-25 15:20
PROVIDERS: ADMIT Family Medicine; ATTEND Family Medicine
DX: C67.9 Malignant neoplasm of bladder, unspecified (principal); E43 Unspecified severe protein-calorie malnutrition; C79.00 Secondary malignant neoplasm of unspecified kidney and renal pelvis; C79.51 Secondary malignant neoplasm of bone; C78.7 Secondary malignant neoplasm of liver and intrahepatic bile duct; K56.50 Intestinal adhesions [bands], unspecified as to partial versus complete obstruction; N39.0 Urinary tract infection, site not specified; F33.9 Major depressive disorder, recurrent, unspecified; R19.00 Intra-abdominal and pelvic swelling, mass and lump, unspecified site; I10 Essential (primary) hypertension; E78.5 Hyperlipidemia, unspecified; E06.3 Autoimmune thyroiditis; E86.0 Dehydration; R82.71 Bacteriuria; R63.4 Abnormal weight loss; Z68.20 Body mass index [BMI] 20.0-20.9, adult; D50.0 Iron deficiency anemia secondary to blood loss (chronic); D63.8 Anemia in other chronic diseases classified elsewhere; M99.09 Segmental and somatic dysfunction of abdomen and other regions; F45.1 Undifferentiated somatoform disorder; S32.591D Other specified fracture of right pubis, subsequent encounter for fracture with routine healing; E87.6 Hypokalemia; Z90.5 Acquired absence of kidney
CPT/HCPCS: 36415; 71045-TC-FY; 74018-TC-FY; 74019-TC-FY; 74176-TC; 80048; 80053; 81003; 82607; 82668; 82728; 82746; 83540; 83550; 83735; 84443; 84484; 85025; 85027; 85610; 87086; 87186; 93005; 93010; 97116-GP; 97161-GP; 99285-25; J0131; J1439; J1644; J1756; J7030